=== PATIENT | male | born 1970 | race Caucasian/White ===

== ENCOUNTER 2017-02-25 11:17 | Inpatient (IN) | payer OTHER ==
[2017-02-25 13:04] VITALS: BMI 19.7
--- NOTE | 2017-02-25 16:51 | HP ---
CIWA Score - CIWA Score Nausea/Vomitin-Mild Nausea/No Vomiting Muscle Tremors: 3 Anxiety: 4-Mod. Anxious/Guarded Agitation: 1-Slight > Activity Paroxysmal Sweats: 1-Minimal Palms Moist Orientation: 1-Uncertain about Date Tacttile Disturbances: 0-None Auditory Disturbances: 1-Very Mild Visual Disturbances: 1-Very Mild Sensitivity Headache: 1-Very Mild CIWA-Ar Total Score: 14 Admission ROS BHS - HPI Chief Complaint: I want to stop drinking Allergies/Adverse Reactions: Allergies Allergy/AdvReac Type Severity Reaction Status Date / Time No Known Allergies Allergy Verified 02/25/17 16:50 History of Present Illness: 46 yo gentleman here for detox from alcohol - previously here october 2015. History of seizure and 'falls down' from drinking, also with black outs. States he has lost weight due to drinking. Exam Limitations: Clinical Condition - Ebola screening Have you traveled outside of the country in the last 21 days: No Have you had contact with anyone from an Ebola affected area: No Have you been sick,other than usual withdrawal symptoms: No Do you have a fever: No - Review of Systems Constitutional: Loss of Appetite, Changes in sleep EENT: reports: Blurred Vision Respiratory: reports: No Symptoms reported Cardiac: reports: No Symptoms Reported GI: reports: No Symptoms Reported : reports: Frequency Musculoskeletal: reports: No Symptoms Reported Integumentary: reports: No Symptoms Reported Neuro: reports: No Symptoms reported Endocrine: reports: No Symptoms Reported Hematology: reports: No Symptoms Reported Psychiatric: reports: Judgement Intact, Mood/Affect Appropiate, Anxious Other Systems: Reviewed and Negative Patient History - Patient Medical History Hx Anemia: No Hx Asthma: No Hx Chronic Obstructive Pulmonary Disease (COPD): No Hx Cancer: No Hx Cardiac Disorders: No Hx Congestive Heart Failure: No Hx Hypertension: Yes Hx Hypercholesterolemia: No Hx Pacemaker: No HX Cerebrovascular Accident: No Hx Seizures: Yes (ALCOHOL RELATED 3 MONTHS AGO) Hx Dementia: No Hx Diabetes: No Hx Gastrointestinal Disorders: No Hx Liver Disease: No Hx Genitourinary Disorders: No Hx Sexually Transmitted Disorders: No Hx Renal Disease (ESRD): No Hx Thyroid Disease: No Hx Human Immunodeficiency Virus (HIV): No Hx Hepatitis C: No Hx Depression: No Hx Suicide Attempt: No Hx Bipolar Disorder: No Hx Schizophrenia: No - Patient Surgical History Past Surgical History: No Hx Neurologic Surgery: No Hx Cataract Extraction: No Hx Cardiac Surgery: No Hx Lung Surgery: No Hx Breast Surgery: No Hx Breast Biopsy: No Hx Abdominal Surgery: No Hx Appendectomy: No Hx Cholecystectomy: No Hx Genitourinary Surgery: No Hx Section: No Hx Orthopedic Surgery: No Anesthesia Reaction: No - PPD History Date: 10/10/15 - Reproductive History Patient is a Female of Child Bearing Age (11 -55 yrs old): No (male) - Smoking Cessation Smoking history: Never smoked Have you smoked in the past 12 months: No Aproximately how many cigarettes per day: 0 Cigars Per Day: 0 Hx Chewing Tobacco Use: No Initiated information on smoking cessation: No - Substance & Tx. History Hx Alcohol Use: Yes Hx Substance Use: No Substance Use Type: Alcohol Hx Substance Use Treatment: Yes (detox) - Substances Abused Alcohol Route: Oral Frequency: Daily Amount used: 1 pint liquor Age of first use: 24 Date of Last Use: 02/24/17 Family Disease History - Family Disease History Family Disease History: Diabetes: Mother (htn, ), [place]: Father ( ; esophageal ), Mother, Other: Brother (healthy, etoh), Son (in army), Daughter (a ice cream dipper) Admission Physical Exam S - Vital Signs Vital Signs: Vital Signs - 24 hr 02/25/17 12:59 Temperature 96.4 F L Pulse Rate 113 H Respiratory 19 Rate Blood Pressure 110/70 - Physical General Appearance: Yes: Nourished, Appropriately Dressed, Mild Distress, Anxious HEENTM: Yes: Hearing grossly Normal, Normal ENT Inspection, Normocephalic, Normal Voice, Pharynx Normal Respiratory: Yes: Normal Breath Sounds, No Respiratory Distress Neck: Yes: No masses,lesions,Nodules Breast: Yes: Breast Exam Deferred Cardiology: Yes: Regular Rhythm, Regular Rate Abdominal: Yes: Soft Genitourinary: Yes: Frequency Back: Yes: Normal Inspection Musculoskeletal: Yes: full range of Motion, Gait Steady Extremities: Yes: Normal Inspection, Normal Range of Motion Neurological: Yes: Fully Oriented, Alert, Normal Mood/Affect, Normal Response Integumentary: Yes: Normal Color, Warm Lymphatic: Yes: Within Normal Limits - Diagnostic (1) Alcohol dependence with uncomplicated withdrawal Current Visit: Yes Status: Chronic (2) GERD (gastroesophageal reflux disease) Current Visit: Yes Status: Chronic (3) History of seizure Current Visit: Yes Status: Chronic Cleared for Admission [facility] - Detox or Rehab [facility] Level of Care: Medically Managed Detox Regimen/Protocol: Librium [facility] Breath Alcohol Content Breath Alcohol Content: 0.421 Urine Drug Screen - Results Drug Screen Negative: Yes Urine Drug Screen Results: THC-Marijuana, [place]-Cocaine, OPI-Opiates, AMP- Amphetamines, MET-Methamphetamine, PCP-Phencyclidine, MDMA-Ecstasy, BAR- Barbiturates, BZO-Benzodiazepines, MTD-Methadone, TCA-Tricyclic Antidepress, OXY -Oxycodone
[2017-02-25] MEDS ORDERED: MENTHOL/PHENOL 1 EACH UD MM PRN (16:56)
[2017-02-25] MEDS ORDERED: MAG HYDROX/AL HYDROX/SIMETH 30 ML UNIT-DOSE CUP PO PRN (16:56)
[2017-02-25] MEDS ORDERED: diphenhydrAMINE HCL 50 MG CAPSULE PO PRN (16:56)
[2017-02-25] MEDS ORDERED: hydrOXYzine PAMOATE 50 MG CAPSULE (FP) PO PRN (16:56)
[2017-02-25] MEDS ORDERED: P-EPHED 60MG/TRIPROLIDI 2.5MG TABLET PO PRN (16:56)
[2017-02-25] MEDS ORDERED: IBUPROFEN 400 MG TABLET (FP) PO PRN (16:56)
[2017-02-25] MEDS ORDERED: MAGNESIUM CITRATE 300 ML BOTTLE PO PRN (16:56)
[2017-02-25] MEDS ORDERED: MAGNESIUM HYDROX 2400MG/30ML ORAL SUSPENSION 30 ML CUP PO PRN (16:56)
[2017-02-25] MEDS ORDERED: guaiFENesin/D-METHORPHAN HB 10 ML UNIT-DOSE CUPS PO PRN (16:56)
[2017-02-25] MEDS ORDERED: ACETAMINOPHEN 325 MG TABLET (FP) PO PRN (16:56)
[2017-02-25] MEDS ORDERED: LOPERAMIDE HCL 2 MG CAPSULE PO PRN (16:56)
[2017-02-25] MEDS ORDERED: chlordiazePOXIDE HCL 25 MG CAPSULE PO ONE (18:15)
[2017-02-25 21:11] LABS: URINE APPEARANCE CLEAR; URINE BILIRUBIN NEGATIVE (NEGATIVE); URINE BLOOD 1+ (NEGATIVE); URINE COLOR STRAW; URINE GLUCOSE (UA) NEGATIVE (NEGATIVE); URINE KETONE NEGATIVE (NEGATIVE); URINE LEUK ESTERASE NEGATIVE (NEGATIVE); URINE NITRITE NEGATIVE (NEGATIVE); URINE PROTEIN NEGATIVE (NEGATIVE); URINE UROBILINOGEN NEGATIVE mg/dL (0.2-1.0)
[2017-02-25] MEDS: chlordiazePOXIDE HCL 25 MG CAPSULE PO SCH (22:33)
[2017-02-25] MEDS: THIAMINE HCL 100 MG TABLET (FP) PO SCH (22:33)
[2017-02-26] MEDS: chlordiazePOXIDE HCL 25 MG CAPSULE PO SCH ×3 (06:10→18:41)
[2017-02-26] MEDS: chlordiazePOXIDE HCL 25 MG CAPSULE PO PRN ×2 (08:58→13:45)
[2017-02-26] MEDS ORDERED: PRENATAL VITAMINS W/ FOLIC ACID TABLET (FP) PO SCH (10:00)
[2017-02-26] MEDS ORDERED: PANTOPRAZOLE 20 MG TABLET (FP) PO SCH (10:00)
[2017-02-26] MEDS ORDERED: PANTOPRAZOLE 40 MG TABLET (FP) PO SCH (10:00)
[2017-02-26 10:20] LABS: MCH 34.2 pg (25.7-33.7); MCHC 33.8 g/dl (32.0-35.9); MEAN CELL VOLUME 101.1 fl (80-96); MEAN PLT VOLUME 8.8 fl (7.5-11.1); PLATELET COUNT 85 K/MM3 (134-434); RDW 14.6 % (11.9-15.9); WHITE BLOOD COUNT 4.8 K/mm3 (4.0-10.0)
--- NOTE | 2017-02-26 10:22 | EKG ---
Test Reason : Blood Pressure : / mmHG Vent. Rate : 098 BPM Atrial Rate : 098 BPM P-R Int : 142 ms QRS Dur : 096 ms QT Int : 382 ms P-R-T Axes : 043 005 266 degrees QTc Int : 487 ms NORMAL SINUS RHYTHM PROLONGED QT ABNORMAL ECG WHEN COMPARED WITH ECG OF 25-FEB-2017 17:50, NO SIGNIFICANT CHANGE WAS FOUND Confirmed by MD IVETTE, BRENNAN ([id number]) on 02/26/2017 10:21:42 AM Referred By: Confirmed By:BRENNAN STEELE MD
--- NOTE | 2017-02-26 10:23 | EKG ---
Test Reason : Blood Pressure : / mmHG Vent. Rate : 099 BPM Atrial Rate : 099 BPM P-R Int : 156 ms QRS Dur : 100 ms QT Int : 366 ms P-R-T Axes : 038 002 -81 degrees QTc Int : 469 ms NORMAL SINUS RHYTHM PROLONGED QT ABNORMAL ECG NO PREVIOUS ECGS AVAILABLE Confirmed by MD IVETTE, BRENNAN ([id number]) on 02/26/2017 10:22:59 AM Referred By: Confirmed By:BRENNAN STEELE MD
[2017-02-26 10:44] LABS: ALBUMIN 2.9 g/dl (3.4-5.0); ALK PHOS 150 U/L (45-117); BILIRUBIN,TOTAL 0.4 mg/dL (0.2-1.0); CALCIUM 8.3 mg/dL (8.5-10.1); CO2 33 mmol/L (21-32); CREATININE 0.5 mg/dL (0.7-1.3); GLUCOSE,RANDOM 89 mg/dL (74-106); SGOT/AST 299 U/L (15-37); SGPT/ALT 87 U/L (12-78)
[2017-02-26 10:50] LABS: ANION GAP 10 (8-16)
--- NOTE | 2017-02-26 11:49 | CONSULT ---
[facility] Psychiatric Consult - Data Date of interview: 02/26/17 Admission source: [facility] Identifying data: Readmission to [facility] for this 46 y/o male seeking detox treatment [address] for alcohol dependence (U tox screen is positive for multiple substances).Patient is ,a father of one,domiciled and employed. Substance Abuse History: Patient only declares dependence on alcohol since age 23 (vodka + beer).See Tox screen results for additional information. Medical History: History of alcohol-related seizures and hypertension. Psychiatric History: Patient denies. Physical/Sexual Abuse/Trauma History: Patient denies. Additional Comment: Urine Drug Screen Results: THC-Marijuana, [place]-Cocaine, OPI- Opiates, AMP-Amphetamines, MET-Methamphetamine, PCP-Phencyclidine, MDMA-Ecstasy , BAR-Barbiturates, BZO-Benzodiazepines, MTD-Methadone, TCA-Tricyclic Antidepressant, OXY-Oxycodone.Noted from [facility] report. Mental Status Exam - Mental Status Exam Alert and Oriented to: Time, Place, Person Cognitive Function: Grossly Intact Patient Appearance: Unkempt, Disheveled Mood: Withdrawn, Apprehensive (thin) Affect: Constricted Patient Behavior: Fatigued, Cooperative Speech Pattern: Clear Voice Loudness: Moderately Soft/Quiet Thought Process: Goal Oriented Thought Disorder: Not Present Hallucinations: Denies Suicidal Ideation: Denies Insight/Judgement: Poor Sleep: Well Appetite: Poor, Weight loss Gait/Station: Other (unsteady gait) Psychiatric Findings - Problem List ([place] 1, 2,3) (1) Alcohol dependence with uncomplicated withdrawal Current Visit: Yes Status: Acute (2) Cannabis abuse Current Visit: Yes Status: Acute (3) Amphetamine abuse Current Visit: Yes Status: Acute (4) Opioid abuse Current Visit: Yes Status: Acute (5) Cocaine abuse Current Visit: Yes Status: Acute (6) Seizure disorder Current Visit: Yes Status: Chronic (7) GERD (gastroesophageal reflux disease) Current Visit: Yes Status: Chronic - Initial Treatment Plan Initial Treatment Plan: Psychoeducation.Detoxification is in progress.Falls precautions.Observation.
--- NOTE | 2017-02-26 12:23 | PN ---
[facility] CIWA - CIWA Score Nausea/Vomitin Muscle Tremors: 5 Anxiety: 3 Agitation: 0-Normal Activity Paroxysmal Sweats: 3 Orientation: 2-Disoriented Date<2 days Tacttile Disturbances: 2-Mild Itch/Numbness/Burn Auditory Disturbances: 2-Mild Harshness/Frighten Visual Disturbances: 0-None Headache: 0-None Present CIWA-Ar Total Score: 20 S Progress Note (SOAP) Subjective: Nausea, Stomach Cramping, Sweating, Tremors, Interrupted sleep. Objective: PT. A & O X 2 (DISORIENTED ABOUT DAY / DATE). NO ACUTE DISTRESS. RESULT OF REPEAT ECG FROM EARLIER TODAY NOTED. PATIENT DENIES ANY HISTORY OF CARDIAC DISEASE / DISORDER. 02/26/17 12:18 Vital Signs Temperature 98.5 F 02/26/17 09:19 Pulse Rate 106 H 02/26/17 09:19 Respiratory Rate 18 02/26/17 09:19 Blood Pressure 111/77 02/26/17 09:19 O2 Sat by Pulse Oximetry (%) Laboratory Tests 02/25/17 02/26/17 02/26/17 18:15 06:30 06:30 WBC 4.8 D RBC 2.83 L D Hgb 9.7 L D Hct 28.6 L D MCV 101.1 H MCH 34.2 H MCHC 33.8 RDW 14.6 D Plt Count 85 L D MPV 8.8 Sodium 139 Chloride 96 L Carbon Dioxide 33 H Anion Gap 10 BUN 6 L D Creatinine 0.5 L D Creat Clearance w eGFR > 60 Random Glucose 89 D Calcium 8.3 L Total Bilirubin 0.4 D AST 299 H ALT 87 H D Alkaline Phosphatase 150 H D Total Protein 7.0 Albumin 2.9 L D Urine Color Straw Urine Appearance Clear Urine pH 7.0 Ur Specific [place] 1.010 Urine Protein Negative Urine Glucose (UA) Negative Urine Ketones Negative Urine Blood 1+ H Urine Nitrite Negative Urine Bilirubin Negative Urine Urobilinogen Negative Ur Leukocyte Esterase Negative LABS NOTED. RPR AND HIV ANTIBODY RESULTS PENDING. 02/26/17 12:39 02/26/17 12:40 02/26/17 12:42 Assessment: 02/26/17 12:20 WITHDRAWAL SYMPTOMS. Plan: CONTINUE DETOX. POTASSIUM, LIQUID FORM, 40 MEQ PO BID (FIRST DOSE NOW) ORDERED. FEOSOL 325 MG PO BID WITH MEALS ORDERED. REPEAT CBC AND COMP. META. PANEL ON 02/28/2017 FOR ADMISSION ABNORMALITIES. INCREASE DOSE OF PROTONIX TO 40 MG PO DAILY FOR GERD EXACERBATION. WHEELCHAIR ORDERED TO ASSIST PATIENT DUE TO DIFFICULTY WITH AMBULATION. INCREASE PO FLUID INTAKE. CONTINUE TO MONITOR.
[2017-02-26] MEDS ORDERED: POTASSIUM CHLORIDE ORAL LIQUID 20 MEQ/15 ML PO ONE (13:15)
[2017-02-26 14:30] VITALS: BP 106/75; PULSE 120; TEMP 99
--- NOTE | 2017-02-26 15:45 | PN ---
[facility] Progress Note Note: Patient currently detoxing from Alcohol with Librium Detox regimen. Patient complaining of epigastric and discomfort earlier today in AM. Protonix, 40 mg PO given in AM. Patient reports history of GERD, but denies any cardiac history. Just received report from RN that patient reported that discomfort had subsided earlier, but that now has returned and that he is feeling discomfort in chest. When asked patient points primarily to sternal area as currently affected area. Patient reports pain as sharp and 8/10 on pain scale. Patient denies any radiation of pain, including to left arm. VS: BP: 102/66; P: 91; RR: 18: T: 99.1; O2: 91 % (Room Air). Report given to EDUAR Byers at [facility]. Patient to be taken via ambulance to [facility]. [place] NP.
[2017-02-26] MEDS ORDERED: FERROUS SO4 325 MG TABLET (FP) PO SCH (17:30)
[2017-02-26] MEDS ORDERED: POTASSIUM CHLORIDE ORAL LIQUID 20 MEQ/15 ML PO SCH ×2 (22:00)
[2017-02-26] MEDS: THIAMINE HCL 100 MG TABLET (FP) PO SCH (22:57)
[2017-02-26] MEDS ORDERED: chlordiazePOXIDE HCL 25 MG CAPSULE PO SCH (23:00)
[2017-02-27 14:58] LABS: HIV 1 & 2 AB NEGATIVE; HIV 1 AGp24 NEGATIVE
--- NOTE | 2017-02-27 22:49 | DS ---
[facility] Detox Discharge Summary Admission Date: 02/25/17 Discharge Date: 02/27/17 - History Present History: Alcohol Dependence, Cannabis Dependence, Cocaine Dependence, Opioid Dependence Additional Comments: PATIENT TAKEN TAKEN VIA AMBULANCE TO [facility] FOR CHEST PAIN, LATER ADMITTED TO HOSPITAL. Pertinent Past History: GERD, HTN, History of Seizures (due to Withdrawal). - Physical Exam Results Vital Signs: Vital Signs Temperature 99 F 02/26/17 14:29 Pulse Rate 120 H 02/26/17 14:29 Respiratory Rate 20 02/26/17 14:29 Blood Pressure 106/75 02/26/17 14:29 O2 Sat by Pulse Oximetry (%) Pertinent Admission Physical Exam Findings: WITHDRAWAL SYMPTOMS. Laboratory Tests 02/25/17 02/26/17 02/26/17 18:15 06:30 06:30 WBC 4.8 D RBC 2.83 L D Hgb 9.7 L D Hct 28.6 L D MCV 101.1 H MCH 34.2 H MCHC 33.8 RDW 14.6 D Plt Count 85 L D MPV 8.8 Sodium 139 Potassium 2.8 L* D Chloride 96 L Carbon Dioxide 33 H Anion Gap 10 BUN 6 L D Creatinine 0.5 L D Creat Clearance w eGFR > 60 Random Glucose 89 D Calcium 8.3 L Total Bilirubin 0.4 D AST 299 H ALT 87 H D Alkaline Phosphatase 150 H D Total Protein 7.0 Albumin 2.9 L D Urine Color Straw Urine Appearance Clear Urine pH 7.0 Ur Specific [place] 1.010 Urine Protein Negative Urine Glucose (UA) Negative Urine Ketones Negative Urine Blood 1+ H Urine Nitrite Negative Urine Bilirubin Negative Urine Urobilinogen Negative Ur Leukocyte Esterase Negative RPR Titer HIV 1&2 Antibody Screen HIV P24 Antigen 02/26/17 02/26/17 06:30 07:00 WBC RBC Hgb Hct MCV MCH MCHC RDW Plt Count MPV Sodium Potassium Chloride Carbon Dioxide Anion Gap BUN Creatinine Creat Clearance w eGFR Random Glucose Calcium Total Bilirubin AST ALT Alkaline Phosphatase Total Protein Albumin Urine Color Urine Appearance Urine pH Ur Specific [place] Urine Protein Urine Glucose (UA) Urine Ketones Urine Blood Urine Nitrite Urine Bilirubin Urine Urobilinogen Ur Leukocyte Esterase RPR Titer Nonreactive HIV 1&2 Antibody Screen Negative HIV P24 Antigen Negative LABS NOTED. - Treatment Hospital Course: Detox Protocol Followed, Detoxed Safely Patient has Accepted a Rehab Referral to: PATIENT DISCHARGED TO [facility]. SEE ADDITIONAL COMMENTS SECTION ABOVE - Diagnosis (1) Amphetamine abuse Status: Acute (2) Cannabis abuse Status: Acute (3) Chest pain Status: Acute Qualifiers: Chest pain type: other chest pain Qualified Code(s): R07.89 - Other chest pain; R07.8 - Other chest pain (4) Cocaine abuse Status: Acute (5) Alcohol dependence with uncomplicated withdrawal Status: Acute (6) GERD (gastroesophageal reflux disease) Status: Chronic Qualifiers: Esophagitis presence: without esophagitis Qualified Code(s): K21.9 - Gastro-esophageal reflux disease without esophagitis (7) History of seizure Status: Chronic (8) Pancreatitis Status: Acute Qualifiers: Chronicity: acute Pancreatitis type: alcohol induced Acute pancreatitis complication: unspecified Qualified Code(s): K85.20 - Alcohol induced acute pancreatitis without necrosis or infection - AMA Did Patient Leave Against Medical Advice: No
[2017-02-27] MEDS ORDERED: chlordiazePOXIDE 5 MG CAPSULE PO SCH (23:00)
[2017-02-28] MEDS ORDERED: chlordiazePOXIDE HCL 10 MG CAPSULE PO SCH (23:00)
--- NOTE | 2017-03-01 12:03 | EKG ---
Test Reason : Blood Pressure : / mmHG Vent. Rate : 091 BPM Atrial Rate : 091 BPM P-R Int : 126 ms QRS Dur : 094 ms QT Int : 406 ms P-R-T Axes : 025 -06 013 degrees QTc Int : 499 ms NORMAL SINUS RHYTHM T WAVE ABNORMALITY, CONSIDER ANTERIOR ISCHEMIA PROLONGED QT ABNORMAL ECG WHEN COMPARED WITH ECG OF 26-FEB-2017 06:42, NO SIGNIFICANT CHANGE WAS FOUND Confirmed by EMIR GRIGSBY MD ([id number]) on 03/01/2017 12:03:34 PM Referred By: Confirmed By:EMIR GRIGSBY MD
== END 2017-02-26 16:14 | disposition short-term general hospital (02) | DRG 774 ==
LOC: YASAS 11:17 → Y3N 17:36
PROVIDERS: ADMIT Internal Medicine Addiction Medicine; ATTEND Internal Medicine Addiction Medicine
PROC: HZ2ZZZZ Detoxification Services for Substance Abuse Treatment (ICD-10-PCS; principal; 2017-02-26)
DX: F10.230 Alcohol dependence with withdrawal, uncomplicated (principal); F14.10 Cocaine abuse, uncomplicated; F15.10 Other stimulant abuse, uncomplicated; F12.10 Cannabis abuse, uncomplicated; K21.9 Gastro-esophageal reflux disease without esophagitis; Z86.69 Personal history of other diseases of the nervous system and sense organs; K85.20 Alcohol induced acute pancreatitis without necrosis or infection
CPT/HCPCS: 36415; 80053; 81003; 81015; 85027; 86593; 87389; 93005; 93010

== ENCOUNTER 2017-02-26 16:24 | Inpatient (IN) | payer OTHER ==
[2017-02-26] MEDS ORDERED: RANITIDINE HCL 150 MG TABLET (FP) ONE (16:39)
[2017-02-26] MEDS ORDERED: MAG HYDROX/AL HYDROX/SIMETH 30 ML UNIT-DOSE CUP ONE (16:39)
[2017-02-26] MEDS ORDERED: MAG HYDROX/AL HYDROX/SIMETH 30 ML UNIT-DOSE CUP PO ONE (16:51)
[2017-02-26] MEDS ORDERED: RANITIDINE HCL 150 MG TABLET (FP) PO ONE (16:51)
--- NOTE | 2017-02-26 16:54 | PDOC ---
History of Present Illness - General Stated Complaint: CHEST PAIN Time Seen by Provider: 02/26/17 16:27 History Source: Patient Exam Limitations: No Limitations - History of Present Illness Initial Comments: 46 ear old male with history of assumed alcohol withdrawal seizures presenting from [facility] for nausea, vomiting, diarrhea, and chest pain since this AM. He was on a Librium taper at the detox center and began vomiting this AM that was refractory to librium and Protonix 40. He was reduced from a 50 po q6 librium regimen to 25 Q6 PO today. He describes the chest pain as an 8/10 sharp , non-radiating left sided pain that co-presents with diaphoresis and SOB. He states that his current constellation of symptoms are typical of his withdrawal episodes but he typically does not have chest pains. He does not have personal cardiac risk factors but has a few family members who from cardiac insult at an earlier age. 02/26/17 17:23 Past History - Past Medical History Allergies/Adverse Reactions: Allergies Allergy/AdvReac Type Severity Reaction Status Date / Time No Known Allergies Allergy Verified 02/25/17 16:50 Home Medications: Ambulatory Orders Omeprazole [Prilosec (RX)] 20 mg PO DAILY 10/08/15 Anemia: No Asthma: No Cancer: No Cardiac Disorders: No CVA: No COPD: No CHF: No Dementia: No Diabetes: No GI Disorders: No Disorders: No HTN: Yes Hypercholesterolemia: No Kidney Stones: No Liver Disease: No Suicide Attempt (Hx): No Seizures: Yes (ALCOHOL RELATED 3 MONTHS AGO) Thyroid Disease: No - Surgical History Abdominal Surgery: No Appendectomy: No Cardiac Surgery: No Cholecystectomy: No Lung Surgery: No Neurologic Surgery: No Orthopedic Surgery: No - Reproductive History Testicular Surgery: No - Psycho/Social/Smoking Cessation Hx Anxiety: No Suicidal Ideation: No Smoking History: Never smoked Have you smoked in the past 12 months: No Number of Cigarettes Smoked Daily: 0 Cigars Per Day: 0 'Breaking Loose' booklet given: 10/08/15 Hx Alcohol Use: Yes Drug/Substance Use Hx: No Substance Use Type: Alcohol Hx Substance Use Treatment: Yes (detox) Review of Systems - Review of Systems Constitutional: Yes: Chills, Diaphoresis. No: Fever, Loss of Appetite HEENTM: No: Blurred Vision, Tearing, Recent change in vision Respiratory: Yes: Shortness of Breath. No: Cough, Orthopnea Cardiac (ROS): Yes: Chest Pain, Lightheadedness. No: Edema, Irregular Heart Rate ABD/GI: Yes: Diarrhea, Nausea, Vomiting, Other (dark stools). No: Abdominal Distended : No: Frequency, Incontinence Musculoskeletal: No: Back Pain, Muscle Pain Integumentary: No: Dryness, Erythema Neurological: No: Headache *Physical Exam - Physical Exam General Appearance: Yes: Nourished, Appropriately Dressed, Apparent Distress, Mild Distress, Other (Tremulous) HEENT: positive: EOMI, ABELINO, Normal Voice Neck: positive: Normal Thyroid, Supple. negative: Tender, Rigid Respiratory/Chest: positive: Lungs Clear, Normal Breath Sounds. negative: Chest Tender, Respiratory Distress, Accessory Muscle Use Cardiovascular: positive: Regular Rhythm, Tachycardia. negative: Murmur Gastrointestinal/Abdominal: positive: Normal Bowel Sounds, Tender (Epigastic). negative: Flat, Soft, Organomegaly, Pulsatile Mass Rectal Exam: positive: normal exam, normal rectal tone. negative: hemorrhoids ( No external hemorrhoids) Musculoskeletal: positive: Normal Inspection Extremity: positive: Normal Capillary Refill, Normal Inspection, Normal Range of Motion. negative: Tender Integumentary: positive: Normal Color, Dry Neurologic: positive: Fully Oriented, Alert, Other (tremulousness) ED Treatment Course - LABORATORY CBC & Chemistry Diagram: 02/26/17 16:57 02/26/17 16:57 Medical Decision Making - Medical Decision Making 46 year old male with PMH of ETOH abuse presenting with nausea, vomiting, diarrhea, and chest pain from inpatient detox clinic. He has some family risk factors but no personal risk factors and with EKG changes significant for anterior lead T wave inversions. Will send CMP, troponins, CBC, repeat EKG, and CXR. Will give librium 50, Maalox, and ranitidine. 02/26/17 18:04 Lipase returned at 1400 with elevated LFTs but trop negative, Will admit patient for pancreatitis and potential ETOH withdrawal. 02/26/17 18:10 02/26/17 21:15 Patient admitted to [facility] Admitting service Dr. Michaels to [facility]. *DC/Admit/Observation/Transfer Diagnosis at time of Disposition: Pancreatitis - Discharge Dispostion Admit: Yes - Referrals Referrals: STAFF,NOT ON [Primary Care Provider] - - Attestations Scribe Attestion: 02/26/17 21:20 Physician Attestion: 02/26/17 21:19 I, Dr. Treva Givens, attest that this document has been prepared under my direction and personally reviewed by me in its entirety. I further attest, that it accurately reflects all work, treatment, procedures and medical decision -making performed by me.
[2017-02-26] MEDS ORDERED: PANTOPRAZOLE SODIUM 40 MG in SODIUM CHLORIDE 100 ML IVPB STA (16:58)
[2017-02-26] MEDS ORDERED: chlordiazePOXIDE HCL 25 MG CAPSULE PO ONE (17:06)
[2017-02-26 17:08] VITALS: BMI 19.8
--- NOTE | 2017-02-26 17:11 | PDOC ---
Attending Attestation - Resident Resident Name: Treva Givens - ED Attending Attestation I have performed the following: I have examined & evaluated the patient, The case was reviewed & discussed with the resident, I agree w/resident's findings & plan, Exceptions are as noted - HPI HPI: 02/26/17 17:04 46-year-old male with past medical history of polysubstance abuse and alcohol withdrawal seizures presents from [address] [place] [address] for chest pain. The patient was admitted yesterday for alcohol withdrawal and was given Librium. Patient states that he was feeling unwell this morning but had developed to dark tarry-like stools. Stated that he had may have taken Pepto-Bismol for abdominal pain. However, proximal at 2:00 PM, patient suddenly developed chest tightness with no radiation associated shortness of breath. Reports some nausea but no vomiting. Stated he also had epigastric discomfort. Denies sick contacts or recent travels. States that he has strong family history where his uncle had an HI at 46 years old but the patient never had a cardiac history but he was never tested for. - Physicial Exam PE: 02/26/17 17:07 GENERAL: Awake, alert, and fully oriented, in no acute distress. HEAD: No signs of trauma EYES: PERRLA, EOMI, sclera anicteric, conjunctiva clear ENT: Auricles normal inspection, hearing grossly normal, nares patent, oropharynx clear without exudates. NECK: Normal ROM, supple, no lymphadenopathy, JVD, or masses LUNGS: Breath sounds equal, clear to auscultation bilaterally. No wheezes, and no crackles HEART: Regular rate and rhythm, normal S1 and S2, no murmurs, rubs or gallops ABDOMEN: Soft, normoactive bowel sounds. No masses. Epigastric TTP, focal guarding. Rosa sign negative. EXTREMITIES: Normal range of motion, no edema. No clubbing or cyanosis. No cords, erythema, or tenderness NEUROLOGICAL: Cranial nerves II through XII grossly intact. Normal speech, normal gait SKIN: Warm, Dry, normal turgor, no rashes or lesions noted. RECTAL: As per resident - Medical Decision Making 02/26/17 17:08 The patient's chest pain in the setting of strong family history, should rule out myocardial infarction and should consider admission to the hospital. However , given the epigastric pain and dark stools, and given history of alcohol abuse , alcoholic gastritis and upper GI bleed is within the differential. We'll obtain guiac stool, labs and troponin. Patient ultimately be admitted to the hospital for further evaluation. Heart Score/ECG Review - History History: Moderately suspicious - Electrocardiogram EKG: Non specific repolarization disturbance - Age Age: </= 45 - Risk Factors Risk Factors Heart Score: Yes Positive family hx of cardiac disease Based on the list above the patient has:: 1-2 risk factors - Troponin Troponin: </= normal limit - Score Heart Score - Total: 3 #1 02/26/17 17:06 NSR no greg, 1mm STD V4, TWI V3-V4 TWI new compared to 2016
[2017-02-26] MEDS ORDERED: chlordiazePOXIDE HCL 25 MG CAPSULE ONE (17:23)
[2017-02-26] MEDS ORDERED: PANTOPRAZOLE SODIUM 100 ML IVPB ONE (17:24)
[2017-02-26 17:57] LABS: BASOPHIL 0.4 % (0-2.0); EOSINOPHIL 0.1 % (0-4.5); MCH 33.5 pg (25.7-33.7); MCHC 33.5 g/dl (32.0-35.9); MEAN CELL VOLUME 100.1 fl (80-96); MEAN PLT VOLUME 9.5 fl (7.5-11.1); NEUTROPHILS 79.5 % (42.8-82.8); PLATELET COUNT 90 K/MM3 (134-434); RDW 14.3 % (11.9-15.9); WHITE BLOOD COUNT 5.6 K/mm3 (4.0-10.0)
[2017-02-26 18:28] LABS: ALK PHOS 162 U/L (45-117); ANION GAP 7 (8-16); BILIRUBIN,TOTAL 0.7 mg/dL (0.2-1.0); CALCIUM 8.6 mg/dL (8.5-10.1); CO2 34 mmol/L (21-32); CREATININE 0.6 mg/dL (0.7-1.3); GLUCOSE,RANDOM 118 mg/dL (74-106); SGOT/AST 400 U/L (15-37); SGPT/ALT 103 U/L (12-78); TOT PROT 7.2 g/dl (6.4-8.2)
[2017-02-26 18:32] LABS: TROPONIN I < 0.02 ng/ml (0.00-0.05)
[2017-02-26] MEDS ORDERED: SODIUM CHLORIDE 500 ML IV STA (18:48)
[2017-02-26] MEDS: SODIUM CHLORIDE 1,000 ML IV SCH (19:52)
--- NOTE | 2017-02-26 20:15 | HP ---
CHIEF COMPLAINT: Chest Pain, Nausea PCP: Doctor Not on Staff HISTORY OF PRESENT ILLNESS: This is a 46 y/o male with a past medical history of alcohol dependence, alcohol seizure withdrawal. Who presents to the ED from [facility] for Detox with midsternal chest pain and nausea x last night. Patient reports the chest pain continued in the am. Patient reports last drink was 1.5 days ago 1.5 pints of Rum and 1- 6 pk of beer daily. Patient reports being constipated last BM today was hard and he reports straining. Patient reports familial Cardiac hx. Patient denies fever, chills, AP, V/D, melena, hematochezia, hematuria, dysuria ER course was notable for: (1) Cardiac Profile- CK 394, CKB 1.576, Trop < 0.02 (2) EKG- NSR with TWI V3-V4 (3) Transaminitis- 400/103/162 Recent Travel: None PAST MEDICAL HISTORY: Alcohol Dependence, Seizure Withdrawals GERD PAST SURGICAL HISTORY: Denies Social History: Smoking: Never Alcohol: Daily: 1.5 pint Rum, 6 pk Beer Drugs: Denies Lives with , employed Family History: Father: PR age 50 Uncle: PR age 37 Uncle: PR age 60s Allergies No Known Allergies Allergy (Verified 02/25/17 16:50) HOME MEDICATIONS: Home Medications Medication Instructions Recorded Omeprazole [Prilosec (RX)] 20 mg PO DAILY 10/08/15 REVIEW OF SYSTEMS CONSTITUTIONAL: loss of appetite Absent: fever, chills, diaphoresis, generalized weakness, malaise, weight change HEENT: Absent: rhinorrhea, nasal congestion, throat pain, throat swelling, difficulty swallowing, mouth swelling, ear pain, eye pain, visual changes CARDIOVASCULAR: chest pain Absent: syncope, palpitations, irregular heart rate, lightheadedness, peripheral edema RESPIRATORY: shortness of breath Absent: cough, dyspnea with exertion, orthopnea, wheezing, stridor, hemoptysis GASTROINTESTINAL: epigastric pain, nausea Absent: abdominal distension, vomiting, diarrhea, constipation, melena, hematochezia GENITOURINARY: Absent: dysuria, frequency, urgency, hesitancy, hematuria, flank pain, genital pain MUSCULOSKELETAL: Absent: myalgia, arthralgia, joint swelling, back pain, neck pain SKIN: Absent: rash, itching, pallor HEMATOLOGIC/IMMUNOLOGIC: Absent: easy bleeding, easy bruising, lymphadenopathy, frequent infections ENDOCRINE: Absent: unexplained weight gain, unexplained weight loss, heat intolerance, cold intolerance NEUROLOGIC: Absent: headache, focal weakness or paresthesias, dizziness, unsteady gait, seizure, mental status changes, bladder or bowel incontinence PSYCHIATRIC: Absent: anxiety, depression, suicidal or homicidal ideation, hallucinations. PHYSICAL EXAMINATION Vital Signs - 24 hr 02/26/17 16:57 Temperature 98.3 F Pulse Rate 100 H Respiratory 18 Rate Blood Pressure 112/77 O2 Sat by Pulse 100 Oximetry (%) GENERAL:Thin, awake, alert, and fully oriented, in no acute distress. HEAD: Normal with no signs of trauma. EYES: Pupils equal, round and reactive to light, extraocular movements intact, sclera anicteric, conjunctiva clear. No lid lag. EARS, NOSE, THROAT: Ears normal, nares patent, oropharynx clear without exudates. Dry mucous membranes. NECK: Normal range of motion, supple without lymphadenopathy, JVD, or masses. LUNGS: Breath sounds equal, clear to auscultation bilaterally. No wheezes, and no crackles. No accessory muscle use. HEART: Regular rate and rhythm, normal S1 and S2 without murmur, rub or gallop. CP is reproducible upon palpation ABDOMEN: Soft, not distended, normoactive bowel sounds, no guarding, no rebound , no masses. No hepatomegaly or splenomegaly. RUQ/LLQ tenderness, MUSCULOSKELETAL: Normal range of motion at all joints. No bony deformities or tenderness. No CVA tenderness. UPPER EXTREMITIES: 2+ pulses, warm, well-perfused. No cyanosis. No clubbing. No peripheral edema. LOWER EXTREMITIES: 2+ pulses, warm, well-perfused. No calf tenderness. No peripheral edema. NEUROLOGICAL: Cranial nerves II-XII intact. Normal speech. Normal gait. PSYCHIATRIC: Cooperative. Good eye contact. Appropriate mood and affect. SKIN: Warm, dry, normal turgor, no rashes or lesions noted, normal capillary refill. Laboratory Results - last 24 hr 02/26/17 02/26/17 02/26/17 13:42 16:57 16:57 WBC 5.6 RBC 2.90 L Hgb 9.7 L Hct 29.1 L MCV 100.1 H MCH 33.5 MCHC 33.5 RDW 14.3 Plt Count 90 L MPV 9.5 Neutrophils % 79.5 Lymphocytes % 10.9 Monocytes % 9.1 Eosinophils % 0.1 Basophils % 0.4 Sodium Potassium Chloride Carbon Dioxide Anion Gap BUN Creatinine Creat Clearance w eGFR Random Glucose Calcium Total Bilirubin AST ALT Alkaline Phosphatase Creatine Kinase 394 H CK-MB (CK-2) 1.576 Troponin I < 0.02 Total Protein Albumin Lipase Stool Occult Blood Positive 02/26/17 02/26/17 16:57 17:50 WBC RBC Hgb Hct MCV MCH MCHC RDW Plt Count MPV Neutrophils % Lymphocytes % Monocytes % Eosinophils % Basophils % Sodium 134 L Potassium 4.2 D Chloride 93 L Carbon Dioxide 34 H Anion Gap 7 L BUN 8 D Creatinine 0.6 L Creat Clearance w eGFR > 60 Random Glucose 118 H D Calcium 8.6 Total Bilirubin 0.7 D AST 400 H D ALT 103 H Alkaline Phosphatase 162 H Creatine Kinase CK-MB (CK-2) Troponin I Total Protein 7.2 Albumin 3.0 L Lipase 1340 H Stool Occult Blood ASSESSMENT/PLAN: This is a 46 y/o male with a PMHx of Alcohol Dependence, Alcohol Withdrawal Seizure, GERD. Placed on Tele Observation Chest Pain r/o ACS for further evaluation of their emergent condition. Problems 1. Chest Pain 2. Alcohol Dependence 3. Alcohol Withdrawal 4. Transaminitis 5. Pancreatitis 6. + Stool Occult 7. GERD Plan: 1. Cardiac - r/o ACS vs GERD vs Pancreatitis - Tele monitoring - HEART Score 2 - Serial Enzymes - EKG- reviewed TWI new compared to study 10/2015 - f/u Echo in outpatient setting - Hold Asa secondary to FOBT + - Maalox prn 2. Alcohol Dependence/Withdrawal - CIWA Score 6 - Continue Detox upon d/c - Ativan prn - Hold Librium 2/2 Transaminitis - Continue IVF - Thiamine, Folic Acid daily - Appreciate Detox Consult - Monitor vitals - Fall Precautions 3. Pancreatitis - Likely secondary to Alcohol Abuse Problem List - Problem (1) Chest pain Code(s): R07.9 - CHEST PAIN, UNSPECIFIED (2) Pancreatitis Code(s): K85.90 - ACUTE PANCREATITIS WITHOUT NECROSIS OR INFECTION, UNSP (3) Alcohol dependence Code(s): F10.20 - ALCOHOL DEPENDENCE, UNCOMPLICATED (4) GERD (gastroesophageal reflux disease) Code(s): K21.9 - GASTRO-ESOPHAGEAL REFLUX DISEASE WITHOUT ESOPHAGITIS (5) Seizure due to alcohol withdrawal Code(s): F10.239 - ALCOHOL DEPENDENCE WITH WITHDRAWAL, UNSPECIFIED R56.9 - UNSPECIFIED CONVULSIONS (6) DVT prophylaxis Code(s): YWA6503 - Visit type - Emergency Visit Emergency Visit: Yes ED Registration Date: 02/26/17 Care time: The patient presented to the Emergency Department on the above date and was hospitalized for further evaluation of their emergent condition. - New Patient This patient is new to me today: Yes Date on this admission: 02/26/17 - Critical Care Critical Care patient: No
[2017-02-26] MEDS ORDERED: ONDANSETRON 4 MG/2 ML VIAL IVPB PRN (20:52)
[2017-02-26] MEDS ORDERED: LORazepam 2 MG/ML SDV VIAL ONE (21:56)
[2017-02-26] MEDS: LORAZEPAM CARPU-JECT 2 MG/ML DISP.SYRIN IVPUSH PRN (21:59)
[2017-02-27 00:10] LABS: TROPONIN I < 0.02 ng/ml (0.00-0.05)
[2017-02-27] MEDS: LORAZEPAM CARPU-JECT 2 MG/ML DISP.SYRIN IVPUSH PRN (04:07)
[2017-02-27 07:34] LABS: BASOPHIL 0.2 % (0-2.0); EOSINOPHIL 0.2 % (0-4.5); MCH 34.2 pg (25.7-33.7); MCHC 34.1 g/dl (32.0-35.9); MEAN CELL VOLUME 100.2 fl (80-96); MEAN PLT VOLUME 9.7 fl (7.5-11.1); NEUTROPHILS 84.9 % (42.8-82.8); PLATELET COUNT 83 K/MM3 (134-434); RDW 14.5 % (11.9-15.9); WHITE BLOOD COUNT 8.4 K/mm3 (4.0-10.0)
[2017-02-27 08:24] LABS: ANION GAP 8 (8-16); CALCIUM 8.3 mg/dL (8.5-10.1); CO2 32 mmol/L (21-32); CREATININE 0.6 mg/dL (0.7-1.3); GLUCOSE,RANDOM 98 mg/dL (74-106); PHOSPHOROUS 1.5 mg/dL (2.5-4.9)
[2017-02-27 08:29] LABS: TROPONIN I < 0.02 ng/ml (0.00-0.05)
[2017-02-27] MEDS ORDERED: LORAZEPAM CARPU-JECT 2 MG/ML DISP.SYRIN IM ONE (08:35)
[2017-02-27 09:46] LABS: PLATELET ESTIMATE ADEQUATE (NORMAL)
[2017-02-27] MEDS: FOLIC ACID 1 MG TABLET (FP) PO SCH (09:47)
[2017-02-27] MEDS: SODIUM CHLORIDE 1,000 ML IV SCH (09:48)
[2017-02-27] MEDS: THIAMINE HCL 100 MG TABLET (FP) PO SCH (09:48)
[2017-02-27] MEDS ORDERED: PANTOPRAZOLE SODIUM 100 ML IVPB SCH (10:00)
[2017-02-27] MEDS: PANTOPRAZOLE 40 MG TABLET (FP) PO SCH (10:04)
[2017-02-27] MEDS ORDERED: MAGNESIUM OXIDE 400 MG TABLET (FP) PO ONE (12:13)
[2017-02-27] MEDS ORDERED: NAPH,MB-DB/K PH,MBDB POWDER PACKET PO SCH (12:15)
[2017-02-27] MEDS ORDERED: LORAZEPAM CARPU-JECT 2 MG/ML DISP.SYRIN IM PRN (15:14)
--- NOTE | 2017-02-27 15:29 | PN ---
Physical Exam: SUBJECTIVE: Patient seen and examined. He is refusing his IV, pulling it out and refusing to wear heart monitor. He wants to return to [facility], does not understand his medical issues. OBJECTIVE: Vital Signs Period Temp Pulse Resp BP Sys/Ho Pulse Ox Last 24 Hr 99 F-100.4 F 100-114 20-20 102-122/77-83 98 PE Neuro: alert, awake, cn2-12 intact, + DT upper ext, + tongue fasciculation, easily forgetful, often reorienting Pulm: CTAB CV: s1 s2 tachycardia no mrg Abd: s nt nd +bs Ext: warm, no le edema Laboratory Results - last 24 hr 02/26/17 02/27/17 02/27/17 23:27 05:20 05:20 WBC 8.4 D RBC 2.88 L Hgb 9.8 L Hct 28.8 L MCV 100.2 H MCH 34.2 H MCHC 34.1 RDW 14.5 Plt Count 83 L MPV 9.7 Neutrophils % 84.9 H Lymphocytes % 8.3 D Monocytes % 6.4 Eosinophils % 0.2 D Basophils % 0.2 Platelet Estimate Adequate Macrocytosis 1+ Morphology Comment Slide scanned Sodium 136 Potassium 3.6 Chloride 96 L Carbon Dioxide 32 Anion Gap 8 BUN 4 L D Creatinine 0.6 L Random Glucose 98 Calcium 8.3 L Phosphorus 1.5 L Magnesium 1.0 L Creatine Kinase 399 H 388 H Creatine Kinase Index 0.3 0.3 CK-MB (CK-2) 1.033 < 1 CK-MB (CK-2) Rel Index Troponin I < 0.02 < 0.02 Active Medications Generic Name Dose Route Start Last Admin Trade Name Freq PRN Reason Stop Dose Admin Folic Acid 1 mg 02/27/17 10:00 02/27/17 09:47 Folic Acid - PO 1 mg DAILY MICHELLE Administration Sodium Chloride 1,000 mls @ 125 mls/hr 02/26/17 19:00 02/27/17 09:48 Normal Saline - IV Not Given ASDIR MICHELLE Lorazepam 2 mg 02/27/17 15:14 Ativan Injection - IM Q4H PRN WITHDRAWAL(CONT SUBST) Pantoprazole Sodium 40 mg 02/27/17 10:00 02/27/17 10:04 Protonix - PO 40 mg DAILY MICHELLE Administration Potassium Phos/Sodium Phos 1 packet 02/27/17 22:00 Phos-Nak Packet - PO TID MICHELLE Thiamine HCl 100 mg 02/27/17 10:00 02/27/17 09:48 Vitamin B1 - PO 100 mg DAILY MICHELLE Administration Assessment: 46 year old male admitted from [facility] with chest pain and elevated LFTs Plan: 1. Transaminitis - Due to ETOH abuse vs acute renetta - US suggest of acute renetta - Start levaquin/flagyl - Trend levels - Surgery consult 2. ETOH withdrawal - Ativan 2mg IM q4 prn - Librium 50mg x1 - Folic acid daily - Thiamine daily - Wants to return to [facility] - Dr Mt berman consult 3. Fever - Possibly d/t Acute cholecystitis - CXR now r/o pna - UA 4. Chest pain - Pt refusing tele monitor - r/o [place] serial trops negative - ECHO eval LV fxn 5. Alcoholic pancreatitis - NS @125cc/hr - Trend - IV pulled out, pt refusing RN to attempt reinsertion 6. Hypomagnesemia - Replete mg ox 800mg x1 - Recheck in AM - No IV access 7. Hypophosphatemia - K phos packets TID - Trend Visit type - Emergency Visit Emergency Visit: Yes ED Registration Date: 02/26/17 Care time: The patient presented to the Emergency Department on the above date and was hospitalized for further evaluation of their emergent condition. - New Patient This patient is new to me today: Yes Date on this admission: 02/27/17 - Critical Care Critical Care patient: No
[2017-02-27] MEDS ORDERED: chlordiazePOXIDE HCL 25 MG CAPSULE PO ONE (15:41)
[2017-02-27] MEDS: LEVOFLOXACIN 500 MG TABLET (FP) PO SCH (16:59)
[2017-02-27] MEDS: metroNIDAZOLE 250 MG TABLET PO SCH ×2 (17:33→22:30)
--- NOTE | 2017-02-27 18:25 | CONSULT ---
Consult Detox [facility] Reason for Current Admission/Consult: 46 y/o m pt with h/o chronic alcoholism on librium detox at [facility] began c/o chest pain assoc. with nausea and vomitng , Has elevated lipase and transaminases - librium switched to ativan but pt pulled out iv line and removed monitor leads . Pt with tremors at present . - History History of Present Illness: m pt with lonstanding h/o chronic alcoholisim, well known to [facility] comes in for alcohol detox. On second day of detox pt begins to c/o chest pains assoc. with nausea and vomiting . Pt transfered to [facility] for further evaluation . Pt admitted for pancreatitis and alcohol withdrawal' - History Source History Provided By: Patient Limitations to Obtaining History: No Limitations - Alcohol/Substance Use Hx Alcohol Use: Yes (vodka 1 pt /d ) Hx Substance Use: No (pt u/tox positive for multiple drugs but he denies any use except for alcoh) Hx Substance Use Treatment: No - Current Drug/Alcohol Use Alcohol Route: Oral Frequency: Daily Amount used: 1 pt/d Age of first use: 21 Date of Last Use: 02/25/17 - Past Medical History Gastrointestinal: Yes: GERD - Significant Medical Findings: 46 y/o m pt sitting in chair tremulous . cooperative but expressing a desire to leave hospital .pt reports no chest pain no sob no diaphoresis eyes perrl, eom intact aox2, responding appropriately-did know date and year but not month +tremors no acute hallucinations Vital Signs Temperature 99.5 F 02/27/17 14:19 Pulse Rate 114 H 02/27/17 14:19 Respiratory Rate 20 02/27/17 14:19 Blood Pressure 120/77 02/27/17 14:19 O2 Sat by Pulse Oximetry (%) 98 02/26/17 21:54 Laboratory Tests 02/26/17 02/26/17 02/26/17 13:42 16:57 16:57 WBC 5.6 RBC 2.90 L Hgb 9.7 L Hct 29.1 L MCV 100.1 H MCH 33.5 MCHC 33.5 RDW 14.3 Plt Count 90 L MPV 9.5 Neutrophils % 79.5 Lymphocytes % 10.9 Monocytes % 9.1 Eosinophils % 0.1 Basophils % 0.4 Platelet Estimate Macrocytosis Morphology Comment Sodium Potassium Chloride Carbon Dioxide Anion Gap BUN Creatinine Creat Clearance w eGFR Random Glucose Calcium Phosphorus Magnesium Total Bilirubin AST ALT Alkaline Phosphatase Creatine Kinase 394 H Creatine Kinase Index CK-MB (CK-2) 1.576 CK-MB (CK-2) Rel Index Troponin I < 0.02 Total Protein Albumin Lipase Stool Occult Blood Positive 02/26/17 02/26/17 02/26/17 16:57 16:57 17:50 WBC RBC Hgb Hct MCV MCH MCHC RDW Plt Count MPV Neutrophils % Lymphocytes % Monocytes % Eosinophils % Basophils % Platelet Estimate Macrocytosis Morphology Comment Sodium 134 L Potassium 4.2 D Chloride 93 L Carbon Dioxide 34 H Anion Gap 7 L BUN 8 D Creatinine 0.6 L Creat Clearance w eGFR > 60 Random Glucose 118 H D Calcium 8.6 Phosphorus Magnesium Total Bilirubin 0.7 D AST 400 H D ALT 103 H Alkaline Phosphatase 162 H Creatine Kinase Creatine Kinase Index CK-MB (CK-2) CK-MB (CK-2) Rel Index Cancelled Troponin I Total Protein 7.2 Albumin 3.0 L Lipase 1340 H Stool Occult Blood 02/26/17 02/27/17 02/27/17 23:27 05:20 05:20 WBC 8.4 D RBC 2.88 L Hgb 9.8 L Hct 28.8 L MCV 100.2 H MCH 34.2 H MCHC 34.1 RDW 14.5 Plt Count 83 L MPV 9.7 Neutrophils % 84.9 H Lymphocytes % 8.3 D Monocytes % 6.4 Eosinophils % 0.2 D Basophils % 0.2 Platelet Estimate Adequate Macrocytosis 1+ Morphology Comment Slide scanned Sodium 136 Potassium 3.6 Chloride 96 L Carbon Dioxide 32 Anion Gap 8 BUN 4 L D Creatinine 0.6 L Creat Clearance w eGFR Random Glucose 98 Calcium 8.3 L Phosphorus 1.5 L Magnesium 1.0 L Total Bilirubin AST ALT Alkaline Phosphatase Creatine Kinase 399 H 388 H Creatine Kinase Index 0.3 0.3 CK-MB (CK-2) 1.033 < 1 CK-MB (CK-2) Rel Index Troponin I < 0.02 < 0.02 Total Protein Albumin Lipase Stool Occult Blood 02/27/17 02/27/17 05:20 05:20 WBC RBC Hgb Hct MCV MCH MCHC RDW Plt Count MPV Neutrophils % Lymphocytes % Monocytes % Eosinophils % Basophils % Platelet Estimate Macrocytosis Morphology Comment Sodium Potassium Chloride Carbon Dioxide Anion Gap BUN Creatinine Creat Clearance w eGFR Random Glucose Calcium Phosphorus Magnesium Total Bilirubin AST ALT Alkaline Phosphatase Creatine Kinase Cancelled Creatine Kinase Index CK-MB (CK-2) CK-MB (CK-2) Rel Index Cancelled Troponin I Cancelled Total Protein Albumin Lipase Stool Occult Blood CIWA Score - CIWA Score Nausea/Vomitin-No Nausea/No Vomiting Muscle Tremors: 4-Moderate,w/Arms Extend Anxiety: 3 Agitation: 2 Paroxysmal Sweats: 1-Minimal Palms Moist Orientation: 1-Uncertain about Date Tacttile Disturbances: 1-Very Mild Itch/Numbness Auditory Disturbances: 0-None Visual Disturbances: 0-None Headache: 0-None Present CIWA-Ar Total Score: 12 Assessment Plan - Diagnosis (1) Alcohol dependence with uncomplicated withdrawal Status: Chronic (2) Pancreatitis Status: Acute Qualifiers: Acute pancreatitis complication: unspecified (3) GERD (gastroesophageal reflux disease) Status: Chronic Qualifiers: Esophagitis presence: without esophagitis Qualified Code(s): K21.9 - Gastro-esophageal reflux disease without esophagitis (4) Anxiety Status: Acute - Plan Plan: Will place on valium protocol because he has refused IV ativan and because of elevated lipase and transaminases librium was held. completion of detox and after care -rehab or out pt. program ie AA discussed with pt. He stated he has been in AA in the past and did well . He stated he will go after detox to AA. Adherence with this plan strongly recommended . - Medication Detox Regimen/Protocol: Valium
[2017-02-27 18:38] LABS: URINE APPEARANCE CLEAR; URINE BILIRUBIN NEGATIVE (NEGATIVE); URINE BLOOD NEGATIVE (NEGATIVE); URINE COLOR AMBER; URINE GLUCOSE (UA) 1+ (NEGATIVE); URINE KETONE TRACE (NEGATIVE); URINE LEUK ESTERASE NEGATIVE (NEGATIVE); URINE NITRITE NEGATIVE (NEGATIVE)
[2017-02-27] MEDS ORDERED: diazePAM 5 MG TABLET PO ONE (18:53)
[2017-02-27] MEDS ORDERED: diazePAM 5 MG TABLET PO PRN (18:53)
[2017-02-27 19:02] LABS: URINE PROTEIN 2+ (NEGATIVE)
[2017-02-27 19:04] LABS: URINE BACTERIA RARE /hpf (NONE SEEN); URINE HYALINE CAST 3 /lpf; URINE MUCUS RARE; URINE RBC 1 /hpf (0-3); URINE WBC 2 /hpf (3-5)
[2017-02-27] MEDS ORDERED: PT OWN MED DRAWER 7, Y5N ONE (21:45)
[2017-02-27] MEDS: diazePAM 5 MG TABLET PO SCH (21:50)
[2017-02-27] MEDS: NAPH,MB-DB/K PH,MBDB POWDER PACKET PO SCH (21:50)
[2017-02-28] MEDS: diazePAM 5 MG TABLET PO SCH (05:46)
[2017-02-28] MEDS: NAPH,MB-DB/K PH,MBDB POWDER PACKET PO SCH (05:46)
[2017-02-28] MEDS: metroNIDAZOLE 250 MG TABLET PO SCH (05:47)
[2017-02-28 08:52] LABS: ALBUMIN 2.5 g/dl (3.4-5.0); ALK PHOS 142 U/L (45-117); ANION GAP 10 (8-16); BILIRUBIN,TOTAL 1.3 mg/dL (0.2-1.0); CALCIUM 8.6 mg/dL (8.5-10.1); CO2 29 mmol/L (21-32); CREATININE 0.6 mg/dL (0.7-1.3); GLUCOSE,RANDOM 92 mg/dL (74-106); MAGNESIUM 1.1 mg/dL (1.8-2.4); PHOSPHOROUS 2.2 mg/dL (2.5-4.9); SGPT/ALT 184 U/L (12-78); TOT PROT 6.6 g/dl (6.4-8.2)
[2017-02-28 09:04] LABS: SGOT/AST 595 U/L (15-37)
[2017-02-28] MEDS: FOLIC ACID 1 MG TABLET (FP) PO SCH (09:57)
[2017-02-28] MEDS: PANTOPRAZOLE 40 MG TABLET (FP) PO SCH (09:57)
[2017-02-28] MEDS: THIAMINE HCL 100 MG TABLET (FP) PO SCH (09:57)
[2017-02-28] MEDS: LEVOFLOXACIN 500 MG TABLET (FP) PO SCH (09:57)
--- NOTE | 2017-02-28 10:20 | DS ---
Physical Exam: SUBJECTIVE: Patient seen and examined at bedside. Requesting to leave AMA. Risks of leaving explained to patient. Pt was able to verbalize risks of leaving AMA and is aware that he is welcome to return for care. OBJECTIVE: Vital Signs Period Temp Pulse Resp BP Sys/Ho Pulse Ox Last 24 Hr 98.0 F-99.5 F 91-130 18-20 101-120/62-77 98 PHYSICAL EXAM GENERAL: The patient is awake, alert, and fully oriented, in no acute distress. HEAD: Normal with no signs of trauma. EYES: PERRL, extraocular movements intact, sclera anicteric, conjunctiva clear. ENT: Ears normal, nares patent, oropharynx clear without exudates, moist mucous membranes. NECK: Trachea midline, full range of motion, supple. LUNGS: Breath sounds equal, clear to auscultation bilaterally, no wheezes, no crackles, no accessory muscle use. HEART: Regular rate and rhythm, S1, S2 without murmur, rub or gallop. ABDOMEN: Soft, nondistended, normoactive bowel sounds. Guarding and tenderness to upper quadrants. EXTREMITIES: 2+ pulses, warm, well-perfused, no edema. No tremors noted. NEUROLOGICAL: Cranial nerves II through XII grossly intact. Normal speech, gait steady. PSYCH: Normal mood, normal affect. SKIN: Warm, dry, normal turgor, no rashes or lesions noted. LABS Laboratory Results - last 24 hr 02/26/17 02/27/17 02/27/17 23:27 05:20 05:20 Sodium 136 Potassium 3.6 Chloride 96 L Carbon Dioxide 32 Anion Gap 8 BUN 4 L D Creatinine 0.6 L Creat Clearance w eGFR Random Glucose 98 Calcium 8.3 L Phosphorus 1.5 L Magnesium 1.0 L Total Bilirubin AST ALT Alkaline Phosphatase Creatine Kinase 399 H 388 H Creatine Kinase Index 0.3 0.3 CK-MB (CK-2) 1.033 < 1 CK-MB (CK-2) Rel Index Cancelled Troponin I < 0.02 < 0.02 Total Protein Albumin Lipase Urine Color Urine Appearance Urine pH Ur Specific [place] Urine Protein Urine Glucose (UA) Urine Ketones Urine Blood Urine Nitrite Urine Bilirubin Urine Urobilinogen Ur Leukocyte Esterase Urine RBC Urine WBC Ur Epithelial Cells Urine Bacteria Hyaline Casts Urine Mucus 02/27/17 02/28/17 17:00 05:50 Sodium 137 Potassium 3.5 Chloride 98 Carbon Dioxide 29 Anion Gap 10 BUN 9 D Creatinine 0.6 L Creat Clearance w eGFR > 60 Random Glucose 92 Calcium 8.6 Phosphorus 2.2 L D Magnesium 1.1 L Total Bilirubin 1.3 H D AST 595 H D ALT 184 H D Alkaline Phosphatase 142 H Creatine Kinase Creatine Kinase Index CK-MB (CK-2) CK-MB (CK-2) Rel Index Troponin I Total Protein 6.6 Albumin 2.5 L Lipase 850 H Urine Color [place] Urine Appearance Clear Urine pH 7.0 Ur Specific [place] 1.015 Urine Protein 2+ H Urine Glucose (UA) 1+ H Urine Ketones Trace H Urine Blood Negative Urine Nitrite Negative Urine Bilirubin Negative Urine Urobilinogen 2.0 Ur Leukocyte Esterase Negative Urine RBC 1 Urine WBC 2 Ur Epithelial Cells Rare Urine Bacteria Rare Hyaline Casts 3 Urine Mucus Rare HOSPITAL COURSE: Date of Admission:02/26/17 Date of Discharge: 02/28/17 Minutes to complete discharge: 25 Discharge Summary Reason For Visit: PANCREANTITIS Current Active Problems Alcohol dependence with uncomplicated withdrawal (Acute) Amphetamine abuse (Acute) Cannabis abuse (Acute) Chest pain (Acute) Cocaine abuse (Acute) DVT prophylaxis (Acute) Opioid abuse (Acute) Pancreatitis (Acute) Seizure due to alcohol withdrawal (Acute) GERD (gastroesophageal reflux disease) (Chronic) History of seizure (Chronic) Seizure disorder (Chronic) Hospital Course: Assessment: 46 year old male admitted from [facility] with chest pain and elevated LFTs with cholecystitis. Plan: 1. Transaminitis - Due to ETOH abuse vs acute renetta - US suggestive of acute renetta - Started on levaquin/flagyl - Surgery consult pending 2. ETOH withdrawal - Ativan 2mg IM q4 prn - Librium 50mg x1 - Folic acid daily - Thiamine daily - Wants to return to [facility] - Dr Mt berman consulted 3. Fever - Possibly d/t Acute cholecystitis - CXR now r/o pna - UA 4. Chest pain - Pt refusing tele monitor - r/o [place] serial trops negative - ECHO eval LV fxn 5. Alcoholic pancreatitis - refusing IVF 6. Hypomagnesemia - Replete mg ox 800mg x1 - Refused to recheck - No IV access 7. Hypophosphatemia - K phos packets TID - refused re-evaluation Dispo- pt left AMA prior to receiving Rx for antibiotics. - Instructions Referrals: STAFF,NOT ON [Primary Care Provider] - Disposition: AGAINST MEDICAL ADVICE This patient is new to me today: Yes Date on this admission: 03/02/17 Emergency Visit: Yes ED Registration Date: 02/26/17 Care time: The patient presented to the Emergency Department on the above date and was hospitalized for further evaluation of their emergent condition. Critical Care patient: No - Discharge Referral Referred to [facility] Med [facility] No
[2017-02-28 10:26] VITALS: BP 118/76; PULSE 115; TEMP 99.2
--- NOTE | 2017-03-01 09:33 | EKG ---
Test Reason : Blood Pressure : / mmHG Vent. Rate : 106 BPM Atrial Rate : 106 BPM P-R Int : 122 ms QRS Dur : 090 ms QT Int : 356 ms P-R-T Axes : 017 -05 265 degrees QTc Int : 472 ms SINUS TACHYCARDIA ABNORMAL ECG WHEN COMPARED WITH ECG OF 26-FEB-2017 14:08, NO SIGNIFICANT CHANGE WAS FOUND Confirmed by EMIR GRIGSBY MD ([id number]) on 03/01/2017 9:33:23 AM Referred By: Confirmed By:EMIR GRIGSBY MD
[2017-03-01] MEDS ORDERED: diazePAM 5 MG TABLET PO SCH (10:00)
[2017-03-03] MEDS ORDERED: diazePAM 5 MG TABLET PO SCH (10:00)
== END 2017-02-28 10:32 | disposition left against medical advice (07) | DRG 282 ==
LOC: JER 16:24 → JERBED 21:20 → J4W 02-27 00:45
PROVIDERS: ADMIT Internal Medicine; ATTEND Nurse Practitioner Family
PROC: HZ2ZZZZ Detoxification Services for Substance Abuse Treatment (ICD-10-PCS; principal; 2017-02-26)
DX: K85.20 Alcohol induced acute pancreatitis without necrosis or infection (principal); F10.230 Alcohol dependence with withdrawal, uncomplicated; R07.89 Other chest pain; R74.0 Nonspecific elevation of levels of transaminase and lactic acid dehydrogenase [LDH]; R56.9 Unspecified convulsions; K21.9 Gastro-esophageal reflux disease without esophagitis; R50.9 Fever, unspecified; E83.42 Hypomagnesemia; E83.39 Other disorders of phosphorus metabolism; F41.9 Anxiety disorder, unspecified; K81.9 Cholecystitis, unspecified; F14.10 Cocaine abuse, uncomplicated; F12.10 Cannabis abuse, uncomplicated
CPT/HCPCS: 36415; 71010-TC; 76705-TC; 80048; 80053; 81003; 81015; 82272; 82550; 82553; 83690; 83735; 84100; 84484; 85025; 93005; 93010; 99285-25

== ENCOUNTER 2017-03-04 18:30 | Emergency (ER) | payer OTHER ==
[2017-03-04 18:48] VITALS: TEMP 98.4; BMI 18.2
[2017-03-04] MEDS ORDERED: SODIUM CHLORIDE 1,000 ML IV SCH (19:45)
--- NOTE | 2017-03-04 19:45 | PDOC ---
History of Present Illness - General Chief Complaint: Syncope/Near Syncope Stated Complaint: PCP SENT/HEAD INJURY Time Seen by Provider: 03/04/17 19:27 History Source: Patient - History of Present Illness Initial Comments: 03/04/17 21:00 46 year old male With history of alcohol abuse status post rehabilitation complaining of syncopal episodes 2 days ago where he fell backwards and hit the back of his head onto the wooden floor. Patient now complaining of headache, dizziness, forgetfulness unable to focus, since the episode. Patient also reportedly drinking alcohol earlier today prior to arrival. Patient is alert oriented 3, slightly unsteady in his gait. Patient denies chest pain, nausea, vomiting, diarrhea and abdominal pain. Patient denies any past medical history. Past History - Past Medical History Allergies/Adverse Reactions: Allergies Allergy/AdvReac Type Severity Reaction Status Date / Time No Known Allergies Allergy Verified 03/04/17 18:42 Home Medications: Ambulatory Orders NK [No Known Home Medication] 03/04/17 Anemia: No Asthma: No Cancer: No Cardiac Disorders: No CVA: No COPD: No CHF: No Dementia: No Diabetes: No GI Disorders: No Disorders: No HTN: Yes Hypercholesterolemia: No Kidney Stones: No Liver Disease: No Suicide Attempt (Hx): No Seizures: Yes (ALCOHOL RELATED 3 MONTHS AGO) Thyroid Disease: No - Surgical History Abdominal Surgery: No Appendectomy: No Cardiac Surgery: No Cholecystectomy: No Lung Surgery: No Neurologic Surgery: No Orthopedic Surgery: No - Reproductive History Testicular Surgery: No - Psycho/Social/Smoking Cessation Hx Anxiety: No Suicidal Ideation: No Smoking History: Never smoked Have you smoked in the past 12 months: No Number of Cigarettes Smoked Daily: 0 Cigars Per Day: 0 'Breaking Loose' booklet given: 10/08/15 Hx Alcohol Use: Yes (vodka 1 pt /d ) Drug/Substance Use Hx: No (pt u/tox positive for multiple drugs but he denies any use except for alcoh) Substance Use Type: Alcohol Hx Substance Use Treatment: No Review of Systems - Review of Systems Able to Perform ROS?: Yes Is the patient limited [place] proficient: No Constitutional: No: Symptoms Reported, See HPI, Chills, Diaphoresis, Fever, Loss of Appetite, Malaise, Night Sweats, Weakness, Weight Stable, Unintentional Wgt. Loss, Unexplained wgt Loss, Other Integumentary: No: Symptoms Reported, See HPI, Bruising, Change in Color, Change in Hair/Nails, Dryness, Erythema, Flushing, Lesions, Lumps, Pallor, Pruritus, Rash, Sweating, Other Neurological: Yes: Headache, Unsteady Gait, Dizziness Psychiatric: No: Anxiety, Depression, Frequent Crying, Stressors, Sleep Pattern Change, Emotional Problems, Mood Swings, Change in Appetite, Other *Physical Exam - Vital Signs Last Vital Signs Temp Pulse Resp BP Pulse Ox 98.4 F 95 H 19 86/58 96 03/04/17 18:42 03/04/17 18:42 03/04/17 18:42 03/04/17 18:42 03/04/17 18:42 - Physical Exam General Appearance: Yes: Appropriately Dressed HEENT: positive: EOMI, ABELINO, Normal ENT Inspection Respiratory/Chest: positive: Lungs Clear, Normal Breath Sounds Cardiovascular: positive: Regular Rhythm, Regular Rate Gastrointestinal/Abdominal: positive: Normal Bowel Sounds, Soft Musculoskeletal: positive: Normal Inspection, CVA Tenderness Extremity: positive: Normal Capillary Refill, Normal Inspection, Normal Range of Motion Integumentary: positive: Normal Color, Dry, Warm Neurologic: positive: house fellow II-XII NML intact, Fully Oriented, Alert, Motor Strength 5/5, Finger to Nose (slow), Other (+ small hematoma to right parietal area to scalp) Heart Score/ECG Review - ECG Intrepretation Rhythm: Regular Rhythm Comment:: 03/04/17 21:32 86: NSR Nonspecific T wave abnormality ED Treatment Course - LABORATORY CBC & Chemistry Diagram: 03/04/17 19:42 03/04/17 19:42 Medical Decision Making - Medical Decision Making 03/04/17 21:30 A: alcohol abuse; concussion symptoms P: cbc cmp utox + benzo alcohol: 271 ct head: neg chest xray neg EKG: NSR 03/05/17 00:08 patient is more alert , no slurred speech. able to walk without unsteady gait. will d/c home. patient is taking a taxi home. *DC/Admit/Observation/Transfer Diagnosis at time of Disposition: Alcohol abuse Concussion Qualifiers: Encounter type: initial encounter Loss of consciousness presence/duration: with LOC of 30 min or less Qualified Code(s): S06.0X1A - Concussion with loss of consciousness of 30 minutes or less, initial encounter - Discharge Dispostion Disposition: HOME - Referrals Referrals: J Luis Haines DO [Staff Physician] - - Patient Instructions Printed Discharge Instructions: DI for Alcohol Abuse, Postconcussion Syndrome Additional Instructions: refrain from drinking alcohol After your concussion, your doctor might recommend that someone watch you for 12 to 24 hours. This person should watch for symptoms. To help your brain heal after a concussion, you can: Rest your body Make sure to get plenty of sleep. Avoid heavy exercise or too much physical activity if it makes you feel worse. Rest your brain Avoid doing activities that need concentration or a lot of attention if they make you feel worse. Not drink alcohol while you are still having symptoms of concussion - Post Discharge Activity Work/School Note: Back to Work
--- NOTE | 2017-03-04 19:51 | PDOC ---
*Physical Exam - Vital Signs Last Vital Signs Temp Pulse Resp BP Pulse Ox 98.4 F 95 H 19 86/58 96 03/04/17 18:42 03/04/17 18:42 03/04/17 18:42 03/04/17 18:42 03/04/17 18:42 Medical Decision Making - Medical Decision Making 03/04/17 19:51 agree with care from [facility]
[2017-03-04 20:26] LABS: URINE APPEARANCE CLEAR; URINE BILIRUBIN NEGATIVE (NEGATIVE); URINE BLOOD NEGATIVE (NEGATIVE); URINE COLOR COLORLESS; URINE GLUCOSE (UA) NEGATIVE (NEGATIVE); URINE KETONE NEGATIVE (NEGATIVE); URINE LEUK ESTERASE NEGATIVE (NEGATIVE); URINE NITRITE NEGATIVE (NEGATIVE); URINE PROTEIN NEGATIVE (NEGATIVE); URINE UROBILINOGEN NEGATIVE mg/dL (0.2-1.0)
[2017-03-04 20:28] LABS: BASOPHIL 0.6 % (0-2.0); EOSINOPHIL 1.5 % (0-4.5); MCH 33.6 pg (25.7-33.7); MCHC 32.9 g/dl (32.0-35.9); MEAN CELL VOLUME 102.2 fl (80-96); MEAN PLT VOLUME 8.2 fl (7.5-11.1); NEUTROPHILS 67.3 % (42.8-82.8); PLATELET COUNT 300 K/MM3 (134-434); RDW 14.5 % (11.9-15.9); WHITE BLOOD COUNT 7.5 K/mm3 (4.0-10.0)
[2017-03-04 20:52] LABS: ALBUMIN 2.9 g/dl (3.4-5.0); ANION GAP 7 (8-16); BILIRUBIN,TOTAL 0.3 mg/dL (0.2-1.0); CO2 31 mmol/L (21-32); CREATININE 0.7 mg/dL (0.7-1.3); GLUCOSE,RANDOM 99 mg/dL (74-106); SGOT/AST 380 U/L (15-37); SGPT/ALT 160 U/L (12-78); TOT PROT 7.3 g/dl (6.4-8.2)
[2017-03-04 20:55] LABS: ALK PHOS 150 U/L (45-117); TROPONIN I < 0.02 ng/ml (0.00-0.05)
[2017-03-04 21:04] LABS: URINE MARIJUANA THC NEGATIVE ng/ml (CUTOFF=50)
[2017-03-04] MEDS ORDERED: POTASSIUM CHLORIDE TABS 20 MEQ TABLET.ER (FP) PO ONE ×2 (21:34→21:48)
[2017-03-05 00:35] LABS: INR 1.07 (0.82-1.09); PROTHROMBIN TIME (PATIENT) 11.8 SEC (9.98-11.88)
[2017-03-05 00:50] VITALS: BP 95/73; PULSE 104
--- NOTE | 2017-03-05 09:19 | EKG ---
Test Reason : Blood Pressure : / mmHG Vent. Rate : 086 BPM Atrial Rate : 086 BPM P-R Int : 136 ms QRS Dur : 098 ms QT Int : 416 ms P-R-T Axes : 024 -09 -35 degrees QTc Int : 497 ms NORMAL SINUS RHYTHM MINIMAL VOLTAGE CRITERIA FOR LVH, MAY BE NORMAL VARIANT NONSPECIFIC T WAVE ABNORMALITY ABNORMAL ECG WHEN COMPARED WITH ECG OF 26-FEB-2017 18:22, T WAVE INVERSION NO LONGER EVIDENT IN ANTERIOR LEADS Confirmed by AZAEL HAYDEN MD ([id number]) on 03/05/2017 9:19:13 AM Referred By: Confirmed By:AZAEL HAYDEN MD
== END 2017-03-05 01:21 | disposition home or self-care (01) ==
LOC: JER 18:30
PROC: 3E0337Z Introduction of Electrolytic and Water Balance Substance into Peripheral Vein, Percutaneous Approach (ICD-10-PCS; principal; 2017-03-04)
DX: S06.0X0A Concussion without loss of consciousness, initial encounter (principal); W19.XXXA Unspecified fall, initial encounter; Y93.89 Activity, other specified; Y92.89 Other specified places as the place of occurrence of the external cause; Y99.8 Other external cause status; F10.10 Alcohol abuse, uncomplicated; Y90.8 Blood alcohol level of 240 mg/100 ml or more; G40.509 Epileptic seizures related to external causes, not intractable, without status epilepticus
CPT/HCPCS: 36415; 70450-TC; 71020-TC; 80053; 80307; 81003; 82550; 84484; 85025; 85610; 86850; 86900; 86901; 93005; 93010; 99283-25

== ENCOUNTER 2017-04-09 20:06 | Inpatient (IN) | payer OTHER ==
[2017-04-09 20:40] VITALS: BMI 22.0
--- NOTE | 2017-04-09 21:25 | HP ---
CIWA Score - CIWA Score Nausea/Vomitin-No Nausea/No Vomiting Muscle Tremors: 2 Anxiety: 2 Agitation: 2 Paroxysmal Sweats: 2 Orientation: 3-Disoriented Date>2 days Tacttile Disturbances: 1-Very Mild Itch/Numbness Auditory Disturbances: 0-None Visual Disturbances: 0-None Headache: 1-Very Mild CIWA-Ar Total Score: 13 Admission ROS BHS - HPI Chief Complaint: WITHDRAWAL SYMPTOMS Allergies/Adverse Reactions: Allergies Allergy/AdvReac Type Severity Reaction Status Date / Time No Known Allergies Allergy Verified 04/09/17 21:22 History of Present Illness: 46 Y.O. MAN WITH AN EXTENSIVE HISTORY OF ALCOHOL DEPENDENCE IS SEEKING DETOX. HE WAS LAST HERE IN February, BUT LEFT AMA. HE DOES NOT HAVE A SIGNIFICANT PERIOD OF SOBRIETY. - Ebola screening Have you traveled outside of the country in the last 21 days: No (N) Have you had contact with anyone from an Ebola affected area: No Have you been sick,other than usual withdrawal symptoms: No Do you have a fever: No - Review of Systems Constitutional: Chills, Night Sweats, Changes in sleep EENT: reports: Tearing Respiratory: reports: No Symptoms reported Cardiac: reports: No Symptoms Reported GI: reports: No Symptoms Reported : reports: No Symptoms Reported Musculoskeletal: reports: No Symptoms Reported Integumentary: reports: No Symptoms Reported Neuro: reports: No Symptoms reported Endocrine: reports: No Symptoms Reported Hematology: reports: No Symptoms Reported Psychiatric: reports: Anxious, Depressed Other Systems: Reviewed and Negative Patient History - Patient Medical History Hx Anemia: No Hx Asthma: No Hx Chronic Obstructive Pulmonary Disease (COPD): No Hx Cancer: No Hx Cardiac Disorders: No Hx Congestive Heart Failure: No Hx Hypertension: Yes Hx Hypercholesterolemia: No Hx Pacemaker: No HX Cerebrovascular Accident: No Hx Seizures: Yes (ALCOHOL RELATED 3 MONTHS AGO) Hx Dementia: No Hx Diabetes: No Hx Gastrointestinal Disorders: No Hx Liver Disease: No Hx Genitourinary Disorders: No Hx Sexually Transmitted Disorders: No Hx Renal Disease (ESRD): No Hx Thyroid Disease: No Hx Human Immunodeficiency Virus (HIV): No Hx Hepatitis C: No Hx Depression: No Hx Suicide Attempt: No Hx Bipolar Disorder: No Hx Schizophrenia: No - Patient Surgical History Past Surgical History: No Hx Neurologic Surgery: No Hx Cataract Extraction: No Hx Cardiac Surgery: No Hx Lung Surgery: No Hx Breast Surgery: No Hx Breast Biopsy: No Hx Abdominal Surgery: No Hx Appendectomy: No Hx Cholecystectomy: No Hx Genitourinary Surgery: No Hx Section: No Hx Orthopedic Surgery: No Anesthesia Reaction: No - PPD History Date: 02/27/17 PPD to be Administered?: Yes - Reproductive History Patient is a Female of Child Bearing Age (11 -55 yrs old): No - Smoking Cessation Smoking history: Never smoked Have you smoked in the past 12 months: No Aproximately how many cigarettes per day: 0 Cigars Per Day: 0 Hx Chewing Tobacco Use: No 'Breaking Loose' booklet given: 04/09/17 - Substance & Tx. History Hx Alcohol Use: Yes Hx Substance Use: No Substance Use Type: Alcohol, Marijuana Hx Substance Use Treatment: Yes (DETOX: 02/2017-LEFT AMA; REHAB: 10/2015) - Substances Abused Alcohol Route: Oral Frequency: Daily Amount used: 1 PINT OF LIQUOR Age of first use: 42 Date of Last Use: 04/09/17 Family Disease History - Family Disease History Family Disease History: Diabetes: Mother (htn, ), [place]: Father ( ; esophageal ), Mother, Other: Brother (healthy, etoh), Son (in army), Daughter (a main line station engineer) Admission Physical Exam S - Vital Signs Vital Signs: Vital Signs - 24 hr 04/09/17 20:37 Temperature 97.5 F L Pulse Rate 100 H Respiratory 18 Rate Blood Pressure 119/100 - Physical General Appearance: Yes: Alcohol on Breath, Intoxicated, Anxious HEENTM: Yes: Hearing grossly Normal, Normal ENT Inspection, Normocephalic Respiratory: Yes: Chest Non-Tender, Lungs Clear, Normal Breath Sounds, No Respiratory Distress, No Accessory Muscle Use Breast: Yes: Breast Exam Deferred Cardiology: Yes: Regular Rhythm, Regular Rate Abdominal: Yes: Non Tender, Flat, Soft Genitourinary: Yes: Other (NO COMPLAINTS REPORTED) Back: Yes: Normal Inspection Musculoskeletal: Yes: full range of Motion, Gait Steady Extremities: Yes: Normal Inspection, Normal Range of Motion, Non-Tender Neurological: Yes: Alert, Normal Mood/Affect, Normal Response Integumentary: Yes: Normal Color, Dry, Warm Lymphatic: Yes: Within Normal Limits - Diagnostic (1) Uncomplicated alcohol dependence Current Visit: Yes Status: Chronic (2) Cannabis dependence, uncomplicated Current Visit: Yes Status: Chronic Cleared for Admission [facility] - Detox or Rehab [facility] Level of Care: Medically Managed Detox Regimen/Protocol: Librium [facility] Breath Alcohol Content Breath Alcohol Content: 0.471 Urine Drug Screen - Results Drug Screen Negative: Yes
[2017-04-09] MEDS ORDERED: ACETAMINOPHEN 325 MG TABLET (FP) PO PRN (21:34)
[2017-04-09] MEDS ORDERED: MAGNESIUM CITRATE 300 ML BOTTLE PO PRN (21:34)
[2017-04-09] MEDS ORDERED: P-EPHED 60MG/TRIPROLIDI 2.5MG TABLET PO PRN (21:34)
[2017-04-09] MEDS ORDERED: chlordiazePOXIDE HCL 25 MG CAPSULE PO ONE (21:34)
[2017-04-09] MEDS ORDERED: LOPERAMIDE HCL 2 MG CAPSULE PO PRN (21:34)
[2017-04-09] MEDS ORDERED: hydrOXYzine PAMOATE 50 MG CAPSULE (FP) PO PRN (21:34)
[2017-04-09] MEDS ORDERED: IBUPROFEN 400 MG TABLET (FP) PO PRN (21:34)
[2017-04-09] MEDS ORDERED: guaiFENesin/D-METHORPHAN HB 10 ML UNIT-DOSE CUPS PO PRN (21:34)
[2017-04-09] MEDS ORDERED: MAGNESIUM HYDROX 2400MG/30ML ORAL SUSPENSION 30 ML CUP PO PRN (21:34)
[2017-04-09] MEDS ORDERED: MENTHOL/PHENOL 1 EACH UD MM PRN (21:34)
[2017-04-09] MEDS ORDERED: chlordiazePOXIDE HCL 25 MG CAPSULE PO PRN (21:34)
[2017-04-09] MEDS: diphenhydrAMINE HCL 50 MG CAPSULE PO PRN (23:01)
[2017-04-09] MEDS: THIAMINE HCL 100 MG TABLET (FP) PO SCH (23:01)
[2017-04-09] MEDS: chlordiazePOXIDE HCL 25 MG CAPSULE PO SCH (23:02)
[2017-04-09 23:56] LABS: PH,URINE 5.5 (5.0-8.0); URINE APPEARANCE CLEAR; URINE BILIRUBIN NEGATIVE (NEGATIVE); URINE BLOOD TRACE-INTA (NEGATIVE); URINE COLOR LT. YELLOW; URINE GLUCOSE (UA) NEGATIVE (NEGATIVE); URINE KETONE NEGATIVE (NEGATIVE); URINE LEUK ESTERASE NEGATIVE (NEGATIVE); URINE NITRITE NEGATIVE (NEGATIVE); URINE PROTEIN NEGATIVE (NEGATIVE); URINE UROBILINOGEN 0.2 mg/dL (0.2-1.0)
[2017-04-10] MEDS: chlordiazePOXIDE HCL 25 MG CAPSULE PO SCH ×4 (06:26→22:00)
[2017-04-10] MEDS: PRENATAL VITAMINS W/ FOLIC ACID TABLET (FP) PO SCH (10:09)
[2017-04-10 10:24] LABS: MCH 31.6 pg (25.7-33.7); MCHC 32.4 g/dl (32.0-35.9); MEAN CELL VOLUME 97.3 fl (80-96); MEAN PLT VOLUME 9.3 fl (7.5-11.1); PLATELET COUNT 54 K/MM3 (134-434); RDW 14.2 % (11.9-15.9); WHITE BLOOD COUNT 2.5 K/mm3 (4.0-10.0)
[2017-04-10 10:47] LABS: ALBUMIN 3.4 g/dl (3.4-5.0); ANION GAP 10 (8-16); CALCIUM 8.3 mg/dL (8.5-10.1); CO2 32 mmol/L (21-32); GLUCOSE,RANDOM 88 mg/dL (74-106)
[2017-04-10 10:53] LABS: ALK PHOS 90 U/L (45-117); BILIRUBIN,TOTAL 0.7 mg/dL (0.2-1.0); CREATININE 0.6 mg/dL (0.7-1.3); SGOT/AST 137 U/L (15-37); SGPT/ALT 32 U/L (12-78)
--- NOTE | 2017-04-10 11:53 | PN ---
S CIWA - CIWA Score Nausea/Vomitin Muscle Tremors: 4-Moderate,w/Arms Extend Anxiety: 4-Mod. Anxious/Guarded Agitation: 4-Moderately Restless Paroxysmal Sweats: 3 Orientation: 0-Oriented Tacttile Disturbances: 1-Very Mild Itch/Numbness Auditory Disturbances: 0-None Visual Disturbances: 0-None Headache: 1-Very Mild CIWA-Ar Total Score: 20 BHS Progress Note (SOAP) Subjective: nausea, sweats, interrupted sleep, anxiety, tremors Objective: 04/10/17 11:52 Vital Signs - 8 hr 04/10/17 04/10/17 06:00 10:14 Temperature 98.2 F 98.2 F Pulse Rate 80 102 H Respiratory 18 16 Rate Blood Pressure 111/73 140/88 Laboratory Tests 04/09/17 04/10/17 04/10/17 21:59 07:00 07:00 WBC 2.5 L D RBC 3.53 L D Hgb 11.2 L D Hct 34.4 L D MCV 97.3 H MCH 31.6 MCHC 32.4 RDW 14.2 Plt Count 54 L D MPV 9.3 D Sodium 142 Potassium 3.0 L Chloride 100 Carbon Dioxide 32 Anion Gap 10 BUN 6 L Creatinine 0.6 L Creat Clearance w eGFR > 60 Random Glucose 88 Calcium 8.3 L Total Bilirubin 0.7 D AST 137 H D ALT 32 D Alkaline Phosphatase 90 D Total Protein 8.0 Albumin 3.4 Urine Color Lt. yellow Urine Appearance Clear Urine pH 5.5 Ur Specific [place] <= 1.005 Urine Protein Negative Urine Glucose (UA) Negative Urine Ketones Negative Urine Blood Trace-inta Urine Nitrite Negative Urine Bilirubin Negative Urine Urobilinogen 0.2 Ur Leukocyte Esterase Negative Assessment: 04/10/17 11:52 withdrawal sx, anemai, hypokalemia, hypoalbuminemia, malnutiriton/liver diaseas 2/2 substance use Plan: cont detox, ensure , supplement k, repeat labs, iron, colace
[2017-04-10] MEDS: FERROUS SO4 325 MG TABLET (FP) PO SCH ×2 (12:18→17:05)
[2017-04-10] MEDS ORDERED: POTASSIUM CHLORIDE TABS 20 MEQ TABLET.ER (FP) PO ONE (12:30)
--- NOTE | 2017-04-10 12:42 | EKG ---
Test Reason : Blood Pressure : / mmHG Vent. Rate : 068 BPM Atrial Rate : 068 BPM P-R Int : 140 ms QRS Dur : 098 ms QT Int : 442 ms P-R-T Axes : 013 -10 247 degrees QTc Int : 469 ms SUBOPTIMAL TRACING BASELINE ARTIFACTS NORMAL SINUS RHYTHM DIFFUSE ST-T ABNORMALITIES PROLONGED QT ABNORMAL ECG WHEN COMPARED WITH ECG OF 09-APR-2017 22:08, ST-T ABNORMALITIES ARE RECORDED IN LEADS II AVF 1 aVL AND V3 QTC REMAINS PROLONGED,POSSIBILITY OF ELECTEOLYT/,METABOLIC IMBALANCE OR ISCHEMIA NEEDS TO BE EXCLUDED. CLINICAL CORRELATION AND FOLLOW UP TRACING IS RECOMMENDED Confirmed by SATISH ALONSO MD ([id number]) on 04/10/2017 12:42:33 PM Referred By: Confirmed By:SATISH ALONSO MD
--- NOTE | 2017-04-10 12:49 | EKG ---
Test Reason : Blood Pressure : / mmHG Vent. Rate : 078 BPM Atrial Rate : 078 BPM P-R Int : 150 ms QRS Dur : 108 ms QT Int : 480 ms P-R-T Axes : 049 -17 122 degrees QTc Int : 547 ms SINUS RHYTHM WITH MARKED SINUS ARRHYTHMIA VS ATRIAL PREMATURE BEATS MODERATE VOLTAGE CRITERIA FOR LVH, MAY BE NORMAL VARIANT NONSPECIFIC ST AND T WAVE ABNORMALITY ABNORMAL ECG WHEN COMPARED WITH ECG OF 04-MAR-2017 20:05, NON-SPECIFIC CHANGE IN ST SEGMENT IN INFERIOR LEADS T WAVE INVERSION NOW EVIDENT IN ANTERIOR LEADS BASELINE ARTIFACT Confirmed by SATISH ALONSO MD ([id number]) on 04/10/2017 12:49:36 PM Referred By: Confirmed By:SATISH ALONSO MD
[2017-04-10] MEDS ORDERED: chlordiazePOXIDE HCL 25 MG CAPSULE PO ONE (13:44)
[2017-04-10] MEDS: MAG HYDROX/AL HYDROX/SIMETH 30 ML UNIT-DOSE CUP PO PRN ×2 (14:45→23:37)
--- NOTE | 2017-04-10 16:18 | CONSULT ---
[facility] Psychiatric Consult - Data Date of interview: 04/10/17 Admission source: [facility] Identifying data: Another admission to [facility] for this 46 y/o male seeking detox treatment on for alcohol dependence.Patient is ,a father of two,domiciled and currently unemployed (seasonal employee at the [employer]). Substance Abuse History: Confirmed by patient in this interview. Smoking Cessation. Smoking history: Never smoked. Have you smoked in the past 12 months: No. Aproximately how many cigarettes per day: 0. Cigars Per Day: 0. Hx Chewing Tobacco Use: No. 'Breaking Loose' booklet given: 04/09/17. - Substance & Tx. History. Hx Alcohol Use: Yes. Hx Substance Use: No. Substance Use Type: Alcohol, Marijuana. Hx Substance Use Treatment: Yes (DETOX : 02/2017-LEFT AMA; REHAB: 10/2015). - Substances Abused. Alcohol. Route: Oral. Frequency: Daily. Amount used: 1 PINT OF LIQUOR. Age of first use: 42. Date of Last Use: 04/09/17 Medical History: History of DVTs,GERD,alcohol-related seizures and hypertension. Psychiatric History: Patient denies. Physical/Sexual Abuse/Trauma History: Patient denies. Additional Comment: Drug Screen is negative. Mental Status Exam - Mental Status Exam Alert and Oriented to: Time, Place, Person Cognitive Function: Good Patient Appearance: Unkempt, Disheveled (shaking - clearly in withdrawal - but cooperative and friendly) Mood: Nervous, Withdrawn, Anxious Affect: Mood Congruent Patient Behavior: Restless, Fatigued Speech Pattern: Clear Voice Loudness: Normal Thought Process: Goal Oriented Thought Disorder: Not Present Hallucinations: Denies Suicidal Ideation: Denies Homicidal Ideation: Denies Insight/Judgement: Poor Appetite: Fair Muscle strength/Tone: Normal Gait/Station: Normal Psychiatric Findings - Problem List ([place] 1, 2,3) (1) Cannabis dependence, uncomplicated Current Visit: Yes Status: Acute (2) Alcohol dependence with uncomplicated withdrawal Current Visit: Yes Status: Acute (3) GERD (gastroesophageal reflux disease) Current Visit: Yes Status: Chronic Qualifiers: Esophagitis presence: without esophagitis Qualified Code(s): K21.9 - Gastro-esophageal reflux disease without esophagitis (4) History of seizure Current Visit: No Status: Chronic - Initial Treatment Plan Initial Treatment Plan: Psychoeducation.Detoxification in progress.Observation.
[2017-04-10] MEDS: THIAMINE HCL 100 MG TABLET (FP) PO SCH (22:00)
[2017-04-10] MEDS: POTASSIUM CHLORIDE ORAL LIQUID 20 MEQ/15 ML PO SCH (22:00)
[2017-04-10] MEDS: DOCUSATE SODIUM 100 MG CAPSULE (FP) PO SCH (22:01)
[2017-04-10] MEDS: diphenhydrAMINE HCL 50 MG CAPSULE PO PRN (23:36)
[2017-04-11] MEDS: chlordiazePOXIDE HCL 25 MG CAPSULE PO SCH ×3 (05:18→18:10)
[2017-04-11] MEDS: FERROUS SO4 325 MG TABLET (FP) PO SCH ×3 (07:08→18:10)
--- NOTE | 2017-04-11 08:54 | PN ---
S CIWA - CIWA Score Nausea/Vomitin-Int. Nausea w/Dry Heave Muscle Tremors: 5 Anxiety: 4-Mod. Anxious/Guarded Agitation: 4-Moderately Restless Paroxysmal Sweats: 3 Orientation: 0-Oriented Tacttile Disturbances: 1-Very Mild Itch/Numbness Auditory Disturbances: 0-None Visual Disturbances: 0-None Headache: 1-Very Mild CIWA-Ar Total Score: 22 BHS Progress Note (SOAP) Subjective: nausea, sweats, interrupted sleep, anxiety, tremors Objective: 04/11/17 08:52 Vital Signs - 24 hr 04/10/17 04/10/17 04/10/17 10:14 15:00 18:25 Temperature 98.2 F 98.4 F 99.3 F Pulse Rate 102 H 138 H 120 H Respiratory 16 18 20 Rate Blood Pressure 140/88 131/95 113/60 04/10/17 04/11/17 04/11/17 23:22 03:30 06:24 Temperature 97.7 F 98.1 F Pulse Rate 119 H 78 Respiratory 20 18 18 Rate Blood Pressure 128/74 124/81 Laboratory Tests 04/09/17 04/10/17 04/10/17 21:59 07:00 07:00 WBC 2.5 L D RBC 3.53 L D Hgb 11.2 L D Hct 34.4 L D MCV 97.3 H MCH 31.6 MCHC 32.4 RDW 14.2 Plt Count 54 L D MPV 9.3 D Sodium 142 Potassium 3.0 L Chloride 100 Carbon Dioxide 32 Anion Gap 10 BUN 6 L Creatinine 0.6 L Creat Clearance w eGFR > 60 Random Glucose 88 Calcium 8.3 L Total Bilirubin 0.7 D AST 137 H D ALT 32 D Alkaline Phosphatase 90 D Total Protein 8.0 Albumin 3.4 Urine Color Lt. yellow Urine Appearance Clear Urine pH 5.5 Ur Specific [place] <= 1.005 Urine Protein Negative Urine Glucose (UA) Negative Urine Ketones Negative Urine Blood Trace-inta Urine Nitrite Negative Urine Bilirubin Negative Urine Urobilinogen 0.2 Ur Leukocyte Esterase Negative RPR Titer 04/10/17 07:00 WBC RBC Hgb Hct MCV MCH MCHC RDW Plt Count MPV Sodium Potassium Chloride Carbon Dioxide Anion Gap BUN Creatinine Creat Clearance w eGFR Random Glucose Calcium Total Bilirubin AST ALT Alkaline Phosphatase Total Protein Albumin Urine Color Urine Appearance Urine pH Ur Specific [place] Urine Protein Urine Glucose (UA) Urine Ketones Urine Blood Urine Nitrite Urine Bilirubin Urine Urobilinogen Ur Leukocyte Esterase RPR Titer Nonreactive Assessment: 04/11/17 08:53 withdrawal sx, hypokalemia, anemia, dehydration Plan: cont deto, fluids, repeat EKG, supplement K, iron supplements, ensure repeat labs
[2017-04-11] MEDS ORDERED: PANTOPRAZOLE 40 MG TABLET (FP) PO ONE (09:02)
[2017-04-11] MEDS ORDERED: PANTOPRAZOLE 40 MG TABLET (FP) PO SCH ×3 (09:05→12:01)
[2017-04-11] MEDS ORDERED: MAGNESIUM CL 64 MG TABLET.SA PO SCH (10:00)
[2017-04-11] MEDS: PRENATAL VITAMINS W/ FOLIC ACID TABLET (FP) PO SCH (10:12)
[2017-04-11] MEDS: POTASSIUM CHLORIDE ORAL LIQUID 20 MEQ/15 ML PO SCH ×2 (10:12→22:08)
[2017-04-11] MEDS: MAG HYDROX/AL HYDROX/SIMETH 30 ML UNIT-DOSE CUP PO PRN ×2 (11:39→22:11)
[2017-04-11] MEDS ORDERED: chlordiazePOXIDE HCL 25 MG CAPSULE PO ONE (13:00)
--- NOTE | 2017-04-11 13:09 | EKG ---
Test Reason : Blood Pressure : / mmHG Vent. Rate : 081 BPM Atrial Rate : 081 BPM P-R Int : 124 ms QRS Dur : 092 ms QT Int : 426 ms P-R-T Axes : 013 -10 -13 degrees QTc Int : 494 ms NORMAL SINUS RHYTHM T WAVE ABNORMALITY, CONSIDER ANTERIOR ISCHEMIA PROLONGED QT ABNORMAL ECG WHEN COMPARED WITH ECG OF 10-APR-2017 05:56,NO MAJOR CHANGES SEEN Confirmed by SATISH ALONSO MD ([id number] on 04/11/2017 1:09:06 PM Referred By: Confirmed By:SATISH ALONSO MD
[2017-04-11] MEDS: DOCUSATE SODIUM 100 MG CAPSULE (FP) PO SCH (22:08)
[2017-04-11] MEDS: THIAMINE HCL 100 MG TABLET (FP) PO SCH (22:08)
[2017-04-11] MEDS: chlordiazePOXIDE 5 MG CAPSULE PO SCH (22:09)
[2017-04-11] MEDS: MAGNESIUM CL 64 MG TABLET.SA PO SCH (22:09)
[2017-04-12] MEDS: chlordiazePOXIDE 5 MG CAPSULE PO SCH ×3 (05:43→17:19)
[2017-04-12] MEDS: FERROUS SO4 325 MG TABLET (FP) PO SCH ×3 (07:27→17:19)
[2017-04-12 09:37] LABS: BASOPHIL 0.6 % (0-2.0); EOSINOPHIL 1.8 % (0-4.5); MCH 31.6 pg (25.7-33.7); MCHC 32.3 g/dl (32.0-35.9); MEAN CELL VOLUME 97.8 fl (80-96); MEAN PLT VOLUME 10.7 fl (7.5-11.1); NEUTROPHILS 62.9 % (42.8-82.8); PLATELET COUNT 63 K/MM3 (134-434); RDW 14.5 % (11.9-15.9)
[2017-04-12 09:51] LABS: INR 1.06 (0.82-1.09); PROTHROMBIN TIME (PATIENT) 11.7 SEC (9.98-11.88)
--- NOTE | 2017-04-12 10:06 | PN ---
BHS Progress Note (SOAP) Subjective: nausea, sweats, interruptedd sleep, anxiety, tremrosr, GERD, insomnia Objective: 04/12/17 10:06 Vital Signs - 24 hr 04/11/17 04/11/17 04/11/17 10:40 14:19 18:13 Temperature 97.9 F 97.5 F L 98.2 F Pulse Rate 111 H 113 H 126 H Respiratory 18 20 20 Rate Blood Pressure 112/86 111/60 105/76 04/11/17 04/12/17 04/12/17 23:18 03:30 06:40 Temperature 97.9 F 97.9 F Pulse Rate 108 H 80 Respiratory 20 18 18 Rate Blood Pressure 115/96 114/87 Laboratory Tests 04/09/17 04/10/17 04/10/17 21:59 07:00 07:00 WBC 2.5 L D RBC 3.53 L D Hgb 11.2 L D Hct 34.4 L D MCV 97.3 H MCH 31.6 MCHC 32.4 RDW 14.2 Plt Count 54 L D MPV 9.3 D Neutrophils % Lymphocytes % Monocytes % Eosinophils % Basophils % INR Sodium 142 Potassium 3.0 L Chloride 100 Carbon Dioxide 32 Anion Gap 10 BUN 6 L Creatinine 0.6 L Creat Clearance w eGFR > 60 Random Glucose 88 Calcium 8.3 L Magnesium Total Bilirubin 0.7 D AST 137 H D ALT 32 D Alkaline Phosphatase 90 D Total Protein 8.0 Albumin 3.4 Urine Color Lt. yellow Urine Appearance Clear Urine pH 5.5 Ur Specific [place] <= 1.005 Urine Protein Negative Urine Glucose (UA) Negative Urine Ketones Negative Urine Blood Trace-inta Urine Nitrite Negative Urine Bilirubin Negative Urine Urobilinogen 0.2 Ur Leukocyte Esterase Negative RPR Titer 04/10/17 04/11/17 04/12/17 07:00 07:00 05:30 WBC 4.0 D RBC 3.50 L Hgb 11.1 L Hct 34.2 L MCV 97.8 H MCH 31.6 MCHC 32.3 RDW 14.5 Plt Count 63 L MPV 10.7 D Neutrophils % 62.9 Lymphocytes % 23.1 D Monocytes % 11.6 H Eosinophils % 1.8 Basophils % 0.6 INR Sodium Potassium Chloride Carbon Dioxide Anion Gap BUN Creatinine Creat Clearance w eGFR Random Glucose Calcium Magnesium 1.0 L Total Bilirubin AST ALT Alkaline Phosphatase Total Protein Albumin Urine Color Urine Appearance Urine pH Ur Specific [place] Urine Protein Urine Glucose (UA) Urine Ketones Urine Blood Urine Nitrite Urine Bilirubin Urine Urobilinogen Ur Leukocyte Esterase RPR Titer Nonreactive 04/12/17 04/12/17 05:30 05:30 WBC RBC Hgb Hct MCV MCH MCHC RDW Plt Count MPV Neutrophils % Lymphocytes % Monocytes % Eosinophils % Basophils % INR 1.06 Sodium 137 Potassium 4.1 D Chloride 99 Carbon Dioxide Anion Gap BUN Creatinine Creat Clearance w eGFR Random Glucose Calcium Magnesium Total Bilirubin AST ALT Alkaline Phosphatase Total Protein Albumin Urine Color Urine Appearance Urine pH Ur Specific [place] Urine Protein Urine Glucose (UA) Urine Ketones Urine Blood Urine Nitrite Urine Bilirubin Urine Urobilinogen Ur Leukocyte Esterase RPR Titer Assessment: 04/12/17 10:06 withdrawal sx, k supplemented Plan: cont detox, fluids
[2017-04-12] MEDS ORDERED: ZOLPIDEM TARTRATE 10 MG TABLET (PARK CARE ONLY) PO PRN (10:07)
[2017-04-12 10:11] LABS: ALBUMIN 3.2 g/dl (3.4-5.0); ALK PHOS 102 U/L (45-117); AMYLASE 367 U/L (25-115); ANION GAP 8 (8-16); BILIRUBIN,TOTAL 0.9 mg/dL (0.2-1.0); CALCIUM 9.3 mg/dL (8.5-10.1); CO2 30 mmol/L (21-32); CREATININE 0.8 mg/dL (0.7-1.3); GLUCOSE,RANDOM 126 mg/dL (74-106); SGOT/AST 136 U/L (15-37); SGPT/ALT 44 U/L (12-78); TOT PROT 7.2 g/dl (6.4-8.2)
[2017-04-12] MEDS: PRENATAL VITAMINS W/ FOLIC ACID TABLET (FP) PO SCH (10:23)
[2017-04-12] MEDS: POTASSIUM CHLORIDE ORAL LIQUID 20 MEQ/15 ML PO SCH ×2 (10:23→22:05)
[2017-04-12] MEDS: MAGNESIUM CL 64 MG TABLET.SA PO SCH ×2 (10:23→22:07)
[2017-04-12] MEDS ORDERED: chlordiazePOXIDE HCL 25 MG CAPSULE PO ONE (13:00)
[2017-04-12] MEDS ORDERED: traZODone HCL 50 MG TABLET (FP) PO SCH (22:00)
[2017-04-12] MEDS: DOCUSATE SODIUM 100 MG CAPSULE (FP) PO SCH (22:05)
[2017-04-12] MEDS: chlordiazePOXIDE HCL 10 MG CAPSULE PO SCH (22:05)
[2017-04-12] MEDS: THIAMINE HCL 100 MG TABLET (FP) PO SCH (22:05)
[2017-04-13] MEDS: MAG HYDROX/AL HYDROX/SIMETH 30 ML UNIT-DOSE CUP PO PRN ×2 (02:02→08:58)
[2017-04-13] MEDS: chlordiazePOXIDE HCL 10 MG CAPSULE PO SCH ×2 (05:20→10:17)
[2017-04-13] MEDS ORDERED: PANTOPRAZOLE 40 MG TABLET (FP) PO ONE (08:00)
[2017-04-13] MEDS: FERROUS SO4 325 MG TABLET (FP) PO SCH (08:08)
--- NOTE | 2017-04-13 08:43 | DS ---
[facility] Detox Discharge Summary Admission Date: 04/09/17 Discharge Date: 04/13/17 - History Present History: Alcohol Dependence, Cannabis Dependence, Cocaine Dependence - Physical Exam Results Vital Signs: Vital Signs Temperature 97.3 F L 04/13/17 06:00 Pulse Rate 78 04/13/17 06:00 Respiratory Rate 18 04/13/17 06:00 Blood Pressure 120/83 04/13/17 06:00 O2 Sat by Pulse Oximetry (%) - Treatment Hospital Course: Detox Protocol Followed, Detoxed Safely, Responded well, Discharged Condition Good, Rehab Referral Accepted - Medication Discharge Medications: Ambulatory Orders NK [No Known Home Medication] 03/04/17 - Diagnosis (1) Alcohol dependence with uncomplicated withdrawal Current Visit: Yes Status: Chronic (2) Cannabis dependence, uncomplicated Current Visit: Yes Status: Chronic (3) GERD (gastroesophageal reflux disease) Current Visit: Yes Status: Chronic Qualifiers: Esophagitis presence: without esophagitis Qualified Code(s): K21.9 - Gastro-esophageal reflux disease without esophagitis (4) Cocaine abuse Current Visit: Yes Status: Chronic (5) History of seizure Current Visit: No Status: Chronic - AMA Did Patient Leave Against Medical Advice: No
[2017-04-13] MEDS: MAGNESIUM CL 64 MG TABLET.SA PO SCH (08:59)
[2017-04-13] MEDS: POTASSIUM CHLORIDE ORAL LIQUID 20 MEQ/15 ML PO SCH (08:59)
[2017-04-13] MEDS: PRENATAL VITAMINS W/ FOLIC ACID TABLET (FP) PO SCH (09:00)
[2017-04-13 11:17] VITALS: BP 138/74; PULSE 110; TEMP 98.4
== END 2017-04-13 13:11 | disposition other institution (70) | DRG 774 ==
LOC: YASAS 20:06 → Y6N 20:57
PROVIDERS: ADMIT Internal Medicine Addiction Medicine; ATTEND Internal Medicine Addiction Medicine
PROC: HZ2ZZZZ Detoxification Services for Substance Abuse Treatment (ICD-10-PCS; principal; 2017-04-09)
DX: F10.230 Alcohol dependence with withdrawal, uncomplicated (principal); F10.220 Alcohol dependence with intoxication, uncomplicated; F12.20 Cannabis dependence, uncomplicated; F14.10 Cocaine abuse, uncomplicated; I10 Essential (primary) hypertension; K21.9 Gastro-esophageal reflux disease without esophagitis; E87.6 Hypokalemia; E88.09 Other disorders of plasma-protein metabolism, not elsewhere classified; D64.9 Anemia, unspecified; E86.0 Dehydration; E46 Unspecified protein-calorie malnutrition; Z68.22 Body mass index [BMI] 22.0-22.9, adult; K76.9 Liver disease, unspecified; Z86.69 Personal history of other diseases of the nervous system and sense organs; Z86.718 Personal history of other venous thrombosis and embolism
CPT/HCPCS: 36415; 80053; 81003; 82150; 83690; 83735; 85025; 85027; 85610; 86593; 93005; 93010

== ENCOUNTER 2017-04-13 13:17 | Inpatient (IN) | payer OTHER ==
[2017-04-13] MEDS ORDERED: MENTHOL/PHENOL 1 EACH UD MM PRN (13:35)
[2017-04-13] MEDS ORDERED: MAGNESIUM CITRATE 300 ML BOTTLE PO PRN (13:35)
[2017-04-13] MEDS ORDERED: ACETAMINOPHEN 325 MG TABLET (FP) PO PRN (13:35)
[2017-04-13] MEDS ORDERED: IBUPROFEN 400 MG TABLET (FP) PO PRN (13:35)
[2017-04-13] MEDS ORDERED: LOPERAMIDE HCL 2 MG CAPSULE PO PRN (13:35)
[2017-04-13] MEDS ORDERED: guaiFENesin/D-METHORPHAN HB 10 ML UNIT-DOSE CUPS PO PRN (13:35)
[2017-04-13] MEDS ORDERED: MAGNESIUM HYDROX 2400MG/30ML ORAL SUSPENSION 30 ML CUP PO PRN (13:35)
[2017-04-13] MEDS ORDERED: P-EPHED 60MG/TRIPROLIDI 2.5MG TABLET PO PRN (13:35)
[2017-04-13] MEDS ORDERED: diphenhydrAMINE HCL 50 MG CAPSULE PO PRN (13:35)
[2017-04-13] MEDS ORDERED: PANTOPRAZOLE 40 MG TABLET (FP) PO SCH (14:00)
[2017-04-13] MEDS ORDERED: POTASSIUM CHLORIDE ORAL LIQUID 20 MEQ/15 ML PO SCH (14:00)
[2017-04-13] MEDS ORDERED: MAGNESIUM CL 64 MG TABLET.SA PO SCH (14:15)
--- NOTE | 2017-04-13 16:16 | HP ---
[facility] Rehab Assess/Revision - Admission History Admitted to Rehab from: [facility] [place] Date of Admission to Rehab: 04/13/17 - Vital signs Vital Signs: Vital Signs Period Temp Pulse Resp BP Sys/Ho Pulse Ox Last 24 Hr 98.6 F 100 18 102/61 - Findings Detox History & Physical reviewed: Yes Concur with findings: Yes Comments/Additional Findings: transferred from detox to rehab admission as per protocol
[2017-04-13] MEDS: FERROUS SO4 325 MG TABLET (FP) PO SCH (17:50)
[2017-04-13] MEDS: DOCUSATE SODIUM 100 MG CAPSULE (FP) PO SCH (21:30)
[2017-04-13] MEDS: THIAMINE HCL 100 MG TABLET (FP) PO SCH (21:30)
[2017-04-13] MEDS: POTASSIUM CHLORIDE ORAL LIQUID 20 MEQ/15 ML PO SCH (21:32)
[2017-04-14] MEDS: FERROUS SO4 325 MG TABLET (FP) PO SCH ×3 (07:53→17:55)
[2017-04-14] MEDS ORDERED: PANTOPRAZOLE 40 MG TABLET (FP) PO SCH (10:00)
[2017-04-14] MEDS: MAGNESIUM CL 64 MG TABLET.SA PO SCH (10:12)
[2017-04-14] MEDS: POTASSIUM CHLORIDE ORAL LIQUID 20 MEQ/15 ML PO SCH ×2 (10:12→21:29)
[2017-04-14] MEDS: PRENATAL VITAMINS W/ FOLIC ACID TABLET (FP) PO SCH (10:12)
--- NOTE | 2017-04-14 13:34 | HP ---
Psychiatrist Admission - Data Date of interview: 04/14/17 Admission source: 6N Identifying data: This is the second [facility] inpatient rehabilitation admission for this 46 year male who is ,a father of two,domiciled and currently unemployed (seasonal employee at the [employer]). Medical History: Acid reflux, alcohol withdrawal related seizures x 2 Psychiatric History: Patient denies Physical/Sexual Abuse/Trauma History: Patient denies history of sexual, physical and verbal abuse. Vital Signs: Vital Signs - 24 hr 04/14/17 04/14/17 03:30 06:51 Temperature 97.9 F Pulse Rate 88 Respiratory 18 18 Rate Blood Pressure 105/78 Allergies/Adverse Reactions: Allergies Allergy/AdvReac Type Severity Reaction Status Date / Time No Known Allergies Allergy Verified 04/13/17 13:30 Date of last physical exam: 04/09/17 Concur with the findings of this exam: Yes - Substance Abuse/Tx History Hx Alcohol Use: Yes Hx Substance Use: No Substance Use Type: Alcohol (first drink at age 15, daily beer/vodka) Hx Substance Use Treatment: Yes - Admission Criteria Previous failed treatment: Yes Poor recovery environment: Yes Comorbidities: No Lacks judgement: Yes Mental Status Exam - Mental Status Exam Alert and Oriented to: Time, Place, Person Cognitive Function: Good Patient Appearance: Well Groomed Mood: Anxious (sometimes feels anxious) Affect: Appropriate, Mood Congruent Patient Behavior: Appropriate, Cooperative Speech Pattern: Clear Voice Loudness: Normal Thought Process: Goal Oriented Thought Disorder: Not Present Hallucinations: Denies Suicidal Ideation: Denies Homicidal Ideation: Denies Insight/Judgement: Fair Sleep: Fair Appetite: Fair, Weight loss (lost about 40 over 6 months) Muscle strength/Tone: Normal Gait/Station: Normal Psychiatric Findings - Problem List ([place] 1, 2,3) (1) Alcohol dependence Current Visit: Yes Status: Acute (2) Cannabis dependence, uncomplicated Current Visit: No Status: Chronic - Initial Treatment Plan Initial Treatment Plan: Will monitor progress as needed.
[2017-04-14] MEDS: THIAMINE HCL 100 MG TABLET (FP) PO SCH (21:30)
[2017-04-14] MEDS: DOCUSATE SODIUM 100 MG CAPSULE (FP) PO SCH (21:30)
[2017-04-14] MEDS: hydrOXYzine PAMOATE 50 MG CAPSULE (FP) PO PRN (21:31)
[2017-04-15] MEDS: MAG HYDROX/AL HYDROX/SIMETH 30 ML UNIT-DOSE CUP PO PRN (05:18)
[2017-04-15] MEDS ORDERED: PANTOPRAZOLE 40 MG TABLET (FP) PO SCH (07:00)
[2017-04-15] MEDS: FERROUS SO4 325 MG TABLET (FP) PO SCH ×3 (07:44→17:47)
[2017-04-15] MEDS: PRENATAL VITAMINS W/ FOLIC ACID TABLET (FP) PO SCH (10:12)
[2017-04-15] MEDS: POTASSIUM CHLORIDE ORAL LIQUID 20 MEQ/15 ML PO SCH (10:12)
[2017-04-15] MEDS: MAGNESIUM CL 64 MG TABLET.SA PO SCH (10:12)
[2017-04-15 13:29] LABS: BASOPHIL 0.5 % (0-2.0); EOSINOPHIL 1.1 % (0-4.5); MCH 32.3 pg (25.7-33.7); MCHC 32.9 g/dl (32.0-35.9); MEAN CELL VOLUME 98.1 fl (80-96); MEAN PLT VOLUME 9.1 fl (7.5-11.1); NEUTROPHILS 63.1 % (42.8-82.8); PLATELET COUNT 180 K/MM3 (134-434); RDW 14.9 % (11.9-15.9); WHITE BLOOD COUNT 6.2 K/mm3 (4.0-10.0)
[2017-04-15 13:35] LABS: ALBUMIN 3.6 g/dl (3.4-5.0); AMYLASE 291 U/L (25-115); ANION GAP 8 (8-16); CALCIUM 9.2 mg/dL (8.5-10.1); CO2 29 mmol/L (21-32); CREATININE 0.7 mg/dL (0.7-1.3); GLUCOSE,RANDOM 124 mg/dL (74-106); MAGNESIUM 1.5 mg/dL (1.8-2.4); SGPT/ALT 297 U/L (12-78)
[2017-04-15 13:36] LABS: ALK PHOS 98 U/L (45-117); BILIRUBIN,TOTAL 0.7 mg/dL (0.2-1.0); TOT PROT 7.8 g/dl (6.4-8.2)
[2017-04-15 13:39] LABS: SGOT/AST 421 U/L (15-37)
[2017-04-15] MEDS: THIAMINE HCL 100 MG TABLET (FP) PO SCH (21:31)
[2017-04-15] MEDS: DOCUSATE SODIUM 100 MG CAPSULE (FP) PO SCH (21:31)
[2017-04-15] MEDS: hydrOXYzine PAMOATE 50 MG CAPSULE (FP) PO PRN (21:33)
[2017-04-15] MEDS: RANITIDINE HCL 150 MG TABLET (FP) PO SCH (23:49)
[2017-04-16] MEDS: MAG HYDROX/AL HYDROX/SIMETH 30 ML UNIT-DOSE CUP PO PRN (00:22)
[2017-04-16] MEDS: FERROUS SO4 325 MG TABLET (FP) PO SCH ×3 (07:15→17:53)
[2017-04-16] MEDS: MAGNESIUM CL 64 MG TABLET.SA PO SCH (10:02)
[2017-04-16] MEDS: PRENATAL VITAMINS W/ FOLIC ACID TABLET (FP) PO SCH (10:02)
[2017-04-16] MEDS: RANITIDINE HCL 150 MG TABLET (FP) PO SCH ×2 (10:02→21:24)
[2017-04-16] MEDS: hydrOXYzine PAMOATE 50 MG CAPSULE (FP) PO PRN (21:24)
[2017-04-16] MEDS: THIAMINE HCL 100 MG TABLET (FP) PO SCH (21:24)
[2017-04-16] MEDS: DOCUSATE SODIUM 100 MG CAPSULE (FP) PO SCH (21:24)
[2017-04-17] MEDS: FERROUS SO4 325 MG TABLET (FP) PO SCH ×3 (07:32→17:37)
[2017-04-17] MEDS ORDERED: RANITIDINE HCL 150 MG TABLET (FP) PO ONE (07:47)
[2017-04-17] MEDS: MAGNESIUM CL 64 MG TABLET.SA PO SCH (10:06)
[2017-04-17] MEDS: PRENATAL VITAMINS W/ FOLIC ACID TABLET (FP) PO SCH (10:06)
[2017-04-17] MEDS: MAG HYDROX/AL HYDROX/SIMETH 30 ML UNIT-DOSE CUP PO PRN (20:00)
[2017-04-17] MEDS: DOCUSATE SODIUM 100 MG CAPSULE (FP) PO SCH (21:30)
[2017-04-17] MEDS: THIAMINE HCL 100 MG TABLET (FP) PO SCH (21:30)
[2017-04-17] MEDS: hydrOXYzine PAMOATE 50 MG CAPSULE (FP) PO PRN (21:31)
[2017-04-18] MEDS: FERROUS SO4 325 MG TABLET (FP) PO SCH ×3 (07:06→17:17)
[2017-04-18] MEDS: RANITIDINE HCL 150 MG TABLET (FP) PO SCH (07:06)
[2017-04-18] MEDS: MAGNESIUM CL 64 MG TABLET.SA PO SCH (09:59)
[2017-04-18] MEDS: PRENATAL VITAMINS W/ FOLIC ACID TABLET (FP) PO SCH (09:59)
[2017-04-18] MEDS: THIAMINE HCL 100 MG TABLET (FP) PO SCH (21:31)
[2017-04-18] MEDS: hydrOXYzine PAMOATE 50 MG CAPSULE (FP) PO PRN (21:31)
[2017-04-18] MEDS: DOCUSATE SODIUM 100 MG CAPSULE (FP) PO SCH (21:31)
[2017-04-19] MEDS: MAG HYDROX/AL HYDROX/SIMETH 30 ML UNIT-DOSE CUP PO PRN ×2 (00:31→06:15)
[2017-04-19] MEDS: RANITIDINE HCL 150 MG TABLET (FP) PO SCH (06:43)
[2017-04-19] MEDS: FERROUS SO4 325 MG TABLET (FP) PO SCH ×3 (07:11→17:49)
[2017-04-19] MEDS: PRENATAL VITAMINS W/ FOLIC ACID TABLET (FP) PO SCH (10:35)
[2017-04-19] MEDS: MAGNESIUM CL 64 MG TABLET.SA PO SCH (10:35)
[2017-04-19] MEDS: hydrOXYzine PAMOATE 50 MG CAPSULE (FP) PO PRN (21:35)
[2017-04-19] MEDS: DOCUSATE SODIUM 100 MG CAPSULE (FP) PO SCH (21:36)
[2017-04-19] MEDS: THIAMINE HCL 100 MG TABLET (FP) PO SCH (21:36)
[2017-04-20] MEDS: RANITIDINE HCL 150 MG TABLET (FP) PO SCH (06:46)
[2017-04-20] MEDS: FERROUS SO4 325 MG TABLET (FP) PO SCH ×3 (07:35→16:45)
[2017-04-20] MEDS: PRENATAL VITAMINS W/ FOLIC ACID TABLET (FP) PO SCH (10:08)
[2017-04-20] MEDS: MAGNESIUM CL 64 MG TABLET.SA PO SCH (10:08)
[2017-04-20] MEDS: MAG HYDROX/AL HYDROX/SIMETH 30 ML UNIT-DOSE CUP PO PRN ×2 (13:07→19:57)
[2017-04-20 15:29] LABS: BASOPHIL 1.3 % (0-2.0); EOSINOPHIL 1.5 % (0-4.5); MCH 32.2 pg (25.7-33.7); MCHC 33.2 g/dl (32.0-35.9); MEAN CELL VOLUME 97.2 fl (80-96); MEAN PLT VOLUME 8.7 fl (7.5-11.1); NEUTROPHILS 60.7 % (42.8-82.8); PLATELET COUNT 473 K/MM3 (134-434); RDW 15.9 % (11.9-15.9); WHITE BLOOD COUNT 6.4 K/mm3 (4.0-10.0)
[2017-04-20] MEDS ORDERED: MAG HYDROX/AL HYDROX/SIMETH 30 ML UNIT-DOSE CUP PO ONE (15:30)
[2017-04-20 15:35] LABS: ALBUMIN 3.5 g/dl (3.4-5.0); ALK PHOS 95 U/L (45-117); AMYLASE 324 U/L (25-115); ANION GAP 5 (8-16); BILIRUBIN,TOTAL 0.3 mg/dL (0.2-1.0); CALCIUM 9.8 mg/dL (8.5-10.1); CO2 31 mmol/L (21-32); CREATININE 0.7 mg/dL (0.7-1.3); GLUCOSE,RANDOM 104 mg/dL (74-106); MAGNESIUM 1.5 mg/dL (1.8-2.4); SGOT/AST 287 U/L (15-37); SGPT/ALT 286 U/L (12-78); TOT PROT 8.1 g/dl (6.4-8.2)
[2017-04-20] MEDS: PANTOPRAZOLE 40 MG TABLET (FP) PO SCH (15:42)
[2017-04-20] MEDS: THIAMINE HCL 100 MG TABLET (FP) PO SCH (21:27)
[2017-04-20] MEDS: DOCUSATE SODIUM 100 MG CAPSULE (FP) PO SCH (21:27)
[2017-04-20] MEDS: hydrOXYzine PAMOATE 50 MG CAPSULE (FP) PO PRN (21:28)
[2017-04-21] MEDS: FERROUS SO4 325 MG TABLET (FP) PO SCH (07:22)
[2017-04-21] MEDS: MAGNESIUM CL 64 MG TABLET.SA PO SCH (10:10)
[2017-04-21] MEDS: PRENATAL VITAMINS W/ FOLIC ACID TABLET (FP) PO SCH (10:10)
[2017-04-21] MEDS: PANTOPRAZOLE 40 MG TABLET (FP) PO SCH (10:11)
[2017-04-21] MEDS ORDERED: DOCUSATE SODIUM 100 MG CAPSULE (FP) PO PRN (12:29)
[2017-04-21] MEDS: MAG HYDROX/AL HYDROX/SIMETH 30 ML UNIT-DOSE CUP PO PRN ×2 (18:48→23:51)
[2017-04-21] MEDS: hydrOXYzine PAMOATE 50 MG CAPSULE (FP) PO PRN (21:27)
[2017-04-21] MEDS: THIAMINE HCL 100 MG TABLET (FP) PO SCH (21:27)
[2017-04-22] MEDS: FERROUS SO4 325 MG TABLET (FP) PO SCH (07:19)
[2017-04-22] MEDS: PANTOPRAZOLE 40 MG TABLET (FP) PO SCH ×2 (07:19→10:35)
[2017-04-22] MEDS: PRENATAL VITAMINS W/ FOLIC ACID TABLET (FP) PO SCH (10:34)
[2017-04-22] MEDS: MAGNESIUM CL 64 MG TABLET.SA PO SCH (10:35)
[2017-04-22] MEDS: THIAMINE HCL 100 MG TABLET (FP) PO SCH (21:15)
[2017-04-22] MEDS: hydrOXYzine PAMOATE 50 MG CAPSULE (FP) PO PRN (21:17)
[2017-04-23] MEDS: PANTOPRAZOLE 40 MG TABLET (FP) PO SCH (06:27)
[2017-04-23] MEDS: FERROUS SO4 325 MG TABLET (FP) PO SCH (07:04)
[2017-04-23] MEDS: PRENATAL VITAMINS W/ FOLIC ACID TABLET (FP) PO SCH (10:09)
[2017-04-23] MEDS: MAGNESIUM CL 64 MG TABLET.SA PO SCH (10:09)
[2017-04-23] MEDS: THIAMINE HCL 100 MG TABLET (FP) PO SCH (21:30)
[2017-04-23] MEDS: hydrOXYzine PAMOATE 50 MG CAPSULE (FP) PO PRN (21:31)
[2017-04-24] MEDS: FERROUS SO4 325 MG TABLET (FP) PO SCH (07:01)
[2017-04-24] MEDS: PANTOPRAZOLE 40 MG TABLET (FP) PO SCH (07:01)
[2017-04-24] MEDS: MAGNESIUM CL 64 MG TABLET.SA PO SCH (10:07)
[2017-04-24] MEDS: PRENATAL VITAMINS W/ FOLIC ACID TABLET (FP) PO SCH (10:07)
[2017-04-24] MEDS: THIAMINE HCL 100 MG TABLET (FP) PO SCH (21:36)
[2017-04-24] MEDS: hydrOXYzine PAMOATE 50 MG CAPSULE (FP) PO PRN (21:37)
[2017-04-25] MEDS: MAG HYDROX/AL HYDROX/SIMETH 30 ML UNIT-DOSE CUP PO PRN ×2 (01:23→16:51)
[2017-04-25] MEDS: PANTOPRAZOLE 40 MG TABLET (FP) PO SCH (07:29)
[2017-04-25] MEDS: FERROUS SO4 325 MG TABLET (FP) PO SCH (07:29)
[2017-04-25] MEDS: MAGNESIUM CL 64 MG TABLET.SA PO SCH (10:37)
[2017-04-25] MEDS: PRENATAL VITAMINS W/ FOLIC ACID TABLET (FP) PO SCH (10:37)
[2017-04-25] MEDS: THIAMINE HCL 100 MG TABLET (FP) PO SCH (21:29)
[2017-04-25] MEDS: hydrOXYzine PAMOATE 50 MG CAPSULE (FP) PO PRN (21:30)
[2017-04-26] MEDS: PANTOPRAZOLE 40 MG TABLET (FP) PO SCH (06:26)
[2017-04-26] MEDS: FERROUS SO4 325 MG TABLET (FP) PO SCH (07:16)
[2017-04-26] MEDS: PRENATAL VITAMINS W/ FOLIC ACID TABLET (FP) PO SCH (10:14)
[2017-04-26] MEDS: MAGNESIUM CL 64 MG TABLET.SA PO SCH (10:14)
[2017-04-26 14:22] LABS: BASOPHIL 1.4 % (0-2.0); EOSINOPHIL 2.5 % (0-4.5); MCH 31.1 pg (25.7-33.7); MCHC 32.4 g/dl (32.0-35.9); MEAN CELL VOLUME 96.1 fl (80-96); MEAN PLT VOLUME 8.9 fl (7.5-11.1); NEUTROPHILS 72.7 % (42.8-82.8); PLATELET COUNT 466 K/MM3 (134-434); RDW 15.9 % (11.9-15.9); WHITE BLOOD COUNT 10.9 K/mm3 (4.0-10.0)
[2017-04-26 14:38] LABS: ALBUMIN 3.7 g/dl (3.4-5.0); ANION GAP 10 (8-16); CALCIUM 9.8 mg/dL (8.5-10.1); CO2 29 mmol/L (21-32); CREATININE 0.8 mg/dL (0.7-1.3); GLUCOSE,RANDOM 98 mg/dL (74-106); MAGNESIUM 1.6 mg/dL (1.8-2.4); SGOT/AST 158 U/L (15-37)
[2017-04-26 14:47] LABS: ALK PHOS 90 U/L (45-117); BILIRUBIN,TOTAL 0.4 mg/dL (0.2-1.0); SGPT/ALT 204 U/L (12-78); TOT PROT 7.8 g/dl (6.4-8.2)
[2017-04-26] MEDS: hydrOXYzine PAMOATE 50 MG CAPSULE (FP) PO PRN (21:28)
[2017-04-26] MEDS: THIAMINE HCL 100 MG TABLET (FP) PO SCH (21:28)
[2017-04-27] MEDS: PANTOPRAZOLE 40 MG TABLET (FP) PO SCH (06:53)
[2017-04-27 07:08] VITALS: BP 145/83; PULSE 81; TEMP 98.2
[2017-04-27] MEDS: FERROUS SO4 325 MG TABLET (FP) PO SCH (07:25)
[2017-04-27] MEDS: MAGNESIUM CL 64 MG TABLET.SA PO SCH (09:57)
[2017-04-27] MEDS: PRENATAL VITAMINS W/ FOLIC ACID TABLET (FP) PO SCH (09:57)
--- NOTE | 2017-04-27 10:22 | PN ---
Psychiatric Progress Note Vital Signs: Vital Signs Period Temp Pulse Resp BP Sys/Ho Pulse Ox Last 24 Hr 98.2 F 81 16-18 145/83 Date of Session: 04/27/17 Chief Complaint:: discharge visit HPI: Patient has addressed alcohol, cannabis depnednce. ROS: Acid reflux, alcohol withdrawal related seizures x 2, pancreatitis medically managed. Current Medications: Active Medications Generic Name Dose Route Start Last Admin Trade Name Freq PRN Reason Stop Dose Admin Al Hydroxide/Mg Hydroxide 30 ml 04/20/17 15:28 04/25/17 16:51 Mylanta Oral Suspension - PO 30 ml Q4H PRN Administration DYSPEPSIA Docusate Sodium 300 mg 04/21/17 12:29 Colace - PO HS PRN CONSTIPATION Eucalyptus/Menthol/Phenol/Sorbitol 1 each 04/13/17 13:35 Cepastat Lozenge - MM Q4H PRN SORE THROAT Ferrous Sulfate 325 mg 04/22/17 08:00 04/27/17 07:25 Feosol - PO 325 mg DAILY@0800 MICHELLE Administration Guaifenesin 10 ml 04/13/17 13:35 Robitussin Dm - PO Q6H PRN COUGH Hydroxyzine Pamoate 50 mg 04/13/17 13:35 04/26/17 21:28 Vistaril - PO 50 mg Q4H PRN Administration AGITATION Loperamide HCl 4 mg 04/13/17 13:35 Imodium - PO Q6H PRN DIARRHEA Magnesium Chloride 128 mg 04/14/17 10:00 04/27/17 09:57 Slow-Mag - PO 128 mg DAILY MICHELLE Administration Magnesium Hydroxide 30 ml 04/13/17 13:35 Milk Of Magnesia - PO DAILY PRN CONSTIPATION Pantoprazole Sodium 40 mg 04/23/17 07:00 04/27/17 06:53 Protonix - PO 40 mg DAILY@0700 MICHELLE Administration Multivit/Folic Acid/Iron 1 tab 04/14/17 10:00 04/27/17 09:57 Vitamins (Sjr) - PO 1 tab DAILY MICHELLE Administration Thiamine HCl 100 mg 04/13/17 22:00 04/26/17 21:28 Vitamin B1 - PO 100 mg HS MICHELLE Administration Current Side Effect: No Lab tests ordered: No Lab tests reviewed: Yes Provider note:: Patient has completed today his treatment and met his goals, will continue to address his issues at [facility] outpatient treatment program. Patient gained insights into importance of changing attitudes and utilize all supports to prevent relapses. Patient was encouraged to continue maintain abstienence. PAtient is stable for discharge today. Total face to face time:: 35 Mental Status Exam - Mental Status Exam Alert and Oriented to: Time, Place, Person Cognitive Function: Good Patient Appearance: Well Groomed Mood: Hopeful Affect: Appropriate, Mood Congruent, Normal Range Patient Behavior: Appropriate, Cooperative Speech Pattern: Clear, Appropriate Voice Loudness: Normal Thought Process: Intact, Goal Oriented Thought Disorder: Not Present Hallucinations: Denies Suicidal Ideation: Denies Homicidal Ideation: Denies Insight/Judgement: Fair Sleep: Fair Appetite: Fair Muscle strength/Tone: Normal Gait/Station: Normal Psychiatric Treatment Plan - Problem List (1) Alcohol dependence Current Visit: Yes (2) Cannabis dependence, uncomplicated Current Visit: No
== END 2017-04-27 11:00 | disposition home or self-care (01) | DRG 772 ==
LOC: YASAS 13:17 → Y5N 13:18
PROVIDERS: ADMIT Psychiatry & Neurology Psychiatry; ATTEND Psychiatry & Neurology Psychiatry
PROC: HZ42ZZZ Group Counseling for Substance Abuse Treatment, Cognitive-Behavioral (ICD-10-PCS; principal; 2017-04-13)
DX: F10.20 Alcohol dependence, uncomplicated (principal); F12.20 Cannabis dependence, uncomplicated
CPT/HCPCS: 36415; 80053; 82150; 83690; 83735; 85025; 86803

== ENCOUNTER 2017-10-14 14:58 | Inpatient (IN) | payer OTHER ==
[2017-10-14 18:02] VITALS: BMI 27.3
--- NOTE | 2017-10-14 20:36 | HP ---
CIWA Score - CIWA Score Nausea/Vomitin-Mild Nausea/No Vomiting Muscle Tremors: 3 Anxiety: 4-Mod. Anxious/Guarded Agitation: 4-Moderately Restless (reports punched the wall prior to coming in today) Paroxysmal Sweats: 1-Minimal Palms Moist Orientation: 2-Disoriented Date<2 days Tacttile Disturbances: 0-None Auditory Disturbances: 0-None Visual Disturbances: 1-Very Mild Sensitivity Headache: 1-Very Mild CIWA-Ar Total Score: 17 Admission ROS S - HPI Chief Complaint: I don't feel well, need to get better, I've been drinking too much. Allergies/Adverse Reactions: Allergies Allergy/AdvReac Type Severity Reaction Status Date / Time No Known Allergies Allergy Verified 10/14/17 19:09 History of Present Illness: 47 yo male with hx chronic alcohol dependence is here seeking detox. PMHX: GERD , insomnia, depression, edema lower extremities. Last detox [facility] 04/09/17 - 04/13, rehab 04/13 - 04/27/17. Reports recently hurting his right hand today after punching a wall while he was in rage. Attributes his drinking to problems with his significant others. Reports no significant period of sobriety. Denies suicidal / homicidal ideation or suicide attempt. Denies hx of seizures or blackouts. Exam Limitations: No Limitations - Ebola screening Have you traveled outside of the country in the last 21 days: No Have you had contact with anyone from an Ebola affected area: No Have you been sick,other than usual withdrawal symptoms: No Do you have a fever: No - Review of Systems Constitutional: Loss of Appetite, Changes in sleep, Unintentional Wgt. Loss (20 lbs in the past 1-2 months) EENT: reports: No Symptoms Reported Respiratory: reports: No Symptoms reported Cardiac: reports: No Symptoms Reported GI: reports: Constipated, Poor Appetite, Poor Fluid Intake, Indigestion : reports: No Symptoms Reported Musculoskeletal: reports: No Symptoms Reported Integumentary: reports: Lesions (right hand d/t recent injury) Neuro: reports: Numbness, Tingling (bilateral hands) Endocrine: reports: No Symptoms Reported Hematology: reports: No Symptoms Reported Psychiatric: reports: Orientated x3, Depressed (reports feeling depress d/t issues with significant other) Other Systems: Reviewed and Negative Patient History - Patient Medical History Hx Anemia: No Hx Asthma: No Hx Chronic Obstructive Pulmonary Disease (COPD): No Hx Cancer: No Hx Cardiac Disorders: No Hx Congestive Heart Failure: No Hx Hypertension: No Hx Hypercholesterolemia: No Hx Pacemaker: No HX Cerebrovascular Accident: No Hx Seizures: Yes (6 months ago ) Hx Dementia: No Hx Diabetes: No Hx Gastrointestinal Disorders: Yes (patient reported history of Acid reflux) Hx Liver Disease: No Hx Genitourinary Disorders: No Hx Sexually Transmitted Disorders: No Hx Renal Disease (ESRD): No Hx Thyroid Disease: No Hx Human Immunodeficiency Virus (HIV): No Hx Hepatitis C: No Hx Depression: Yes Hx Suicide Attempt: No Hx Bipolar Disorder: No Hx Schizophrenia: No - Patient Surgical History Past Surgical History: No Hx Neurologic Surgery: No Hx Cataract Extraction: No Hx Cardiac Surgery: No Hx Lung Surgery: No Hx Breast Surgery: No Hx Breast Biopsy: No Hx Abdominal Surgery: No Hx Appendectomy: No Hx Cholecystectomy: No Hx Genitourinary Surgery: No Hx Section: No Hx Orthopedic Surgery: No Anesthesia Reaction: No - PPD History Date: 04/11/17 Results: 0 mm. PPD to be Administered?: No - Reproductive History Patient is a Female of Child Bearing Age (11 -55 yrs old): No - Smoking Cessation Smoking history: Never smoked Have you smoked in the past 12 months: No Aproximately how many cigarettes per day: 0 Cigars Per Day: 0 Hx Chewing Tobacco Use: No Initiated information on smoking cessation: No - Substance & Tx. History Hx Alcohol Use: Yes Hx Substance Use: Yes Substance Use Type: Alcohol Hx Substance Use Treatment: Yes ([facility] 04/09/17 -04/27/17) - Substances Abused Alcohol Route: Oral Frequency: Daily Amount used: LIQUOR- 1 PINT, BEER- 1 SIX PACK Age of first use: 18 Date of Last Use: 10/14/17 Family Disease History - Family Disease History Family Disease History: Diabetes: Mother (htn, ), [place]: Father ( ; esophageal ), Mother, Other: Brother (healthy, etoh), Son (in army), Daughter (a sales service technician) Admission Physical Exam BHS - Vital Signs Vital Signs: Vital Signs - 24 hr 10/14/17 18:00 Temperature 98.7 F Pulse Rate 100 H Respiratory 19 Rate Blood Pressure 146/97 - Physical General Appearance: Yes: Appropriately Dressed, Mild Distress, Thin, Irritable, Sweating, Anxious HEENTM: Yes: EOMI, Hearing grossly Normal, Normal ENT Inspection, Normocephalic , Normal Voice, ABELINO, Pharynx Normal, Tm's normal Respiratory: Yes: Chest Non-Tender, Lungs Clear, Normal Breath Sounds, No Respiratory Distress, No Accessory Muscle Use Neck: Yes: No masses,lesions,Nodules, Trachea in good position Breast: Yes: Breast Exam Deferred Cardiology: Yes: Regular Rhythm, Regular Rate Abdominal: Yes: Normal Bowel Sounds, Non Tender, Flat, Soft Genitourinary: Yes: Within Normal Limits Back: Yes: Normal Inspection Musculoskeletal: Yes: full range of Motion, Gait Steady, Pelvis Stable Extremities: Yes: Normal Capillary Refill, Normal Range of Motion, Non-Tender, Other (dry blood and abrasion on all knuckles of the right hands) Neurological: Yes: strand buncher fine wire II-XII NML intact, Fully Oriented, Alert, Motor Strength 5/5, Depressed Affect Integumentary: Yes: Normal Color, Dry, Warm Lymphatic: Yes: Within Normal Limits - Diagnostic (1) Hand injury Current Visit: Yes Status: Acute Qualifiers: Encounter type: initial encounter Laterality: right Qualified Code(s): S69.91XA - Unspecified injury of right wrist, hand and finger(s), initial encounter (2) Alcohol dependence with uncomplicated withdrawal Current Visit: Yes Status: Acute (3) GERD (gastroesophageal reflux disease) Current Visit: Yes Status: Chronic Qualifiers: Esophagitis presence: without esophagitis Qualified Code(s): K21.9 - Gastro -esophageal reflux disease without esophagitis (4) History of seizure Current Visit: Yes Status: Chronic (5) Weight loss Current Visit: Yes Status: Acute (6) Sleep difficulties Current Visit: Yes Status: Acute (7) Depressed mood Current Visit: Yes Status: Acute Cleared for Admission [facility] - Detox or Rehab [facility] Level of Care: Medically Managed Detox Regimen/Protocol: Librium [facility] Breath Alcohol Content Breath Alcohol Content: 0.466 Urine Drug Screen - Results Drug Screen Negative: Yes
[2017-10-14] MEDS ORDERED: chlordiazePOXIDE HCL 25 MG CAPSULE PO ONE (20:43)
[2017-10-14] MEDS ORDERED: MAGNESIUM CITRATE 300 ML BOTTLE PO PRN (20:43)
[2017-10-14] MEDS ORDERED: MAG HYDROX/AL HYDROX/SIMETH 30 ML UNIT-DOSE CUP PO PRN (20:43)
[2017-10-14] MEDS ORDERED: ACETAMINOPHEN 325 MG TABLET (FP) PO PRN (20:43)
[2017-10-14] MEDS ORDERED: P-EPHED 60MG/TRIPROLIDI 2.5MG TABLET PO PRN (20:43)
[2017-10-14] MEDS ORDERED: MENTHOL/PHENOL 1 EACH UD MM PRN (20:43)
[2017-10-14] MEDS ORDERED: IBUPROFEN 400 MG TABLET (FP) PO PRN (20:43)
[2017-10-14] MEDS ORDERED: LOPERAMIDE HCL 2 MG CAPSULE PO PRN (20:43)
[2017-10-14] MEDS ORDERED: MAGNESIUM HYDROX 2400MG/30ML ORAL SUSPENSION 30 ML CUP PO PRN (20:43)
[2017-10-14] MEDS ORDERED: hydrOXYzine PAMOATE 50 MG CAPSULE (FP) PO PRN (20:43)
[2017-10-14] MEDS ORDERED: guaiFENesin/D-METHORPHAN HB 10 ML UNIT-DOSE CUPS PO PRN (20:43)
[2017-10-14] MEDS ORDERED: cloNIDine HCL 0.1 MG TABLET PO ONE (21:00)
[2017-10-14] MEDS: chlordiazePOXIDE HCL 25 MG CAPSULE PO SCH (22:49)
[2017-10-14] MEDS: THIAMINE HCL 100 MG TABLET (FP) PO SCH (22:49)
[2017-10-14 23:43] LABS: URINE APPEARANCE CLEAR; URINE BILIRUBIN NEGATIVE (NEGATIVE); URINE BLOOD NEGATIVE (NEGATIVE); URINE COLOR STRAW; URINE GLUCOSE (UA) NEGATIVE (NEGATIVE); URINE KETONE NEGATIVE (NEGATIVE); URINE LEUK ESTERASE NEGATIVE (NEGATIVE); URINE NITRITE NEGATIVE (NEGATIVE); URINE PROTEIN NEGATIVE (NEGATIVE); URINE UROBILINOGEN NEGATIVE mg/dL (0.2-1.0)
[2017-10-15] MEDS: chlordiazePOXIDE HCL 25 MG CAPSULE PO SCH ×4 (05:14→22:02)
[2017-10-15] MEDS: PANTOPRAZOLE 40 MG TABLET (FP) PO SCH (06:03)
--- NOTE | 2017-10-15 08:42 | EKG ---
Test Reason : Blood Pressure : / mmHG Vent. Rate : 109 BPM Atrial Rate : 109 BPM P-R Int : 158 ms QRS Dur : 092 ms QT Int : 374 ms P-R-T Axes : 062 -01 035 degrees QTc Int : 503 ms SINUS TACHYCARDIA OTHERWISE NORMAL ECG WHEN COMPARED WITH ECG OF 11-APR-2017 07:40, T WAVE INVERSION NO LONGER EVIDENT IN ANTERIOR LEADS Confirmed by PAOLA ISAAC, KARMEN ([id number]) on 10/15/2017 8:42:49 AM Referred By: Confirmed By:KARMEN GUEVARA MD
[2017-10-15] MEDS: chlordiazePOXIDE HCL 25 MG CAPSULE PO PRN ×2 (08:53→19:44)
[2017-10-15] MEDS: PRENATAL VITAMINS W/ FOLIC ACID TABLET (FP) PO SCH (10:20)
[2017-10-15 10:35] LABS: CHLORIDE 98 mmol/L (98-107); SODIUM 140 mmol/L (136-145)
[2017-10-15 10:39] LABS: HEMATOCRIT 28.4 % (35.4-49); HEMOGLOBIN 9.4 GM/dL (11.7-16.9); MCH 28.9 pg (25.7-33.7); MCHC 33.1 g/dl (32.0-35.9); MEAN CELL VOLUME 87.1 fl (80-96); MEAN PLT VOLUME 8.8 fl (7.5-11.1); PLATELET COUNT 46 K/MM3 (134-434); RBC 3.27 M/mm3 (4.00-5.60); RDW 20.3 % (11.9-15.9); WHITE BLOOD COUNT 2.8 K/mm3 (4.0-10.0)
[2017-10-15 10:42] LABS: ALBUMIN 2.5 g/dl (3.4-5.0); ALK PHOS 120 U/L (45-117); ANION GAP 12 (8-16); BILIRUBIN,TOTAL 0.5 mg/dL (0.2-1.0); BLOOD UREA NITROGEN 3 mg/dL (7-18); CALCIUM 7.2 mg/dL (8.5-10.1); CO2 30 mmol/L (21-32); CREATININE 0.7 mg/dL (0.7-1.3); GLUCOSE,RANDOM 105 mg/dL (74-106); SGOT/AST 80 U/L (15-37); SGPT/ALT 22 U/L (12-78); TOT PROT 6.3 g/dl (6.4-8.2)
--- NOTE | 2017-10-15 10:52 | PN ---
[facility] CIWA - CIWA Score Nausea/Vomitin-No Nausea/No Vomiting Muscle Tremors: 4-Moderate,w/Arms Extend Anxiety: 4-Mod. Anxious/Guarded Agitation: 4-Moderately Restless Paroxysmal Sweats: 1-Minimal Palms Moist Orientation: 0-Oriented Tacttile Disturbances: 3-Moderate Itch/Numb/Burn Auditory Disturbances: 0-None Visual Disturbances: 0-None Headache: 0-None Present CIWA-Ar Total Score: 16 BHS Progress Note (SOAP) Subjective: ANXIETY,SWEATS,SEVERE TREMORS,UNSTEADY GAIT,NAUSEA,VOMITING,DIARRHEA, INTERMITTENT SLEEP. Objective: 10/15/17 10:49 Vital Signs Temperature 97.8 F 10/15/17 10:38 Pulse Rate 119 H 10/15/17 10:38 Respiratory Rate 20 10/15/17 10:38 Blood Pressure 123/85 10/15/17 10:38 O2 Sat by Pulse Oximetry (%) Laboratory Last Values Urine Color Straw 10/14/17 21:11 Urine Appearance Clear 10/14/17 21:11 Urine pH 7.0 (5.0-8.0) D 10/14/17 21:11 Ur Specific [place] 1.004 (1.001-1.035) 10/14/17 21:11 Urine Protein Negative (NEGATIVE) 10/14/17 21:11 Urine Glucose (UA) Negative (NEGATIVE) 10/14/17 21:11 Urine Ketones Negative (NEGATIVE) 10/14/17 21:11 Urine Blood Negative (NEGATIVE) 10/14/17 21:11 Urine Nitrite Negative (NEGATIVE) 10/14/17 21:11 Urine Bilirubin Negative (NEGATIVE) 10/14/17 21:11 Urine Urobilinogen Negative mg/dL (0.2-1.0) 10/14/17 21:11 Ur Leukocyte Esterase Negative (NEGATIVE) 10/14/17 21:11 OTHER LABS PENDING Assessment: 10/15/17 10:51 SEVERE WITHDRAWAL SX Plan: CONTINUE DETOX ADDITIONAL LIBRIUM 50 MG PO AT 14:00 TODAY. INCREASE PO FLUIDS TOLERATED TIGAN 200 MG IM Q6H PRN FOR NAUSEA AND VOMITING IMODIUM PRN FOR DIARRHEA
--- NOTE | 2017-10-15 10:54 | CONSULT ---
[facility] Psychiatric Consult - Data Date of interview: 10/15/17 Admission source: [facility] Identifying data: This is one of several admissions to [facility] for this 47 y/ o male seeking detox treatment on for alcohol dependence.Patient is single (common-law),a father of two,domiciled and currently employed (seasonal employee at the [email or web address]). Substance Abuse History: Confirmed by patient in this interview.Smoking history : Never smoked. Have you smoked in the past 12 months: No. Aproximately how many cigarettes per day: 0. Cigars Per Day: 0. Hx Chewing Tobacco Use: No. Initiated information on smoking cessation: No. - Substance & Tx. History. Hx Alcohol Use: Yes. Hx Substance Use: Yes. Substance Use Type: Alcohol. Hx Substance Use Treatment: Yes ([facility] 04/09/17 -04/27/17). - Substances Abused. Alcohol. Route: Oral. Frequency: Daily. Amount used: LIQUOR- 1 PINT, BEER- 1 SIX PACK. Age of first use: 18. Date of Last Use: 10/14/17 Medical History: History of withdrawal-related seizures,GERD,weight loss, hypertension and recent hand injury (right) prior to this [facility] visit. Psychiatric History: Patient denies. Physical/Sexual Abuse/Trauma History: Patient denies. Additional Comment: Drug Screen is negative. Mental Status Exam - Mental Status Exam Alert and Oriented to: Time, Place, Person Cognitive Function: Good Patient Appearance: Well Groomed (habitus) Mood: Nervous, Withdrawn Affect: Mood Congruent Patient Behavior: Fatigued (shakes noted), Appropriate, Cooperative Speech Pattern: Clear, Appropriate (more comfortable in czech) Voice Loudness: Normal Thought Process: Intact, Goal Oriented Thought Disorder: Not Present Hallucinations: Denies Suicidal Ideation: Denies Homicidal Ideation: Denies Insight/Judgement: Poor Sleep: Well Appetite: Good Gait/Station: Other (unsteady) Psychiatric Findings - Problem List ([place] 1, 2,3) (1) Alcohol dependence with uncomplicated withdrawal Current Visit: Yes Status: Acute (2) Substance induced mood disorder Current Visit: Yes Status: Suspected - Initial Treatment Plan Initial Treatment Plan: Psychoeducation.Sleep hygiene recommended.Detoxification in progress.Observation.
[2017-10-15] MEDS ORDERED: TRIMETHOBENZAMIDE HCL 200MG/2ML INJ IM PRN (10:58)
[2017-10-15 11:43] LABS: POTASSIUM 2.9 mmol/L (3.5-5.1)
[2017-10-15] MEDS ORDERED: chlordiazePOXIDE HCL 25 MG CAPSULE PO ONE ×2 (12:45→14:00)
[2017-10-15] MEDS ORDERED: FERROUS SO4 325 MG TABLET (FP) PO ONE (12:45)
[2017-10-15] MEDS ORDERED: POTASSIUM CHLORIDE ORAL LIQUID 20 MEQ/15 ML PO ONE (12:45)
--- NOTE | 2017-10-15 13:58 | EKG ---
Test Reason : Blood Pressure : / mmHG Vent. Rate : 114 BPM Atrial Rate : 114 BPM P-R Int : 146 ms QRS Dur : 096 ms QT Int : 362 ms P-R-T Axes : 000 -23 -20 degrees QTc Int : 498 ms SINUS TACHYCARDIA LATERAL INFARCT , AGE UNDETERMINED ABNORMAL ECG WHEN COMPARED WITH ECG OF 14-OCT-2017 22:44, LATERAL INFARCT IS NOW PRESENT NONSPECIFIC T WAVE ABNORMALITY NOW EVIDENT IN ANTEROLATERAL LEADS Confirmed by PAOLA ISAAC, KARMEN ([id number]) on 10/15/2017 1:58:28 PM Referred By: Confirmed By:KARMEN GUEVARA MD
[2017-10-15] MEDS: FERROUS SO4 325 MG TABLET (FP) PO SCH (16:42)
[2017-10-15] MEDS: THIAMINE HCL 100 MG TABLET (FP) PO SCH (22:02)
[2017-10-15] MEDS: POTASSIUM CHLORIDE ORAL LIQUID 20 MEQ/15 ML PO SCH (22:02)
[2017-10-16] MEDS: chlordiazePOXIDE HCL 25 MG CAPSULE PO SCH ×3 (06:10→17:42)
[2017-10-16] MEDS: PANTOPRAZOLE 40 MG TABLET (FP) PO SCH (06:10)
[2017-10-16] MEDS: FERROUS SO4 325 MG TABLET (FP) PO SCH ×2 (07:16→17:42)
[2017-10-16] MEDS: PRENATAL VITAMINS W/ FOLIC ACID TABLET (FP) PO SCH (09:56)
[2017-10-16] MEDS: POTASSIUM CHLORIDE ORAL LIQUID 20 MEQ/15 ML PO SCH ×2 (09:56→22:33)
[2017-10-16] MEDS ORDERED: cloNIDine HCL 0.1 MG TABLET PO ONE (12:45)
--- NOTE | 2017-10-16 16:08 | PN ---
S CIWA - CIWA Score Nausea/Vomitin Muscle Tremors: 3 Anxiety: 3 Agitation: 0-Normal Activity Paroxysmal Sweats: 3 Orientation: 2-Disoriented Date<2 days Tacttile Disturbances: 2-Mild Itch/Numbness/Burn Auditory Disturbances: 0-None Visual Disturbances: 1-Very Mild Sensitivity Headache: 0-None Present CIWA-Ar Total Score: 17 BHS Progress Note (SOAP) Subjective: Sweating, Nausea, Diarrhea, Interrupted Sleep, Tremors, Chills. Objective: PATIENT A & O X 2 (UNCERTAIN ABOUT CURRENT DAY / DATE). NO ACUTE DISTRESS. 10/16/17 16:04 Vital Signs Temperature 97.1 F L 10/16/17 14:09 Pulse Rate 100 H 10/16/17 14:09 Respiratory Rate 16 10/16/17 14:09 Blood Pressure 106/64 10/16/17 14:09 O2 Sat by Pulse Oximetry (%) Laboratory Tests 10/14/17 10/15/17 10/15/17 21:11 07:00 07:00 WBC 2.8 L D RBC 3.27 L Hgb 9.4 L D Hct 28.4 L D MCV 87.1 MCH 28.9 MCHC 33.1 RDW 20.3 H D Plt Count 46 L D MPV 8.8 Sodium 140 Potassium 2.9 L* D Chloride 98 Carbon Dioxide 30 Anion Gap 12 BUN 3 L D Creatinine 0.7 Creat Clearance w eGFR > 60 Random Glucose 105 Calcium 7.2 L D Total Bilirubin 0.5 D AST 80 H D ALT 22 D Alkaline Phosphatase 120 H D Total Protein 6.3 L Albumin 2.5 L D Urine Color Straw Urine Appearance Clear Urine pH 7.0 D Ur Specific [place] 1.004 Urine Protein Negative Urine Glucose (UA) Negative Urine Ketones Negative Urine Blood Negative Urine Nitrite Negative Urine Bilirubin Negative Urine Urobilinogen Negative Ur Leukocyte Esterase Negative RPR Titer 10/15/17 07:00 WBC RBC Hgb Hct MCV MCH MCHC RDW Plt Count MPV Sodium Potassium Chloride Carbon Dioxide Anion Gap BUN Creatinine Creat Clearance w eGFR Random Glucose Calcium Total Bilirubin AST ALT Alkaline Phosphatase Total Protein Albumin Urine Color Urine Appearance Urine pH Ur Specific [place] Urine Protein Urine Glucose (UA) Urine Ketones Urine Blood Urine Nitrite Urine Bilirubin Urine Urobilinogen Ur Leukocyte Esterase RPR Titer Nonreactive LABS NOTED. PATIENT DENIES ANY KNOWN HISTORY OF HEMATOLOGIC DISORDER OR LIVER DISEASE. 03/10/18 16:11 Assessment: 10/16/17 16:05 WITHDRAWAL SYMPTOMS. ANEMIA. HYPOKALEMIA. 10/16/17 16:10 Plan: CONTINUE DETOX. CONTINUE K-DUR AND FEOSOL. REPEAT CBC AND K LEVELS TOMORROW AM FOR ADMISSION ABNORMALITIES. INCREASE DAILY PO FLUID INTAKE.
[2017-10-16] MEDS: THIAMINE HCL 100 MG TABLET (FP) PO SCH (22:32)
[2017-10-16] MEDS: chlordiazePOXIDE 5 MG CAPSULE PO SCH (22:33)
[2017-10-17] MEDS: chlordiazePOXIDE 5 MG CAPSULE PO SCH ×3 (06:27→17:32)
[2017-10-17] MEDS: PANTOPRAZOLE 40 MG TABLET (FP) PO SCH (06:27)
[2017-10-17] MEDS: FERROUS SO4 325 MG TABLET (FP) PO SCH ×2 (07:25→17:32)
[2017-10-17 10:03] LABS: HEMATOCRIT 25.4 % (35.4-49); HEMOGLOBIN 8.4 GM/dL (11.7-16.9); MCH 28.4 pg (25.7-33.7); MCHC 32.9 g/dl (32.0-35.9); MEAN CELL VOLUME 86.3 fl (80-96); MEAN PLT VOLUME 9.2 fl (7.5-11.1); PLATELET COUNT 40 K/MM3 (134-434); RBC 2.94 M/mm3 (4.00-5.60); RDW 20.7 % (11.9-15.9); WHITE BLOOD COUNT 3.7 K/mm3 (4.0-10.0)
[2017-10-17] MEDS ORDERED: diphenhydrAMINE HCL 25 MG CAPSULE (FP) PO PRN (10:27)
[2017-10-17] MEDS: PRENATAL VITAMINS W/ FOLIC ACID TABLET (FP) PO SCH (10:57)
[2017-10-17] MEDS: POTASSIUM CHLORIDE ORAL LIQUID 20 MEQ/15 ML PO SCH ×2 (10:57→23:18)
[2017-10-17 12:14] LABS: PLATELET ESTIMATE DECREASED
--- NOTE | 2017-10-17 13:29 | PN ---
BHS Progress Note (SOAP) Subjective: dizziness, sweating, chills, unsteady gait Objective: 10/17/17 13:26 Last Vital Signs Temp Pulse Resp BP Pulse Ox 99.6 F 110 H 18 110/79 10/17/17 09:45 10/17/17 09:45 10/17/17 09:45 10/17/17 09:45 Laboratory Tests 10/14/17 10/15/17 10/15/17 21:11 07:00 07:00 WBC 2.8 L D RBC 3.27 L Hgb 9.4 L D Hct 28.4 L D MCV 87.1 MCH 28.9 MCHC 33.1 RDW 20.3 H D Plt Count 46 L D MPV 8.8 Total Counted Neutrophils % Neutrophils % (Manual) Lymphocytes % Lymphocytes % (Manual) Monocytes % (Manual) Eosinophils % (Manual) Platelet Estimate Sodium 140 Potassium 2.9 L* D Chloride 98 Carbon Dioxide 30 Anion Gap 12 BUN 3 L D Creatinine 0.7 Creat Clearance w eGFR > 60 Random Glucose 105 Calcium 7.2 L D Total Bilirubin 0.5 D AST 80 H D ALT 22 D Alkaline Phosphatase 120 H D Total Protein 6.3 L Albumin 2.5 L D Urine Color Straw Urine Appearance Clear Urine pH 7.0 D Ur Specific [place] 1.004 Urine Protein Negative Urine Glucose (UA) Negative Urine Ketones Negative Urine Blood Negative Urine Nitrite Negative Urine Bilirubin Negative Urine Urobilinogen Negative Ur Leukocyte Esterase Negative RPR Titer 10/15/17 10/17/17 10/17/17 07:00 07:20 07:20 WBC 3.7 L D RBC 2.94 L Hgb 8.4 L D Hct 25.4 L MCV 86.3 MCH 28.4 MCHC 32.9 RDW 20.7 H Plt Count 40 L MPV 9.2 Total Counted 100 Neutrophils % No Result Required. Neutrophils % (Manual) 71.0 Lymphocytes % No Result Required. Lymphocytes % (Manual) 21.0 Monocytes % (Manual) 7 Eosinophils % (Manual) 1.0 Platelet Estimate Decreased Sodium Potassium 3.4 L Chloride Carbon Dioxide Anion Gap BUN Creatinine Creat Clearance w eGFR Random Glucose Calcium Total Bilirubin AST ALT Alkaline Phosphatase Total Protein Albumin Urine Color Urine Appearance Urine pH Ur Specific [place] Urine Protein Urine Glucose (UA) Urine Ketones Urine Blood Urine Nitrite Urine Bilirubin Urine Urobilinogen Ur Leukocyte Esterase RPR Titer Nonreactive Labs noted: pancytopenia and hypokalemia Assessment: 10/17/17 13:26 Withdrawal symptoms Noted with pancytopenia and hypokalemia Plan: Continue detox Encouraged to drink more water for hydration Pancytopenia: stable, continue ferrous sulfate for anemia, monitor HYypokalemia: supplemented
--- NOTE | 2017-10-17 20:39 | EKG ---
Test Reason : Blood Pressure : / mmHG Vent. Rate : 096 BPM Atrial Rate : 096 BPM P-R Int : 116 ms QRS Dur : 094 ms QT Int : 404 ms P-R-T Axes : 033 -02 -35 degrees QTc Int : 510 ms NORMAL SINUS RHYTHM ABNORMAL ECG WHEN COMPARED WITH ECG OF 15-OCT-2017 11:45, NO SIGNIFICANT CHANGE WAS FOUND Confirmed by SHARON HERNANDEZ MD ([id number]) on 10/17/2017 8:39:03 PM Referred By: Confirmed By:SHARON HERNANDEZ MD
[2017-10-17] MEDS: THIAMINE HCL 100 MG TABLET (FP) PO SCH (22:26)
[2017-10-17] MEDS: chlordiazePOXIDE HCL 10 MG CAPSULE PO SCH (22:27)
[2017-10-18] MEDS: chlordiazePOXIDE HCL 10 MG CAPSULE PO SCH ×2 (05:36→10:30)
[2017-10-18] MEDS: FERROUS SO4 325 MG TABLET (FP) PO SCH (07:00)
[2017-10-18] MEDS: PANTOPRAZOLE 40 MG TABLET (FP) PO SCH (07:00)
[2017-10-18 09:59] VITALS: BP 119/82; PULSE 103; TEMP 98.9
[2017-10-18] MEDS: PRENATAL VITAMINS W/ FOLIC ACID TABLET (FP) PO SCH (10:30)
[2017-10-18] MEDS: POTASSIUM CHLORIDE ORAL LIQUID 20 MEQ/15 ML PO SCH (10:31)
--- NOTE | 2017-10-18 11:47 | PN ---
S Progress Note (SOAP) Subjective: sweats Objective: 10/18/17 11:41 A & O x 3 ambulating steadily on unit Not in distress Laboratory Last Values WBC 3.7 K/mm3 (4.0-10.0) L D 10/17/17 07:20 RBC 2.94 M/mm3 (4.00-5.60) L 10/17/17 07:20 Hgb 8.4 GM/dL (11.7-16.9) L D 10/17/17 07:20 Hct 25.4 % (35.4-49) L 10/17/17 07:20 MCV 86.3 fl (80-96) 10/17/17 07:20 MCH 28.4 pg (25.7-33.7) 10/17/17 07:20 MCHC 32.9 g/dl (32.0-35.9) 10/17/17 07:20 RDW 20.7 % (11.9-15.9) H 10/17/17 07:20 Plt Count 40 K/MM3 (134-434) L 10/17/17 07:20 MPV 9.2 fl (7.5-11.1) 10/17/17 07:20 Total Counted 100 10/17/17 07:20 Neutrophils % No Result Required. 10/17/17 07:20 Neutrophils % (Manual) 71.0 % (42.8-82.8) 10/17/17 07:20 Lymphocytes % No Result Required. 10/17/17 07:20 Lymphocytes % (Manual) 21.0 % (8-40) 10/17/17 07:20 Monocytes % (Manual) 7 % (3.8-10.2) 10/17/17 07:20 Eosinophils % (Manual) 1.0 % (0-4.5) 10/17/17 07:20 Platelet Estimate Decreased 10/17/17 07:20 Sodium 140 mmol/L (136-145) 10/15/17 07:00 Potassium 3.4 mmol/L (3.5-5.1) L 10/17/17 07:20 Chloride 98 mmol/L (98-107) 10/15/17 07:00 Carbon Dioxide 30 mmol/L (21-32) 10/15/17 07:00 Anion Gap 12 (8-16) 10/15/17 07:00 BUN 3 mg/dL (7-18) L D 10/15/17 07:00 Creatinine 0.7 mg/dL (0.7-1.3) 10/15/17 07:00 Creat Clearance w eGFR > 60 (>60) 10/15/17 07:00 Random Glucose 105 mg/dL (74-106) 10/15/17 07:00 Calcium 7.2 mg/dL (8.5-10.1) L D 10/15/17 07:00 Total Bilirubin 0.5 mg/dL (0.2-1.0) D 10/15/17 07:00 AST 80 U/L (15-37) H D 10/15/17 07:00 ALT 22 U/L (12-78) D 10/15/17 07:00 Alkaline Phosphatase 120 U/L (45-117) H D 10/15/17 07:00 Total Protein 6.3 g/dl (6.4-8.2) L 10/15/17 07:00 Albumin 2.5 g/dl (3.4-5.0) L D 10/15/17 07:00 Urine Color Straw 10/14/17 21:11 Urine Appearance Clear 10/14/17 21:11 Urine pH 7.0 (5.0-8.0) D 10/14/17 21:11 Ur Specific [place] 1.004 (1.001-1.035) 10/14/17 21:11 Urine Protein Negative (NEGATIVE) 10/14/17 21:11 Urine Glucose (UA) Negative (NEGATIVE) 10/14/17 21:11 Urine Ketones Negative (NEGATIVE) 10/14/17 21:11 Urine Blood Negative (NEGATIVE) 10/14/17 21:11 Urine Nitrite Negative (NEGATIVE) 10/14/17 21:11 Urine Bilirubin Negative (NEGATIVE) 10/14/17 21:11 Urine Urobilinogen Negative mg/dL (0.2-1.0) 10/14/17 21:11 Ur Leukocyte Esterase Negative (NEGATIVE) 10/14/17 21:11 RPR Titer Nonreactive (NONREACTIVE) 10/15/17 07:00 Vital Signs Temperature 98.9 F 10/18/17 09:58 Pulse Rate 103 H 10/18/17 09:58 Respiratory Rate 16 10/18/17 09:58 Blood Pressure 119/82 10/18/17 09:58 O2 Sat by Pulse Oximetry (%) Assessment: 10/18/17 11:47 Stable for d/c Plan: For Discharge
== END 2017-10-18 15:38 | disposition home or self-care (01) | DRG 775 ==
LOC: YASAS 14:58 → Y3N 19:21
PROVIDERS: ADMIT Internal Medicine; ATTEND Internal Medicine
PROC: HZ2ZZZZ Detoxification Services for Substance Abuse Treatment (ICD-10-PCS; principal; 2017-10-14)
DX: F10.230 Alcohol dependence with withdrawal, uncomplicated (principal); F32.9 Major depressive disorder, single episode, unspecified; F19.24 Other psychoactive substance dependence with psychoactive substance-induced mood disorder; I10 Essential (primary) hypertension; K21.9 Gastro-esophageal reflux disease without esophagitis; E78.5 Hyperlipidemia, unspecified; D50.9 Iron deficiency anemia, unspecified; D61.818 Other pancytopenia; G47.00 Insomnia, unspecified; S69.91XA Unspecified injury of right wrist, hand and finger(s), initial encounter; W22.09XA Striking against other stationary object, initial encounter; Y93.9 Activity, unspecified; Y92.9 Unspecified place or not applicable; Z86.69 Personal history of other diseases of the nervous system and sense organs; Z87.898 Personal history of other specified conditions
CPT/HCPCS: 36415; 73110-TC-RT-FY; 73130-TC-RT-FY; 80053; 81003; 84132; 85025; 85027; 86593; 93005; 93010; J0735

== ENCOUNTER 2017-10-26 14:49 | Inpatient (IN) | payer OTHER ==
[2017-10-26 17:52] VITALS: BMI 22.8
--- NOTE | 2017-10-26 20:38 | HP ---
Admission [facility] Chief Complaint: "I WANT TO CLEAN MYSELF BECAUSE I DON'T WANT TO DRINK" Allergies/Adverse Reactions: Allergies Allergy/AdvReac Type Severity Reaction Status Date / Time No Known Allergies Allergy Verified 10/26/17 17:57 History of Present Illness: 47 Y.O. MALE WITH LONG HX/O ALCOHOLISM HERE FOR REHAB. CLIENT COMPLETED DETOX HERE AND DC ON 10/18/17. BUT IMMEDIATELY RELAPSED WAS ADMITTED THE FOLLOWING DAY TO [facility] FOR ETOH INTOXICATION AND DC TODAY. DC PAPERS WERE REVIEWED AND CONSISTENT WITH CLIENTS HX. CLIENT REPORTS LONGEST CLEAN TIME 6 MONTHS. DENIES LEGALS. Exam Limitations: No Limitations - Ebola screening Have you traveled outside of the country in the last 21 days: No Have you had contact with anyone from an Ebola affected area: No Have you been sick,other than usual withdrawal symptoms: No Do you have a fever: No - Review of Systems Constitutional: Changes in sleep EENT: reports: No Symptoms Reported Respiratory: reports: No Symptoms reported Cardiac: reports: No Symptoms Reported GI: reports: No Symptoms Reported : reports: No Symptoms Reported Musculoskeletal: reports: No Symptoms Reported Integumentary: reports: No Symptoms Reported Neuro: reports: Seizure (R/T ETOH WITHDRAWAL) Endocrine: reports: No Symptoms Reported Hematology: reports: No Symptoms Reported Psychiatric: reports: Anxious Other Systems: Reviewed and Negative Patient History - Patient Medical History Hx Anemia: No Hx Asthma: No Hx Chronic Obstructive Pulmonary Disease (COPD): No Hx Cancer: No Hx Cardiac Disorders: No Hx Congestive Heart Failure: No Hx Hypertension: No Hx Hypercholesterolemia: No Hx Pacemaker: No HX Cerebrovascular Accident: No Hx Seizures: Yes (R/T ETOH WITHDRAWAL) Hx Dementia: No Hx Diabetes: No Hx Gastrointestinal Disorders: Yes (GERD ON PROTONIX 40 MG) Hx Liver Disease: No Hx Genitourinary Disorders: No Hx Sexually Transmitted Disorders: No Hx Renal Disease (ESRD): No Hx Thyroid Disease: No Hx Human Immunodeficiency Virus (HIV): No Hx Hepatitis C: No Hx Depression: No Hx Suicide Attempt: No Hx Bipolar Disorder: No Hx Schizophrenia: No Other Medical History: ANXIETY - Patient Surgical History Past Surgical History: No Hx Neurologic Surgery: No Hx Cataract Extraction: No Hx Cardiac Surgery: No Hx Lung Surgery: No Hx Breast Surgery: No Hx Breast Biopsy: No Hx Abdominal Surgery: No Hx Appendectomy: No Hx Cholecystectomy: No Hx Genitourinary Surgery: No Hx Section: No Hx Orthopedic Surgery: No Anesthesia Reaction: No - PPD History Previous Implant?: Yes Documented Results: Negative w/proof Implanted On Prior [facility] Admission?: Yes Date: 04/11/17 Results: 0 mm. PPD to be Administered?: No - Smoking Cessation Smoking history: Never smoked Have you smoked in the past 12 months: No Aproximately how many cigarettes per day: 0 Cigars Per Day: 0 Hx Chewing Tobacco Use: No Initiated information on smoking cessation: No - Substance & Tx. History Hx Alcohol Use: Yes Hx Substance Use: Yes Substance Use Type: Alcohol Hx Substance Use Treatment: Yes ([facility]) - Substances Abused VODKA Route: Oral Frequency: 3-6 times per week Amount used: 1 PINT Age of first use: 42 Date of Last Use: 10/18/17 Family Disease History - Family Disease History Family Disease History: Diabetes: Mother (htn, ), [place]: Father ( ; esophageal ), Mother, Other: Brother (healthy, etoh), Son (in army), Daughter (a emergency room physician) Admission Physical Exam [facility] - Vital Signs Vital Signs: Vital Signs - 24 hr 10/26/17 17:50 Temperature 98.0 F Pulse Rate 90 Respiratory 20 Rate Blood Pressure 127/84 - Physical General Appearance: Yes: No Apparent Distress, Appropriately Dressed HEENTM: Yes: EOMI, Normocephalic, Normal Voice, ABELINO, Pharynx Normal Respiratory: Yes: Chest Non-Tender, Lungs Clear, Normal Breath Sounds, No Respiratory Distress, No Accessory Muscle Use Neck: Yes: No masses,lesions,Nodules, Supple, Trachea in good position Breast: Yes: Breast Exam Deferred Cardiology: Yes: Regular Rhythm, Regular Rate, S1, S2 Abdominal: Yes: Normal Bowel Sounds, Non Tender, Flat, Soft Genitourinary: Yes: Within Normal Limits Back: Yes: Normal Inspection Musculoskeletal: Yes: full range of Motion, Gait Steady Extremities: Yes: Normal Capillary Refill, Normal Inspection, Normal Range of Motion, Non-Tender Neurological: Yes: feller operator II-XII NML intact, Fully Oriented, Alert, Motor Strength 5/5 Integumentary: Yes: Normal Color, Dry, Warm Lymphatic: Yes: Within Normal Limits - Diagnostic (1) Uncomplicated alcohol dependence Current Visit: Yes Status: Acute (2) Alcohol related seizure Current Visit: Yes Status: Acute (3) GERD (gastroesophageal reflux disease) Current Visit: No Status: Chronic Qualifiers: Esophagitis presence: without esophagitis Qualified Code(s): K21.9 - Gastro -esophageal reflux disease without esophagitis (4) Sleep difficulties Current Visit: No Status: Chronic Cleared for Admission [facility] - Detox or Rehab Detox Regimen/Protocol: Not Applicable Claeared for Rehab Admission: Yes [facility] Breath Alcohol Content Breath Alcohol Content: 0 Urine Drug Screen - Results Drug Screen Negative: No Urine Drug Screen Results: BZO-Benzodiazepines Inpatient Rehab Admission - Initial Determination Are CD services needed?: Yes Free of communicable disease: Yes Not in need of hospitalization: Yes - Rehab Admission Criteria Previous failed treatment: Yes Poor recovery environment: Yes Comorbidities: Yes Lacks judgement: Yes Patient is meeting Inpatient Rehab admission criteria:: Yes
[2017-10-26] MEDS ORDERED: ACETAMINOPHEN 325 MG TABLET (FP) PO PRN (20:45)
[2017-10-26] MEDS ORDERED: MENTHOL/PHENOL 1 EACH UD MM PRN (20:45)
[2017-10-26] MEDS ORDERED: IBUPROFEN 400 MG TABLET (FP) PO PRN (20:45)
[2017-10-26] MEDS ORDERED: guaiFENesin/D-METHORPHAN HB 10 ML UNIT-DOSE CUPS PO PRN (20:45)
[2017-10-26] MEDS ORDERED: P-EPHED 60MG/TRIPROLIDI 2.5MG TABLET PO PRN (20:45)
[2017-10-26] MEDS ORDERED: LOPERAMIDE HCL 2 MG CAPSULE PO PRN (20:45)
[2017-10-26] MEDS ORDERED: MAGNESIUM HYDROX 2400MG/30ML ORAL SUSPENSION 30 ML CUP PO PRN (20:45)
[2017-10-26] MEDS ORDERED: MAGNESIUM CITRATE 300 ML BOTTLE PO PRN (20:45)
[2017-10-26] MEDS: THIAMINE HCL 100 MG TABLET (FP) PO SCH (23:14)
[2017-10-26] MEDS: MELATONIN 5 MG TABLETS PO SCH (23:14)
[2017-10-27 01:46] LABS: URINE APPEARANCE CLEAR; URINE BILIRUBIN NEGATIVE (NEGATIVE); URINE BLOOD NEGATIVE (NEGATIVE); URINE COLOR LTYELLOW; URINE GLUCOSE (UA) NEGATIVE (NEGATIVE); URINE KETONE NEGATIVE (NEGATIVE); URINE LEUK ESTERASE NEGATIVE (NEGATIVE); URINE NITRITE NEGATIVE (NEGATIVE); URINE PROTEIN NEGATIVE (NEGATIVE); URINE UROBILINOGEN NEGATIVE mg/dL (0.2-1.0)
--- NOTE | 2017-10-27 06:20 | HP ---
Psychiatrist Admission - Data Date of interview: 10/27/17 Admission source: [facility] Identifying data: This is the third [facility] admission for this 47 years old male living as , father of 2 children, employed seasonally for the [email or web address], domiciled Medical History: Significant for anemia, GERD and history of alcohol withdrawal seizures Psychiatric History: Denies history of previous psychiatric treatment Physical/Sexual Abuse/Trauma History: Denies history of verbal, physical or sexual abuse as well as DV relationship Additional Comment: Reports father was alcoholic and from esophageal cancer. Patient has 4 previous inpt detox in this facility with most recently on 3N from 10/14/17 to 10/18/17. That same day of discharge, he got admitted to [facility] for alcohol intoxication and was in ICU for Wernicke-Korsakoff syndrome. He was discharged yesterday anf referred to this facility for inpatient rehab Vital Signs: Vital Signs - 24 hr 10/26/17 10/27/17 10/27/17 17:50 00:30 03:30 Temperature 98.0 F Pulse Rate 90 Respiratory 20 18 18 Rate Blood Pressure 127/84 Allergies/Adverse Reactions: Allergies Allergy/AdvReac Type Severity Reaction Status Date / Time No Known Allergies Allergy Verified 10/26/17 17:57 Date of last physical exam: 10/26/17 Concur with the findings of this exam: Yes - Substance Abuse/Tx History Hx Alcohol Use: Yes Hx Substance Use: No Substance Use Type: Alcohol (Started drinking alcohol at age 42, comsumes one pint of vodka 3-6 times weekly. Last drank on 10/18/17) Hx Substance Use Treatment: Yes (4 previous inpt detox & 2 inpt rehab @ [facility]) Mental Status Exam - Mental Status Exam Alert and Oriented to: Place, Person Cognitive Function: Fair Patient Appearance: Well Groomed Patient Behavior: Cooperative Speech Pattern: Clear Voice Loudness: Normal Thought Process: Intact, Goal Oriented Thought Disorder: Not Present Hallucinations: Denies Suicidal Ideation: Denies Homicidal Ideation: Denies Insight/Judgement: Fair Appetite: Good Muscle strength/Tone: Normal Gait/Station: Normal Psychiatric Findings - Problem List ([place] 1, 2,3) (1) Alcohol dependence Current Visit: Yes Status: Acute (2) Alcohol-induced sleep disorder Current Visit: Yes Status: Acute (3) Alcohol related seizure Current Visit: Yes Status: Acute (4) Anemia Current Visit: No Status: Chronic Qualifiers: Anemia type: iron deficiency (5) GERD (gastroesophageal reflux disease) Current Visit: No Status: Chronic Qualifiers: Esophagitis presence: without esophagitis Qualified Code(s): K21.9 - Gastro -esophageal reflux disease without esophagitis (6) Anemia Current Visit: Yes Status: Chronic - Initial Treatment Plan Initial Treatment Plan: Monitor progress
[2017-10-27] MEDS: PANTOPRAZOLE 40 MG TABLET (FP) PO SCH (06:37)
--- NOTE | 2017-10-27 09:58 | EKG ---
Test Reason : Blood Pressure : / mmHG Vent. Rate : 075 BPM Atrial Rate : 075 BPM P-R Int : 126 ms QRS Dur : 088 ms QT Int : 420 ms P-R-T Axes : 034 006 -19 degrees QTc Int : 469 ms NORMAL SINUS RHYTHM NORMAL ECG WHEN COMPARED WITH ECG OF 15-OCT-2017 14:05, T WAVE INVERSION NO LONGER EVIDENT IN ANTERIOR LEADS Confirmed by EM BADILLO MD ([id number]) on 10/27/2017 9:58:04 AM Referred By: Confirmed By:EM BADILLO MD
[2017-10-27] MEDS: PRENATAL VITAMINS W/ FOLIC ACID TABLET (FP) PO SCH (10:42)
[2017-10-27] MEDS: hydrOXYzine PAMOATE 50 MG CAPSULE (FP) PO PRN ×2 (12:42→21:26)
[2017-10-27] MEDS: THIAMINE HCL 100 MG TABLET (FP) PO SCH (21:26)
[2017-10-27] MEDS: MELATONIN 5 MG TABLETS PO SCH (21:26)
[2017-10-28] MEDS: MAG HYDROX/AL HYDROX/SIMETH 30 ML UNIT-DOSE CUP PO PRN ×2 (00:28→15:08)
[2017-10-28] MEDS: PANTOPRAZOLE 40 MG TABLET (FP) PO SCH (06:06)
[2017-10-28] MEDS: PRENATAL VITAMINS W/ FOLIC ACID TABLET (FP) PO SCH (09:50)
[2017-10-28] MEDS: hydrOXYzine PAMOATE 50 MG CAPSULE (FP) PO PRN (09:50)
[2017-10-28] MEDS ORDERED: PT OWN MED DRAWER 7, Y5N ONE ×2 (12:53→17:08)
[2017-10-28] MEDS: FERROUS SO4 300 MG/5 ML ORAL SOLN UNIT DOSE CUPS PO SCH ×2 (13:00→17:39)
--- NOTE | 2017-10-28 14:03 | PN ---
[facility] Progress Note Note: Patient with complaint of heartburn with mild relief from protonix. Vital Signs Temperature 98.2 F 10/28/17 06:51 Pulse Rate 87 10/28/17 06:51 Respiratory Rate 18 10/28/17 06:51 Blood Pressure 114/78 10/28/17 06:51 O2 Sat by Pulse Oximetry (%) Laboratory Last Values Urine Color Ltyellow 10/26/17 23:00 Urine Appearance Clear 10/26/17 23:00 Urine pH 6.0 (5.0-8.0) 10/26/17 23:00 Ur Specific Stuart 1.006 (1.001-1.035) 10/26/17 23:00 Urine Protein Negative (NEGATIVE) 10/26/17 23:00 Urine Glucose (UA) Negative (NEGATIVE) 10/26/17 23:00 Urine Ketones Negative (NEGATIVE) 10/26/17 23:00 Urine Blood Negative (NEGATIVE) 10/26/17 23:00 Urine Nitrite Negative (NEGATIVE) 10/26/17 23:00 Urine Bilirubin Negative (NEGATIVE) 10/26/17 23:00 Urine Urobilinogen Negative mg/dL (0.2-1.0) 10/26/17 23:00 Ur Leukocyte Esterase Negative (NEGATIVE) 10/26/17 23:00 Laboratory Tests 10/26/17 23:00 Urine Color Ltyellow Urine Appearance Clear Urine pH 6.0 Ur Specific Stuart 1.006 Urine Protein Negative Urine Glucose (UA) Negative Urine Ketones Negative Urine Blood Negative Urine Nitrite Negative Urine Bilirubin Negative Urine Urobilinogen Negative Ur Leukocyte Esterase Negative Subj: Denies N/V/D. +indigestion/heartburn without regard to meals. Obj: Skin: warm, dry and intact. In NAD. Afebrile. A/P: GERD Diet modifications reviewed, will continue protonix and Mylanta prn. Add Sulcrafate to regimen 1 gram BID. Continue to monitor clinically. Also seen by information clerk [employer]. Will order ensure 120mg BID.
[2017-10-28] MEDS: DOCUSATE SODIUM 100 MG CAPSULE (FP) PO SCH (22:18)
[2017-10-28] MEDS: MELATONIN 5 MG TABLETS PO SCH (22:18)
[2017-10-28] MEDS: SUCRALFATE 1 GM TABLET (FP) PO SCH (22:19)
[2017-10-28] MEDS: THIAMINE HCL 100 MG TABLET (FP) PO SCH (22:19)
[2017-10-29] MEDS: PANTOPRAZOLE 40 MG TABLET (FP) PO SCH (06:16)
[2017-10-29] MEDS: FERROUS SO4 300 MG/5 ML ORAL SOLN UNIT DOSE CUPS PO SCH ×3 (08:04→17:01)
[2017-10-29] MEDS: PRENATAL VITAMINS W/ FOLIC ACID TABLET (FP) PO SCH (10:04)
[2017-10-29] MEDS: SUCRALFATE 1 GM TABLET (FP) PO SCH ×2 (11:41→21:30)
[2017-10-29] MEDS: hydrOXYzine PAMOATE 50 MG CAPSULE (FP) PO PRN ×2 (13:57→21:29)
[2017-10-29] MEDS: MELATONIN 5 MG TABLETS PO SCH (21:29)
[2017-10-29] MEDS: THIAMINE HCL 100 MG TABLET (FP) PO SCH (21:29)
[2017-10-29] MEDS: DOCUSATE SODIUM 100 MG CAPSULE (FP) PO SCH (21:30)
[2017-10-30] MEDS: PANTOPRAZOLE 40 MG TABLET (FP) PO SCH (06:12)
[2017-10-30] MEDS: FERROUS SO4 300 MG/5 ML ORAL SOLN UNIT DOSE CUPS PO SCH ×3 (07:41→17:47)
[2017-10-30] MEDS: hydrOXYzine PAMOATE 50 MG CAPSULE (FP) PO PRN ×2 (08:43→21:55)
[2017-10-30] MEDS: PRENATAL VITAMINS W/ FOLIC ACID TABLET (FP) PO SCH (09:53)
[2017-10-30] MEDS: SUCRALFATE 1 GM TABLET (FP) PO SCH ×2 (09:53→21:53)
[2017-10-30] MEDS ORDERED: PT OWN MED DRAWER 7, Y5N ONE (20:06)
[2017-10-30] MEDS: DOCUSATE SODIUM 100 MG CAPSULE (FP) PO SCH (21:53)
[2017-10-30] MEDS: MELATONIN 5 MG TABLETS PO SCH (21:54)
[2017-10-30] MEDS: THIAMINE HCL 100 MG TABLET (FP) PO SCH (21:54)
--- NOTE | 2017-10-31 01:15 | PN ---
[facility] Progress Note Note: ASKED TO SEE PT FOR BLURRY VISION. NO C/O BLURRY VISION. CONCERNED ABOUT "MY SWOLLEN LEGS; THAT HAS GOTTEN BETTER SINCE i PUT THEM UP". RESOLVING TRACE EDEMA WARM TO TOUCH + PEDAL PULSES BILAT VS 133/90 90 TRACE EDEMA AVOID CONSTRICTIVE SOCKS CONT TO ELEVATE LEGS TOLERATED MONITOR FOR WORSENING SX'S CMP;LAST K 3.4
[2017-10-31] MEDS: PANTOPRAZOLE 40 MG TABLET (FP) PO SCH (06:13)
[2017-10-31] MEDS: FERROUS SO4 300 MG/5 ML ORAL SOLN UNIT DOSE CUPS PO SCH ×3 (07:18→16:53)
[2017-10-31] MEDS ORDERED: PT OWN MED DRAWER 7, Y5N ONE ×2 (08:47→19:30)
[2017-10-31] MEDS: PRENATAL VITAMINS W/ FOLIC ACID TABLET (FP) PO SCH (09:43)
[2017-10-31] MEDS: SUCRALFATE 1 GM TABLET (FP) PO SCH ×2 (09:43→21:23)
[2017-10-31] MEDS: hydrOXYzine PAMOATE 50 MG CAPSULE (FP) PO PRN ×3 (09:44→23:32)
[2017-10-31 11:14] LABS: HEMATOCRIT 26.2 % (35.4-49); HEMOGLOBIN 8.6 GM/dL (11.7-16.9); MCH 28.5 pg (25.7-33.7); MCHC 32.7 g/dl (32.0-35.9); MEAN CELL VOLUME 87.2 fl (80-96); MEAN PLT VOLUME 7.6 fl (7.5-11.1); PLATELET COUNT 581 K/MM3 (134-434); RBC 3.01 M/mm3 (4.00-5.60); RDW 21.1 % (11.9-15.9); WHITE BLOOD COUNT 7.8 K/mm3 (4.0-10.0)
[2017-10-31 11:20] LABS: CHLORIDE 104 mmol/L (98-107); SODIUM 141 mmol/L (136-145)
[2017-10-31 12:06] LABS: ALBUMIN 2.2 g/dl (3.4-5.0); ALK PHOS 84 U/L (45-117); ANION GAP 10 (8-16); BILIRUBIN,TOTAL < 0.1 mg/dL (0.2-1.0); BLOOD UREA NITROGEN 7 mg/dL (7-18); CALCIUM 8.3 mg/dL (8.5-10.1); CO2 27 mmol/L (21-32); CREATININE 0.7 mg/dL (0.7-1.3); GLUCOSE,RANDOM 140 mg/dL (74-106); SGOT/AST 87 U/L (15-37); SGPT/ALT 60 U/L (12-78); TOT PROT 5.9 g/dl (6.4-8.2)
[2017-10-31 12:45] LABS: ANISOCYTOSIS 1+; PLATELET ESTIMATE INCREASED; TARGET CELLS 1+
[2017-10-31] MEDS: MAG HYDROX/AL HYDROX/SIMETH 30 ML UNIT-DOSE CUP PO PRN ×2 (16:53→23:33)
[2017-10-31] MEDS: DOCUSATE SODIUM 100 MG CAPSULE (FP) PO SCH (21:22)
[2017-10-31] MEDS: THIAMINE HCL 100 MG TABLET (FP) PO SCH (21:22)
[2017-10-31] MEDS: MELATONIN 5 MG TABLETS PO PRN (21:25)
[2017-11-01] MEDS: PANTOPRAZOLE 40 MG TABLET (FP) PO SCH (06:18)
[2017-11-01] MEDS: FERROUS SO4 300 MG/5 ML ORAL SOLN UNIT DOSE CUPS PO SCH ×2 (07:16→13:18)
[2017-11-01] MEDS: PRENATAL VITAMINS W/ FOLIC ACID TABLET (FP) PO SCH (09:49)
[2017-11-01] MEDS: hydrOXYzine PAMOATE 50 MG CAPSULE (FP) PO PRN ×2 (09:49→16:50)
[2017-11-01] MEDS: SUCRALFATE 1 GM TABLET (FP) PO SCH ×2 (09:50→21:38)
[2017-11-01] MEDS: FERROUS SO4 325 MG TABLET (FP) PO SCH (16:49)
[2017-11-01] MEDS: THIAMINE HCL 100 MG TABLET (FP) PO SCH (21:35)
[2017-11-01] MEDS: MELATONIN 5 MG TABLETS PO PRN (21:35)
[2017-11-01] MEDS: DOCUSATE SODIUM 100 MG CAPSULE (FP) PO SCH (21:35)
[2017-11-02] MEDS: PANTOPRAZOLE 40 MG TABLET (FP) PO SCH (06:13)
[2017-11-02] MEDS: FERROUS SO4 325 MG TABLET (FP) PO SCH ×3 (07:28→17:51)
[2017-11-02] MEDS: SUCRALFATE 1 GM TABLET (FP) PO SCH ×2 (09:51→21:38)
[2017-11-02] MEDS: PRENATAL VITAMINS W/ FOLIC ACID TABLET (FP) PO SCH (09:51)
[2017-11-02] MEDS: hydrOXYzine PAMOATE 50 MG CAPSULE (FP) PO PRN ×2 (13:38→21:37)
[2017-11-02] MEDS: MELATONIN 5 MG TABLETS PO PRN (21:36)
[2017-11-02] MEDS: DOCUSATE SODIUM 100 MG CAPSULE (FP) PO SCH (21:37)
[2017-11-02] MEDS: THIAMINE HCL 100 MG TABLET (FP) PO SCH (21:37)
[2017-11-03] MEDS: PANTOPRAZOLE 40 MG TABLET (FP) PO SCH (06:07)
[2017-11-03] MEDS: hydrOXYzine PAMOATE 50 MG CAPSULE (FP) PO PRN ×2 (07:27→21:35)
[2017-11-03] MEDS: FERROUS SO4 325 MG TABLET (FP) PO SCH ×3 (07:30→17:04)
[2017-11-03] MEDS: PRENATAL VITAMINS W/ FOLIC ACID TABLET (FP) PO SCH (09:56)
[2017-11-03] MEDS: SUCRALFATE 1 GM TABLET (FP) PO SCH (09:56)
--- NOTE | 2017-11-03 13:02 | PN ---
[facility] Progress Note Note: Patient presents for leg swelling and medication review. Laboratory Tests 10/26/17 10/31/17 10/31/17 23:00 07:45 07:45 WBC 7.8 D RBC 3.01 L Hgb 8.6 L Hct 26.2 L MCV 87.2 MCH 28.5 MCHC 32.7 RDW 21.1 H Plt Count 581 H D MPV 7.6 D Neutrophils % No Result Required. Neutrophils % (Manual) 76.2 Band Neutrophils % 0.0 Lymphocytes % No Result Required. Lymphocytes % (Manual) 9.9 D Monocytes % (Manual) 4 Eosinophils % (Manual) 2.0 D Basophils % (Manual) 0.0 Myelocytes % (Man) 0 Promyelocytes % (Man) 0 Blast Cells % (Manual) 0 Nucleated RBC % 0 Metamyelocytes 0 Hypochromia 1+ Platelet Estimate Increased Polychromasia 1+ Anisocytosis 1+ Target Cells 1+ Sodium 141 Potassium 4.0 Chloride 104 Carbon Dioxide 27 Anion Gap 10 BUN 7 D Creatinine 0.7 Creat Clearance w eGFR > 60 Random Glucose 140 H D Calcium 8.3 L Total Bilirubin < 0.1 L D AST 87 H ALT 60 D Alkaline Phosphatase 84 D Total Protein 5.9 L Albumin 2.2 L Urine Color Ltyellow Urine Appearance Clear Urine pH 6.0 Ur Specific Kake 1.006 Urine Protein Negative Urine Glucose (UA) Negative Urine Ketones Negative Urine Blood Negative Urine Nitrite Negative Urine Bilirubin Negative Urine Urobilinogen Negative Ur Leukocyte Esterase Negative Vital Signs Period Temp Pulse Resp BP Sys/Ho Pulse Ox Last 24 Hr 98.1 F 88 18-18 126/78 Subj: Patient states swelling of ankles subsiding after leg elevation. Denies any recent injuries and pain. Also states he stomach feels better and wants to d /c sulcrafate. Has hx of anemia. Obj: Skin: warm and dry, A and O x 3. In NAD Ext: Full rom, no pedal edema. +Pedal pulses A/P: Resolving swelling of ankles Anemia Will continue to monitor clinically for any changes. Continue FeSO4 repeat CBC, CMP in am
[2017-11-03] MEDS: THIAMINE HCL 100 MG TABLET (FP) PO SCH (21:35)
[2017-11-03] MEDS: MELATONIN 5 MG TABLETS PO PRN (21:35)
[2017-11-03] MEDS: DOCUSATE SODIUM 100 MG CAPSULE (FP) PO SCH (22:23)
[2017-11-04] MEDS: PANTOPRAZOLE 40 MG TABLET (FP) PO SCH (06:09)
[2017-11-04] MEDS: FERROUS SO4 325 MG TABLET (FP) PO SCH ×3 (07:00→17:54)
[2017-11-04] MEDS: PRENATAL VITAMINS W/ FOLIC ACID TABLET (FP) PO SCH (10:15)
[2017-11-04] MEDS: hydrOXYzine PAMOATE 50 MG CAPSULE (FP) PO PRN ×2 (10:17→21:54)
[2017-11-04 10:18] LABS: BASO % 0.7 % (0-2.0); EOS % 1.5 % (0-4.5); HEMOGLOBIN 9.4 GM/dL (11.7-16.9); MCH 28.1 pg (25.7-33.7); MCHC 32.4 g/dl (32.0-35.9); MEAN CELL VOLUME 86.8 fl (80-96); MEAN PLT VOLUME 7.8 fl (7.5-11.1); MONO % 9.6 % (3.8-10.2); NEUT % 59.2 % (42.8-82.8); PLATELET COUNT 472 K/MM3 (134-434); RBC 3.34 M/mm3 (4.00-5.60); RDW 21.1 % (11.9-15.9); WHITE BLOOD COUNT 9.3 K/mm3 (4.0-10.0)
[2017-11-04 10:52] LABS: CHLORIDE 105 mmol/L (98-107); POTASSIUM 4.1 mmol/L (3.5-5.1); SODIUM 139 mmol/L (136-145)
[2017-11-04 11:01] LABS: ALBUMIN 2.6 g/dl (3.4-5.0); ALK PHOS 82 U/L (45-117); ANION GAP 6 (8-16); BLOOD UREA NITROGEN 9 mg/dL (7-18); CALCIUM 8.6 mg/dL (8.5-10.1); CO2 28 mmol/L (21-32); CREATININE 0.7 mg/dL (0.7-1.3); GLUCOSE,RANDOM 135 mg/dL (74-106); SGOT/AST 66 U/L (15-37); SGPT/ALT 59 U/L (12-78); TOT PROT 6.6 g/dl (6.4-8.2)
[2017-11-04 11:56] LABS: BILIRUBIN,TOTAL < 0.1 mg/dL (0.2-1.0)
[2017-11-04] MEDS: DOCUSATE SODIUM 100 MG CAPSULE (FP) PO SCH (21:52)
[2017-11-04] MEDS: THIAMINE HCL 100 MG TABLET (FP) PO SCH (21:53)
[2017-11-04] MEDS: MELATONIN 5 MG TABLETS PO PRN (23:37)
[2017-11-05] MEDS: PANTOPRAZOLE 40 MG TABLET (FP) PO SCH (06:10)
[2017-11-05] MEDS: hydrOXYzine PAMOATE 50 MG CAPSULE (FP) PO PRN ×3 (06:11→21:49)
[2017-11-05] MEDS: FERROUS SO4 325 MG TABLET (FP) PO SCH ×3 (07:04→17:01)
[2017-11-05] MEDS: PRENATAL VITAMINS W/ FOLIC ACID TABLET (FP) PO SCH (09:57)
[2017-11-05] MEDS: MELATONIN 5 MG TABLETS PO PRN (21:49)
[2017-11-05] MEDS: THIAMINE HCL 100 MG TABLET (FP) PO SCH (21:49)
[2017-11-05] MEDS: DOCUSATE SODIUM 100 MG CAPSULE (FP) PO SCH (21:51)
[2017-11-06] MEDS: PANTOPRAZOLE 40 MG TABLET (FP) PO SCH (06:46)
[2017-11-06] MEDS: FERROUS SO4 325 MG TABLET (FP) PO SCH ×3 (07:10→16:55)
[2017-11-06] MEDS: PRENATAL VITAMINS W/ FOLIC ACID TABLET (FP) PO SCH (09:50)
[2017-11-06] MEDS: hydrOXYzine PAMOATE 50 MG CAPSULE (FP) PO PRN ×2 (09:51→21:34)
[2017-11-06] MEDS: THIAMINE HCL 100 MG TABLET (FP) PO SCH (21:34)
[2017-11-06] MEDS: MELATONIN 5 MG TABLETS PO PRN (21:34)
[2017-11-06] MEDS: DOCUSATE SODIUM 100 MG CAPSULE (FP) PO SCH (21:35)
[2017-11-07] MEDS: PANTOPRAZOLE 40 MG TABLET (FP) PO SCH (06:00)
[2017-11-07] MEDS: FERROUS SO4 325 MG TABLET (FP) PO SCH ×3 (07:06→16:53)
[2017-11-07] MEDS: PRENATAL VITAMINS W/ FOLIC ACID TABLET (FP) PO SCH (10:03)
[2017-11-07] MEDS: hydrOXYzine PAMOATE 50 MG CAPSULE (FP) PO PRN ×2 (10:03→18:50)
[2017-11-07] MEDS: THIAMINE HCL 100 MG TABLET (FP) PO SCH (21:29)
[2017-11-07] MEDS: DOCUSATE SODIUM 100 MG CAPSULE (FP) PO SCH (21:30)
[2017-11-07] MEDS: MELATONIN 5 MG TABLETS PO PRN (23:15)
[2017-11-08] MEDS: MAG HYDROX/AL HYDROX/SIMETH 30 ML UNIT-DOSE CUP PO PRN ×2 (02:00→10:08)
[2017-11-08] MEDS: PANTOPRAZOLE 40 MG TABLET (FP) PO SCH (06:12)
[2017-11-08] MEDS: hydrOXYzine PAMOATE 50 MG CAPSULE (FP) PO PRN ×2 (06:12→21:39)
[2017-11-08] MEDS: FERROUS SO4 325 MG TABLET (FP) PO SCH ×3 (07:22→17:03)
--- NOTE | 2017-11-08 09:31 | PN ---
Psychiatric Progress Note Vital Signs: Vital Signs Period Temp Pulse Resp BP Sys/Ho Pulse Ox Last 24 Hr 98.2 F 83 18-18 133/89 Date of Session: 11/08/17 Chief Complaint:: Discharge Note HPI: Patient addressing Alcohol Dependence comorbid with Alcohol-induced Sleep Disorder ROS: Alcohol-related seizure, Anemia, GERD Current Medications: Active Medications Generic Name Dose Route Start Last Admin Trade Name Freq PRN Reason Stop Dose Admin Acetaminophen 650 mg 10/26/17 20:45 Tylenol - PO Q4H PRN FEVER Al Hydroxide/Mg Hydroxide 30 ml 10/26/17 20:45 11/08/17 02:00 Mylanta Oral Suspension - PO 30 ml Q6H PRN Administration DYSPEPSIA Docusate Sodium 300 mg 10/28/17 22:00 11/07/17 21:30 Colace - PO Not Given HS MICHELLE Eucalyptus/Menthol/Phenol/Sorbitol 1 each 10/26/17 20:45 Cepastat Lozenge - MM Q4H PRN SORE THROAT Ferrous Sulfate 325 mg 11/01/17 17:30 11/08/17 07:22 Feosol - PO 325 mg TIDCM [facility] Administration Guaifenesin 10 ml 10/26/17 20:45 Robitussin Dm - PO Q6H PRN COUGH Hydroxyzine Pamoate 50 mg 10/26/17 20:45 11/08/17 06:12 Vistaril - PO 50 mg Q6H PRN Administration AGITATION Ibuprofen 400 mg 10/26/17 20:45 Motrin - PO Q6H PRN Pain level 4-6 Loperamide HCl 4 mg 10/26/17 20:45 Imodium - PO Q6H PRN DIARRHEA Magnesium Citrate 300 ml 10/26/17 20:45 Citroma - PO Q48H PRN CONSTIPATION Magnesium Hydroxide 30 ml 10/26/17 20:45 Milk Of Magnesia - PO DAILY PRN CONSTIPATION Melatonin 5 mg 10/31/17 01:21 11/07/17 23:15 Melatonin PO 5 mg HS PRN Administration INSOMNIA Pantoprazole Sodium 40 mg 10/27/17 07:00 11/08/17 06:12 Protonix - PO 40 mg DAILY@0700 [facility] Administration Multivit/Folic Acid/Iron 1 tab 10/27/17 10:00 11/07/17 10:03 Vitamins (Sjr) - PO 1 tab DAILY MICHELLE Administration Pseudoephedrine/Triprolidine 1 combo 10/26/17 20:45 Actifed - PO TID PRN NASAL CONGESTION Thiamine HCl 100 mg 10/26/17 22:00 11/07/17 21:29 Vitamin B1 - PO 100 mg HS MICHELLE Administration Current Side Effect: No Lab tests ordered: Yes Lab tests reviewed: Yes Provider note:: Patient will complete this program on 11/09/17. He has met his treatment goals and will continue to address his issues in termite renewal inspector residential treatment [facility]. Told typewriter aligner that from his participation in this program, he has learned the importance of having discipline, structure in his life. He is stable for discharge on 11/09/17 Total face to face time:: 35 Mental Status Exam - Mental Status Exam Alert and Oriented to: Time, Place, Person Cognitive Function: Fair Patient Appearance: Well Groomed Mood: Hopeful, Euthymic Affect: Appropriate Patient Behavior: Cooperative Speech Pattern: Clear Voice Loudness: Normal Thought Process: Intact, Goal Oriented Thought Disorder: Not Present Hallucinations: Denies Suicidal Ideation: Denies Homicidal Ideation: Denies Insight/Judgement: Fair Sleep: Well Appetite: Good Muscle strength/Tone: Normal Gait/Station: Normal Psychiatric Treatment Plan - Problem List (1) Alcohol dependence Current Visit: Yes (2) Alcohol-induced sleep disorder Current Visit: Yes (3) Alcohol related seizure Current Visit: Yes (4) Anemia Current Visit: No Qualifiers: Anemia type: iron deficiency (5) GERD (gastroesophageal reflux disease) Current Visit: Yes Qualifiers: Esophagitis presence: without esophagitis Qualified Code(s): K21.9 - Gastro -esophageal reflux disease without esophagitis (6) Anemia Current Visit: Yes Initial treatment plan: Patient will be discharged tomorrow and referred to [facility] for residential residential treament
[2017-11-08] MEDS: PRENATAL VITAMINS W/ FOLIC ACID TABLET (FP) PO SCH (10:03)
[2017-11-08] MEDS: MELATONIN 5 MG TABLETS PO PRN (21:39)
[2017-11-08] MEDS: THIAMINE HCL 100 MG TABLET (FP) PO SCH (21:39)
[2017-11-08] MEDS: DOCUSATE SODIUM 100 MG CAPSULE (FP) PO SCH (21:40)
[2017-11-09] MEDS: PANTOPRAZOLE 40 MG TABLET (FP) PO SCH (06:03)
[2017-11-09 07:03] VITALS: BP 130/83; PULSE 97; TEMP 98.3
[2017-11-09] MEDS: FERROUS SO4 325 MG TABLET (FP) PO SCH (07:03)
[2017-11-09] MEDS: PRENATAL VITAMINS W/ FOLIC ACID TABLET (FP) PO SCH (09:25)
[2017-11-09] MEDS: hydrOXYzine PAMOATE 50 MG CAPSULE (FP) PO PRN (09:26)
== END 2017-11-09 09:05 | disposition home or self-care (01) | DRG 772 ==
LOC: YASAS 14:49 → Y3W 20:17
PROVIDERS: ADMIT Psychiatry & Neurology Psychiatry; ATTEND Psychiatry & Neurology Psychiatry
PROC: HZ42ZZZ Group Counseling for Substance Abuse Treatment, Cognitive-Behavioral (ICD-10-PCS; principal; 2017-10-26)
DX: F10.20 Alcohol dependence, uncomplicated (principal); F10.282 Alcohol dependence with alcohol-induced sleep disorder; F41.9 Anxiety disorder, unspecified; G40.509 Epileptic seizures related to external causes, not intractable, without status epilepticus; D50.9 Iron deficiency anemia, unspecified; K21.9 Gastro-esophageal reflux disease without esophagitis; R63.4 Abnormal weight loss; Z68.20 Body mass index [BMI] 20.0-20.9, adult
CPT/HCPCS: 36415; 80053; 81003; 85025; 93005; 93010

== ENCOUNTER 2018-10-12 10:50 | Inpatient (IN) | payer OTHER ==
[2018-10-12 13:09] VITALS: BMI 24.3
--- NOTE | 2018-10-12 14:26 | HP ---
CIWA Score Nausea/Vomitin-Int. Nausea w/Dry Heave Muscle Tremors: 2 Anxiety: 2 Agitation: 0-Normal Activity Paroxysmal Sweats: 3 Orientation: 1-Uncertain about Date Tacttile Disturbances: 2-Mild Itch/Numbness/Burn Auditory Disturbances: 0-None Visual Disturbances: 0-None Headache: 0-None Present CIWA-Ar Total Score: 14 - Admission Criteria OASAS Guidelines: Admission for Medically Managed Detox: Requires at least one of the followin. CIWA greater than 12 2. Seizures within the past 24 hours 3. Delirium tremens within the past 24 hours 4. Hallucinations within the past 24 hours 5. Acute intervention needed for co occurring medical disorder 6. Acute intervention needed for co occurring psychiatric disorder 7. Severe withdrawal that cannot be handled at a lower level of care (continued vomiting, continued diarrhea, abnormal vital signs) requiring intravenous medication and/or fluids 8. Patient presents the following: CIWA greater than 12 Admission Criteria Met: Admission criteria met Admission ROS S - [facility] Chief Complaint: " I have the shakes that come and go" Allergies/Adverse Reactions: Allergies Allergy/AdvReac Type Severity Reaction Status Date / Time No Known Allergies Allergy Verified 10/12/18 13:14 History of Present Illness: 48yo male with hx chronic alcohol and marijuana dependence is here seeking detox c/o withdrawal sx , n/vd/t attempt to stop drinking yesterday. PMHX: Anemia, GERD, insomnia, depression. Does not recall last detox. Reports no significant period of sobriety. Denies suicidal / homicidal ideation or suicide attempt. Exam Limitations: No Limitations - Ebola screening Have you traveled outside of the country in the last 21 days: No Have you had contact with anyone from an Ebola affected area: No Have you been sick,other than usual withdrawal symptoms: No Do you have a fever: No - Review of Systems Constitutional: Chills, Loss of Appetite, Changes in sleep, Unintentional Wgt. Loss EENT: reports: No Symptoms Reported Respiratory: reports: No Symptoms reported Cardiac: reports: No Symptoms Reported GI: reports: Nausea, Poor Appetite, Vomiting, Indigestion : reports: No Symptoms Reported Musculoskeletal: reports: No Symptoms Reported Integumentary: reports: Sweating Neuro: reports: Unsteady Gait Endocrine: reports: Increased Thirst Hematology: reports: No Symptoms Reported Psychiatric: reports: Orientated x3, Anxious Other Systems: Reviewed and Negative Patient History - Patient Medical History Hx Anemia: No Hx Asthma: No Hx Chronic Obstructive Pulmonary Disease (COPD): No Hx Cancer: No Hx Cardiac Disorders: No Hx Congestive Heart Failure: No Hx Hypertension: No Hx Hypercholesterolemia: No Hx Pacemaker: No HX Cerebrovascular Accident: No Hx Seizures: Yes (ALCOHOL RELATED SEIZURE 2013) Hx Dementia: No Hx Diabetes: No Hx Gastrointestinal Disorders: Yes (GERD) Hx Liver Disease: No Hx Genitourinary Disorders: No Hx Sexually Transmitted Disorders: No Hx Renal Disease (ESRD): No Hx Thyroid Disease: No Hx Human Immunodeficiency Virus (HIV): No Hx Hepatitis C: No Hx Depression: No Hx Suicide Attempt: No Hx Bipolar Disorder: No Hx Schizophrenia: No - Patient Surgical History Past Surgical History: No Hx Neurologic Surgery: No Hx Cataract Extraction: No Hx Cardiac Surgery: No Hx Lung Surgery: No Hx Breast Surgery: No Hx Breast Biopsy: No Hx Abdominal Surgery: No Hx Appendectomy: No Hx Cholecystectomy: No Hx Genitourinary Surgery: No Hx Section: No Hx Orthopedic Surgery: No Anesthesia Reaction: No - PPD History Previous Implant?: Yes Documented Results: Negative w/proof Implanted On Prior [facility] Admission?: Yes Date: 04/11/17 Results: NEGATIVE - Smoking Cessation Smoking history: Current some day smoker Have you smoked in the past 12 months: Yes Aproximately how many cigarettes per day: 1 Cigars Per Day: 0 Hx Chewing Tobacco Use: No Initiated information on smoking cessation: Yes 'Breaking Loose' booklet given: 10/12/18 - Substance & Tx. History Hx Alcohol Use: Yes Hx Substance Use: Yes Substance Use Type: Alcohol, Marijuana Hx Substance Use Treatment: Yes (Patient reports does not recall last detox) - Substances Abused Alcohol Route: Oral Frequency: Daily Amount used: 1 PINT OF VODKA Age of first use: 45 Date of Last Use: 10/12/18 Marijuana/Hashish Route: Smoking Frequency: 1-3 times last 30 days Amount used: 1 JOINT Age of first use: 48 Date of Last Use: 10/10/18 Family Disease History - Family Disease History Family Disease History: Diabetes: Mother (htn, ), [place]: Father ( ; esophageal ), Mother, Other: Brother (healthy, etoh), Son (in army), Daughter (a sports lawyer) Admission Physical Exam [facility] - Vital Signs Vital Signs: Vital Signs - 24 hr 10/12/18 13:02 Temperature 98.9 F Pulse Rate 126 H Respiratory 20 Rate Blood Pressure 108/77 - Physical General Appearance: Yes: Disheveled, Alcohol on Breath, Sweating, Anxious HEENTM: Yes: EOMI, Hearing grossly Normal, Normal ENT Inspection, Normocephalic , Normal Voice, ABELINO, Pharynx Normal, Tm's normal, Other (dry mucous membranes) Respiratory: Yes: Within Normal Limits Neck: Yes: Within Normal Limits Breast: Yes: Breast Exam Deferred Cardiology: Yes: Regular Rhythm, Tachycardia Abdominal: Yes: Normal Bowel Sounds, Non Tender, Flat, Soft Genitourinary: Yes: Within Normal Limits Back: Yes: Normal Inspection Musculoskeletal: Yes: full range of Motion, Gait Steady, Pelvis Stable Extremities: Yes: Normal Capillary Refill, Normal Inspection, Normal Range of Motion, Non-Tender Neurological: Yes: jewel diameter gauger II-XII NML intact, Fully Oriented, Alert, Motor Strength 5/5, Depressed Affect Integumentary: Yes: Normal Color, Warm, Diaphoresis Lymphatic: Yes: Within Normal Limits - Diagnostic (1) Alcohol dependence with uncomplicated withdrawal Current Visit: No Status: Acute (2) Anemia Current Visit: No Status: Chronic (3) Cannabis dependence, uncomplicated Current Visit: No Status: Chronic (4) GERD (gastroesophageal reflux disease) Current Visit: No Status: Chronic Qualifiers: Esophagitis presence: without esophagitis Qualified Code(s): K21.9 - Gastro -esophageal reflux disease without esophagitis Cleared for Admission [facility] - Detox or Rehab [facility] Level of Care: Medically Managed Detox Regimen/Protocol: Librium [facility] Breath Alcohol Content Breath Alcohol Content: 0.147 Urine Drug Screen - Results Drug Screen Negative: No Urine Drug Screen Results: THC-Marijuana Inpatient Rehab Admission - Rehab Decision to Admit Inpatient rehab admission?: No
[2018-10-12] MEDS ORDERED: NICOTINE POLACRILEX 2 MG GUM BUC PRN (14:33)
[2018-10-12] MEDS ORDERED: METHOCARBAMOL 500 MG TABLET PO PRN (14:33)
[2018-10-12] MEDS ORDERED: ONDANSETRON *ODT* 4 MG TABLET SL PRN (14:33)
[2018-10-12] MEDS ORDERED: MAGNESIUM CITRATE 300 ML BOTTLE PO PRN (14:33)
[2018-10-12] MEDS ORDERED: IBUPROFEN 400 MG TABLET (FP) PO PRN ×2 (14:33)
[2018-10-12] MEDS ORDERED: MAGNESIUM HYDROX 2400MG/30ML ORAL SUSPENSION 30 ML CUP PO PRN (14:33)
[2018-10-12] MEDS ORDERED: ACETAMINOPHEN 325 MG TABLET (FP) PO PRN (14:33)
[2018-10-12] MEDS ORDERED: BISMUTH SUBSALICYLATE 524 MG/30 ML UD PO PRN (14:33)
[2018-10-12] MEDS ORDERED: diazePAM 5 MG TABLET PO PRN (14:33)
[2018-10-12] MEDS ORDERED: MENTHOL/PHENOL 1 EACH UD MM PRN (14:33)
[2018-10-12] MEDS ORDERED: diazePAM 5 MG TABLET PO ONE (15:10)
--- NOTE | 2018-10-12 17:37 | CONSULT ---
[facility] Psychiatric Consult - Data Date of interview: 10/12/18 Admission source: [facility] Identifying data: Patient is a 48 year old single male, father of two, domiciled, and employed as a construction project assistant. This is one of multiple admissions for patient. Patient admitted to for alcohol dependence. Substance Abuse History: Smoking Cessation. Smoking history: Current some day smoker. Have you smoked in the past 12 months: Yes. Aproximately how many cigarettes per day: 1. Cigars Per Day: 0. Hx Chewing Tobacco Use: No. Initiated information on smoking cessation: Yes. 'Breaking Loose' booklet given : 10/12/18. - Substance & Tx. History. Hx Alcohol Use: Yes. Hx Substance Use : Yes. Substance Use Type: Alcohol, Marijuana. Hx Substance Use Treatment: Yes (Patient reports does not recall last detox). - Substances Abused. Alcohol. Route: Oral. Frequency: Daily. Amount used: 1 PINT OF VODKA. Age of first use: 45. Date of Last Use: 10/12/18. Marijuana/Hashish. Route: Smoking. Frequency: 1-3 times last 30 days. Amount used: 1 JOINT. Age of first use: 48. Date of Last Use: 10/10/18 Medical History: GERD, history of alcohol related seizures. Psychiatric History: Patient denies h/o psychiatric hospitalization, outpatient care, and suicide attempt. At present patient reports difficulty sleeping. Physical/Sexual Abuse/Trauma History: denies. Mental Status Exam - Mental Status Exam Alert and Oriented to: Time, Place, Person Cognitive Function: Good Patient Appearance: Unkempt Mood: Withdrawn Affect: Mood Congruent Patient Behavior: Fatigued Speech Pattern: Delayed, Slurred Voice Loudness: Moderately Soft/Quiet Thought Process: Goal Oriented Thought Disorder: Not Present Hallucinations: Denies Suicidal Ideation: Denies Homicidal Ideation: Denies Insight/Judgement: Poor Sleep: Poorly Appetite: Fair Muscle strength/Tone: Normal Gait/Station: Normal Psychiatric Findings - Problem List ([place] 1, 2,3) (1) Alcohol-induced mood disorder Current Visit: Yes Status: Acute (2) Alcohol dependence Current Visit: Yes Status: Acute (3) Alcohol dependence with uncomplicated withdrawal Current Visit: Yes Status: Acute (4) Alcohol-induced sleep disorder Current Visit: Yes Status: Acute - Initial Treatment Plan Initial Treatment Plan: Psychoeducation provided. Detoxification in progress. Patient informed that Melatonin 5mg is ordered.
[2018-10-12 19:32] LABS: URINE APPEARANCE CLEAR; URINE BILIRUBIN NEGATIVE (<2.0 mg/dL); URINE COLOR AMBER; URINE GLUCOSE (UA) NEGATIVE (NEGATIVE); URINE KETONE TRACE (NEGATIVE); URINE LEUK ESTERASE NEGATIVE (NEGATIVE); URINE NITRITE NEGATIVE (NEGATIVE); URINE PROTEIN 1+ (NEGATIVE); URINE UROBILINOGEN 4.0 E.U/dl mg/dL (0.2-1.0)
[2018-10-12 19:40] LABS: EPI CELLS RARE /HPF (FEW)
[2018-10-12] MEDS: BACLOFEN 10 MG TABLET (FP) PO PRN (22:20)
[2018-10-12] MEDS: MELATONIN 5 MG TABLETS PO PRN (22:20)
[2018-10-12] MEDS: diazePAM 5 MG TABLET PO SCH (22:20)
[2018-10-13] MEDS: PANTOPRAZOLE 40 MG TABLET (FP) PO SCH (07:01)
[2018-10-13] MEDS: diazePAM 5 MG TABLET PO SCH (07:01)
--- NOTE | 2018-10-13 09:51 | PN ---
[facility] CIWA - CIWA Score Nausea/Vomitin Muscle Tremors: 2 Anxiety: 2 Agitation: 2 Paroxysmal Sweats: 1-Minimal Palms Moist Orientation: 0-Oriented Tacttile Disturbances: 1-Very Mild Itch/Numbness Auditory Disturbances: 1-Very Mild Visual Disturbances: 0-None Headache: 2-Mild CIWA-Ar Total Score: 14 [facility] Progress Note (SOAP) Subjective: alert,irritable,anxious,interrupted sleep,tremor Objective: 10/13/18 09:49 Vital Signs Temperature 98.1 F 10/13/18 09:37 Pulse Rate 115 H 10/13/18 09:37 Respiratory Rate 16 10/13/18 09:37 Blood Pressure 103/72 10/13/18 09:37 O2 Sat by Pulse Oximetry (%) ekg sinus tachycardia 112 st depression in v4 to v6 10/13/18 09:54 10/13/18 09:54 no chest,no sob,no dizziness has previous abnormal ecg Assessment: 10/13/18 09:55 withdrawal symptom Plan: continue detox
[2018-10-13 10:37] LABS: ALBUMIN 3.7 g/dl (3.4-5.0); ALK PHOS 133 U/L (45-117); ANION GAP 21 MMOL/L (8-16); BILIRUBIN,TOTAL 8.4 mg/dL (0.2-1); BLOOD UREA NITROGEN 9 mg/dL (7-18); CALCIUM 9.3 mg/dL (8.5-10.1); CHLORIDE 81 mmol/L (98-107); CO2 24 mmol/L (21-32); GLUCOSE,RANDOM 136 mg/dL (74-106); SGOT/AST 401 U/L (15-37); SGPT/ALT 140 U/L (13-61); SODIUM 126 mmol/L (136-145); TOT PROT 7.8 g/dl (6.4-8.2)
[2018-10-13 10:56] LABS: HEMATOCRIT 34.6 % (35.4-49); HEMOGLOBIN 12.2 GM/dL (11.7-16.9); MCH 34.9 pg (25.7-33.7); MCHC 35.3 g/dl (32.0-35.9); MEAN CELL VOLUME 98.9 fl (80-96); MEAN PLT VOLUME 11.6 fl (7.5-11.1); RBC 3.49 M/mm3 (4.00-5.60); RDW 15.3 % (11.9-15.9); WHITE BLOOD COUNT 5.3 K/mm3 (4.0-10.0)
[2018-10-13] MEDS: BACLOFEN 10 MG TABLET (FP) PO PRN (11:24)
[2018-10-13] MEDS: PRENATAL VITAMINS W/ FOLIC ACID TABLET (FP) PO SCH (11:24)
[2018-10-13 11:27] LABS: POTASSIUM 2.6 mmol/L (3.5-5.1)
[2018-10-13] MEDS: NICOTINE 14 MG/24 HOURS TOPICAL PATCH TD SCH (11:27)
[2018-10-13] MEDS ORDERED: POTASSIUM CHLORIDE ORAL LIQUID 20 MEQ/15 ML PO ONE (11:33)
[2018-10-13] MEDS ORDERED: LORazepam 1 MG TABLET PO PRN (11:35)
[2018-10-13 11:41] LABS: PLATELET COUNT 35 K/MM3 (134-434)
--- NOTE | 2018-10-13 11:51 | PN ---
[facility] Progress Note Note: Laboratory Last Values WBC 5.3 K/mm3 (4.0-10.0) 10/13/18 06:00 RBC 3.49 M/mm3 (4.00-5.60) L 10/13/18 06:00 Hgb 12.2 GM/dL (11.7-16.9) 10/13/18 06:00 Hct 34.6 % (35.4-49) L D 10/13/18 06:00 MCV 98.9 fl (80-96) H 10/13/18 06:00 MCH 34.9 pg (25.7-33.7) H D 10/13/18 06:00 MCHC 35.3 g/dl (32.0-35.9) 10/13/18 06:00 RDW 15.3 % (11.9-15.9) D 10/13/18 06:00 Plt Count 35 K/MM3 (134-434) L* D 10/13/18 06:00 MPV 11.6 fl (7.5-11.1) H D 10/13/18 06:00 Platelet Comment No clumping noted 10/13/18 06:00 Sodium 126 mmol/L (136-145) L 10/13/18 06:00 Potassium 2.6 mmol/L (3.5-5.1) L* 10/13/18 06:00 Chloride 81 mmol/L (98-107) L 10/13/18 06:00 Carbon Dioxide 24 mmol/L (21-32) 10/13/18 06:00 Anion Gap 21 MMOL/L (8-16) H 10/13/18 06:00 BUN 9 mg/dL (7-18) 10/13/18 06:00 Creatinine 1.0 mg/dL (0.55-1.3) 10/13/18 06:00 Creat Clearance w eGFR > 60 (>60) 10/13/18 06:00 Random Glucose 136 mg/dL (74-106) H 10/13/18 06:00 Calcium 9.3 mg/dL (8.5-10.1) 10/13/18 06:00 Total Bilirubin 8.4 mg/dL (0.2-1) H 10/13/18 06:00 AST 401 U/L (15-37) H 10/13/18 06:00 ALT 140 U/L (13-61) H 10/13/18 06:00 Alkaline Phosphatase 133 U/L (45-117) H 10/13/18 06:00 Total Protein 7.8 g/dl (6.4-8.2) 10/13/18 06:00 Albumin 3.7 g/dl (3.4-5.0) 10/13/18 06:00 Urine Color [place] 10/12/18 16:55 Urine Appearance Clear 10/12/18 16:55 Urine pH 7.0 (5.0-8.0) 10/12/18 16:55 Ur Specific [place] 1.005 (1.010-1.035) L 10/12/18 16:55 Urine Protein 1+ (NEGATIVE) H 10/12/18 16:55 Urine Glucose (UA) Negative (NEGATIVE) 10/12/18 16:55 Urine Ketones Trace (NEGATIVE) H 10/12/18 16:55 Urine Blood 2+ (NEGATIVE) H 10/12/18 16:55 Urine Nitrite Negative (NEGATIVE) 10/12/18 16:55 Urine Bilirubin Negative (<2.0 mg/dL) 10/12/18 16:55 Urine Urobilinogen 4.0 e.u/dl mg/dL (0.2-1.0) 10/12/18 16:55 Ur Leukocyte Esterase Negative (NEGATIVE) 10/12/18 16:55 Urine WBC (Auto) 1 /hpf (3-5) 10/12/18 16:55 Urine RBC (Auto) None /hpf (0-3) 10/12/18 16:55 Ur Epithelial Cells Rare /HPF (FEW) 10/12/18 16:55 HYPOKALEMIA K IS 2.6,[id number],GLUCOSE 136 D/C TYLENOL,D/C IBUPROFEN,D/C VALIUM,CHANGE REGIMEN TO ATIVAN, KCL 4O MEQ PO NOW THEN BID,REPREAT CBC,APPRENTICE FUNERAL DIRECTOR,INR IN AM, KCL LIQUID 40 MEWQ PO BID CLOSELY MONITOR,FALL PRECAUTION
[2018-10-13] MEDS: THIAMINE HCL 100 MG TABLET (FP) PO SCH (12:30)
--- NOTE | 2018-10-13 14:05 | EKG ---
Test Reason : Blood Pressure : / mmHG Vent. Rate : 112 BPM Atrial Rate : 112 BPM P-R Int : 134 ms QRS Dur : 100 ms QT Int : 340 ms P-R-T Axes : 031 015 249 degrees QTc Int : 464 ms SINUS TACHYCARDIA ABNORMAL ECG WHEN COMPARED WITH ECG OF 12-OCT-2018 16:06, T WAVE INVERSION NOW EVIDENT IN INFERIOR LEADS T WAVE INVERSION NOW EVIDENT IN ANTEROLATERAL LEADS Confirmed by SEB ISAAC, EMIR ([id number]) on 10/13/2018 2:04:51 PM Referred By: KRIS HARRIS Confirmed By:EMIR GRIGSBY MD
--- NOTE | 2018-10-13 14:05 | EKG ---
Test Reason : Blood Pressure : / mmHG Vent. Rate : 108 BPM Atrial Rate : 108 BPM P-R Int : 134 ms QRS Dur : 098 ms QT Int : 356 ms P-R-T Axes : 043 012 015 degrees QTc Int : 477 ms SINUS TACHYCARDIA NONSPECIFIC ST ABNORMALITY ABNORMAL ECG WHEN COMPARED WITH ECG OF 27-OCT-2017 04:31, NONSPECIFIC T WAVE ABNORMALITY HAS REPLACED INVERTED T WAVES IN INFERIOR LEADS Confirmed by SEB ISAAC, EMIR ([id number]) on 10/13/2018 2:05:01 PM Referred By: HITESH HARRIS Confirmed By:EMIR GRIGSBY MD
[2018-10-13] MEDS ORDERED: LORazepam 1 MG TABLET PO ONE (17:00)
[2018-10-13] MEDS ORDERED: ONDANSETRON *ODT* 4 MG TABLET SL ONE (20:40)
--- NOTE | 2018-10-13 20:41 | PN ---
S Progress Note Note: Vital Signs Temperature 97.2 F L 10/13/18 17:03 Pulse Rate 83 10/13/18 17:03 Respiratory Rate 19 10/13/18 17:03 Blood Pressure 96/59 L 10/13/18 17:03 O2 Sat by Pulse Oximetry (%) c/o of nausea and vomiting with no relief after given zofran 4mg at 11:30 am one time dose zofran 4mg ordered fluids as tolerated continue to monitor
[2018-10-13] MEDS: POTASSIUM CHLORIDE ORAL LIQUID 20 MEQ/15 ML PO SCH (22:32)
[2018-10-14] MEDS: PANTOPRAZOLE 40 MG TABLET (FP) PO SCH (06:21)
[2018-10-14] MEDS: BACLOFEN 10 MG TABLET (FP) PO PRN (06:22)
[2018-10-14] MEDS ORDERED: diazePAM 5 MG TABLET PO SCH (10:00)
[2018-10-14 10:47] LABS: HEMOGLOBIN 10.4 GM/dL (11.7-16.9); MCH 35.5 pg (25.7-33.7); MCHC 35.7 g/dl (32.0-35.9); MEAN CELL VOLUME 99.4 fl (80-96); MEAN PLT VOLUME 10.7 fl (7.5-11.1); PLATELET COUNT 50 K/MM3 (134-434); RBC 2.92 M/mm3 (4.00-5.60); RDW 14.9 % (11.9-15.9); WHITE BLOOD COUNT 4.3 K/mm3 (4.0-10.0)
[2018-10-14 11:13] LABS: INR 1.13 (0.83-1.09); PROTHROMBIN TIME (PATIENT) 13.3 SEC (9.7-13.0)
[2018-10-14 11:17] LABS: ALK PHOS 123 U/L (45-117); ANION GAP 9 MMOL/L (8-16); BILIRUBIN,TOTAL 7.6 mg/dL (0.2-1); BLOOD UREA NITROGEN 11 mg/dL (7-18); CALCIUM 9.3 mg/dL (8.5-10.1); CHLORIDE 88 mmol/L (98-107); CO2 36 mmol/L (21-32); CREATININE 0.7 mg/dL (0.55-1.3); GLUCOSE,RANDOM 116 mg/dL (74-106); POTASSIUM 3.1 mmol/L (3.5-5.1); SGOT/AST 282 U/L (15-37); SGPT/ALT 128 U/L (13-61); SODIUM 133 mmol/L (136-145); TOT PROT 6.7 g/dl (6.4-8.2)
[2018-10-14] MEDS: POTASSIUM CHLORIDE ORAL LIQUID 20 MEQ/15 ML PO SCH ×2 (11:21→23:08)
[2018-10-14] MEDS: PRENATAL VITAMINS W/ FOLIC ACID TABLET (FP) PO SCH (11:21)
[2018-10-14] MEDS: THIAMINE HCL 100 MG TABLET (FP) PO SCH (11:36)
[2018-10-14] MEDS: NICOTINE 14 MG/24 HOURS TOPICAL PATCH TD SCH (12:17)
--- NOTE | 2018-10-14 13:20 | PN ---
[facility] CIWA - CIWA Score Nausea/Vomitin-No Nausea/No Vomiting Muscle Tremors: 3 Anxiety: 3 Agitation: 3 Paroxysmal Sweats: 2 Orientation: 0-Oriented Tacttile Disturbances: 0-None Auditory Disturbances: 0-None Visual Disturbances: 0-None Headache: 0-None Present CIWA-Ar Total Score: 11 [facility] Progress Note (SOAP) Subjective: sweats body aches tired interrupted sleep no vomiting as of now Objective: 10/14/18 13:18 Vital Signs Temperature 99.1 F 10/14/18 09:08 Pulse Rate 106 H 10/14/18 09:08 Respiratory Rate 16 10/14/18 09:08 Blood Pressure 102/61 10/14/18 09:08 O2 Sat by Pulse Oximetry (%) Laboratory Tests 10/12/18 10/13/18 10/13/18 16:55 06:00 06:00 WBC 5.3 RBC 3.49 L Hgb 12.2 Hct 34.6 L D MCV 98.9 H MCH 34.9 H D MCHC 35.3 RDW 15.3 D Plt Count 35 L* D MPV 11.6 H D Platelet Comment No clumping noted PT with INR INR Sodium 126 L Potassium 2.6 L* Chloride 81 L Carbon Dioxide 24 Anion Gap 21 H BUN 9 Creatinine 1.0 Creat Clearance w eGFR > 60 Random Glucose 136 H POC Glucometer Calcium 9.3 Total Bilirubin 8.4 H AST 401 H ALT 140 H Alkaline Phosphatase 133 H Total Protein 7.8 Albumin 3.7 Urine Color [place] Urine Appearance Clear Urine pH 7.0 Ur Specific [place] 1.005 L Urine Protein 1+ H Urine Glucose (UA) Negative Urine Ketones Trace H Urine Blood 2+ H Urine Nitrite Negative Urine Bilirubin Negative Urine Urobilinogen 4.0 e.u/dl Ur Leukocyte Esterase Negative Urine WBC (Auto) 1 Urine RBC (Auto) None Ur Epithelial Cells Rare RPR Titer 10/13/18 10/14/18 10/14/18 06:00 06:20 07:00 WBC 4.3 RBC 2.92 L Hgb 10.4 L Hct 29.0 L D MCV 99.4 H MCH 35.5 H MCHC 35.7 RDW 14.9 Plt Count 50 L D MPV 10.7 Platelet Comment PT with INR INR Sodium Potassium Chloride Carbon Dioxide Anion Gap BUN Creatinine Creat Clearance w eGFR Random Glucose POC Glucometer 149 Calcium Total Bilirubin AST ALT Alkaline Phosphatase Total Protein Albumin Urine Color Urine Appearance Urine pH Ur Specific [place] Urine Protein Urine Glucose (UA) Urine Ketones Urine Blood Urine Nitrite Urine Bilirubin Urine Urobilinogen Ur Leukocyte Esterase Urine WBC (Auto) Urine RBC (Auto) Ur Epithelial Cells RPR Titer Nonreactive 10/14/18 10/14/18 07:00 07:00 WBC RBC Hgb Hct MCV MCH MCHC RDW Plt Count MPV Platelet Comment PT with INR 13.30 H INR 1.13 H Sodium 133 L Potassium 3.1 L Chloride 88 L Carbon Dioxide 36 H Anion Gap 9 BUN 11 Creatinine 0.7 Creat Clearance w eGFR > 60 Random Glucose 116 H POC Glucometer Calcium 9.3 Total Bilirubin 7.6 H AST 282 H ALT 128 H Alkaline Phosphatase 123 H Total Protein 6.7 Albumin 3.0 L Urine Color Urine Appearance Urine pH Ur Specific [place] Urine Protein Urine Glucose (UA) Urine Ketones Urine Blood Urine Nitrite Urine Bilirubin Urine Urobilinogen Ur Leukocyte Esterase Urine WBC (Auto) Urine RBC (Auto) Ur Epithelial Cells RPR Titer repeated labs noted iron supplement tid ordered will repeat labs again Assessment: 10/14/18 13:18 withdrawal sx Plan: continue detox increase fluids pt will continue with mediation as ordered. repeat labs
[2018-10-14] MEDS ORDERED: FERROUS SO4 325 MG TABLET (FP) PO ONE (14:45)
[2018-10-14] MEDS: LORazepam 1 MG TABLET PO SCH ×2 (17:07→23:08)
[2018-10-14] MEDS: FERROUS SO4 325 MG TABLET (FP) PO SCH (17:07)
[2018-10-15] MEDS: LORazepam 1 MG TABLET PO SCH ×2 (06:00→12:16)
[2018-10-15] MEDS: PANTOPRAZOLE 40 MG TABLET (FP) PO SCH (06:00)
[2018-10-15] MEDS ORDERED: diazePAM 5 MG TABLET PO SCH (06:00)
[2018-10-15] MEDS: FERROUS SO4 325 MG TABLET (FP) PO SCH ×3 (08:12→21:46)
[2018-10-15 10:22] LABS: BASO % 0.7 % (0-2.0); EOS % 1.4 % (0-4.5); HEMOGLOBIN 9.8 GM/dL (11.7-16.9); LYMPH % 14.3 % (8-40); MCH 35.9 pg (25.7-33.7); MCHC 36.1 g/dl (32.0-35.9); MEAN CELL VOLUME 99.3 fl (80-96); MEAN PLT VOLUME 9.5 fl (7.5-11.1); MONO % 27.7 % (3.8-10.2); NEUT % 55.9 % (42.8-82.8); PLATELET COUNT 75 K/MM3 (134-434); RBC 2.72 M/mm3 (4.00-5.60); RDW 14.5 % (11.9-15.9); WHITE BLOOD COUNT 4.5 K/mm3 (4.0-10.0)
[2018-10-15] MEDS: THIAMINE HCL 100 MG TABLET (FP) PO SCH (10:22)
[2018-10-15] MEDS: PRENATAL VITAMINS W/ FOLIC ACID TABLET (FP) PO SCH (10:22)
[2018-10-15] MEDS: POTASSIUM CHLORIDE ORAL LIQUID 20 MEQ/15 ML PO SCH ×2 (10:23→22:52)
[2018-10-15] MEDS: NICOTINE 14 MG/24 HOURS TOPICAL PATCH TD SCH (10:25)
[2018-10-15 10:33] LABS: INR 1.22 (0.83-1.09); PROTHROMBIN TIME (PATIENT) 14.4 SEC (9.7-13.0)
[2018-10-15 10:57] LABS: ALBUMIN 2.9 g/dl (3.4-5.0); ALK PHOS 120 U/L (45-117); ANION GAP 9 MMOL/L (8-16); BILIRUBIN,TOTAL 6.6 mg/dL (0.2-1); BLOOD UREA NITROGEN 11 mg/dL (7-18); CALCIUM 8.6 mg/dL (8.5-10.1); CHLORIDE 88 mmol/L (98-107); CO2 35 mmol/L (21-32); CREATININE 0.7 mg/dL (0.55-1.3); GLUCOSE,RANDOM 115 mg/dL (74-106); POTASSIUM 3.4 mmol/L (3.5-5.1); SGOT/AST 270 U/L (15-37); SGPT/ALT 131 U/L (13-61); SODIUM 132 mmol/L (136-145); TOT PROT 6.4 g/dl (6.4-8.2)
[2018-10-15] MEDS ORDERED: TETRAHYDROZOLINE HCL EYE DROPS OS PRN (13:20)
--- NOTE | 2018-10-15 13:20 | PN ---
[facility] Progress Note (SOAP) Subjective: my eyes are dry and itchy sweats tired Objective: 10/15/18 13:09 Vital Signs Temperature 99.0 F 10/15/18 11:01 Pulse Rate 125 H 10/15/18 11:01 Respiratory Rate 18 10/15/18 11:01 Blood Pressure 142/72 10/15/18 11:01 O2 Sat by Pulse Oximetry (%) Laboratory Tests 10/12/18 10/13/18 10/13/18 16:55 06:00 06:00 WBC 5.3 RBC 3.49 L Hgb 12.2 Hct 34.6 L D MCV 98.9 H MCH 34.9 H D MCHC 35.3 RDW 15.3 D Plt Count 35 L* D MPV 11.6 H D Absolute Neuts (auto) Neutrophils % Lymphocytes % Monocytes % Eosinophils % Basophils % Nucleated RBC % Platelet Comment No clumping noted PT with INR INR Sodium 126 L Potassium 2.6 L* Chloride 81 L Carbon Dioxide 24 Anion Gap 21 H BUN 9 Creatinine 1.0 Creat Clearance w eGFR > 60 Random Glucose 136 H POC Glucometer Calcium 9.3 Total Bilirubin 8.4 H AST 401 H ALT 140 H Alkaline Phosphatase 133 H Total Protein 7.8 Albumin 3.7 Urine Color [place] Urine Appearance Clear Urine pH 7.0 Ur Specific [place] 1.005 L Urine Protein 1+ H Urine Glucose (UA) Negative Urine Ketones Trace H Urine Blood 2+ H Urine Nitrite Negative Urine Bilirubin Negative Urine Urobilinogen 4.0 e.u/dl Ur Leukocyte Esterase Negative Urine WBC (Auto) 1 Urine RBC (Auto) None Ur Epithelial Cells Rare RPR Titer 10/13/18 10/14/18 10/14/18 06:00 06:20 07:00 WBC 4.3 RBC 2.92 L Hgb 10.4 L Hct 29.0 L D MCV 99.4 H MCH 35.5 H MCHC 35.7 RDW 14.9 Plt Count 50 L D MPV 10.7 Absolute Neuts (auto) Neutrophils % Lymphocytes % Monocytes % Eosinophils % Basophils % Nucleated RBC % Platelet Comment PT with INR INR Sodium Potassium Chloride Carbon Dioxide Anion Gap BUN Creatinine Creat Clearance w eGFR Random Glucose POC Glucometer 149 Calcium Total Bilirubin AST ALT Alkaline Phosphatase Total Protein Albumin Urine Color Urine Appearance Urine pH Ur Specific [place] Urine Protein Urine Glucose (UA) Urine Ketones Urine Blood Urine Nitrite Urine Bilirubin Urine Urobilinogen Ur Leukocyte Esterase Urine WBC (Auto) Urine RBC (Auto) Ur Epithelial Cells RPR Titer Nonreactive 10/14/18 10/14/18 10/15/18 07:00 07:00 05:59 WBC RBC Hgb Hct MCV MCH MCHC RDW Plt Count MPV Absolute Neuts (auto) Neutrophils % Lymphocytes % Monocytes % Eosinophils % Basophils % Nucleated RBC % Platelet Comment PT with INR 13.30 H INR 1.13 H Sodium 133 L Potassium 3.1 L Chloride 88 L Carbon Dioxide 36 H Anion Gap 9 BUN 11 Creatinine 0.7 Creat Clearance w eGFR > 60 Random Glucose 116 H POC Glucometer 114 Calcium 9.3 Total Bilirubin 7.6 H AST 282 H ALT 128 H Alkaline Phosphatase 123 H Total Protein 6.7 Albumin 3.0 L Urine Color Urine Appearance Urine pH Ur Specific [place] Urine Protein Urine Glucose (UA) Urine Ketones Urine Blood Urine Nitrite Urine Bilirubin Urine Urobilinogen Ur Leukocyte Esterase Urine WBC (Auto) Urine RBC (Auto) Ur Epithelial Cells RPR Titer 10/15/18 10/15/18 10/15/18 07:40 07:40 07:40 WBC 4.5 RBC 2.72 L Hgb 9.8 L Hct 27.0 L MCV 99.3 H MCH 35.9 H MCHC 36.1 H RDW 14.5 Plt Count 75 L D MPV 9.5 D Absolute Neuts (auto) 2.5 Neutrophils % 55.9 Lymphocytes % 14.3 D Monocytes % 27.7 H D Eosinophils % 1.4 Basophils % 0.7 Nucleated RBC % 1 H Platelet Comment PT with INR 14.40 H INR 1.22 H Sodium 132 L Potassium 3.4 L Chloride 88 L Carbon Dioxide 35 H Anion Gap 9 BUN 11 Creatinine 0.7 Creat Clearance w eGFR > 60 Random Glucose 115 H POC Glucometer Calcium 8.6 Total Bilirubin 6.6 H AST 270 H ALT 131 H Alkaline Phosphatase 120 H Total Protein 6.4 Albumin 2.9 L Urine Color Urine Appearance Urine pH Ur Specific [place] Urine Protein Urine Glucose (UA) Urine Ketones Urine Blood Urine Nitrite Urine Bilirubin Urine Urobilinogen Ur Leukocyte Esterase Urine WBC (Auto) Urine RBC (Auto) Ur Epithelial Cells RPR Titer labs noted liver enzymes improving slowly aaox3 ambulating no acute distress Assessment: 10/15/18 13:11 mild withdrawal sx Plan: continue detox increase fluids visine ordered
[2018-10-15] MEDS ORDERED: ARTIFICIAL TEARS (POLYVINYL ALCOHOL) OPTH DROPS OU PRN (13:27)
[2018-10-15] MEDS ORDERED: LORazepam 0.5 MG TABLET PO PRN (17:00)
[2018-10-15] MEDS: LORazepam 0.5 MG TABLET PO SCH ×2 (17:11→22:52)
[2018-10-15 18:49] LABS: PLATELET ESTIMATE DECREASED
[2018-10-15] MEDS: MELATONIN 5 MG TABLETS PO PRN (21:47)
[2018-10-16] MEDS: LORazepam 0.5 MG TABLET PO SCH ×3 (06:14→17:17)
[2018-10-16] MEDS: MAG HYDROX/AL HYDROX/SIMETH 30 ML UNIT-DOSE CUP PO PRN ×2 (06:16→22:28)
[2018-10-16] MEDS: PANTOPRAZOLE 40 MG TABLET (FP) PO SCH (08:30)
[2018-10-16] MEDS: FERROUS SO4 325 MG TABLET (FP) PO SCH ×3 (09:00→17:17)
[2018-10-16] MEDS: PRENATAL VITAMINS W/ FOLIC ACID TABLET (FP) PO SCH (10:23)
[2018-10-16] MEDS: THIAMINE HCL 100 MG TABLET (FP) PO SCH (10:23)
[2018-10-16] MEDS: POTASSIUM CHLORIDE ORAL LIQUID 20 MEQ/15 ML PO SCH ×2 (10:24→23:10)
[2018-10-16] MEDS: NICOTINE 14 MG/24 HOURS TOPICAL PATCH TD SCH (10:25)
--- NOTE | 2018-10-16 15:05 | PN ---
[facility] Progress Note (SOAP) Subjective: Chills, sweating, tremor, vomiting, interrupted sleep Objective: 10/16/18 14:58 Last Vital Signs Temp Pulse Resp BP Pulse Ox 98.9 F 90 18 105/55 L 10/16/18 14:08 10/16/18 14:08 10/16/18 14:08 10/16/18 14:08 Laboratory Tests 10/12/18 10/13/18 10/13/18 16:55 06:00 06:00 WBC 5.3 RBC 3.49 L Hgb 12.2 Hct 34.6 L D MCV 98.9 H MCH 34.9 H D MCHC 35.3 RDW 15.3 D Plt Count 35 L* D MPV 11.6 H D Absolute Neuts (auto) Neutrophils % Neutrophils % (Manual) Band Neutrophils % Lymphocytes % Lymphocytes % (Manual) Monocytes % Monocytes % (Manual) Eosinophils % Eosinophils % (Manual) Basophils % Basophils % (Manual) Myelocytes % (Man) Promyelocytes % (Man) Blast Cells % (Manual) Nucleated RBC % Metamyelocytes Platelet Estimate Platelet Comment No clumping noted PT with INR INR Sodium 126 L Potassium 2.6 L* Chloride 81 L Carbon Dioxide 24 Anion Gap 21 H BUN 9 Creatinine 1.0 Creat Clearance w eGFR > 60 Random Glucose 136 H POC Glucometer Calcium 9.3 Total Bilirubin 8.4 H AST 401 H ALT 140 H Alkaline Phosphatase 133 H Total Protein 7.8 Albumin 3.7 Urine Color [place] Urine Appearance Clear Urine pH 7.0 Ur Specific [place] 1.005 L Urine Protein 1+ H Urine Glucose (UA) Negative Urine Ketones Trace H Urine Blood 2+ H Urine Nitrite Negative Urine Bilirubin Negative Urine Urobilinogen 4.0 e.u/dl Ur Leukocyte Esterase Negative Urine WBC (Auto) 1 Urine RBC (Auto) None Ur Epithelial Cells Rare RPR Titer 10/13/18 10/14/18 10/14/18 06:00 06:20 07:00 WBC 4.3 RBC 2.92 L Hgb 10.4 L Hct 29.0 L D MCV 99.4 H MCH 35.5 H MCHC 35.7 RDW 14.9 Plt Count 50 L D MPV 10.7 Absolute Neuts (auto) Neutrophils % Neutrophils % (Manual) Band Neutrophils % Lymphocytes % Lymphocytes % (Manual) Monocytes % Monocytes % (Manual) Eosinophils % Eosinophils % (Manual) Basophils % Basophils % (Manual) Myelocytes % (Man) Promyelocytes % (Man) Blast Cells % (Manual) Nucleated RBC % Metamyelocytes Platelet Estimate Platelet Comment PT with INR INR Sodium Potassium Chloride Carbon Dioxide Anion Gap BUN Creatinine Creat Clearance w eGFR Random Glucose POC Glucometer 149 Calcium Total Bilirubin AST ALT Alkaline Phosphatase Total Protein Albumin Urine Color Urine Appearance Urine pH Ur Specific [place] Urine Protein Urine Glucose (UA) Urine Ketones Urine Blood Urine Nitrite Urine Bilirubin Urine Urobilinogen Ur Leukocyte Esterase Urine WBC (Auto) Urine RBC (Auto) Ur Epithelial Cells RPR Titer Nonreactive 10/14/18 10/14/18 10/15/18 07:00 07:00 05:59 WBC RBC Hgb Hct MCV MCH MCHC RDW Plt Count MPV Absolute Neuts (auto) Neutrophils % Neutrophils % (Manual) Band Neutrophils % Lymphocytes % Lymphocytes % (Manual) Monocytes % Monocytes % (Manual) Eosinophils % Eosinophils % (Manual) Basophils % Basophils % (Manual) Myelocytes % (Man) Promyelocytes % (Man) Blast Cells % (Manual) Nucleated RBC % Metamyelocytes Platelet Estimate Platelet Comment PT with INR 13.30 H INR 1.13 H Sodium 133 L Potassium 3.1 L Chloride 88 L Carbon Dioxide 36 H Anion Gap 9 BUN 11 Creatinine 0.7 Creat Clearance w eGFR > 60 Random Glucose 116 H POC Glucometer 114 Calcium 9.3 Total Bilirubin 7.6 H AST 282 H ALT 128 H Alkaline Phosphatase 123 H Total Protein 6.7 Albumin 3.0 L Urine Color Urine Appearance Urine pH Ur Specific [place] Urine Protein Urine Glucose (UA) Urine Ketones Urine Blood Urine Nitrite Urine Bilirubin Urine Urobilinogen Ur Leukocyte Esterase Urine WBC (Auto) Urine RBC (Auto) Ur Epithelial Cells RPR Titer 10/15/18 10/15/18 10/15/18 07:40 07:40 07:40 WBC 4.5 RBC 2.72 L Hgb 9.8 L Hct 27.0 L MCV 99.3 H MCH 35.9 H MCHC 36.1 H RDW 14.5 Plt Count 75 L D MPV 9.5 D Absolute Neuts (auto) 2.5 Neutrophils % 55.9 Neutrophils % (Manual) 59.6 D Band Neutrophils % 0.0 Lymphocytes % 14.3 D Lymphocytes % (Manual) 6.4 L D Monocytes % 27.7 H D Monocytes % (Manual) 31 H D Eosinophils % 1.4 Eosinophils % (Manual) 3.2 Basophils % 0.7 Basophils % (Manual) 0.0 Myelocytes % (Man) 0 Promyelocytes % (Man) 0 Blast Cells % (Manual) 0 Nucleated RBC % 6 H Metamyelocytes 0 Platelet Estimate Decreased Platelet Comment PT with INR 14.40 H INR 1.22 H Sodium 132 L Potassium 3.4 L Chloride 88 L Carbon Dioxide 35 H Anion Gap 9 BUN 11 Creatinine 0.7 Creat Clearance w eGFR > 60 Random Glucose 115 H POC Glucometer Calcium 8.6 Total Bilirubin 6.6 H AST 270 H ALT 131 H Alkaline Phosphatase 120 H Total Protein 6.4 Albumin 2.9 L Urine Color Urine Appearance Urine pH Ur Specific [place] Urine Protein Urine Glucose (UA) Urine Ketones Urine Blood Urine Nitrite Urine Bilirubin Urine Urobilinogen Ur Leukocyte Esterase Urine WBC (Auto) Urine RBC (Auto) Ur Epithelial Cells RPR Titer 10/15/18 10/16/18 16:48 06:13 WBC RBC Hgb Hct MCV MCH MCHC RDW Plt Count MPV Absolute Neuts (auto) Neutrophils % Neutrophils % (Manual) Band Neutrophils % Lymphocytes % Lymphocytes % (Manual) Monocytes % Monocytes % (Manual) Eosinophils % Eosinophils % (Manual) Basophils % Basophils % (Manual) Myelocytes % (Man) Promyelocytes % (Man) Blast Cells % (Manual) Nucleated RBC % Metamyelocytes Platelet Estimate Platelet Comment PT with INR INR Sodium Potassium Chloride Carbon Dioxide Anion Gap BUN Creatinine Creat Clearance w eGFR Random Glucose POC Glucometer 113 115 Calcium Total Bilirubin AST ALT Alkaline Phosphatase Total Protein Albumin Urine Color Urine Appearance Urine pH Ur Specific [place] Urine Protein Urine Glucose (UA) Urine Ketones Urine Blood Urine Nitrite Urine Bilirubin Urine Urobilinogen Ur Leukocyte Esterase Urine WBC (Auto) Urine RBC (Auto) Ur Epithelial Cells RPR Titer Labs reviewed: plt 75>>50>>35, K 3.1, Na 132, CL 88, abnormal UA Assessment: 10/16/18 15:01 Withdrawal symptoms Noted with thrombocytopenia, hypokalemia, hyponatremia, hypochloremia and abnormal UA Plan: Continue detox Thrombocytopenia: improving, most likely due to chronic alcoholism Hypokalemia: asymptomatic, replenished, repeat serum K level Hyponatremia: asymptomatic, repeat serum sodium level Hypochloremia: repeat bmp Elevated LFTs: repeat hepatic panel Will order CMP in AM Abnormal UA: encourage PO water hydration, repeat UA
[2018-10-16] MEDS: hydrOXYzine PAMOATE 25 MG CAPSULE (FP) PO PRN ×2 (17:16→22:27)
[2018-10-16] MEDS: BACLOFEN 10 MG TABLET (FP) PO PRN (22:27)
[2018-10-16] MEDS: MELATONIN 5 MG TABLETS PO PRN (22:28)
[2018-10-17] MEDS: PANTOPRAZOLE 40 MG TABLET (FP) PO SCH (06:24)
[2018-10-17] MEDS: FERROUS SO4 325 MG TABLET (FP) PO SCH (08:16)
--- NOTE | 2018-10-17 09:17 | DS ---
[facility] Detox Discharge Summary Admission Date: 10/12/18 Discharge Date: 10/17/18 - History Present History: Alcohol Dependence, Cannabis Dependence - Physical Exam Results Vital Signs: Vital Signs Temperature 98.4 F 10/17/18 06:00 Pulse Rate 100 H 10/17/18 06:00 Respiratory Rate 18 10/17/18 06:00 Blood Pressure 95/65 10/17/18 06:00 O2 Sat by Pulse Oximetry (%) - Treatment Hospital Course: Detox Protocol Followed, Detoxed Safely, Responded well, Discharged Condition Good, Rehab Referral Accepted - Medication Discharge Medications: Ambulatory Orders Pantoprazole Sodium [Protonix -] 40 mg PO DAILY@0700 #30 tab 11/08/17 - Diagnosis (1) Alcohol dependence with uncomplicated withdrawal Current Visit: Yes Status: Chronic (2) Alcohol-induced mood disorder Current Visit: Yes Status: Acute (3) Alcohol-induced sleep disorder Current Visit: Yes Status: Acute (4) Alcohol related seizure Current Visit: No Status: Acute (5) DVT prophylaxis Current Visit: No Status: Acute (6) Depressed mood Current Visit: No Status: Acute (7) Hand injury Current Visit: No Status: Acute Qualifiers: Encounter type: initial encounter Laterality: right Qualified Code(s): S69.91XA - Unspecified injury of right wrist, hand and finger(s), initial encounter (8) Hypokalemia Current Visit: Yes Status: Acute (9) Macrocytosis Current Visit: No Status: Acute (10) Pancreatitis Current Visit: No Status: Acute Qualifiers: Chronicity: acute Pancreatitis type: alcohol induced Acute pancreatitis complication: unspecified Qualified Code(s): K85.20 - Alcohol induced acute pancreatitis without necrosis or infection (11) Pancytopenia Current Visit: No Status: Acute (12) Swelling of ankle Current Visit: No Status: Acute (13) Uncomplicated alcohol dependence Current Visit: Yes Status: Chronic (14) Anemia Current Visit: No Status: Chronic Qualifiers: Anemia type: iron deficiency (15) Anemia Current Visit: No Status: Chronic (16) Cannabis dependence, uncomplicated Current Visit: No Status: Chronic (17) GERD (gastroesophageal reflux disease) Current Visit: No Status: Chronic Qualifiers: Esophagitis presence: without esophagitis Qualified Code(s): K21.9 - Gastro -esophageal reflux disease without esophagitis (18) Substance induced mood disorder Current Visit: No Status: Suspected - AMA Did Patient Leave Against Medical Advice: No (referred to inpatient rehab. )
[2018-10-17 09:31] VITALS: BP 78/51; PULSE 102; TEMP 97.9
== END 2018-10-17 09:54 | disposition home or self-care (01) | DRG 775 ==
LOC: YASAS 10:50 → Y6N 14:39
PROVIDERS: ADMIT Surgery; ATTEND Surgery
PROC: HZ2ZZZZ Detoxification Services for Substance Abuse Treatment (ICD-10-PCS; principal; 2018-10-12)
DX: F10.230 Alcohol dependence with withdrawal, uncomplicated (principal); F10.24 Alcohol dependence with alcohol-induced mood disorder; F10.282 Alcohol dependence with alcohol-induced sleep disorder; F12.20 Cannabis dependence, uncomplicated; F32.9 Major depressive disorder, single episode, unspecified; F19.24 Other psychoactive substance dependence with psychoactive substance-induced mood disorder; E87.6 Hypokalemia; D61.818 Other pancytopenia; D50.9 Iron deficiency anemia, unspecified; K21.9 Gastro-esophageal reflux disease without esophagitis; D69.6 Thrombocytopenia, unspecified; R82.90 Unspecified abnormal findings in urine; E87.1 Hypo-osmolality and hyponatremia; E87.8 Other disorders of electrolyte and fluid balance, not elsewhere classified; R94.5 Abnormal results of liver function studies; R00.0 Tachycardia, unspecified; Z72.0 Tobacco use; Z86.69 Personal history of other diseases of the nervous system and sense organs
CPT/HCPCS: 36415; 80053; 81003; 81015; 82962; 85025; 85027; 85610; 86593; 93005; 93010; J0475; Q0162

== ENCOUNTER 2018-11-17 16:42 | Inpatient (IN) | payer OTHER ==
[2018-11-17 17:57] VITALS: BMI 20.3
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
[2018-11-17] MEDS ORDERED: P-EPHED 60MG/TRIPROLIDI 2.5MG TABLET PO PRN (18:33)
[2018-11-17] MEDS ORDERED: IBUPROFEN 400 MG TABLET (FP) PO PRN (18:33)
[2018-11-17] MEDS ORDERED: MENTHOL/PHENOL 1 EACH UD MM PRN (18:33)
[2018-11-17] MEDS ORDERED: ACETAMINOPHEN 325 MG TABLET (FP) PO PRN (18:33)
[2018-11-17] MEDS ORDERED: MAGNESIUM HYDROX 2400MG/30ML ORAL SUSPENSION 30 ML CUP PO PRN (18:33)
[2018-11-17] MEDS ORDERED: guaiFENesin 200 MG/10 ML 10 ML UNIT-DOSE CUPS PO PRN (18:33)
[2018-11-17] MEDS ORDERED: MAGNESIUM CITRATE 300 ML BOTTLE PO PRN (18:33)
[2018-11-17] MEDS: THIAMINE HCL 100 MG TABLET (FP) PO SCH (22:35)
[2018-11-18 09:48] LABS: HEMATOCRIT 33.7 % (35.4-49); MCH 32.2 pg (25.7-33.7); MCHC 32.5 g/dl (32.0-35.9); MEAN CELL VOLUME 99.1 fl (80-96); MEAN PLT VOLUME 8.9 fl (7.5-11.1); PLATELET COUNT 339 K/MM3 (134-434); RDW 16.5 % (11.9-15.9); WHITE BLOOD COUNT 16.6 K/mm3 (4.0-10.0)
[2018-11-18 10:11] LABS: ALBUMIN 2.6 g/dl (3.4-5.0); ALK PHOS 143 U/L (45-117); ANION GAP 8 MMOL/L (8-16); BILIRUBIN,TOTAL 1.5 mg/dL (0.2-1); BLOOD UREA NITROGEN 5 mg/dL (7-18); CALCIUM 8.6 mg/dL (8.5-10.1); CHLORIDE 102 mmol/L (98-107); CO2 29 mmol/L (21-32); CREATININE 0.4 mg/dL (0.55-1.3); GLUCOSE,RANDOM 104 mg/dL (74-106); POTASSIUM 3.7 mmol/L (3.5-5.1); SGOT/AST 81 U/L (15-37); SGPT/ALT 58 U/L (13-61); SODIUM 139 mmol/L (136-145); TOT PROT 6.8 g/dl (6.4-8.2)
[2018-11-18] MEDS: PRENATAL VITAMINS W/ FOLIC ACID TABLET (FP) PO SCH (10:16)
--- NOTE | 2018-11-18 16:29 | PN ---
[facility] Progress Note Note: PATIENT SEEN FOR C/O ANXIETY AND ABNORMAL LABS. PATIENT STATES HE WAS RECENTLY TREATED AT [facility] IN [place], [place] FOR ACUTE RESPIRATORY FAILURE AND COMMUNITY ACQUIRED PNA. PATIENT HAS DISCHARGE PAPERS IN POSSESSION WELL DISCHARGE MEDICATIONS: FOLIC ACID 1MG DAILY, THIAMINE 100MG DAILY, VIT D 50, 000U WEEKLY AND MAGNESIUM 400MG QID X 2 WEEKS. LAST TIME MEDICATION TAKEN WAS YESTERDAY BEFORE ADMISSION. PATIENT WAS INTUBATED DURING HOSPITALIZATION AND HAD ELEVATED WBC OF 18.8 DUE TO CAP WHICH WAS TREATED. PATIENT DENIES FEVER, COUGH, CHEST PAIN AND SOB AT THIS TIME. Laboratory Tests 11/18/18 11/18/18 11/18/18 08:10 08:10 08:10 WBC 16.6 H RBC 3.40 L Hgb 11.0 L Hct 33.7 L D MCV 99.1 H MCH 32.2 D MCHC 32.5 RDW 16.5 H Plt Count 339 D MPV 8.9 Sodium 139 Potassium 3.7 Chloride 102 Carbon Dioxide 29 Anion Gap 8 BUN 5 L Creatinine 0.4 L Creat Clearance w eGFR 231.59 Random Glucose 104 Calcium 8.6 Total Bilirubin 1.5 H AST 81 H ALT 58 Alkaline Phosphatase 143 H Total Protein 6.8 Albumin 2.6 L RPR Titer Nonreactive PE: ALERT AND ORIENTED X 3 SKIN WARM AND DRY CAR S1S2, RRR, HR 92 RESP CTA BL O2 SATS 98%, NO WHEEZING OR RHONCHI EXT FULL ROM, NO VISIBLE TREMORS AMB AD JOEL MILDLY ANXIOUS A/P: ETOH DEPENDENCE ELEVATED BILIRUBIN 1.5 S/P CAP ELEVATED WBC-IMPROVED SINCE HOSPITAL ADMISSION WILL REPEAT CBC, CMP AND MAGNESIUM LEVEL 11/21/18 MAGNESIUM 400MG BID X 13 DAYS CONTINUE ALL SUPPLEMENTS EKG ORDERED AND RESULTS SHOW NSR WITH SHORT UT INTERVAL ADD VISTARIL 25M EVERY 6 HR PRN FOR ANXIETY CONTINUE TO MONITOR CLINICALLY Vital Signs Temperature 97.0 F L 11/18/18 06:52 Pulse Rate 86 11/18/18 06:52 Respiratory Rate 18 11/18/18 06:52 Blood Pressure 130/92 11/18/18 06:52 O2 Sat by Pulse Oximetry (%)
[2018-11-18] MEDS ORDERED: PT OWN MED DRAWER 7, Y5N ONE (20:13)
[2018-11-18] MEDS: THIAMINE HCL 100 MG TABLET (FP) PO SCH (21:12)
[2018-11-18] MEDS: MELATONIN 5 MG TABLETS PO PRN (21:12)
[2018-11-19] MEDS: MAGNESIUM OXIDE 400 MG TABLET (FP) PO SCH ×3 (00:07→21:08)
[2018-11-19] MEDS: MAG HYDROX/AL HYDROX/SIMETH 30 ML UNIT-DOSE CUP PO PRN ×2 (00:56→21:11)
[2018-11-19] MEDS: PANTOPRAZOLE 40 MG TABLET (FP) PO SCH (06:50)
[2018-11-19] MEDS: PRENATAL VITAMINS W/ FOLIC ACID TABLET (FP) PO SCH (09:58)
[2018-11-19] MEDS ORDERED: PANTOPRAZOLE 40 MG TABLET (FP) PO SCH (10:00)
[2018-11-19 10:40] LABS: URINE APPEARANCE TURBID; URINE BILIRUBIN NEGATIVE (NEGATIVE); URINE COLOR YELLOW; URINE GLUCOSE (UA) NEGATIVE (NEGATIVE); URINE KETONE NEGATIVE (NEGATIVE); URINE LEUK ESTERASE NEGATIVE (NEGATIVE); URINE NITRITE NEGATIVE (NEGATIVE); URINE PROTEIN NEGATIVE (NEGATIVE); URINE UROBILINOGEN 0.2 mg/dL (0.2-1.0)
[2018-11-19] MEDS: THIAMINE HCL 100 MG TABLET (FP) PO SCH (21:08)
[2018-11-19] MEDS: MELATONIN 5 MG TABLETS PO PRN (21:08)
[2018-11-19] MEDS: hydrOXYzine PAMOATE 25 MG CAPSULE (FP) PO PRN (21:10)
[2018-11-20] MEDS: PANTOPRAZOLE 40 MG TABLET (FP) PO SCH (07:28)
[2018-11-20] MEDS: MAGNESIUM OXIDE 400 MG TABLET (FP) PO SCH ×2 (10:04→21:25)
[2018-11-20] MEDS: PRENATAL VITAMINS W/ FOLIC ACID TABLET (FP) PO SCH (10:04)
[2018-11-20] MEDS: hydrOXYzine PAMOATE 25 MG CAPSULE (FP) PO PRN ×2 (10:05→21:25)
[2018-11-20] MEDS: THIAMINE HCL 100 MG TABLET (FP) PO SCH (21:24)
[2018-11-20] MEDS: MELATONIN 5 MG TABLETS PO PRN (21:24)
[2018-11-20] MEDS: MAG HYDROX/AL HYDROX/SIMETH 30 ML UNIT-DOSE CUP PO PRN (23:56)
[2018-11-21] MEDS: PANTOPRAZOLE 40 MG TABLET (FP) PO SCH (06:40)
[2018-11-21] MEDS: PRENATAL VITAMINS W/ FOLIC ACID TABLET (FP) PO SCH (09:26)
[2018-11-21] MEDS: MAGNESIUM OXIDE 400 MG TABLET (FP) PO SCH ×2 (09:26→21:12)
[2018-11-21] MEDS: hydrOXYzine PAMOATE 25 MG CAPSULE (FP) PO PRN (09:27)
[2018-11-21 10:05] LABS: BASO % 0.6 % (0-2.0); EOS % 3.4 % (0-4.5); HEMATOCRIT 35.7 % (35.4-49); HEMOGLOBIN 11.5 GM/dL (11.7-16.9); MCH 31.1 pg (25.7-33.7); MCHC 32.1 g/dl (32.0-35.9); MEAN CELL VOLUME 96.9 fl (80-96); MEAN PLT VOLUME 8.6 fl (7.5-11.1); MONO % 7.5 % (3.8-10.2); NEUT % 73.5 % (42.8-82.8); PLATELET COUNT 370 K/MM3 (134-434); RBC 3.68 M/mm3 (4.00-5.60); RDW 16.3 % (11.9-15.9); WHITE BLOOD COUNT 14.7 K/mm3 (4.0-10.0)
[2018-11-21 10:10] LABS: ALBUMIN 2.7 g/dl (3.4-5.0); ALK PHOS 138 U/L (45-117); ANION GAP 5 MMOL/L (8-16); BILIRUBIN,TOTAL 0.9 mg/dL (0.2-1); BLOOD UREA NITROGEN 6 mg/dL (7-18); CALCIUM 9.1 mg/dL (8.5-10.1); CHLORIDE 103 mmol/L (98-107); CO2 29 mmol/L (21-32); CREATININE 0.5 mg/dL (0.55-1.3); GLUCOSE,RANDOM 112 mg/dL (74-106); POTASSIUM 3.8 mmol/L (3.5-5.1); SGOT/AST 72 U/L (15-37); SGPT/ALT 57 U/L (13-61); SODIUM 137 mmol/L (136-145); TOT PROT 7.5 g/dl (6.4-8.2)
--- NOTE | 2018-11-21 10:40 | EKG ---
Test Reason : Blood Pressure : / mmHG Vent. Rate : 069 BPM Atrial Rate : 069 BPM P-R Int : 108 ms QRS Dur : 094 ms QT Int : 414 ms P-R-T Axes : 016 -11 004 degrees QTc Int : 443 ms SINUS RHYTHM WITH SHORT WA OTHERWISE NORMAL ECG WHEN COMPARED WITH ECG OF 13-OCT-2018 09:31, VENT. RATE HAS DECREASED BY 43 BPM T WAVE INVERSION NO LONGER EVIDENT IN INFERIOR LEADS T WAVE INVERSION NO LONGER EVIDENT IN ANTEROLATERAL LEADS Confirmed by EMIR GRIGSBY MD ([id number]) on 11/21/2018 10:40:35 AM Referred By: Ross OLIVARES Confirmed By:EMIR GRIGSBY MD
[2018-11-21] MEDS ORDERED: SIMETHICONE 80 MG TAB.CHEW (FP) PO PRN (11:32)
--- NOTE | 2018-11-21 12:40 | PN ---
[facility] Progress Note Note: PATIENT SEEN FOR C/O INDIGESTION/GAS AND CONSTIPATION. PATIENT DENIES N/V/D, + BM YESTERDAY BUT FIRM. Vital Signs Period Temp Pulse Resp BP Sys/Ho Pulse Ox Last 24 Hr 99 F 94 16-20 120/90 Laboratory Tests 11/18/18 11/18/18 11/18/18 08:10 08:10 08:10 WBC 16.6 H RBC 3.40 L Hgb 11.0 L Hct 33.7 L D MCV 99.1 H MCH 32.2 D MCHC 32.5 RDW 16.5 H Plt Count 339 D MPV 8.9 Absolute Neuts (auto) Neutrophils % Lymphocytes % Monocytes % Eosinophils % Basophils % Nucleated RBC % Sodium 139 Potassium 3.7 Chloride 102 Carbon Dioxide 29 Anion Gap 8 BUN 5 L Creatinine 0.4 L Creat Clearance w eGFR 231.59 Random Glucose 104 Calcium 8.6 Total Bilirubin 1.5 H AST 81 H ALT 58 Alkaline Phosphatase 143 H Total Protein 6.8 Albumin 2.6 L Urine Color Urine Appearance Urine pH Ur Specific [place] Urine Protein Urine Glucose (UA) Urine Ketones Urine Blood Urine Nitrite Urine Bilirubin Urine Urobilinogen Ur Leukocyte Esterase RPR Titer Nonreactive 11/19/18 11/21/18 11/21/18 08:00 08:00 08:00 WBC 14.7 H RBC 3.68 L Hgb 11.5 L Hct 35.7 MCV 96.9 H MCH 31.1 MCHC 32.1 RDW 16.3 H Plt Count 370 MPV 8.6 Absolute Neuts (auto) 10.8 H Neutrophils % 73.5 D Lymphocytes % 15.0 Monocytes % 7.5 Eosinophils % 3.4 D Basophils % 0.6 Nucleated RBC % 0 Sodium 137 Potassium 3.8 Chloride 103 Carbon Dioxide 29 Anion Gap 5 L BUN 6 L Creatinine 0.5 L Creat Clearance w eGFR 179.01 Random Glucose 112 H Calcium 9.1 Total Bilirubin 0.9 AST 72 H ALT 57 Alkaline Phosphatase 138 H Total Protein 7.5 Albumin 2.7 L Urine Color Yellow Urine Appearance Turbid Urine pH 8.0 Ur Specific [place] 1.010 Urine Protein Negative Urine Glucose (UA) Negative Urine Ketones Negative Urine Blood Negative Urine Nitrite Negative Urine Bilirubin Negative Urine Urobilinogen 0.2 Ur Leukocyte Esterase Negative RPR Titer PE: ALERT AND ORIENTED X 3 SKIN WARM AND DRY CAR S1S2 RESP CTA BL, NO WHEEZING/RALES/RHONCHI O2 SATS 98% GI SOFT, BS +, NT, ND EXT FULL ROM, AMB AD JOEL A/P: INDIGESTION CONSTIPATION LEUKOCYTOSIS-IMPROVED ENCOURAGE ORAL FLUIDS ADD COLACE AND SIMETHICONE CONTINUE TO MONITOR CLINICALLY
[2018-11-21] MEDS: DOCUSATE SODIUM 100 MG CAPSULE (FP) PO SCH ×2 (13:46→21:12)
[2018-11-21] MEDS: THIAMINE HCL 100 MG TABLET (FP) PO SCH (21:11)
[2018-11-22] MEDS: PANTOPRAZOLE 40 MG TABLET (FP) PO SCH (07:38)
[2018-11-22] MEDS: PRENATAL VITAMINS W/ FOLIC ACID TABLET (FP) PO SCH (10:09)
[2018-11-22] MEDS: DOCUSATE SODIUM 100 MG CAPSULE (FP) PO SCH ×2 (10:09→21:29)
[2018-11-22] MEDS: MAGNESIUM OXIDE 400 MG TABLET (FP) PO SCH ×2 (10:10→21:29)
--- NOTE | 2018-11-22 13:29 | PN ---
[facility] Progress Note (SOAP) Subjective: Client c/o opening on backside. States he was hospitalized and in a coma for 2 days that caused him to develop a bedsore. It is healing, but it feels like it is "pulling" inside. Objective: Healed lesion on right buttock. No opening, no drainage. skin is clean, dry, and intact. Slightly dry and flaking, but no s/s of infection. CBC, BMP 11/21/18 08:00 11/21/18 08:00 Vital Signs (72 hours) 11/20/18 11/20/18 11/20/18 00:30 03:30 06:55 Temperature 98.1 F Pulse Rate 81 Respiratory 18 18 18 Rate Blood Pressure 133/89 11/21/18 11/21/18 11/21/18 00:30 03:30 07:28 Temperature 99 F Pulse Rate 94 H Respiratory 16 16 20 Rate Blood Pressure 120/90 11/22/18 11/22/18 11/22/18 00:30 03:30 07:13 Temperature 98.3 F Pulse Rate 97 H Respiratory 18 18 18 Rate Blood Pressure 130/88 11/22/18 13:26 11/22/18 13:29 Assessment: 11/22/18 13:28 Healed decubitus Plan: Ordered bacitracin; apply to clean area of healed decubitus/
[2018-11-22] MEDS: THIAMINE HCL 100 MG TABLET (FP) PO SCH (21:29)
[2018-11-23] MEDS: PANTOPRAZOLE 40 MG TABLET (FP) PO SCH (06:47)
[2018-11-23] MEDS: DOCUSATE SODIUM 100 MG CAPSULE (FP) PO SCH ×2 (09:52→21:03)
[2018-11-23] MEDS: PRENATAL VITAMINS W/ FOLIC ACID TABLET (FP) PO SCH (09:52)
[2018-11-23] MEDS: BACITRACIN 0.9 GM PACKET TP SCH (09:52)
[2018-11-23] MEDS: MAGNESIUM OXIDE 400 MG TABLET (FP) PO SCH ×2 (09:52→21:04)
[2018-11-23] MEDS: THIAMINE HCL 100 MG TABLET (FP) PO SCH (21:03)
[2018-11-23] MEDS: MELATONIN 5 MG TABLETS PO PRN (21:03)
[2018-11-23] MEDS: MAG HYDROX/AL HYDROX/SIMETH 30 ML UNIT-DOSE CUP PO PRN (23:47)
[2018-11-24] MEDS: PANTOPRAZOLE 40 MG TABLET (FP) PO SCH (06:35)
[2018-11-24] MEDS: PRENATAL VITAMINS W/ FOLIC ACID TABLET (FP) PO SCH (09:39)
[2018-11-24] MEDS: BACITRACIN 0.9 GM PACKET TP SCH (09:39)
[2018-11-24] MEDS: MAGNESIUM OXIDE 400 MG TABLET (FP) PO SCH ×2 (09:39→21:33)
[2018-11-24] MEDS: DOCUSATE SODIUM 100 MG CAPSULE (FP) PO SCH ×2 (09:39→21:33)
[2018-11-24] MEDS: ERGOCALCIFEROL PO SCH (09:41)
[2018-11-24] MEDS: THIAMINE HCL 100 MG TABLET (FP) PO SCH (21:33)
[2018-11-24] MEDS: MELATONIN 5 MG TABLETS PO PRN (21:33)
[2018-11-25] MEDS: PANTOPRAZOLE 40 MG TABLET (FP) PO SCH (06:41)
[2018-11-25] MEDS: MAGNESIUM OXIDE 400 MG TABLET (FP) PO SCH ×2 (09:39→21:32)
[2018-11-25] MEDS: DOCUSATE SODIUM 100 MG CAPSULE (FP) PO SCH ×2 (09:39→21:32)
[2018-11-25] MEDS: PRENATAL VITAMINS W/ FOLIC ACID TABLET (FP) PO SCH (09:39)
[2018-11-25] MEDS: BACITRACIN 0.9 GM PACKET TP SCH (09:40)
--- NOTE | 2018-11-25 09:59 | PN ---
[facility] Progress Note Note: PATIENT REPORTS HAVING FOOT PAIN TO BOTTOM OF FEET. OCCASIONALLY HAS NUMBNESS/ TINGLING, DENIES ANY RECENT INJURIES. PATIENT WAS ADMITTED FOR 3 WEEKS LAST MONTH IN HOSPITAL, BED RIDDEN DUE TO INTUBATION. PATIENT STATES SYMPTOMS IMPROVE WITH MOBILITY AND RUBBING OF FEET Vital Signs Temperature 97.8 F 11/25/18 08:01 Pulse Rate 89 11/25/18 08:01 Respiratory Rate 18 11/25/18 08:01 Blood Pressure 116/82 11/25/18 08:01 O2 Sat by Pulse Oximetry (%) Laboratory Tests 11/18/18 11/18/18 11/18/18 08:10 08:10 08:10 WBC 16.6 H RBC 3.40 L Hgb 11.0 L Hct 33.7 L D MCV 99.1 H MCH 32.2 D MCHC 32.5 RDW 16.5 H Plt Count 339 D MPV 8.9 Absolute Neuts (auto) Neutrophils % Lymphocytes % Monocytes % Eosinophils % Basophils % Nucleated RBC % Sodium 139 Potassium 3.7 Chloride 102 Carbon Dioxide 29 Anion Gap 8 BUN 5 L Creatinine 0.4 L Creat Clearance w eGFR 231.59 Random Glucose 104 Calcium 8.6 Magnesium Total Bilirubin 1.5 H AST 81 H ALT 58 Alkaline Phosphatase 143 H Total Protein 6.8 Albumin 2.6 L Urine Color Urine Appearance Urine pH Ur Specific [place] Urine Protein Urine Glucose (UA) Urine Ketones Urine Blood Urine Nitrite Urine Bilirubin Urine Urobilinogen Ur Leukocyte Esterase RPR Titer Nonreactive 11/19/18 11/21/18 11/21/18 08:00 08:00 08:00 WBC 14.7 H RBC 3.68 L Hgb 11.5 L Hct 35.7 MCV 96.9 H MCH 31.1 MCHC 32.1 RDW 16.3 H Plt Count 370 MPV 8.6 Absolute Neuts (auto) 10.8 H Neutrophils % 73.5 D Lymphocytes % 15.0 Monocytes % 7.5 Eosinophils % 3.4 D Basophils % 0.6 Nucleated RBC % 0 Sodium 137 Potassium 3.8 Chloride 103 Carbon Dioxide 29 Anion Gap 5 L BUN 6 L Creatinine 0.5 L Creat Clearance w eGFR 179.01 Random Glucose 112 H Calcium 9.1 Magnesium Total Bilirubin 0.9 AST 72 H ALT 57 Alkaline Phosphatase 138 H Total Protein 7.5 Albumin 2.7 L Urine Color Yellow Urine Appearance Turbid Urine pH 8.0 Ur Specific [place] 1.010 Urine Protein Negative Urine Glucose (UA) Negative Urine Ketones Negative Urine Blood Negative Urine Nitrite Negative Urine Bilirubin Negative Urine Urobilinogen 0.2 Ur Leukocyte Esterase Negative RPR Titer 11/22/18 07:00 WBC RBC Hgb Hct MCV MCH MCHC RDW Plt Count MPV Absolute Neuts (auto) Neutrophils % Lymphocytes % Monocytes % Eosinophils % Basophils % Nucleated RBC % Sodium Potassium Chloride Carbon Dioxide Anion Gap BUN Creatinine Creat Clearance w eGFR Random Glucose Calcium Magnesium 1.4 L Total Bilirubin AST ALT Alkaline Phosphatase Total Protein Albumin Urine Color Urine Appearance Urine pH Ur Specific [place] Urine Protein Urine Glucose (UA) Urine Ketones Urine Blood Urine Nitrite Urine Bilirubin Urine Urobilinogen Ur Leukocyte Esterase RPR Titer PE: ALERT AND ORIENTED X 3 SKIN WARM AND DRY EXT FULL ROM, AMB AD JOEL A/P: FOOT DISCOMFORT-LIKELY CIRCULATION RELATED SUBTHERAPEUTIC MG LEVELS WILL REPEAT CBC, MG LEVEL 11/28/18 ORDER TEDS ENCOURAGE AMBULATION CONTINUE TO MONITOR
[2018-11-25] MEDS: THIAMINE HCL 100 MG TABLET (FP) PO SCH (21:31)
[2018-11-25] MEDS: MELATONIN 5 MG TABLETS PO PRN (21:32)
[2018-11-25] MEDS: hydrOXYzine PAMOATE 25 MG CAPSULE (FP) PO PRN (21:33)
[2018-11-26] MEDS: PANTOPRAZOLE 40 MG TABLET (FP) PO SCH (06:53)
[2018-11-26] MEDS: hydrOXYzine PAMOATE 25 MG CAPSULE (FP) PO PRN ×2 (07:10→21:34)
[2018-11-26] MEDS: MAGNESIUM OXIDE 400 MG TABLET (FP) PO SCH ×2 (10:03→21:33)
[2018-11-26] MEDS: DOCUSATE SODIUM 100 MG CAPSULE (FP) PO SCH ×2 (10:03→21:33)
[2018-11-26] MEDS: BACITRACIN 0.9 GM PACKET TP SCH (10:03)
[2018-11-26] MEDS: PRENATAL VITAMINS W/ FOLIC ACID TABLET (FP) PO SCH (10:04)
[2018-11-26] MEDS: MELATONIN 5 MG TABLETS PO PRN (21:33)
[2018-11-26] MEDS: THIAMINE HCL 100 MG TABLET (FP) PO SCH (21:38)
[2018-11-27] MEDS: PANTOPRAZOLE 40 MG TABLET (FP) PO SCH (06:51)
[2018-11-27] MEDS: PRENATAL VITAMINS W/ FOLIC ACID TABLET (FP) PO SCH (09:45)
[2018-11-27] MEDS: DOCUSATE SODIUM 100 MG CAPSULE (FP) PO SCH ×2 (09:45→21:07)
[2018-11-27] MEDS: MAGNESIUM OXIDE 400 MG TABLET (FP) PO SCH ×2 (09:45→21:07)
[2018-11-27] MEDS: BACITRACIN 0.9 GM PACKET TP SCH (09:45)
[2018-11-27] MEDS: hydrOXYzine PAMOATE 25 MG CAPSULE (FP) PO PRN ×2 (09:46→18:42)
[2018-11-27] MEDS: THIAMINE HCL 100 MG TABLET (FP) PO SCH (21:06)
[2018-11-27] MEDS: MELATONIN 5 MG TABLETS PO PRN (21:07)
[2018-11-27] MEDS: MAG HYDROX/AL HYDROX/SIMETH 30 ML UNIT-DOSE CUP PO PRN (23:34)
[2018-11-28] MEDS: PANTOPRAZOLE 40 MG TABLET (FP) PO SCH (06:56)
[2018-11-28 09:39] LABS: BASO % 0.7 % (0-2.0); EOS % 3.5 % (0-4.5); HEMATOCRIT 35.3 % (35.4-49); HEMOGLOBIN 11.7 GM/dL (11.7-16.9); LYMPH % 15.8 % (8-40); MCH 31.6 pg (25.7-33.7); MCHC 33.2 g/dl (32.0-35.9); MEAN CELL VOLUME 95.4 fl (80-96); MEAN PLT VOLUME 8.6 fl (7.5-11.1); MONO % 7.2 % (3.8-10.2); NEUT % 72.8 % (42.8-82.8); PLATELET COUNT 329 K/MM3 (134-434); RDW 15.7 % (11.9-15.9); WHITE BLOOD COUNT 11.5 K/mm3 (4.0-10.0)
[2018-11-28] MEDS: MAGNESIUM OXIDE 400 MG TABLET (FP) PO SCH ×2 (10:04→21:39)
[2018-11-28] MEDS: PRENATAL VITAMINS W/ FOLIC ACID TABLET (FP) PO SCH (10:04)
[2018-11-28] MEDS: DOCUSATE SODIUM 100 MG CAPSULE (FP) PO SCH ×2 (10:04→21:39)
[2018-11-28] MEDS: BACITRACIN 0.9 GM PACKET TP SCH (10:08)
[2018-11-28] MEDS: hydrOXYzine PAMOATE 25 MG CAPSULE (FP) PO PRN (17:05)
[2018-11-28] MEDS: MAG HYDROX/AL HYDROX/SIMETH 30 ML UNIT-DOSE CUP PO PRN (19:38)
[2018-11-28] MEDS: MELATONIN 5 MG TABLETS PO PRN (21:39)
[2018-11-28] MEDS: THIAMINE HCL 100 MG TABLET (FP) PO SCH (21:39)
[2018-11-29] MEDS: PANTOPRAZOLE 40 MG TABLET (FP) PO SCH (06:40)
[2018-11-29] MEDS: hydrOXYzine PAMOATE 25 MG CAPSULE (FP) PO PRN ×2 (08:34→19:45)
[2018-11-29] MEDS: MAGNESIUM OXIDE 400 MG TABLET (FP) PO SCH ×2 (10:08→21:45)
[2018-11-29] MEDS: DOCUSATE SODIUM 100 MG CAPSULE (FP) PO SCH ×2 (10:08→21:45)
[2018-11-29] MEDS: BACITRACIN 0.9 GM PACKET TP SCH (10:08)
[2018-11-29] MEDS: PRENATAL VITAMINS W/ FOLIC ACID TABLET (FP) PO SCH (10:08)
[2018-11-29] MEDS: MELATONIN 5 MG TABLETS PO PRN (21:45)
[2018-11-29] MEDS: THIAMINE HCL 100 MG TABLET (FP) PO SCH (21:45)
[2018-11-30] MEDS: PANTOPRAZOLE 40 MG TABLET (FP) PO SCH (06:52)
[2018-11-30] MEDS: DOCUSATE SODIUM 100 MG CAPSULE (FP) PO SCH ×2 (09:38→21:18)
[2018-11-30] MEDS: MAGNESIUM OXIDE 400 MG TABLET (FP) PO SCH ×2 (09:38→21:18)
[2018-11-30] MEDS: hydrOXYzine PAMOATE 25 MG CAPSULE (FP) PO PRN ×2 (09:38→21:19)
[2018-11-30] MEDS: PRENATAL VITAMINS W/ FOLIC ACID TABLET (FP) PO SCH (09:38)
[2018-11-30] MEDS: BACITRACIN 0.9 GM PACKET TP SCH (11:48)
[2018-11-30] MEDS: MELATONIN 5 MG TABLETS PO PRN (21:18)
[2018-11-30] MEDS: THIAMINE HCL 100 MG TABLET (FP) PO SCH (21:48)
[2018-12-01] MEDS: hydrOXYzine PAMOATE 25 MG CAPSULE (FP) PO PRN (06:14)
[2018-12-01] MEDS: PANTOPRAZOLE 40 MG TABLET (FP) PO SCH (06:30)
[2018-12-01] MEDS: BACITRACIN 0.9 GM PACKET TP SCH (09:37)
[2018-12-01] MEDS: PRENATAL VITAMINS W/ FOLIC ACID TABLET (FP) PO SCH (09:37)
[2018-12-01] MEDS: MAGNESIUM OXIDE 400 MG TABLET (FP) PO SCH (09:38)
[2018-12-01] MEDS: DOCUSATE SODIUM 100 MG CAPSULE (FP) PO SCH ×2 (09:38→21:28)
[2018-12-01] MEDS ORDERED: PT OWN MED DRAWER 7, Y5N ONE (09:39)
[2018-12-01] MEDS: ERGOCALCIFEROL PO SCH (09:40)
[2018-12-01] MEDS: MAG HYDROX/AL HYDROX/SIMETH 30 ML UNIT-DOSE CUP PO PRN (19:04)
[2018-12-01] MEDS: MELATONIN 5 MG TABLETS PO PRN (21:27)
[2018-12-01] MEDS: THIAMINE HCL 100 MG TABLET (FP) PO SCH (21:27)
[2018-12-02] MEDS: PANTOPRAZOLE 40 MG TABLET (FP) PO SCH (07:06)
[2018-12-02] MEDS: BACITRACIN 0.9 GM PACKET TP SCH (10:10)
[2018-12-02] MEDS: DOCUSATE SODIUM 100 MG CAPSULE (FP) PO SCH ×2 (10:10→21:17)
[2018-12-02] MEDS: PRENATAL VITAMINS W/ FOLIC ACID TABLET (FP) PO SCH (10:10)
[2018-12-02] MEDS: MAG HYDROX/AL HYDROX/SIMETH 30 ML UNIT-DOSE CUP PO PRN (10:11)
[2018-12-02] MEDS: hydrOXYzine PAMOATE 25 MG CAPSULE (FP) PO PRN ×2 (10:11→21:17)
[2018-12-02] MEDS: THIAMINE HCL 100 MG TABLET (FP) PO SCH (21:16)
[2018-12-03] MEDS: hydrOXYzine PAMOATE 25 MG CAPSULE (FP) PO PRN ×2 (05:48→22:09)
[2018-12-03] MEDS: PANTOPRAZOLE 40 MG TABLET (FP) PO SCH (07:10)
[2018-12-03] MEDS: PRENATAL VITAMINS W/ FOLIC ACID TABLET (FP) PO SCH (09:49)
[2018-12-03] MEDS: DOCUSATE SODIUM 100 MG CAPSULE (FP) PO SCH ×2 (09:49→22:09)
[2018-12-03] MEDS: BACITRACIN 0.9 GM PACKET TP SCH (09:49)
[2018-12-03] MEDS: MAG HYDROX/AL HYDROX/SIMETH 30 ML UNIT-DOSE CUP PO PRN ×2 (15:32→23:30)
[2018-12-03] MEDS: THIAMINE HCL 100 MG TABLET (FP) PO SCH (22:09)
[2018-12-04] MEDS: hydrOXYzine PAMOATE 25 MG CAPSULE (FP) PO PRN ×2 (05:57→21:17)
[2018-12-04] MEDS: PANTOPRAZOLE 40 MG TABLET (FP) PO SCH (06:50)
[2018-12-04] MEDS: PRENATAL VITAMINS W/ FOLIC ACID TABLET (FP) PO SCH (10:02)
[2018-12-04] MEDS: DOCUSATE SODIUM 100 MG CAPSULE (FP) PO SCH ×2 (10:02→21:17)
[2018-12-04] MEDS: BACITRACIN 0.9 GM PACKET TP SCH (10:02)
[2018-12-04] MEDS: THIAMINE HCL 100 MG TABLET (FP) PO SCH (21:17)
[2018-12-05] MEDS: hydrOXYzine PAMOATE 25 MG CAPSULE (FP) PO PRN ×2 (06:19→21:43)
[2018-12-05] MEDS: PANTOPRAZOLE 40 MG TABLET (FP) PO SCH (07:32)
[2018-12-05] MEDS: DOCUSATE SODIUM 100 MG CAPSULE (FP) PO SCH ×2 (09:39→21:43)
[2018-12-05] MEDS: BACITRACIN 0.9 GM PACKET TP SCH (09:39)
[2018-12-05] MEDS: PRENATAL VITAMINS W/ FOLIC ACID TABLET (FP) PO SCH (09:39)
--- NOTE | 2018-12-05 10:10 | PN ---
[facility] Progress Note Note: PATIENT SEEN FOR REVIEW OF LABS. PATIENT STATES HE FEELS BETTER AND IS SCHEDULED FOR DISCHARGE 12/12/18. Vital Signs Temperature 99.1 F 12/05/18 06:00 Pulse Rate 84 12/05/18 06:00 Respiratory Rate 18 12/05/18 06:00 Blood Pressure 142/93 12/05/18 06:00 O2 Sat by Pulse Oximetry (%) Laboratory Tests 11/18/18 11/18/18 11/18/18 08:10 08:10 08:10 WBC 16.6 H RBC 3.40 L Hgb 11.0 L Hct 33.7 L D MCV 99.1 H MCH 32.2 D MCHC 32.5 RDW 16.5 H Plt Count 339 D MPV 8.9 Absolute Neuts (auto) Neutrophils % Lymphocytes % Monocytes % Eosinophils % Basophils % Nucleated RBC % Sodium 139 Potassium 3.7 Chloride 102 Carbon Dioxide 29 Anion Gap 8 BUN 5 L Creatinine 0.4 L Creat Clearance w eGFR 231.59 Random Glucose 104 Calcium 8.6 Magnesium Total Bilirubin 1.5 H AST 81 H ALT 58 Alkaline Phosphatase 143 H Total Protein 6.8 Albumin 2.6 L Urine Color Urine Appearance Urine pH Ur Specific [place] Urine Protein Urine Glucose (UA) Urine Ketones Urine Blood Urine Nitrite Urine Bilirubin Urine Urobilinogen Ur Leukocyte Esterase RPR Titer Nonreactive 11/19/18 11/21/18 11/21/18 08:00 08:00 08:00 WBC 14.7 H RBC 3.68 L Hgb 11.5 L Hct 35.7 MCV 96.9 H MCH 31.1 MCHC 32.1 RDW 16.3 H Plt Count 370 MPV 8.6 Absolute Neuts (auto) 10.8 H Neutrophils % 73.5 D Lymphocytes % 15.0 Monocytes % 7.5 Eosinophils % 3.4 D Basophils % 0.6 Nucleated RBC % 0 Sodium 137 Potassium 3.8 Chloride 103 Carbon Dioxide 29 Anion Gap 5 L BUN 6 L Creatinine 0.5 L Creat Clearance w eGFR 179.01 Random Glucose 112 H Calcium 9.1 Magnesium Total Bilirubin 0.9 AST 72 H ALT 57 Alkaline Phosphatase 138 H Total Protein 7.5 Albumin 2.7 L Urine Color Yellow Urine Appearance Turbid Urine pH 8.0 Ur Specific [place] 1.010 Urine Protein Negative Urine Glucose (UA) Negative Urine Ketones Negative Urine Blood Negative Urine Nitrite Negative Urine Bilirubin Negative Urine Urobilinogen 0.2 Ur Leukocyte Esterase Negative RPR Titer 11/22/18 11/28/18 11/28/18 07:00 08:15 08:15 WBC 11.5 H RBC 3.70 L Hgb 11.7 Hct 35.3 L MCV 95.4 MCH 31.6 MCHC 33.2 RDW 15.7 Plt Count 329 MPV 8.6 Absolute Neuts (auto) 8.4 H Neutrophils % 72.8 Lymphocytes % 15.8 Monocytes % 7.2 Eosinophils % 3.5 Basophils % 0.7 Nucleated RBC % 0 Sodium Potassium Chloride Carbon Dioxide Anion Gap BUN Creatinine Creat Clearance w eGFR Random Glucose Calcium Magnesium 1.4 L 1.4 L Total Bilirubin AST ALT Alkaline Phosphatase Total Protein Albumin Urine Color Urine Appearance Urine pH Ur Specific [place] Urine Protein Urine Glucose (UA) Urine Ketones Urine Blood Urine Nitrite Urine Bilirubin Urine Urobilinogen Ur Leukocyte Esterase RPR Titer ALCOHOL DEPENDENCE SUBTHERAPEUTIC MG LEVEL 1.4 WILL ORDER MAG OX 400MG BID X 3 DAYS REPEAT CBC,CMP, MG IN AM MONITOR CLINICALLY
[2018-12-05] MEDS ORDERED: COLLOIDAL OATMEAL 1 BAR EACH TP PRN (10:11)
[2018-12-05] MEDS: MINERAL OIL/PETROLAT/WATER TOPICAL CREAM 113 GM JAR TP SCH ×2 (10:23→21:43)
[2018-12-05] MEDS: MAGNESIUM OXIDE 400 MG TABLET (FP) PO SCH ×2 (10:23→21:43)
[2018-12-05] MEDS: THIAMINE HCL 100 MG TABLET (FP) PO SCH (21:43)
[2018-12-06] MEDS: PANTOPRAZOLE 40 MG TABLET (FP) PO SCH (06:50)
[2018-12-06] MEDS: MAGNESIUM OXIDE 400 MG TABLET (FP) PO SCH ×2 (09:45→21:20)
[2018-12-06] MEDS: MINERAL OIL/PETROLAT/WATER TOPICAL CREAM 113 GM JAR TP SCH ×2 (09:45→22:12)
[2018-12-06] MEDS: BACITRACIN 0.9 GM PACKET TP SCH (09:45)
[2018-12-06] MEDS: PRENATAL VITAMINS W/ FOLIC ACID TABLET (FP) PO SCH (09:45)
[2018-12-06] MEDS: DOCUSATE SODIUM 100 MG CAPSULE (FP) PO SCH ×2 (09:45→21:21)
[2018-12-06 11:37] LABS: BASO % 0.6 % (0-2.0); EOS % 2.4 % (0-4.5); HEMATOCRIT 38.6 % (35.4-49); HEMOGLOBIN 12.5 GM/dL (11.7-16.9); LYMPH % 27.4 % (8-40); MCH 30.4 pg (25.7-33.7); MCHC 32.3 g/dl (32.0-35.9); MEAN CELL VOLUME 94.1 fl (80-96); MEAN PLT VOLUME 9.5 fl (7.5-11.1); MONO % 9.3 % (3.8-10.2); NEUT % 60.3 % (42.8-82.8); PLATELET COUNT 291 K/MM3 (134-434); RDW 15.3 % (11.9-15.9); WHITE BLOOD COUNT 8.6 K/mm3 (4.0-10.0)
[2018-12-06 11:47] LABS: ALBUMIN 3.1 g/dl (3.4-5.0); ALK PHOS 94 U/L (45-117); ANION GAP 8 MMOL/L (8-16); BILIRUBIN,TOTAL 0.6 mg/dL (0.2-1); BLOOD UREA NITROGEN 10 mg/dL (7-18); CALCIUM 9.4 mg/dL (8.5-10.1); CHLORIDE 104 mmol/L (98-107); CO2 28 mmol/L (21-32); CREATININE 0.6 mg/dL (0.55-1.3); GLUCOSE,RANDOM 102 mg/dL (74-106); MAGNESIUM 1.5 mg/dL (1.8-2.4); POTASSIUM 3.7 mmol/L (3.5-5.1); SGOT/AST 60 U/L (15-37); SGPT/ALT 51 U/L (13-61); SODIUM 140 mmol/L (136-145); TOT PROT 7.6 g/dl (6.4-8.2)
[2018-12-06] MEDS: MAG HYDROX/AL HYDROX/SIMETH 30 ML UNIT-DOSE CUP PO PRN (15:53)
[2018-12-06] MEDS: hydrOXYzine PAMOATE 25 MG CAPSULE (FP) PO PRN ×2 (15:53→21:20)
[2018-12-06] MEDS ORDERED: PT OWN MED DRAWER 7, Y5N ONE (20:28)
[2018-12-06] MEDS: THIAMINE HCL 100 MG TABLET (FP) PO SCH (21:20)
[2018-12-07] MEDS: PANTOPRAZOLE 40 MG TABLET (FP) PO SCH (06:29)
[2018-12-07] MEDS: hydrOXYzine PAMOATE 25 MG CAPSULE (FP) PO PRN ×2 (09:38→21:14)
[2018-12-07] MEDS: PRENATAL VITAMINS W/ FOLIC ACID TABLET (FP) PO SCH (09:38)
[2018-12-07] MEDS: BACITRACIN 0.9 GM PACKET TP SCH (09:39)
[2018-12-07] MEDS: DOCUSATE SODIUM 100 MG CAPSULE (FP) PO SCH ×2 (09:39→21:14)
[2018-12-07] MEDS: MAGNESIUM OXIDE 400 MG TABLET (FP) PO SCH ×2 (09:39→21:14)
[2018-12-07] MEDS: MINERAL OIL/PETROLAT/WATER TOPICAL CREAM 113 GM JAR TP SCH ×2 (09:40→21:14)
--- NOTE | 2018-12-07 13:25 | PN ---
[facility] Progress Note (SOAP) Subjective: Patient is concerned about BP today. Denies use of salt, emotional distress, but has minimal water retention in ankles. Objective: Neurologically intact, Lungs clear, Heart sounds regular. Magnesium slightly low , on supplementation. Albumin low. Period Temp Pulse Resp BP Sys/Ho Pulse Ox Last 24 Hr 97.2 F 80 18-18 150/80 CBC,CMP WBC 8.6 K/mm3 (4.0-10.0) 12/06/18 08:15 RBC 4.10 M/mm3 (4.00-5.60) 12/06/18 08:15 Hgb 12.5 GM/dL (11.7-16.9) 12/06/18 08:15 Hct 38.6 % (35.4-49) 12/06/18 08:15 MCV 94.1 fl (80-96) 12/06/18 08:15 MCH 30.4 pg (25.7-33.7) 12/06/18 08:15 MCHC 32.3 g/dl (32.0-35.9) 12/06/18 08:15 RDW 15.3 % (11.9-15.9) 12/06/18 08:15 Plt Count 291 K/MM3 (134-434) 12/06/18 08:15 MPV 9.5 fl (7.5-11.1) D 12/06/18 08:15 Absolute Neuts (auto) 5.2 K/mm3 (1.5-8.0) 12/06/18 08:15 Neutrophils % 60.3 % (42.8-82.8) 12/06/18 08:15 Lymphocytes % 27.4 % (8-40) D 12/06/18 08:15 Monocytes % 9.3 % (3.8-10.2) 12/06/18 08:15 Eosinophils % 2.4 % (0-4.5) 12/06/18 08:15 Basophils % 0.6 % (0-2.0) 12/06/18 08:15 Nucleated RBC % 0 % (0-0) 12/06/18 08:15 Sodium 140 mmol/L (136-145) 12/06/18 08:15 Potassium 3.7 mmol/L (3.5-5.1) 12/06/18 08:15 Chloride 104 mmol/L (98-107) 12/06/18 08:15 Carbon Dioxide 28 mmol/L (21-32) 12/06/18 08:15 Anion Gap 8 MMOL/L (8-16) 12/06/18 08:15 BUN 10 mg/dL (7-18) 12/06/18 08:15 Creatinine 0.6 mg/dL (0.55-1.3) 12/06/18 08:15 Creat Clearance w eGFR 145.05 (>60) 12/06/18 08:15 Random Glucose 102 mg/dL (74-106) 12/06/18 08:15 Calcium 9.4 mg/dL (8.5-10.1) 12/06/18 08:15 Magnesium 1.5 mg/dL (1.8-2.4) L 12/06/18 08:15 Total Bilirubin 0.6 mg/dL (0.2-1) 12/06/18 08:15 AST 60 U/L (15-37) H 12/06/18 08:15 ALT 51 U/L (13-61) 12/06/18 08:15 Alkaline Phosphatase 94 U/L (45-117) 12/06/18 08:15 Total Protein 7.6 g/dl (6.4-8.2) 12/06/18 08:15 Albumin 3.1 g/dl (3.4-5.0) L 12/06/18 08:15 12/07/18 13:21 Assessment: Elevated systolic BP, isolated incident. 12/07/18 13:24 Plan: Continue to monitor, ordered BP to be taken later in the day. Will continue to monitor and if it continues to be elevated, will consider starting antihypertensive medication.
[2018-12-07] MEDS: THIAMINE HCL 100 MG TABLET (FP) PO SCH (21:13)
[2018-12-07] MEDS: MELATONIN 5 MG TABLETS PO PRN (21:15)
[2018-12-08] MEDS: PANTOPRAZOLE 40 MG TABLET (FP) PO SCH (06:36)
[2018-12-08] MEDS: hydrOXYzine PAMOATE 25 MG CAPSULE (FP) PO PRN ×2 (09:51→21:52)
[2018-12-08] MEDS: BACITRACIN 0.9 GM PACKET TP SCH (09:51)
[2018-12-08] MEDS: DOCUSATE SODIUM 100 MG CAPSULE (FP) PO SCH ×2 (09:51→21:52)
[2018-12-08] MEDS: PRENATAL VITAMINS W/ FOLIC ACID TABLET (FP) PO SCH (09:51)
[2018-12-08] MEDS: MINERAL OIL/PETROLAT/WATER TOPICAL CREAM 113 GM JAR TP SCH ×2 (09:52→21:53)
[2018-12-08] MEDS: ERGOCALCIFEROL PO SCH (09:52)
[2018-12-08] MEDS: THIAMINE HCL 100 MG TABLET (FP) PO SCH (21:52)
[2018-12-08] MEDS: MELATONIN 5 MG TABLETS PO PRN (21:56)
[2018-12-09] MEDS: PANTOPRAZOLE 40 MG TABLET (FP) PO SCH (06:39)
[2018-12-09] MEDS: BACITRACIN 0.9 GM PACKET TP SCH (10:05)
[2018-12-09] MEDS: PRENATAL VITAMINS W/ FOLIC ACID TABLET (FP) PO SCH (10:05)
[2018-12-09] MEDS: MINERAL OIL/PETROLAT/WATER TOPICAL CREAM 113 GM JAR TP SCH ×2 (10:05→21:29)
[2018-12-09] MEDS: DOCUSATE SODIUM 100 MG CAPSULE (FP) PO SCH ×2 (10:05→21:29)
[2018-12-09] MEDS ORDERED: PT OWN MED DRAWER 7, Y5N ONE (10:07)
[2018-12-09] MEDS: THIAMINE HCL 100 MG TABLET (FP) PO SCH (21:28)
[2018-12-09] MEDS: MELATONIN 5 MG TABLETS PO PRN (21:29)
[2018-12-09] MEDS: hydrOXYzine PAMOATE 25 MG CAPSULE (FP) PO PRN (21:29)
[2018-12-10] MEDS: PANTOPRAZOLE 40 MG TABLET (FP) PO SCH (06:33)
[2018-12-10] MEDS ORDERED: PT OWN MED DRAWER 7, Y5N ONE (09:09)
[2018-12-10] MEDS: PRENATAL VITAMINS W/ FOLIC ACID TABLET (FP) PO SCH (09:47)
[2018-12-10] MEDS: BACITRACIN 0.9 GM PACKET TP SCH (09:47)
[2018-12-10] MEDS: DOCUSATE SODIUM 100 MG CAPSULE (FP) PO SCH ×2 (09:47→21:35)
[2018-12-10] MEDS: MINERAL OIL/PETROLAT/WATER TOPICAL CREAM 113 GM JAR TP SCH ×2 (09:48→21:35)
[2018-12-10] MEDS: MAG HYDROX/AL HYDROX/SIMETH 30 ML UNIT-DOSE CUP PO PRN (16:57)
[2018-12-10] MEDS: MELATONIN 5 MG TABLETS PO PRN (21:34)
[2018-12-10] MEDS: hydrOXYzine PAMOATE 25 MG CAPSULE (FP) PO PRN (21:35)
[2018-12-10] MEDS: THIAMINE HCL 100 MG TABLET (FP) PO SCH (21:36)
[2018-12-11] MEDS: MAG HYDROX/AL HYDROX/SIMETH 30 ML UNIT-DOSE CUP PO PRN (00:01)
[2018-12-11] MEDS: PANTOPRAZOLE 40 MG TABLET (FP) PO SCH (07:03)
[2018-12-11] MEDS: BACITRACIN 0.9 GM PACKET TP SCH (09:33)
[2018-12-11] MEDS: DOCUSATE SODIUM 100 MG CAPSULE (FP) PO SCH ×2 (09:33→21:19)
[2018-12-11] MEDS: hydrOXYzine PAMOATE 25 MG CAPSULE (FP) PO PRN ×2 (09:33→21:18)
[2018-12-11] MEDS: MINERAL OIL/PETROLAT/WATER TOPICAL CREAM 113 GM JAR TP SCH ×2 (09:33→21:20)
[2018-12-11] MEDS: PRENATAL VITAMINS W/ FOLIC ACID TABLET (FP) PO SCH (09:33)
[2018-12-11] MEDS: MELATONIN 5 MG TABLETS PO PRN (21:18)
[2018-12-11] MEDS: THIAMINE HCL 100 MG TABLET (FP) PO SCH (21:18)
[2018-12-12 07:01] VITALS: BP 134/91; PULSE 78; TEMP 98.1
[2018-12-12] MEDS: PANTOPRAZOLE 40 MG TABLET (FP) PO SCH (07:16)
[2018-12-12] MEDS ORDERED: PT OWN MED DRAWER 7, Y5N ONE (08:42)
--- NOTE | 2018-12-12 10:52 | PN ---
[facility] Progress Note Note: REHAB DISCHARGE NOTE: PATIENT SCHEDULED FOR DISCHARGE TODAY FROM REHAB AND REPORTS ACCOMPLISHING ALL REHAB GOALS. PATIENT'S AFTERCARE ARRANGED FOR [facility] TOMORROW . PATIENT ENCOURAGED TO COMPLETE [employer]NA[employer] REHAB AND TO ATTEND ALL GROUP MEETINGS TO HELP PREVENT RELAPSE. PATIENT IS MEDICALLY STABLE AT TIME OF D/C AND DENIES SI/HI. Ambulatory Orders Pantoprazole Sodium [Protonix -] 40 mg PO DAILY@0700 #30 tab 11/08/17 Ergocalciferol (Vitamin D2) [Vitamin D2] 50,000 unit PO WEEKLY 11/17/18 Folic Acid - 1 mg PO DAILY 11/17/18 Magnesium Oxide [Magnesium] 400 mg PO QID MDD for 14 days 11/17/18 Thiamine HCl [Vitamin B1 -] 100 mg PO DAILY 11/17/18 Vital Signs Temperature 98.1 F 12/12/18 07:00 Pulse Rate 78 12/12/18 07:00 Respiratory Rate 18 12/12/18 07:00 Blood Pressure 134/91 12/12/18 07:00 O2 Sat by Pulse Oximetry (%) Laboratory Tests 11/18/18 11/18/18 11/18/18 08:10 08:10 08:10 WBC 16.6 H RBC 3.40 L Hgb 11.0 L Hct 33.7 L D MCV 99.1 H MCH 32.2 D MCHC 32.5 RDW 16.5 H Plt Count 339 D MPV 8.9 Absolute Neuts (auto) Neutrophils % Lymphocytes % Monocytes % Eosinophils % Basophils % Nucleated RBC % Sodium 139 Potassium 3.7 Chloride 102 Carbon Dioxide 29 Anion Gap 8 BUN 5 L Creatinine 0.4 L Creat Clearance w eGFR 231.59 Random Glucose 104 Calcium 8.6 Magnesium Total Bilirubin 1.5 H AST 81 H ALT 58 Alkaline Phosphatase 143 H Total Protein 6.8 Albumin 2.6 L Urine Color Urine Appearance Urine pH Ur Specific [place] Urine Protein Urine Glucose (UA) Urine Ketones Urine Blood Urine Nitrite Urine Bilirubin Urine Urobilinogen Ur Leukocyte Esterase RPR Titer Nonreactive 11/19/18 11/21/18 11/21/18 08:00 08:00 08:00 WBC 14.7 H RBC 3.68 L Hgb 11.5 L Hct 35.7 MCV 96.9 H MCH 31.1 MCHC 32.1 RDW 16.3 H Plt Count 370 MPV 8.6 Absolute Neuts (auto) 10.8 H Neutrophils % 73.5 D Lymphocytes % 15.0 Monocytes % 7.5 Eosinophils % 3.4 D Basophils % 0.6 Nucleated RBC % 0 Sodium 137 Potassium 3.8 Chloride 103 Carbon Dioxide 29 Anion Gap 5 L BUN 6 L Creatinine 0.5 L Creat Clearance w eGFR 179.01 Random Glucose 112 H Calcium 9.1 Magnesium Total Bilirubin 0.9 AST 72 H ALT 57 Alkaline Phosphatase 138 H Total Protein 7.5 Albumin 2.7 L Urine Color Yellow Urine Appearance Turbid Urine pH 8.0 Ur Specific [place] 1.010 Urine Protein Negative Urine Glucose (UA) Negative Urine Ketones Negative Urine Blood Negative Urine Nitrite Negative Urine Bilirubin Negative Urine Urobilinogen 0.2 Ur Leukocyte Esterase Negative RPR Titer 11/22/18 11/28/18 11/28/18 07:00 08:15 08:15 WBC 11.5 H RBC 3.70 L Hgb 11.7 Hct 35.3 L MCV 95.4 MCH 31.6 MCHC 33.2 RDW 15.7 Plt Count 329 MPV 8.6 Absolute Neuts (auto) 8.4 H Neutrophils % 72.8 Lymphocytes % 15.8 Monocytes % 7.2 Eosinophils % 3.5 Basophils % 0.7 Nucleated RBC % 0 Sodium Potassium Chloride Carbon Dioxide Anion Gap BUN Creatinine Creat Clearance w eGFR Random Glucose Calcium Magnesium 1.4 L 1.4 L Total Bilirubin AST ALT Alkaline Phosphatase Total Protein Albumin Urine Color Urine Appearance Urine pH Ur Specific [place] Urine Protein Urine Glucose (UA) Urine Ketones Urine Blood Urine Nitrite Urine Bilirubin Urine Urobilinogen Ur Leukocyte Esterase RPR Titer 12/06/18 12/06/18 08:15 08:15 WBC 8.6 RBC 4.10 Hgb 12.5 Hct 38.6 MCV 94.1 MCH 30.4 MCHC 32.3 RDW 15.3 Plt Count 291 MPV 9.5 D Absolute Neuts (auto) 5.2 Neutrophils % 60.3 Lymphocytes % 27.4 D Monocytes % 9.3 Eosinophils % 2.4 Basophils % 0.6 Nucleated RBC % 0 Sodium 140 Potassium 3.7 Chloride 104 Carbon Dioxide 28 Anion Gap 8 BUN 10 Creatinine 0.6 Creat Clearance w eGFR 145.05 Random Glucose 102 Calcium 9.4 Magnesium 1.5 L Total Bilirubin 0.6 AST 60 H ALT 51 Alkaline Phosphatase 94 Total Protein 7.6 Albumin 3.1 L Urine Color Urine Appearance Urine pH Ur Specific [place] Urine Protein Urine Glucose (UA) Urine Ketones Urine Blood Urine Nitrite Urine Bilirubin Urine Urobilinogen Ur Leukocyte Esterase RPR Titer
== END 2018-12-12 09:10 | disposition home or self-care (01) | DRG 772 ==
LOC: YASAS 16:42 → Y3W 18:46
PROVIDERS: ADMIT Neuromusculoskeletal Medicine & OMM; ATTEND Neuromusculoskeletal Medicine & OMM
PROC: HZ42ZZZ Group Counseling for Substance Abuse Treatment, Cognitive-Behavioral (ICD-10-PCS; principal; 2018-11-17)
DX: F10.20 Alcohol dependence, uncomplicated (principal); F12.20 Cannabis dependence, uncomplicated; K21.9 Gastro-esophageal reflux disease without esophagitis; K59.00 Constipation, unspecified; D72.828 Other elevated white blood cell count; Z86.69 Personal history of other diseases of the nervous system and sense organs
CPT/HCPCS: 36415; 80053; 81003; 83735; 85025; 85027; 86593; 93005; 93010

== ENCOUNTER 2019-10-04 12:20 | Inpatient (IN) | payer OTHER ==
--- NOTE | 2019-10-04 12:36 | BHS.RME ---
Substance Use & Tx History - Substance Use History Alcohol Substance amount: 1 pint vodka Frequency of use: Daily Substance route: Oral Date of Last Use: 10/04/19 Nicotine Substance amount: 1 Frequency of use: Daily Substance route: Smoking Date of Last Use: 10/04/19 Physical/Psych/Mental Status - Behavior General Behavior: Increased activity (restlessness, agitation) Eye Contact: Normal - Cooperativeness Cooperativeness: Cooperative - Thinking Thought Processes: Tight, Logical, Goal Directed Thought content: Future oriented - Physical Health Problems Is patient presently having any pain?: No Does patient presently have any injuries (include location): No Does patient currently have a fever: No Is patient : No CIWA Nausea/Vomitin-Mild Nausea/No Vomiting Muscle Tremors: 1-None Visible, but [place] Anxiety: 3 Agitation: 1-Slight > Activity Paroxysmal Sweats: 1-Minimal Palms Moist Orientation: 1-Uncertain about Date Tacttile Disturbances: 0-None Auditory Disturbances: 0-None Visual Disturbances: 1-Very Mild Sensitivity Headache: 2-Mild (breathalyzer 0.363) CIWA-Ar Total Score: 11
--- NOTE | 2019-10-04 14:09 | HP ---
CIWA Score Nausea/Vomitin-No Nausea/No Vomiting Muscle Tremors: 1-None Visible, but [place] Anxiety: 3 Agitation: 1-Slight > Activity Paroxysmal Sweats: No Perspiration Orientation: 1-Uncertain about Date Tacttile Disturbances: 0-None Auditory Disturbances: 0-None Visual Disturbances: 1-Very Mild Sensitivity Headache: 0-None Present (breathalyzer 0.363) CIWA-Ar Total Score: 7 - Admission Criteria OASAS Guidelines: Admission for Medically Managed Detox: Requires at least one of the followin. CIWA greater than 12 2. Seizures within the past 24 hours 3. Delirium tremens within the past 24 hours 4. Hallucinations within the past 24 hours 5. Acute intervention needed for co occurring medical disorder 6. Acute intervention needed for co occurring psychiatric disorder 7. Severe withdrawal that cannot be handled at a lower level of care (continued vomiting, continued diarrhea, abnormal vital signs) requiring intravenous medication and/or fluids 8. Patient presents the following: None of the above (High risk for relapse) Admission Criteria Met: Admission criteria not met Admitting History and Physical - Admission History of Present Illness: Comes seeking EtOH detox. EtOH: First drink at age 14, Last - today, 1 pint daily of vodka, has withdrawn in the past, no seizures, has blackouts Did detox 10/12/2018 - 10/17/2018, Did rehab 11/17/2018 - 12/12/2018. Relapsed 1 month ago. States his was drinking for the last month, which led him to drink as well. Tobacco: 1 cig/day since age 49 PMH: GERD PSH: none Psych: ? anxiety Meds: omeprazole All: none - Past Medical History Gastrointestinal: Yes: GERD - Smoking History Smoking history: Current some day smoker Have you smoked in the past 12 months: Yes Aproximately how many cigarettes per day: 1 - Alcohol/Substance Use Hx Alcohol Use: Yes Admission [facility] Allergies/Adverse Reactions: Allergies Allergy/AdvReac Type Severity Reaction Status Date / Time No Known Allergies Allergy Verified 11/17/18 17:33 Patient History - Patient Medical History Hx Anemia: No Hx Asthma: No Hx Chronic Obstructive Pulmonary Disease (COPD): No Hx Cancer: No Hx Cardiac Disorders: No Hx Congestive Heart Failure: No Hx Hypertension: No Hx Hypercholesterolemia: No Hx Pacemaker: No HX Cerebrovascular Accident: No Hx Seizures: Yes (ALCOHOL RELATED SEIZURE 2013) Hx Dementia: No Hx Diabetes: No Hx Gastrointestinal Disorders: Yes (GERD) Hx Liver Disease: No Hx Genitourinary Disorders: No Hx Sexually Transmitted Disorders: No Hx Renal Disease (ESRD): No Hx Thyroid Disease: No Hx Human Immunodeficiency Virus (HIV): No Hx Hepatitis C: No Hx Depression: No Hx Suicide Attempt: No Hx Bipolar Disorder: No Hx Schizophrenia: No - Patient Surgical History Past Surgical History: No Hx Neurologic Surgery: No Hx Cataract Extraction: No Hx Cardiac Surgery: No Hx Lung Surgery: No Hx Breast Surgery: No Hx Breast Biopsy: No Hx Abdominal Surgery: No Hx Appendectomy: No Hx Cholecystectomy: No Hx Genitourinary Surgery: No Hx Section: No Hx Orthopedic Surgery: No Anesthesia Reaction: No - PPD History Date: 10/14/18 Results: NEGATIVE - Smoking Cessation Smoking history: Current some day smoker Have you smoked in the past 12 months: Yes Aproximately how many cigarettes per day: 1 Cigars Per Day: 0 Hx Chewing Tobacco Use: No Initiated information on smoking cessation: Yes 'Breaking Loose' booklet given: 10/04/19 Admission Physical Exam [facility] - Physical General Appearance: Yes: Alcohol on Breath, Intoxicated HEENTM: Yes: EOMI, Hearing grossly Normal, [place] Respiratory: Yes: Within Normal Limits, Lungs Clear, Normal Breath Sounds, No Respiratory Distress, No Accessory Muscle Use Neck: Yes: Within Normal Limits, No masses,lesions,Nodules, Other (no bruits) Cardiology: Yes: Within Normal Limits, Regular Rhythm, Regular Rate, S1, S2. No : Murmur Abdominal: Yes: Within Normal Limits, Normal Bowel Sounds, Non Tender, Flat, Soft Extremities: Yes: Within Normal Limits, Normal Capillary Refill, Normal Inspection, Normal Range of Motion Cleared for Admission S - Detox or Rehab [facility] Level of Care: Medically Managed Breathalyzer - Breathalyzer Breathalyzer: 0.363 Urine Drug Screen - Test Device Lot number: [id number] Expiration date: 07/08/21 - Control Is test valid?: Yes - Results Drug screen NEGATIVE: No Urine drug screen results: BZO-Benzodiazepines Inpatient Rehab Admission - Rehab Decision to Admit Inpatient rehab admission?: No
[2019-10-04] MEDS ORDERED: MENTHOL/PHENOL 1 EACH UD MM PRN (14:48)
[2019-10-04] MEDS ORDERED: MAGNESIUM HYDROX 2400MG/30ML ORAL SUSPENSION 30 ML CUP PO PRN (14:48)
[2019-10-04] MEDS ORDERED: BISMUTH SUBSALICYLATE 262 MG/15 ML BTL PO PRN (14:48)
[2019-10-04] MEDS ORDERED: IBUPROFEN 400 MG TABLET (FP) PO PRN (14:48)
[2019-10-04] MEDS ORDERED: hydrOXYzine PAMOATE 25 MG CAPSULE (FP) PO PRN (14:48)
[2019-10-04] MEDS ORDERED: MAGNESIUM CITRATE 300 ML BOTTLE PO PRN (14:48)
[2019-10-04] MEDS ORDERED: ACETAMINOPHEN 325 MG TABLET (FP) PO PRN ×2 (14:48)
[2019-10-04] MEDS ORDERED: METHOCARBAMOL 500 MG TABLET PO PRN (14:48)
[2019-10-04] MEDS ORDERED: chlordiazePOXIDE HCL 25 MG CAPSULE PO PRN (14:48)
[2019-10-04 15:14] VITALS: BMI 27.3
[2019-10-04] MEDS: MAG HYDROX/AL HYDROX/SIMETH 30 ML UNIT-DOSE CUP PO PRN (15:48)
[2019-10-04 16:50] LABS: ALBUMIN 4.2 g/dl (3.4-5.0); BILIRUBIN,TOTAL 0.4 mg/dL (0.2-1); BLOOD UREA NITROGEN 12.7 mg/dL (7-18); POTASSIUM 3.5 mmol/L (3.5-5.1); TOT PROT 8.3 g/dl (6.4-8.2)
[2019-10-04] MEDS: chlordiazePOXIDE HCL 25 MG CAPSULE PO SCH ×2 (17:49→22:20)
[2019-10-04 17:55] LABS: HEMATOCRIT 37.3 % (35.4-49); HEMOGLOBIN 12.2 GM/dL (11.7-16.9); MCH 29.1 pg (25.7-33.7); MCHC 32.6 g/dl (32.0-35.9); MEAN CELL VOLUME 89.3 fl (80-96); MEAN PLT VOLUME 9.1 fl (7.5-11.1); RBC 4.17 M/mm3 (4.00-5.60); RDW 20.4 % (11.9-15.9); WHITE BLOOD COUNT 2.7 K/mm3 (4.0-10.0)
[2019-10-04 19:04] LABS: PLATELET COUNT 82 K/MM3 (134-434)
[2019-10-04] MEDS: THIAMINE HCL 100 MG TABLET (FP) PO SCH (22:20)
[2019-10-04] MEDS: MELATONIN 5 MG TABLETS PO PRN (22:21)
[2019-10-05] MEDS: chlordiazePOXIDE HCL 25 MG CAPSULE PO SCH (05:18)
[2019-10-05] MEDS: PANTOPRAZOLE 40 MG TABLET PO SCH (06:47)
--- NOTE | 2019-10-05 07:55 | PN ---
Teaching Attending Note Name of Resident: Km Son ATTENDING PHYSICIAN STATEMENT I saw and evaluated the patient. I reviewed the resident's note and discussed the case with the resident. I agree with the resident's findings and plan as documented. SUBJECTIVE: OBJECTIVE: ASSESSMENT AND PLAN:
--- NOTE | 2019-10-05 08:47 | PN ---
S CIWA - CIWA Score Nausea/Vomitin-Mild Nausea/No Vomiting Muscle Tremors: 3 Anxiety: 3 Agitation: 2 Paroxysmal Sweats: No Perspiration Orientation: 0-Oriented Tacttile Disturbances: 1-Very Mild Itch/Numbness Auditory Disturbances: 0-None Visual Disturbances: 0-None Headache: 2-Mild CIWA-Ar Total Score: 12 S Progress Note (SOAP) Subjective: alert,irritable,anxious,interrupted sleep,tremor pain in the body,complaint of pain on the right side of chest no sob,no dizziness Objective: 10/05/19 08:43 Vital Signs Temperature 98.2 F 10/05/19 05:38 Pulse Rate 64 10/05/19 05:38 Respiratory Rate 18 10/05/19 05:38 Blood Pressure 125/79 10/05/19 05:38 O2 Sat by Pulse Oximetry (%) 10/05/19 08:46 ekg sinus bradycardia 49/min,inverted t in 3 Assessment: 10/05/19 08:47 withdrawal symptom 10/05/19 08:47 Plan: continue detox ,wbc 2,900 platelet 82k,ast 194,alt 85 ,glucose probably due to chronic alcoholism, change regimen from librium to ativan,motrin 400 mgs for now,close moniroing,cbc ,cmp,fasting glucose in am
[2019-10-05] MEDS ORDERED: LORazepam 1 MG TABLET PO PRN (08:54)
[2019-10-05] MEDS: LORazepam 2 MG TABLET PO SCH ×3 (11:09→22:11)
[2019-10-05] MEDS: PRENATAL VITAMINS W/ FOLIC ACID TABLET (FP) PO SCH (11:09)
[2019-10-05] MEDS: NICOTINE 14 MG/24 HOURS TOPICAL PATCH TD SCH (11:09)
--- NOTE | 2019-10-05 11:55 | EKG ---
Test Reason : Blood Pressure : / mmHG Vent. Rate : 049 BPM Atrial Rate : 049 BPM P-R Int : 136 ms QRS Dur : 108 ms QT Int : 428 ms P-R-T Axes : 020 001 -15 degrees QTc Int : 386 ms SINUS BRADYCARDIA NONSPECIFIC T WAVE ABNORMALITY ABNORMAL ECG WHEN COMPARED WITH ECG OF 18-NOV-2018 13:12, QT HAS SHORTENED Confirmed by EMIR GRIGSBY MD ([id number]) on 10/05/2019 11:55:19 AM Referred By: TAMEKA SANTANA Confirmed By:EMIR GRIGSBY MD
[2019-10-05] MEDS: THIAMINE HCL 100 MG TABLET (FP) PO SCH (22:11)
[2019-10-05] MEDS: MELATONIN 5 MG TABLETS PO PRN (22:12)
[2019-10-06] MEDS ORDERED: chlordiazePOXIDE HCL 25 MG CAPSULE PO SCH (05:00)
[2019-10-06] MEDS: LORazepam 2 MG TABLET PO SCH ×4 (05:15→22:35)
[2019-10-06] MEDS: PANTOPRAZOLE 40 MG TABLET PO SCH (06:45)
--- NOTE | 2019-10-06 09:52 | PN ---
S CIWA - CIWA Score Nausea/Vomitin-Mild Nausea/No Vomiting Muscle Tremors: 3 Anxiety: 2 Agitation: 2 Paroxysmal Sweats: 1-Minimal Palms Moist Orientation: 0-Oriented Tacttile Disturbances: 1-Very Mild Itch/Numbness Auditory Disturbances: 0-None Visual Disturbances: 0-None Headache: 2-Mild CIWA-Ar Total Score: 12 BHS Progress Note (SOAP) Subjective: alert,irritable,nausea,tremor,interrupted sleep,aching pain Objective: 10/06/19 09:50 Vital Signs Temperature 97.9 F 10/06/19 06:39 Pulse Rate 51 L 10/06/19 06:39 Respiratory Rate 16 10/06/19 06:39 Blood Pressure 137/82 10/06/19 06:39 O2 Sat by Pulse Oximetry (%) Laboratory Last Values WBC 2.7 K/mm3 (4.0-10.0) L 10/04/19 15:10 RBC 4.17 M/mm3 (4.00-5.60) 10/04/19 15:10 Hgb 12.2 GM/dL (11.7-16.9) 10/04/19 15:10 Hct 37.3 % (35.4-49) 10/04/19 15:10 MCV 89.3 fl (80-96) 10/04/19 15:10 MCH 29.1 pg (25.7-33.7) 10/04/19 15:10 MCHC 32.6 g/dl (32.0-35.9) 10/04/19 15:10 RDW 20.4 % (11.9-15.9) H 10/04/19 15:10 Plt Count 82 K/MM3 (134-434) L D 10/04/19 15:10 MPV 9.1 fl (7.5-11.1) 10/04/19 15:10 Manual Slide Review Yes 10/04/19 15:10 Platelet Comment Decreased. large owen 10/04/19 15:10 Sodium 135 mmol/L (136-145) L 10/04/19 15:10 Potassium 3.5 mmol/L (3.5-5.1) 10/04/19 15:10 Chloride 96 mmol/L (98-107) L 10/04/19 15:10 Carbon Dioxide 24 mmol/L (21-32) 10/04/19 15:10 Anion Gap 16 MMOL/L (8-16) 10/04/19 15:10 BUN 12.7 mg/dL (7-18) 10/04/19 15:10 Creatinine 1.0 mg/dL (0.55-1.3) 10/04/19 15:10 Est GFR (CKD-EPI)AfAm 103.42 10/04/19 15:10 Est GFR (CKD-EPI)NonAf 89.23 10/04/19 15:10 Random Glucose 120 mg/dL (74-106) H 10/04/19 15:10 Calcium 9.0 mg/dL (8.5-10.1) 10/04/19 15:10 Total Bilirubin 0.4 mg/dL (0.2-1) 10/04/19 15:10 AST 194 U/L (15-37) H 10/04/19 15:10 ALT 85 U/L (13-61) H 10/04/19 15:10 Alkaline Phosphatase 92 U/L (45-117) 10/04/19 15:10 Total Protein 8.3 g/dl (6.4-8.2) H 10/04/19 15:10 Albumin 4.2 g/dl (3.4-5.0) 10/04/19 15:10 RPR Titer Nonreactive (NONREACTIVE) 10/04/19 15:10 10/06/19 09:51 repeat cbc,cmp,inr,fasting glucose pending Assessment: 10/06/19 09:51 withdrawal symptom Plan: continue detox ativan regimen
[2019-10-06] MEDS: PRENATAL VITAMINS W/ FOLIC ACID TABLET (FP) PO SCH (10:27)
[2019-10-06] MEDS: NICOTINE 14 MG/24 HOURS TOPICAL PATCH TD SCH (10:28)
[2019-10-06 11:20] LABS: HEMATOCRIT 37.4 % (35.4-49); HEMOGLOBIN 12.3 GM/dL (11.7-16.9); MCH 29.5 pg (25.7-33.7); MCHC 32.9 g/dl (32.0-35.9); MEAN CELL VOLUME 89.7 fl (80-96); MEAN PLT VOLUME 9.6 fl (7.5-11.1); PLATELET COUNT 64 K/MM3 (134-434); RBC 4.17 M/mm3 (4.00-5.60); RDW 19.8 % (11.9-15.9); WHITE BLOOD COUNT 3.1 K/mm3 (4.0-10.0)
[2019-10-06 11:34] LABS: INR 0.96 (0.83-1.09); PROTHROMBIN TIME (PATIENT) 11.3 SEC (9.7-13.0)
[2019-10-06 11:37] LABS: ALBUMIN 3.6 g/dl (3.4-5.0); BLOOD UREA NITROGEN 10.8 mg/dL (7-18); CALCIUM 8.9 mg/dL (8.5-10.1); CREATININE 0.9 mg/dL (0.55-1.3); POTASSIUM 3.3 mmol/L (3.5-5.1)
[2019-10-06 12:02] LABS: BILIRUBIN,TOTAL 0.8 mg/dL (0.2-1); TOT PROT 7.4 g/dl (6.4-8.2)
[2019-10-06] MEDS: THIAMINE HCL 100 MG TABLET (FP) PO SCH (22:35)
[2019-10-06] MEDS: MELATONIN 5 MG TABLETS PO PRN (22:37)
[2019-10-07] MEDS ORDERED: chlordiazePOXIDE HCL 10 MG CAPSULE PO PRN
[2019-10-07] MEDS ORDERED: chlordiazePOXIDE HCL 10 MG CAPSULE PO SCH (05:00)
[2019-10-07] MEDS: LORazepam 1 MG TABLET PO SCH ×4 (05:22→22:08)
[2019-10-07] MEDS: MAG HYDROX/AL HYDROX/SIMETH 30 ML UNIT-DOSE CUP PO PRN ×4 (05:23→23:51)
[2019-10-07] MEDS: PANTOPRAZOLE 40 MG TABLET PO SCH (06:03)
[2019-10-07] MEDS: PRENATAL VITAMINS W/ FOLIC ACID TABLET (FP) PO SCH (10:32)
[2019-10-07] MEDS: NICOTINE 14 MG/24 HOURS TOPICAL PATCH TD SCH (10:32)
[2019-10-07] MEDS ORDERED: POTASSIUM CHLORIDE TABS 20 MEQ TABLET.ER (FP) PO ONE (16:11)
--- NOTE | 2019-10-07 16:14 | PN ---
[facility] CIWA - CIWA Score Nausea/Vomitin-No Nausea/No Vomiting Muscle Tremors: 3 Anxiety: 3 Agitation: 1-Slight > Activity Paroxysmal Sweats: No Perspiration Orientation: 0-Oriented Tacttile Disturbances: 0-None Auditory Disturbances: 1-Very Mild Visual Disturbances: 2-Mild Sensitivity Headache: 0-None Present CIWA-Ar Total Score: 10 S Progress Note (SOAP) Subjective: Insomnia, Tremors, Fatigue. Objective: PATIENT A & O X 3, OBSERVED AMBULATING ON DETOX UNIT UNASSISTED. IN NO ACUTE DISTRESS. 10/07/19 16:09 Vital Signs Temperature 98.1 F 10/07/19 09:56 Pulse Rate 74 10/07/19 09:56 Respiratory Rate 17 10/07/19 09:56 Blood Pressure 132/96 10/07/19 09:56 O2 Sat by Pulse Oximetry (%) Laboratory Tests 10/04/19 10/04/19 10/04/19 15:10 15:10 15:10 WBC 2.7 L RBC 4.17 Hgb 12.2 Hct 37.3 MCV 89.3 MCH 29.1 MCHC 32.6 RDW 20.4 H Plt Count 82 L D MPV 9.1 Manual Slide Review Yes Platelet Comment Decreased. large owen PT with INR INR Sodium 135 L Potassium 3.5 Chloride 96 L Carbon Dioxide 24 Anion Gap 16 BUN 12.7 Creatinine 1.0 Est GFR (CKD-EPI)AfAm 103.42 Est GFR (CKD-EPI)NonAf 89.23 Random Glucose 120 H Fasting Glucose Calcium 9.0 Total Bilirubin 0.4 AST 194 H ALT 85 H Alkaline Phosphatase 92 Total Protein 8.3 H Albumin 4.2 RPR Titer Nonreactive 10/06/19 10/06/19 10/06/19 08:00 08:00 08:00 WBC 3.1 L RBC 4.17 Hgb 12.3 Hct 37.4 MCV 89.7 MCH 29.5 MCHC 32.9 RDW 19.8 H Plt Count 64 L D MPV 9.6 Manual Slide Review Platelet Comment PT with INR 11.30 INR 0.96 Sodium 139 Potassium 3.3 L Chloride 100 Carbon Dioxide 34 H Anion Gap 6 L BUN 10.8 Creatinine 0.9 Est GFR (CKD-EPI)AfAm 117.47 Est GFR (CKD-EPI)NonAf 101.35 Random Glucose 126 H Fasting Glucose 126 H Calcium 8.9 Total Bilirubin 0.8 AST 123 H ALT 73 H Alkaline Phosphatase 95 Total Protein 7.4 Albumin 3.6 RPR Titer LABS NOTED. LOW PLATELETL AND WBC LEVELS NOTED ON DETOX ADMISSION AND LABORATORY ASSESSMENTS. 10/07/19 16:15 Assessment: 10/07/19 16:13 WITHDRAWAL SYMPTOMS. ELEVATED AST, ALT LEVELS. HYPERGLYCEMIA. HYPOKALEMIA. LEUKOPENIA. THROMBOCYTOPENIA. Plan: CONTINUE DETOX. K-DUR, 40 MEQ ORALLY X 1 DOSE TODAY, THEN 20 MEQ ORALLY BID TOMORROW FOR ELEVATED K LEVEL NOTED ON REPEAT LABORATORY ASSESSMENT.
[2019-10-07] MEDS: THIAMINE HCL 100 MG TABLET (FP) PO SCH (22:09)
[2019-10-07] MEDS: traZODone HCL 50 MG TABLET (FP) PO PRN (22:10)
[2019-10-08] MEDS ORDERED: LORazepam 0.5 MG TABLET PO PRN
[2019-10-08] MEDS ORDERED: chlordiazePOXIDE HCL 10 MG CAPSULE PO SCH (05:00)
[2019-10-08] MEDS: LORazepam 0.5 MG TABLET PO SCH ×4 (05:33→22:06)
[2019-10-08] MEDS: PANTOPRAZOLE 40 MG TABLET PO SCH (06:28)
[2019-10-08] MEDS: PRENATAL VITAMINS W/ FOLIC ACID TABLET (FP) PO SCH (10:27)
[2019-10-08] MEDS: POTASSIUM CHLORIDE TABS 20 MEQ TABLET.ER (FP) PO SCH ×2 (10:27→17:43)
[2019-10-08] MEDS: NICOTINE 14 MG/24 HOURS TOPICAL PATCH TD SCH (10:27)
--- NOTE | 2019-10-08 13:00 | PN ---
S CIWA - CIWA Score Nausea/Vomitin-Mild Nausea/No Vomiting Muscle Tremors: None Anxiety: 3 Agitation: 0-Normal Activity Paroxysmal Sweats: 2 Orientation: 0-Oriented Tacttile Disturbances: 0-None Auditory Disturbances: 0-None Visual Disturbances: 0-None Headache: 0-None Present CIWA-Ar Total Score: 6 BHS Progress Note (SOAP) Subjective: Stomachache, interrupted sleep Objective: 10/08/19 12:57 Last Vital Signs Temp Pulse Resp BP Pulse Ox 97.7 F 97 H 19 124/85 10/08/19 08:35 10/08/19 08:35 10/08/19 08:35 10/08/19 08:35 Laboratory Tests 10/04/19 10/04/19 10/04/19 15:10 15:10 15:10 WBC 2.7 L RBC 4.17 Hgb 12.2 Hct 37.3 MCV 89.3 MCH 29.1 MCHC 32.6 RDW 20.4 H Plt Count 82 L D MPV 9.1 Manual Slide Review Yes Platelet Comment Decreased. large owen PT with INR INR Sodium 135 L Potassium 3.5 Chloride 96 L Carbon Dioxide 24 Anion Gap 16 BUN 12.7 Creatinine 1.0 Est GFR (CKD-EPI)AfAm 103.42 Est GFR (CKD-EPI)NonAf 89.23 Random Glucose 120 H Fasting Glucose Calcium 9.0 Total Bilirubin 0.4 AST 194 H ALT 85 H Alkaline Phosphatase 92 Total Protein 8.3 H Albumin 4.2 RPR Titer Nonreactive 10/06/19 10/06/19 10/06/19 08:00 08:00 08:00 WBC 3.1 L RBC 4.17 Hgb 12.3 Hct 37.4 MCV 89.7 MCH 29.5 MCHC 32.9 RDW 19.8 H Plt Count 64 L D MPV 9.6 Manual Slide Review Platelet Comment PT with INR 11.30 INR 0.96 Sodium 139 Potassium 3.3 L Chloride 100 Carbon Dioxide 34 H Anion Gap 6 L BUN 10.8 Creatinine 0.9 Est GFR (CKD-EPI)AfAm 117.47 Est GFR (CKD-EPI)NonAf 101.35 Random Glucose 126 H Fasting Glucose 126 H Calcium 8.9 Total Bilirubin 0.8 AST 123 H ALT 73 H Alkaline Phosphatase 95 Total Protein 7.4 Albumin 3.6 RPR Titer Labs reviewed: glucose 126 mg/dl, elevated LFTs, K 3.3 (low) Assessment: 10/08/19 12:59 Withdrawal sxs Noted with hypokalemia, hyperglycemia and elevated LFTs Plan: Continue detox Encouraged PO water intake Patient scheduled for discharge tomorrow Hypokalemia: replenished Hyperglycemia: denies DM, most likely r/t withdrawal, follow up with PCP for monitoring Elevated LFTs: most likely r/t alcoholism, encouraged abstinence, follow up with PCP for monitoring
[2019-10-08] MEDS: THIAMINE HCL 100 MG TABLET (FP) PO SCH (22:06)
[2019-10-08] MEDS: traZODone HCL 50 MG TABLET (FP) PO PRN (22:07)
[2019-10-09] MEDS: MAG HYDROX/AL HYDROX/SIMETH 30 ML UNIT-DOSE CUP PO PRN (00:49)
[2019-10-09] MEDS ORDERED: chlordiazePOXIDE HCL 10 MG CAPSULE PO ONE (05:00)
[2019-10-09] MEDS ORDERED: LORazepam 0.5 MG TABLET PO ONE (05:00)
[2019-10-09] MEDS: PANTOPRAZOLE 40 MG TABLET PO SCH (06:16)
--- NOTE | 2019-10-09 09:21 | DS ---
[facility] Detox Discharge Summary Admission Date: 10/04/19 Discharge Date: 10/09/19 - History Present History: Alcohol Dependence, Cannabis Dependence - Physical Exam Results Vital Signs: Vital Signs Temperature 98.1 F 10/09/19 05:22 Pulse Rate 66 10/09/19 05:22 Respiratory Rate 18 10/09/19 05:22 Blood Pressure 116/77 10/09/19 05:22 O2 Sat by Pulse Oximetry (%) Pertinent Admission Physical Exam Findings: Vital Signs Temperature 98.1 F 10/09/19 05:22 Pulse Rate 66 10/09/19 05:22 Respiratory Rate 18 10/09/19 05:22 Blood Pressure 116/77 10/09/19 05:22 O2 Sat by Pulse Oximetry (%) Laboratory Tests 10/04/19 10/04/19 10/04/19 15:10 15:10 15:10 WBC 2.7 L RBC 4.17 Hgb 12.2 Hct 37.3 MCV 89.3 MCH 29.1 MCHC 32.6 RDW 20.4 H Plt Count 82 L D MPV 9.1 Manual Slide Review Yes Platelet Comment Decreased. large owen PT with INR INR Sodium 135 L Potassium 3.5 Chloride 96 L Carbon Dioxide 24 Anion Gap 16 BUN 12.7 Creatinine 1.0 Est GFR (CKD-EPI)AfAm 103.42 Est GFR (CKD-EPI)NonAf 89.23 Random Glucose 120 H Fasting Glucose Calcium 9.0 Total Bilirubin 0.4 AST 194 H ALT 85 H Alkaline Phosphatase 92 Total Protein 8.3 H Albumin 4.2 RPR Titer Nonreactive 10/06/19 10/06/19 10/06/19 08:00 08:00 08:00 WBC 3.1 L RBC 4.17 Hgb 12.3 Hct 37.4 MCV 89.7 MCH 29.5 MCHC 32.9 RDW 19.8 H Plt Count 64 L D MPV 9.6 Manual Slide Review Platelet Comment PT with INR 11.30 INR 0.96 Sodium 139 Potassium 3.3 L Chloride 100 Carbon Dioxide 34 H Anion Gap 6 L BUN 10.8 Creatinine 0.9 Est GFR (CKD-EPI)AfAm 117.47 Est GFR (CKD-EPI)NonAf 101.35 Random Glucose 126 H Fasting Glucose 126 H Calcium 8.9 Total Bilirubin 0.8 AST 123 H ALT 73 H Alkaline Phosphatase 95 Total Protein 7.4 Albumin 3.6 RPR Titer aaox3 ambulating no acute distress - Treatment Hospital Course: Detox Protocol Followed, Detoxed Safely, Responded well, Discharged Condition Good, Rehab Referral Accepted Patient has Accepted a Rehab Referral to: [facility] - Medication Discharge Medications: Ambulatory Orders Omeprazole Magnesium 20 mg PO DAILY 10/04/19 - Diagnosis (1) Elevated alanine aminotransferase (ALT) level Current Visit: Yes Status: Chronic (2) Elevated aspartate aminotransferase level Current Visit: Yes Status: Chronic (3) Hyperglycemia Current Visit: Yes Status: Acute (4) Hypokalemia Current Visit: Yes Status: Acute (5) Alcohol related seizure Current Visit: No Status: Acute (6) Alcohol-induced sleep disorder Current Visit: No Status: Acute (7) DVT prophylaxis Current Visit: No Status: Acute (8) Depressed mood Current Visit: No Status: Acute (9) Hand injury Current Visit: No Status: Acute Qualifiers: Encounter type: initial encounter Laterality: right Qualified Code(s): S69.91XA - Unspecified injury of right wrist, hand and finger(s), initial encounter (10) Pancreatitis Current Visit: No Status: Acute Qualifiers: Chronicity: acute Pancreatitis type: alcohol induced Acute pancreatitis complication: unspecified Qualified Code(s): K85.20 - Alcohol induced acute pancreatitis without necrosis or infection (11) Alcohol dependence with uncomplicated withdrawal Current Visit: Yes Status: Chronic (12) Cannabis dependence, uncomplicated Current Visit: Yes Status: Chronic (13) GERD (gastroesophageal reflux disease) Current Visit: Yes Status: Chronic Qualifiers: Esophagitis presence: without esophagitis Qualified Code(s): K21.9 - Gastro -esophageal reflux disease without esophagitis (14) Substance induced mood disorder Current Visit: No Status: Suspected - AMA Did Patient Leave Against Medical Advice: No
[2019-10-09] MEDS: PRENATAL VITAMINS W/ FOLIC ACID TABLET (FP) PO SCH (10:22)
[2019-10-09] MEDS: NICOTINE 14 MG/24 HOURS TOPICAL PATCH TD SCH (10:22)
[2019-10-09 11:11] VITALS: BP 125/84; PULSE 70; TEMP 97.7
== END 2019-10-09 11:30 | disposition other institution (70) | DRG 775 ==
LOC: YASAS 12:20 → Y6N 15:09
PROVIDERS: ADMIT Allergy & Immunology; ATTEND Allergy & Immunology
PROC: HZ2ZZZZ Detoxification Services for Substance Abuse Treatment (ICD-10-PCS; principal; 2019-10-04)
DX: F10.230 Alcohol dependence with withdrawal, uncomplicated (principal); F12.20 Cannabis dependence, uncomplicated; Z72.0 Tobacco use; F19.24 Other psychoactive substance dependence with psychoactive substance-induced mood disorder; F32.9 Major depressive disorder, single episode, unspecified; F10.282 Alcohol dependence with alcohol-induced sleep disorder; D69.6 Thrombocytopenia, unspecified; E87.6 Hypokalemia; K86.0 Alcohol-induced chronic pancreatitis; K21.9 Gastro-esophageal reflux disease without esophagitis; R74.0 Nonspecific elevation of levels of transaminase and lactic acid dehydrogenase [LDH]; R94.5 Abnormal results of liver function studies; R73.9 Hyperglycemia, unspecified; R00.1 Bradycardia, unspecified; Z86.69 Personal history of other diseases of the nervous system and sense organs
CPT/HCPCS: 36415; 80053; 82947; 85027; 85610; 86593; 93005; 93010

== ENCOUNTER 2020-06-17 10:58 | Inpatient (IN) | payer OTHER ==
[2020-06-17] MEDS ORDERED: chlordiazePOXIDE HCL 25 MG CAPSULE PO SCH (11:00)
[2020-06-17 11:36] VITALS: BMI 23.4
[2020-06-17] MEDS ORDERED: chlordiazePOXIDE HCL 25 MG CAPSULE ONE (11:48)
[2020-06-17] MEDS ORDERED: MAGNESIUM CITRATE 300 ML BOTTLE PO PRN (11:54)
[2020-06-17] MEDS ORDERED: MENTHOL/PHENOL 1 EACH UD MM PRN (11:54)
[2020-06-17] MEDS ORDERED: chlordiazePOXIDE HCL 25 MG CAPSULE PO PRN (11:54)
[2020-06-17] MEDS ORDERED: MAG HYDROX/AL HYDROX/SIMETH 30 ML UNIT-DOSE CUP PO PRN (11:54)
[2020-06-17] MEDS ORDERED: METHOCARBAMOL 500 MG TABLET PO PRN (11:54)
[2020-06-17] MEDS ORDERED: BISMUTH SUBSALICYLATE 262 MG/15 ML BTL PO PRN (11:54)
[2020-06-17] MEDS ORDERED: ONDANSETRON *ODT* 4 MG TABLET SL PRN (11:54)
[2020-06-17] MEDS ORDERED: NICOTINE POLACRILEX 2 MG GUM BUC PRN (11:54)
[2020-06-17] MEDS ORDERED: MAGNESIUM HYDROX 2400MG/30ML ORAL SUSPENSION 30 ML CUP PO PRN (11:54)
[2020-06-17] MEDS ORDERED: ACETAMINOPHEN 325 MG TABLET (FP) PO PRN ×2 (11:54)
[2020-06-17] MEDS ORDERED: IBUPROFEN 400 MG TABLET (FP) PO PRN (11:54)
[2020-06-17] MEDS ORDERED: chlordiazePOXIDE HCL 25 MG CAPSULE PO ONE (11:56)
[2020-06-17] MEDS ORDERED: NICOTINE 7 MG/24 HOURS TOPICAL PATCH TD SCH (12:00)
[2020-06-17] MEDS: PANTOPRAZOLE 40 MG TABLET PO SCH (13:00)
[2020-06-17] MEDS: hydrOXYzine PAMOATE 25 MG CAPSULE (FP) PO SCH ×3 (13:07→22:25)
[2020-06-17 15:16] LABS: HEMATOCRIT 38.8 % (35.4-49); HEMOGLOBIN 12.9 GM/dL (11.7-16.9); MCH 28.8 pg (25.7-33.7); MCHC 33.2 g/dl (32.0-35.9); MEAN CELL VOLUME 86.9 fl (80-96); MEAN PLT VOLUME 9.1 fl (7.5-11.1); PLATELET COUNT 93 K/MM3 (134-434); RBC 4.46 M/mm3 (4.00-5.60); RDW 21.5 % (11.9-15.9); WHITE BLOOD COUNT 3.7 K/mm3 (4.0-10.0)
[2020-06-17 15:21] LABS: ALBUMIN 4.7 g/dl (3.4-5.0); BLOOD UREA NITROGEN 11.1 mg/dL (7-18); CALCIUM 10.8 mg/dL (8.5-10.1)
[2020-06-17 15:25] LABS: CREATININE 1.4 mg/dL (0.55-1.3)
[2020-06-17 15:26] LABS: BILIRUBIN,TOTAL 1.6 mg/dL (0.2-1)
[2020-06-17 15:42] LABS: POTASSIUM 2.8 mmol/L (3.5-5.1)
[2020-06-17] MEDS ORDERED: POTASSIUM CHLORIDE ORAL LIQUID 20 MEQ/15 ML PO ONE (15:48)
[2020-06-17] MEDS ORDERED: LORazepam 1 MG TABLET PO PRN (15:52)
[2020-06-17] MEDS: LORazepam 2 MG TABLET PO SCH ×2 (17:48→22:25)
[2020-06-17] MEDS: MELATONIN 5 MG TABLETS PO SCH (22:25)
[2020-06-17] MEDS: THIAMINE HCL 100 MG TABLET (FP) PO SCH (22:25)
[2020-06-17] MEDS: POTASSIUM CHLORIDE ORAL LIQUID 20 MEQ/15 ML PO SCH (23:32)
[2020-06-18] MEDS: hydrOXYzine PAMOATE 25 MG CAPSULE (FP) PO SCH ×5 (05:43→22:17)
[2020-06-18] MEDS: LORazepam 2 MG TABLET PO SCH ×4 (05:43→22:16)
[2020-06-18] MEDS: PRENATAL VITAMINS W/ FOLIC ACID TABLET (FP) PO SCH (11:00)
[2020-06-18] MEDS: POTASSIUM CHLORIDE ORAL LIQUID 20 MEQ/15 ML PO SCH ×2 (11:02→22:16)
[2020-06-18] MEDS ORDERED: PANTOPRAZOLE 40 MG TABLET PO ONE (11:31)
[2020-06-18] MEDS: PANTOPRAZOLE 40 MG TABLET PO SCH (11:59)
[2020-06-18 12:39] LABS: INR 0.91 (0.83-1.09)
[2020-06-18 12:44] LABS: CREATININE 1.1 mg/dL (0.55-1.3)
[2020-06-18 12:45] LABS: CALCIUM 10.5 mg/dL (8.5-10.1)
[2020-06-18 12:46] LABS: ALBUMIN 4.1 g/dl (3.4-5.0); BILIRUBIN,TOTAL 1.3 mg/dL (0.2-1)
[2020-06-18 12:48] LABS: BLOOD UREA NITROGEN 12.5 mg/dL (7-18)
[2020-06-18 12:50] LABS: TOT PROT 8.2 g/dl (6.4-8.2)
[2020-06-18 12:56] LABS: POTASSIUM 2.9 mmol/L (3.5-5.1)
[2020-06-18] MEDS: THIAMINE HCL 100 MG TABLET (FP) PO SCH (22:16)
[2020-06-18] MEDS: MELATONIN 5 MG TABLETS PO SCH (22:17)
[2020-06-19] MEDS ORDERED: chlordiazePOXIDE HCL 25 MG CAPSULE PO SCH (05:00)
[2020-06-19] MEDS: PANTOPRAZOLE 40 MG TABLET PO SCH (05:54)
[2020-06-19] MEDS: hydrOXYzine PAMOATE 25 MG CAPSULE (FP) PO SCH (07:12)
[2020-06-19] MEDS: LORazepam 1 MG TABLET PO SCH ×4 (07:12→22:08)
[2020-06-19] MEDS ORDERED: hydrOXYzine PAMOATE 25 MG CAPSULE (FP) PO PRN (09:04)
[2020-06-19 10:10] LABS: POTASSIUM 3.7 mmol/L (3.5-5.1)
[2020-06-19 10:19] LABS: ALBUMIN 3.8 g/dl (3.4-5.0); BLOOD UREA NITROGEN 13.2 mg/dL (7-18); CALCIUM 10.2 mg/dL (8.5-10.1)
[2020-06-19] MEDS: PRENATAL VITAMINS W/ FOLIC ACID TABLET (FP) PO SCH (10:21)
[2020-06-19 10:23] LABS: CREATININE 0.9 mg/dL (0.55-1.3)
[2020-06-19 10:24] LABS: BILIRUBIN,TOTAL 1.5 mg/dL (0.2-1); TOT PROT 7.6 g/dl (6.4-8.2)
[2020-06-19] MEDS: THIAMINE HCL 100 MG TABLET (FP) PO SCH (22:08)
[2020-06-19] MEDS: MELATONIN 5 MG TABLETS PO SCH (22:08)
[2020-06-20] MEDS ORDERED: chlordiazePOXIDE HCL 10 MG CAPSULE PO PRN
[2020-06-20] MEDS ORDERED: LORazepam 0.5 MG TABLET PO PRN
[2020-06-20] MEDS ORDERED: chlordiazePOXIDE HCL 10 MG CAPSULE PO SCH (05:00)
[2020-06-20] MEDS: PANTOPRAZOLE 40 MG TABLET PO SCH (05:32)
[2020-06-20] MEDS: LORazepam 0.5 MG TABLET PO SCH ×4 (05:32→22:17)
[2020-06-20] MEDS: PRENATAL VITAMINS W/ FOLIC ACID TABLET (FP) PO SCH (10:20)
[2020-06-20 10:41] LABS: POTASSIUM 3.6 mmol/L (3.5-5.1)
[2020-06-20 10:46] LABS: ALBUMIN 3.6 g/dl (3.4-5.0); CALCIUM 9.5 mg/dL (8.5-10.1)
[2020-06-20 10:47] LABS: BLOOD UREA NITROGEN 16.5 mg/dL (7-18)
[2020-06-20 10:50] LABS: CREATININE 0.9 mg/dL (0.55-1.3)
[2020-06-20 10:52] LABS: BILIRUBIN,TOTAL 1.1 mg/dL (0.2-1)
[2020-06-20] MEDS ORDERED: INSULIN (NOVOLOG) ASPART 100 UNITS/ML 10ML VIAL ONE ×2 (12:05→22:13)
[2020-06-20] MEDS: INSULIN (NOVOLOG) ASPART 100 UNITS/ML 10ML VIAL SQ SCH ×3 (12:09→22:14)
[2020-06-20] MEDS: MELATONIN 5 MG TABLETS PO SCH (22:17)
[2020-06-20] MEDS: THIAMINE HCL 100 MG TABLET (FP) PO SCH (22:17)
[2020-06-21] MEDS ORDERED: chlordiazePOXIDE HCL 10 MG CAPSULE PO SCH (05:00)
[2020-06-21] MEDS ORDERED: LORazepam 0.5 MG TABLET PO ONE (05:00)
[2020-06-21] MEDS: PANTOPRAZOLE 40 MG TABLET PO SCH (06:43)
[2020-06-21 07:02] VITALS: BP 134/75; PULSE 77; TEMP 99
[2020-06-21] MEDS: INSULIN (NOVOLOG) ASPART 100 UNITS/ML 10ML VIAL SQ SCH (08:03)
[2020-06-22] MEDS ORDERED: chlordiazePOXIDE HCL 10 MG CAPSULE PO ONE (05:00)
== END 2020-06-21 09:24 | disposition home or self-care (01) | DRG 775 ==
LOC: YASAS 10:58 → Y6N 11:56
PROVIDERS: ADMIT Allergy & Immunology; ATTEND Allergy & Immunology
PROC: HZ2ZZZZ Detoxification Services for Substance Abuse Treatment (ICD-10-PCS; principal; 2020-06-17)
PROC: HZ2ZZZZ Detoxification Services for Substance Abuse Treatment (ICD-10-PCS; 2020-06-17)
DX: F10.230 Alcohol dependence with withdrawal, uncomplicated (principal); F12.20 Cannabis dependence, uncomplicated; F17.211 Nicotine dependence, cigarettes, in remission; F10.282 Alcohol dependence with alcohol-induced sleep disorder; F32.9 Major depressive disorder, single episode, unspecified; G47.00 Insomnia, unspecified; E87.6 Hypokalemia; K21.9 Gastro-esophageal reflux disease without esophagitis; G40.509 Epileptic seizures related to external causes, not intractable, without status epilepticus; R73.9 Hyperglycemia, unspecified; R00.2 Palpitations; R74.01 Elevation of levels of liver transaminase levels; R26.81 Unsteadiness on feet; Z99.89 Dependence on other enabling machines and devices; W19.XXXA Unspecified fall, initial encounter; Y93.89 Activity, other specified; Y92.238 Other place in hospital as the place of occurrence of the external cause; Y99.8 Other external cause status; Z87.19 Personal history of other diseases of the digestive system
CPT/HCPCS: 36415; 80053; 82962; 83036; 85027; 85610; 86780; C9803; U0003

== ENCOUNTER 2021-03-17 13:05 | Inpatient (IN) | payer OTHER ==
[2021-03-17 16:22] VITALS: BMI 24.5
[2021-03-17] MEDS ORDERED: P-EPHED 60MG/TRIPROLIDI 2.5MG TABLET PO PRN (18:33)
[2021-03-17] MEDS ORDERED: hydrOXYzine PAMOATE 25 MG CAPSULE (FP) PO PRN (18:33)
[2021-03-17] MEDS ORDERED: MAGNESIUM HYDROX 2400MG/30ML ORAL SUSPENSION 30 ML CUP PO PRN (18:33)
[2021-03-17] MEDS ORDERED: guaiFENesin 200 MG/10 ML 10 ML UNIT-DOSE CUPS PO PRN (18:33)
[2021-03-17] MEDS ORDERED: LOPERAMIDE HCL 2 MG CAPSULE PO PRN (18:33)
[2021-03-17] MEDS ORDERED: MAGNESIUM CITRATE 300 ML BOTTLE PO PRN (18:33)
[2021-03-17] MEDS: MELATONIN 5 MG TABLETS PO SCH (21:54)
[2021-03-17] MEDS: THIAMINE HCL 100 MG TABLET (FP) PO SCH (21:54)
[2021-03-18] MEDS: PANTOPRAZOLE 40 MG TABLET PO SCH ×2 (06:31→09:25)
[2021-03-18] MEDS: PRENATAL VITAMINS W/ FOLIC ACID TABLET (FP) PO SCH (09:25)
[2021-03-18] MEDS ORDERED: PANTOPRAZOLE 40 MG TABLET PO SCH (10:00)
[2021-03-18] MEDS: MELATONIN 5 MG TABLETS PO SCH (22:13)
[2021-03-18] MEDS: THIAMINE HCL 100 MG TABLET (FP) PO SCH (22:13)
[2021-03-19] MEDS: MAG HYDROX/AL HYDROX/SIMETH 30 ML UNIT-DOSE CUP PO PRN ×2 (00:01→18:32)
[2021-03-19] MEDS: PANTOPRAZOLE 40 MG TABLET PO SCH (07:17)
[2021-03-19] MEDS: PRENATAL VITAMINS W/ FOLIC ACID TABLET (FP) PO SCH (09:28)
[2021-03-19 11:02] LABS: BASO % 2.9 % (0-2.0); EOS % 0.8 % (0-4.5); HEMATOCRIT 29.3 % (35.4-49); LYMPH % 18.2 % (8-40); MCH 32.3 pg (25.7-33.7); MEAN PLT VOLUME 8.5 fl (7.5-11.1); MONO % 8.5 % (3.8-10.2); NEUT % 69.6 % (42.8-82.8); PLATELET COUNT 435 10^3/uL (134-434); RBC 3.08 M/mm3 (4.00-5.60); RDW 20.2 % (11.9-15.9)
[2021-03-19 11:09] LABS: BLOOD UREA NITROGEN 19.4 mg/dL (7-18); CALCIUM 8.7 mg/dL (8.5-10.1)
[2021-03-19 11:13] LABS: CREATININE 1.4 mg/dL (0.55-1.3)
[2021-03-19 15:55] LABS: URINE APPEARANCE CLEAR; URINE BILIRUBIN NEGATIVE (NEGATIVE); URINE COLOR YELLOW; URINE GLUCOSE (UA) NEGATIVE (NEGATIVE); URINE KETONE NEGATIVE (NEGATIVE); URINE LEUK ESTERASE NEGATIVE (NEGATIVE); URINE NITRITE NEGATIVE (NEGATIVE); URINE PROTEIN NEGATIVE (NEGATIVE); URINE UROBILINOGEN 0.2 mg/dL (0.2-1.0)
[2021-03-19] MEDS: MELATONIN 5 MG TABLETS PO SCH (21:20)
[2021-03-19] MEDS: THIAMINE HCL 100 MG TABLET (FP) PO SCH (21:20)
[2021-03-20] MEDS: MAG HYDROX/AL HYDROX/SIMETH 30 ML UNIT-DOSE CUP PO PRN ×3 (01:39→20:15)
[2021-03-20] MEDS: PANTOPRAZOLE 40 MG TABLET PO SCH (05:58)
[2021-03-20] MEDS: PRENATAL VITAMINS W/ FOLIC ACID TABLET (FP) PO SCH (09:23)
[2021-03-20 12:16] LABS: CALCIUM 9.1 mg/dL (8.5-10.1)
[2021-03-20 12:17] LABS: ALBUMIN 3.2 g/dl (3.4-5.0); BLOOD UREA NITROGEN 21.2 mg/dL (7-18)
[2021-03-20 12:20] LABS: CREATININE 1.4 mg/dL (0.55-1.3)
[2021-03-20 12:22] LABS: BILIRUBIN,TOTAL 0.3 mg/dL (0.2-1); TOT PROT 6.8 g/dl (6.4-8.2)
[2021-03-20] MEDS: MELATONIN 5 MG TABLETS PO SCH ×2 (22:19→22:24)
[2021-03-20] MEDS: THIAMINE HCL 100 MG TABLET (FP) PO SCH ×2 (22:19→22:25)
[2021-03-21] MEDS: PANTOPRAZOLE 40 MG TABLET PO SCH (06:04)
[2021-03-21] MEDS ORDERED: PT OWN MED DRAWER 7, Y5N ONE (08:59)
[2021-03-21] MEDS: MAG HYDROX/AL HYDROX/SIMETH 30 ML UNIT-DOSE CUP PO PRN ×3 (09:11→21:26)
[2021-03-21] MEDS: NALTREXONE HCL 50 MG TABLET PO SCH (09:42)
[2021-03-21] MEDS: PRENATAL VITAMINS W/ FOLIC ACID TABLET (FP) PO SCH (09:43)
[2021-03-21] MEDS: MELATONIN 5 MG TABLETS PO SCH (21:27)
[2021-03-21] MEDS: THIAMINE HCL 100 MG TABLET (FP) PO SCH (21:27)
[2021-03-22] MEDS: PANTOPRAZOLE 40 MG TABLET PO SCH (06:16)
[2021-03-22] MEDS: NALTREXONE HCL 50 MG TABLET PO SCH (10:12)
[2021-03-22] MEDS: PRENATAL VITAMINS W/ FOLIC ACID TABLET (FP) PO SCH (10:13)
[2021-03-22] MEDS: THIAMINE HCL 100 MG TABLET (FP) PO SCH (23:22)
[2021-03-22] MEDS: MELATONIN 5 MG TABLETS PO SCH (23:22)
[2021-03-23] MEDS: PANTOPRAZOLE 40 MG TABLET PO SCH (06:26)
[2021-03-23] MEDS: NALTREXONE HCL 50 MG TABLET PO SCH (09:55)
[2021-03-23] MEDS: PRENATAL VITAMINS W/ FOLIC ACID TABLET (FP) PO SCH (09:56)
[2021-03-23] MEDS: THIAMINE HCL 100 MG TABLET (FP) PO SCH (21:34)
[2021-03-23] MEDS: MELATONIN 5 MG TABLETS PO SCH (21:34)
[2021-03-24] MEDS: PANTOPRAZOLE 40 MG TABLET PO SCH (06:18)
[2021-03-24] MEDS: PRENATAL VITAMINS W/ FOLIC ACID TABLET (FP) PO SCH (09:58)
[2021-03-24] MEDS: NALTREXONE HCL 50 MG TABLET PO SCH (09:58)
[2021-03-24] MEDS: MELATONIN 5 MG TABLETS PO SCH (21:29)
[2021-03-24] MEDS: THIAMINE HCL 100 MG TABLET (FP) PO SCH (21:29)
[2021-03-25] MEDS: PANTOPRAZOLE 40 MG TABLET PO SCH (06:21)
[2021-03-25] MEDS: PRENATAL VITAMINS W/ FOLIC ACID TABLET (FP) PO SCH (10:06)
[2021-03-25] MEDS: NALTREXONE HCL 50 MG TABLET PO SCH (10:06)
[2021-03-25] MEDS: THIAMINE HCL 100 MG TABLET (FP) PO SCH (21:55)
[2021-03-25] MEDS: MELATONIN 5 MG TABLETS PO SCH (21:55)
[2021-03-26] MEDS: PANTOPRAZOLE 40 MG TABLET PO SCH (06:15)
[2021-03-26] MEDS: PRENATAL VITAMINS W/ FOLIC ACID TABLET (FP) PO SCH (09:47)
[2021-03-26] MEDS ORDERED: NALTREXONE MICROSPHERES (VIVITROL) 380 MG DISP.SYRIN IM ONE (13:30)
[2021-03-26] MEDS: MELATONIN 5 MG TABLETS PO SCH (21:11)
[2021-03-26] MEDS: THIAMINE HCL 100 MG TABLET (FP) PO SCH (21:11)
[2021-03-27] MEDS: PANTOPRAZOLE 40 MG TABLET PO SCH (06:10)
[2021-03-27] MEDS: PRENATAL VITAMINS W/ FOLIC ACID TABLET (FP) PO SCH (09:23)
[2021-03-27] MEDS: THIAMINE HCL 100 MG TABLET (FP) PO SCH (21:16)
[2021-03-27] MEDS: MELATONIN 5 MG TABLETS PO SCH (21:17)
[2021-03-28] MEDS: PANTOPRAZOLE 40 MG TABLET PO SCH (06:13)
[2021-03-28] MEDS: PRENATAL VITAMINS W/ FOLIC ACID TABLET (FP) PO SCH (09:35)
[2021-03-28] MEDS: MELATONIN 5 MG TABLETS PO SCH (21:29)
[2021-03-28] MEDS: THIAMINE HCL 100 MG TABLET (FP) PO SCH (21:30)
[2021-03-29] MEDS: MAG HYDROX/AL HYDROX/SIMETH 30 ML UNIT-DOSE CUP PO PRN (01:30)
[2021-03-29] MEDS: PANTOPRAZOLE 40 MG TABLET PO SCH (06:20)
[2021-03-29] MEDS: PRENATAL VITAMINS W/ FOLIC ACID TABLET (FP) PO SCH (09:19)
[2021-03-29] MEDS: THIAMINE HCL 100 MG TABLET (FP) PO SCH (21:32)
[2021-03-29] MEDS: MELATONIN 5 MG TABLETS PO SCH (21:32)
[2021-03-30] MEDS: PANTOPRAZOLE 40 MG TABLET PO SCH (06:27)
[2021-03-30] MEDS: PRENATAL VITAMINS W/ FOLIC ACID TABLET (FP) PO SCH (09:19)
[2021-03-30] MEDS: THIAMINE HCL 100 MG TABLET (FP) PO SCH (21:26)
[2021-03-30] MEDS: MELATONIN 5 MG TABLETS PO SCH (21:27)
[2021-03-31] MEDS: PANTOPRAZOLE 40 MG TABLET PO SCH (06:16)
[2021-03-31 07:20] VITALS: BP 139/96; PULSE 67; TEMP 97.3
[2021-03-31] MEDS: PRENATAL VITAMINS W/ FOLIC ACID TABLET (FP) PO SCH (09:13)
== END 2021-03-31 09:37 | disposition home or self-care (01) | DRG 772 ==
LOC: EDBD → YASAS 13:05 → Y3E 19:35 → Y5N 21:52 → Y3E 21:54
PROVIDERS: ADMIT Allergy & Immunology; ATTEND Allergy & Immunology
PROC: HZ42ZZZ Group Counseling for Substance Abuse Treatment, Cognitive-Behavioral (ICD-10-PCS; principal; 2021-03-17)
DX: F10.20 Alcohol dependence, uncomplicated (principal); F12.20 Cannabis dependence, uncomplicated; F19.24 Other psychoactive substance dependence with psychoactive substance-induced mood disorder; F32.9 Major depressive disorder, single episode, unspecified; G47.00 Insomnia, unspecified; K21.9 Gastro-esophageal reflux disease without esophagitis; R74.01 Elevation of levels of liver transaminase levels; Z87.19 Personal history of other diseases of the digestive system; Z51.81 Encounter for therapeutic drug level monitoring; Z56.0 Unemployment, unspecified; Z59.0 Homelessness
CPT/HCPCS: 36415; 80048; 80053; 81003; 85025; J2315

== ENCOUNTER 2021-05-08 23:30 | Inpatient (IN) | payer OTHER ==
[2021-05-09 00:29] VITALS: BMI 22.8
[2021-05-09] MEDS ORDERED: MAG HYDROX/AL HYDROX/SIMETH 30 ML UNIT-DOSE CUP PO PRN (01:23)
[2021-05-09] MEDS ORDERED: METHOCARBAMOL 500 MG TABLET PO PRN (01:23)
[2021-05-09] MEDS ORDERED: ACETAMINOPHEN 325 MG TABLET (FP) PO PRN ×2 (01:23)
[2021-05-09] MEDS ORDERED: MAGNESIUM CITRATE 300 ML BOTTLE PO PRN (01:23)
[2021-05-09] MEDS ORDERED: NICOTINE POLACRILEX 2 MG GUM BUC PRN (01:23)
[2021-05-09] MEDS ORDERED: MAGNESIUM HYDROX 2400MG/30ML ORAL SUSPENSION 30 ML CUP PO PRN (01:23)
[2021-05-09] MEDS ORDERED: MENTHOL/PHENOL 1 EACH UD MM PRN (01:23)
[2021-05-09] MEDS ORDERED: ONDANSETRON *ODT* 4 MG TABLET SL PRN (01:23)
[2021-05-09] MEDS ORDERED: IBUPROFEN 400 MG TABLET (FP) PO PRN (01:23)
[2021-05-09] MEDS ORDERED: LORazepam 1 MG TABLET PO PRN (01:27)
[2021-05-09] MEDS: LORazepam 2 MG TABLET PO SCH ×4 (05:44→22:25)
[2021-05-09] MEDS: PRENATAL VITAMINS W/ FOLIC ACID TABLET (FP) PO SCH (10:32)
[2021-05-09] MEDS ORDERED: PANTOPRAZOLE 40 MG TABLET PO ONE (11:00)
[2021-05-09] MEDS: THIAMINE HCL 100 MG TABLET (FP) PO SCH (22:25)
[2021-05-09] MEDS: MELATONIN 5 MG TABLETS PO SCH (22:25)
[2021-05-10] MEDS: LORazepam 1 MG TABLET PO SCH ×4 (06:13→22:25)
[2021-05-10] MEDS: PANTOPRAZOLE 40 MG TABLET PO SCH (06:13)
[2021-05-10] MEDS: PRENATAL VITAMINS W/ FOLIC ACID TABLET (FP) PO SCH (10:19)
[2021-05-10] MEDS: VITAMINS A AND D TOPICAL OINTMENT 60 GM TUBE TP SCH ×2 (14:17→22:25)
[2021-05-10 14:28] LABS: HEMATOCRIT 29.8 % (35.4-49); HEMOGLOBIN 10.2 GM/dL (11.7-16.9); MCH 32.7 pg (25.7-33.7); MCHC 34.4 g/dl (32.0-35.9); MEAN CELL VOLUME 95.3 fl (80-96); MEAN PLT VOLUME 10.3 fl (7.5-11.1); PLATELET COUNT 63 10^3/uL (134-434); RBC 3.12 M/mm3 (4.00-5.60); RDW 15.6 % (11.9-15.9); WHITE BLOOD COUNT 4.2 K/mm3 (4.0-10.0)
[2021-05-10] MEDS: THIAMINE HCL 100 MG TABLET (FP) PO SCH (22:25)
[2021-05-10] MEDS: MELATONIN 5 MG TABLETS PO SCH (22:25)
[2021-05-10 23:07] LABS: BLOOD UREA NITROGEN 27.1 mg/dL (7-18); GLUCOSE,RANDOM 233 mg/dL (74-106); SODIUM 137 mmol/L (136-145)
[2021-05-10 23:08] LABS: ALBUMIN 3.1 g/dl (3.4-5.0); ALK PHOS 77 U/L (45-117); BILIRUBIN,TOTAL 0.8 mg/dL (0.2-1); CALCIUM 8.9 mg/dL (8.5-10.1); CHLORIDE 86 mmol/L (98-107); CO2 44 mmol/L (21-32); SGOT/AST 88 U/L (15-37); SGPT/ALT 55 U/L (13-61); TOT PROT 6.8 g/dl (6.4-8.2)
[2021-05-10] MEDS: POTASSIUM CHLORIDE TABS 20 MEQ TABLET.ER (FP) PO SCH (23:32)
[2021-05-11] MEDS ORDERED: LORazepam 0.5 MG TABLET PO PRN
[2021-05-11] MEDS: LORazepam 0.5 MG TABLET PO SCH ×4 (05:22→22:27)
[2021-05-11] MEDS: VITAMINS A AND D TOPICAL OINTMENT 60 GM TUBE TP SCH ×3 (05:23→22:26)
[2021-05-11] MEDS: PANTOPRAZOLE 40 MG TABLET PO SCH (05:23)
[2021-05-11 08:48] LABS: ANION GAP 7 MMOL/L (8-16)
[2021-05-11] MEDS: PRENATAL VITAMINS W/ FOLIC ACID TABLET (FP) PO SCH (10:09)
[2021-05-11] MEDS: POTASSIUM CHLORIDE TABS 20 MEQ TABLET.ER (FP) PO SCH ×2 (10:10→22:26)
[2021-05-11] MEDS: BISMUTH SUBSALICYLATE 524 MG/30 ML PO PRN ×2 (10:12→17:51)
[2021-05-11] MEDS: THIAMINE HCL 100 MG TABLET (FP) PO SCH (22:26)
[2021-05-11] MEDS: MELATONIN 5 MG TABLETS PO SCH (22:26)
[2021-05-12] MEDS ORDERED: LORazepam 0.5 MG TABLET PO ONE (05:00)
[2021-05-12] MEDS: VITAMINS A AND D TOPICAL OINTMENT 60 GM TUBE TP SCH (05:25)
[2021-05-12] MEDS: PANTOPRAZOLE 40 MG TABLET PO SCH (05:26)
[2021-05-12 09:55] VITALS: BP 132/81; PULSE 88; TEMP 96.9
[2021-05-12] MEDS: PRENATAL VITAMINS W/ FOLIC ACID TABLET (FP) PO SCH (10:31)
[2021-05-12] MEDS: POTASSIUM CHLORIDE TABS 20 MEQ TABLET.ER (FP) PO SCH (10:31)
== END 2021-05-12 11:02 | disposition home or self-care (01) | DRG 775 ==
LOC: YASAS 23:30 → Y3N 05-09 02:05
PROVIDERS: ADMIT Allergy & Immunology; ATTEND Allergy & Immunology
PROC: HZ2ZZZZ Detoxification Services for Substance Abuse Treatment (ICD-10-PCS; principal; 2021-05-09)
DX: F10.230 Alcohol dependence with withdrawal, uncomplicated (principal); F17.210 Nicotine dependence, cigarettes, uncomplicated; D64.9 Anemia, unspecified; E87.6 Hypokalemia; E21.3 Hyperparathyroidism, unspecified; K86.0 Alcohol-induced chronic pancreatitis; K76.0 Fatty (change of) liver, not elsewhere classified; K21.9 Gastro-esophageal reflux disease without esophagitis; K44.9 Diaphragmatic hernia without obstruction or gangrene; N28.9 Disorder of kidney and ureter, unspecified; R74.01 Elevation of levels of liver transaminase levels; R73.9 Hyperglycemia, unspecified; Z86.69 Personal history of other diseases of the nervous system and sense organs
CPT/HCPCS: 36415; 80053; 84132; 85027; 86780; C9803; U0003; U0005

== ENCOUNTER 2021-07-04 14:07 | Inpatient (IN) | payer OTHER ==
[2021-07-04 14:49] VITALS: BMI 25.9
[2021-07-04] MEDS ORDERED: ACETAMINOPHEN 325 MG TABLET (FP) PO PRN (16:31)
[2021-07-04] MEDS ORDERED: MAGNESIUM HYDROX 2400MG/30ML ORAL SUSPENSION 30 ML CUP PO PRN (16:31)
[2021-07-04] MEDS ORDERED: MAGNESIUM CITRATE 300 ML BOTTLE PO PRN (16:31)
[2021-07-04] MEDS ORDERED: P-EPHED 60MG/TRIPROLIDI 2.5MG TABLET PO PRN (16:31)
[2021-07-04] MEDS ORDERED: NICOTINE 10 MG CARTRIDGE (INHALER) IH PRN (16:31)
[2021-07-04] MEDS ORDERED: LOPERAMIDE HCL 2 MG CAPSULE PO PRN (16:31)
[2021-07-04] MEDS ORDERED: guaiFENesin 200 MG/10 ML 10 ML UNIT-DOSE CUPS PO PRN (16:31)
[2021-07-04] MEDS: MELATONIN 5 MG TABLETS PO SCH (21:31)
[2021-07-04] MEDS: THIAMINE HCL 100 MG TABLET (FP) PO SCH (21:31)
[2021-07-04] MEDS: hydrOXYzine PAMOATE 25 MG CAPSULE (FP) PO SCH ×2 (21:31→22:15)
[2021-07-04] MEDS ORDERED: MELATONIN 5 MG TABLETS PO SCH (22:00)
[2021-07-05] MEDS: PANTOPRAZOLE 40 MG TABLET PO SCH (06:50)
[2021-07-05] MEDS: hydrOXYzine PAMOATE 25 MG CAPSULE (FP) PO SCH ×5 (06:50→21:35)
[2021-07-05] MEDS: PRENATAL VITAMINS W/ FOLIC ACID TABLET (FP) PO SCH (09:22)
[2021-07-05] MEDS: IBUPROFEN 400 MG TABLET (FP) PO PRN (09:22)
[2021-07-05] MEDS: NICOTINE 7 MG/24 HOURS TOPICAL PATCH TD SCH ×2 (09:22→09:38)
[2021-07-05] MEDS: amLODIPine BESYLATE 5 MG TABLET (FP) PO SCH (09:31)
[2021-07-05] MEDS: FOLIC ACID 1 MG TABLET (FP) PO SCH (11:06)
[2021-07-05] MEDS: THIAMINE HCL 100 MG TABLET (FP) PO SCH (21:35)
[2021-07-05] MEDS: MELATONIN 5 MG TABLETS PO SCH (21:35)
[2021-07-06] MEDS: MAG HYDROX/AL HYDROX/SIMETH 30 ML UNIT-DOSE CUP PO PRN ×2 (00:46→23:15)
[2021-07-06] MEDS: hydrOXYzine PAMOATE 25 MG CAPSULE (FP) PO SCH ×5 (06:18→21:32)
[2021-07-06] MEDS: PANTOPRAZOLE 40 MG TABLET PO SCH (06:18)
[2021-07-06] MEDS: PRENATAL VITAMINS W/ FOLIC ACID TABLET (FP) PO SCH (10:12)
[2021-07-06] MEDS: NICOTINE 7 MG/24 HOURS TOPICAL PATCH TD SCH (10:13)
[2021-07-06] MEDS: amLODIPine BESYLATE 5 MG TABLET (FP) PO SCH (10:13)
[2021-07-06] MEDS: FOLIC ACID 1 MG TABLET (FP) PO SCH (11:49)
[2021-07-06] MEDS: IBUPROFEN 400 MG TABLET (FP) PO PRN (11:50)
[2021-07-06 16:08] LABS: SARS-CoV-2 NAA Not Detected (Not Detected)
[2021-07-06] MEDS: MELATONIN 5 MG TABLETS PO SCH (21:31)
[2021-07-06] MEDS: THIAMINE HCL 100 MG TABLET (FP) PO SCH (21:32)
[2021-07-07] MEDS: hydrOXYzine PAMOATE 25 MG CAPSULE (FP) PO SCH ×5 (06:28→21:26)
[2021-07-07] MEDS: PANTOPRAZOLE 40 MG TABLET PO SCH (06:28)
[2021-07-07] MEDS ORDERED: PT OWN MED DRAWER 7, Y5N ONE (08:53)
[2021-07-07] MEDS: PRENATAL VITAMINS W/ FOLIC ACID TABLET (FP) PO SCH (10:05)
[2021-07-07] MEDS: amLODIPine BESYLATE 5 MG TABLET (FP) PO SCH (10:06)
[2021-07-07] MEDS: FOLIC ACID 1 MG TABLET (FP) PO SCH (10:06)
[2021-07-07] MEDS: NICOTINE 7 MG/24 HOURS TOPICAL PATCH TD SCH (10:07)
[2021-07-07 10:55] LABS: PH,URINE >= 9.0 (5.0-8.0); URINE APPEARANCE CLEAR; URINE BILIRUBIN NEGATIVE (NEGATIVE); URINE COLOR YELLOW; URINE GLUCOSE (UA) NEGATIVE (NEGATIVE); URINE KETONE NEGATIVE (NEGATIVE); URINE LEUK ESTERASE NEGATIVE (NEGATIVE); URINE NITRITE NEGATIVE (NEGATIVE); URINE PROTEIN NEGATIVE (NEGATIVE); URINE UROBILINOGEN 0.2 mg/dL (0.2-1.0)
[2021-07-07 17:38] LABS: BASO % 0.2 % (0-2.0); EOS % 1.3 % (0-4.5); HEMATOCRIT 29.5 % (35.4-49); LYMPH % 14.1 % (8-40); MCH 31.1 pg (25.7-33.7); MEAN CELL VOLUME 91.5 fl (80-96); MEAN PLT VOLUME 9.5 fl (7.5-11.1); MONO % 10.8 % (3.8-10.2); NEUT % 73.6 % (42.8-82.8); PLATELET COUNT 138 10^3/uL (134-434); RBC 3.23 M/mm3 (4.00-5.60); RDW 14.5 % (11.9-15.9); WHITE BLOOD COUNT 9.9 K/mm3 (4.0-10.0)
[2021-07-07 18:01] LABS: ALBUMIN 3.3 g/dl (3.4-5.0); BLOOD UREA NITROGEN 17.7 mg/dL (7-18); CALCIUM 8.3 mg/dL (8.5-10.1)
[2021-07-07 18:04] LABS: CREATININE 1.3 mg/dL (0.55-1.3)
[2021-07-07 18:06] LABS: BILIRUBIN,TOTAL 0.4 mg/dL (0.2-1); TOT PROT 7.3 g/dl (6.4-8.2)
[2021-07-07] MEDS: THIAMINE HCL 100 MG TABLET (FP) PO SCH (21:26)
[2021-07-07] MEDS: MELATONIN 5 MG TABLETS PO SCH (21:26)
[2021-07-08] MEDS: MAG HYDROX/AL HYDROX/SIMETH 30 ML UNIT-DOSE CUP PO PRN (00:25)
[2021-07-08] MEDS: PANTOPRAZOLE 40 MG TABLET PO SCH (06:18)
[2021-07-08] MEDS: hydrOXYzine PAMOATE 25 MG CAPSULE (FP) PO SCH ×5 (08:04→22:10)
[2021-07-08] MEDS: NICOTINE 7 MG/24 HOURS TOPICAL PATCH TD SCH (10:29)
[2021-07-08] MEDS: PRENATAL VITAMINS W/ FOLIC ACID TABLET (FP) PO SCH (10:29)
[2021-07-08] MEDS: FOLIC ACID 1 MG TABLET (FP) PO SCH (10:29)
[2021-07-08] MEDS: amLODIPine BESYLATE 5 MG TABLET (FP) PO SCH (10:30)
[2021-07-08] MEDS: MELATONIN 5 MG TABLETS PO SCH (22:10)
[2021-07-08] MEDS: THIAMINE HCL 100 MG TABLET (FP) PO SCH (22:10)
[2021-07-09] MEDS: MAG HYDROX/AL HYDROX/SIMETH 30 ML UNIT-DOSE CUP PO PRN (02:22)
[2021-07-09] MEDS: hydrOXYzine PAMOATE 25 MG CAPSULE (FP) PO SCH ×5 (06:21→21:26)
[2021-07-09] MEDS: PANTOPRAZOLE 40 MG TABLET PO SCH (06:21)
[2021-07-09] MEDS: PRENATAL VITAMINS W/ FOLIC ACID TABLET (FP) PO SCH (10:19)
[2021-07-09] MEDS: NICOTINE 7 MG/24 HOURS TOPICAL PATCH TD SCH (10:19)
[2021-07-09] MEDS: amLODIPine BESYLATE 5 MG TABLET (FP) PO SCH (10:20)
[2021-07-09] MEDS: FOLIC ACID 1 MG TABLET (FP) PO SCH (10:20)
[2021-07-09] MEDS: THIAMINE HCL 100 MG TABLET (FP) PO SCH (21:26)
[2021-07-09] MEDS: MELATONIN 5 MG TABLETS PO SCH (21:26)
[2021-07-10] MEDS: MAG HYDROX/AL HYDROX/SIMETH 30 ML UNIT-DOSE CUP PO PRN ×2 (00:45→23:37)
[2021-07-10] MEDS: PANTOPRAZOLE 40 MG TABLET PO SCH (06:40)
[2021-07-10] MEDS: hydrOXYzine PAMOATE 25 MG CAPSULE (FP) PO SCH ×5 (06:40→21:36)
[2021-07-10] MEDS: NICOTINE 7 MG/24 HOURS TOPICAL PATCH TD SCH (10:05)
[2021-07-10] MEDS: FOLIC ACID 1 MG TABLET (FP) PO SCH (10:05)
[2021-07-10] MEDS: PRENATAL VITAMINS W/ FOLIC ACID TABLET (FP) PO SCH (10:05)
[2021-07-10] MEDS: amLODIPine BESYLATE 5 MG TABLET (FP) PO SCH (10:05)
[2021-07-10] MEDS: FERROUS SO4 325 MG TABLET (FP) PO SCH (17:09)
[2021-07-10] MEDS: THIAMINE HCL 100 MG TABLET (FP) PO SCH (21:36)
[2021-07-10] MEDS: MELATONIN 5 MG TABLETS PO SCH (21:36)
[2021-07-11] MEDS: PANTOPRAZOLE 40 MG TABLET PO SCH (06:29)
[2021-07-11] MEDS: hydrOXYzine PAMOATE 25 MG CAPSULE (FP) PO SCH ×3 (06:29→13:08)
[2021-07-11] MEDS: FOLIC ACID 1 MG TABLET (FP) PO SCH (10:01)
[2021-07-11] MEDS: PRENATAL VITAMINS W/ FOLIC ACID TABLET (FP) PO SCH (10:01)
[2021-07-11] MEDS: NICOTINE 7 MG/24 HOURS TOPICAL PATCH TD SCH (10:01)
[2021-07-11] MEDS: amLODIPine BESYLATE 5 MG TABLET (FP) PO SCH (10:01)
[2021-07-11] MEDS ORDERED: hydrOXYzine PAMOATE 25 MG CAPSULE (FP) PO PRN (13:21)
[2021-07-11] MEDS: FERROUS SO4 325 MG TABLET (FP) PO SCH (17:50)
[2021-07-11] MEDS: MELATONIN 5 MG TABLETS PO SCH (21:28)
[2021-07-11] MEDS: THIAMINE HCL 100 MG TABLET (FP) PO SCH (21:28)
[2021-07-12] MEDS: MAG HYDROX/AL HYDROX/SIMETH 30 ML UNIT-DOSE CUP PO PRN (01:24)
[2021-07-12] MEDS: PANTOPRAZOLE 40 MG TABLET PO SCH (06:16)
[2021-07-12] MEDS: FOLIC ACID 1 MG TABLET (FP) PO SCH (09:48)
[2021-07-12] MEDS: PRENATAL VITAMINS W/ FOLIC ACID TABLET (FP) PO SCH (09:48)
[2021-07-12] MEDS: amLODIPine BESYLATE 5 MG TABLET (FP) PO SCH (09:49)
[2021-07-12] MEDS: NICOTINE 7 MG/24 HOURS TOPICAL PATCH TD SCH (09:49)
[2021-07-12] MEDS: FERROUS SO4 325 MG TABLET (FP) PO SCH (17:30)
[2021-07-12] MEDS: MELATONIN 5 MG TABLETS PO SCH (21:22)
[2021-07-12] MEDS: THIAMINE HCL 100 MG TABLET (FP) PO SCH (21:22)
[2021-07-13] MEDS: MAG HYDROX/AL HYDROX/SIMETH 30 ML UNIT-DOSE CUP PO PRN (01:02)
[2021-07-13] MEDS: PANTOPRAZOLE 40 MG TABLET PO SCH (06:14)
[2021-07-13] MEDS: PRENATAL VITAMINS W/ FOLIC ACID TABLET (FP) PO SCH (09:47)
[2021-07-13] MEDS: amLODIPine BESYLATE 5 MG TABLET (FP) PO SCH (09:48)
[2021-07-13] MEDS: FOLIC ACID 1 MG TABLET (FP) PO SCH (09:48)
[2021-07-13] MEDS: NICOTINE 7 MG/24 HOURS TOPICAL PATCH TD SCH (09:48)
[2021-07-13] MEDS: FERROUS SO4 325 MG TABLET (FP) PO SCH (18:22)
[2021-07-13] MEDS: THIAMINE HCL 100 MG TABLET (FP) PO SCH (21:18)
[2021-07-13] MEDS: MELATONIN 5 MG TABLETS PO SCH (21:18)
[2021-07-14] MEDS: MAG HYDROX/AL HYDROX/SIMETH 30 ML UNIT-DOSE CUP PO PRN (00:56)
[2021-07-14] MEDS: PANTOPRAZOLE 40 MG TABLET PO SCH (06:13)
[2021-07-14] MEDS: PRENATAL VITAMINS W/ FOLIC ACID TABLET (FP) PO SCH (09:50)
[2021-07-14] MEDS: amLODIPine BESYLATE 5 MG TABLET (FP) PO SCH (09:51)
[2021-07-14] MEDS: FOLIC ACID 1 MG TABLET (FP) PO SCH (09:51)
[2021-07-14] MEDS: NICOTINE 7 MG/24 HOURS TOPICAL PATCH TD SCH (09:51)
[2021-07-14] MEDS: FERROUS SO4 325 MG TABLET (FP) PO SCH (18:01)
[2021-07-14] MEDS: MELATONIN 5 MG TABLETS PO SCH (21:39)
[2021-07-14] MEDS: THIAMINE HCL 100 MG TABLET (FP) PO SCH (21:39)
[2021-07-15] MEDS: PANTOPRAZOLE 40 MG TABLET PO SCH (06:12)
[2021-07-15] MEDS: NICOTINE 7 MG/24 HOURS TOPICAL PATCH TD SCH (10:16)
[2021-07-15] MEDS: FOLIC ACID 1 MG TABLET (FP) PO SCH (10:17)
[2021-07-15] MEDS: amLODIPine BESYLATE 5 MG TABLET (FP) PO SCH (10:17)
[2021-07-15] MEDS: PRENATAL VITAMINS W/ FOLIC ACID TABLET (FP) PO SCH (10:17)
[2021-07-15] MEDS: MAG HYDROX/AL HYDROX/SIMETH 30 ML UNIT-DOSE CUP PO PRN (13:48)
[2021-07-15] MEDS: FERROUS SO4 325 MG TABLET (FP) PO SCH (17:47)
[2021-07-15] MEDS: MELATONIN 5 MG TABLETS PO SCH (21:26)
[2021-07-15] MEDS: THIAMINE HCL 100 MG TABLET (FP) PO SCH (21:27)
[2021-07-16] MEDS: PANTOPRAZOLE 40 MG TABLET PO SCH (06:41)
[2021-07-16] MEDS: NICOTINE 7 MG/24 HOURS TOPICAL PATCH TD SCH (09:59)
[2021-07-16] MEDS: FOLIC ACID 1 MG TABLET (FP) PO SCH (09:59)
[2021-07-16] MEDS: PRENATAL VITAMINS W/ FOLIC ACID TABLET (FP) PO SCH (09:59)
[2021-07-16] MEDS: amLODIPine BESYLATE 5 MG TABLET (FP) PO SCH (09:59)
[2021-07-16] MEDS: FERROUS SO4 325 MG TABLET (FP) PO SCH (17:18)
[2021-07-16] MEDS: THIAMINE HCL 100 MG TABLET (FP) PO SCH (21:24)
[2021-07-16] MEDS: MELATONIN 5 MG TABLETS PO SCH (21:24)
[2021-07-17] MEDS: PANTOPRAZOLE 40 MG TABLET PO SCH (06:05)
[2021-07-17] MEDS: NICOTINE 7 MG/24 HOURS TOPICAL PATCH TD SCH (10:02)
[2021-07-17] MEDS: amLODIPine BESYLATE 5 MG TABLET (FP) PO SCH (10:02)
[2021-07-17] MEDS: PRENATAL VITAMINS W/ FOLIC ACID TABLET (FP) PO SCH (10:02)
[2021-07-17] MEDS: FOLIC ACID 1 MG TABLET (FP) PO SCH (10:02)
[2021-07-17] MEDS: FERROUS SO4 325 MG TABLET (FP) PO SCH (17:04)
[2021-07-17] MEDS: MELATONIN 5 MG TABLETS PO SCH (21:24)
[2021-07-17] MEDS: THIAMINE HCL 100 MG TABLET (FP) PO SCH (21:24)
[2021-07-18] MEDS: MAG HYDROX/AL HYDROX/SIMETH 30 ML UNIT-DOSE CUP PO PRN ×2 (00:55→23:01)
[2021-07-18] MEDS: PANTOPRAZOLE 40 MG TABLET PO SCH (06:25)
[2021-07-18] MEDS: PRENATAL VITAMINS W/ FOLIC ACID TABLET (FP) PO SCH (10:09)
[2021-07-18] MEDS: amLODIPine BESYLATE 5 MG TABLET (FP) PO SCH (10:10)
[2021-07-18] MEDS: NICOTINE 7 MG/24 HOURS TOPICAL PATCH TD SCH (10:10)
[2021-07-18] MEDS: FOLIC ACID 1 MG TABLET (FP) PO SCH (10:10)
[2021-07-18] MEDS: FERROUS SO4 325 MG TABLET (FP) PO SCH (17:57)
[2021-07-18] MEDS: MELATONIN 5 MG TABLETS PO SCH (21:38)
[2021-07-18] MEDS: THIAMINE HCL 100 MG TABLET (FP) PO SCH (21:39)
[2021-07-19] MEDS: PANTOPRAZOLE 40 MG TABLET PO SCH (06:15)
[2021-07-19] MEDS: PRENATAL VITAMINS W/ FOLIC ACID TABLET (FP) PO SCH (09:55)
[2021-07-19] MEDS: NICOTINE 7 MG/24 HOURS TOPICAL PATCH TD SCH (09:55)
[2021-07-19] MEDS: FOLIC ACID 1 MG TABLET (FP) PO SCH (09:56)
[2021-07-19] MEDS: amLODIPine BESYLATE 5 MG TABLET (FP) PO SCH (09:56)
[2021-07-19] MEDS: FERROUS SO4 325 MG TABLET (FP) PO SCH (17:27)
[2021-07-19] MEDS: THIAMINE HCL 100 MG TABLET (FP) PO SCH (21:31)
[2021-07-19] MEDS: MELATONIN 5 MG TABLETS PO SCH (21:31)
[2021-07-20] MEDS: MAG HYDROX/AL HYDROX/SIMETH 30 ML UNIT-DOSE CUP PO PRN (02:43)
[2021-07-20] MEDS: PANTOPRAZOLE 40 MG TABLET PO SCH (06:10)
[2021-07-20 07:25] VITALS: TEMP 98.3
[2021-07-20] MEDS: amLODIPine BESYLATE 5 MG TABLET (FP) PO SCH (10:00)
[2021-07-20] MEDS: FOLIC ACID 1 MG TABLET (FP) PO SCH (10:00)
[2021-07-20] MEDS: PRENATAL VITAMINS W/ FOLIC ACID TABLET (FP) PO SCH (10:00)
[2021-07-20] MEDS: NICOTINE 7 MG/24 HOURS TOPICAL PATCH TD SCH (10:00)
[2021-07-20] MEDS: FERROUS SO4 325 MG TABLET (FP) PO SCH (17:57)
[2021-07-20] MEDS: MELATONIN 5 MG TABLETS PO SCH (21:35)
[2021-07-20] MEDS: THIAMINE HCL 100 MG TABLET (FP) PO SCH (21:36)
[2021-07-21] MEDS: PANTOPRAZOLE 40 MG TABLET PO SCH (06:24)
[2021-07-21] MEDS: PRENATAL VITAMINS W/ FOLIC ACID TABLET (FP) PO SCH (09:07)
[2021-07-21] MEDS: amLODIPine BESYLATE 5 MG TABLET (FP) PO SCH (09:07)
[2021-07-21] MEDS: NICOTINE 7 MG/24 HOURS TOPICAL PATCH TD SCH (09:07)
[2021-07-21] MEDS: FOLIC ACID 1 MG TABLET (FP) PO SCH (09:07)
[2021-07-21 09:19] VITALS: BP 112/73; PULSE 72
== END 2021-07-21 09:15 | disposition home or self-care (01) | DRG 772 ==
LOC: YASAS 14:07 → Y5N 19:19
PROVIDERS: ADMIT Allergy & Immunology; ATTEND Allergy & Immunology
PROC: HZ42ZZZ Group Counseling for Substance Abuse Treatment, Cognitive-Behavioral (ICD-10-PCS; principal; 2021-07-04)
DX: F10.20 Alcohol dependence, uncomplicated (principal); F12.20 Cannabis dependence, uncomplicated; I10 Essential (primary) hypertension; E78.5 Hyperlipidemia, unspecified; D50.9 Iron deficiency anemia, unspecified; K21.9 Gastro-esophageal reflux disease without esophagitis; K44.9 Diaphragmatic hernia without obstruction or gangrene; R73.9 Hyperglycemia, unspecified; K76.0 Fatty (change of) liver, not elsewhere classified; Z87.19 Personal history of other diseases of the digestive system; Z87.891 Personal history of nicotine dependence; Z86.69 Personal history of other diseases of the nervous system and sense organs
CPT/HCPCS: 36415; 80053; 81003; 85025; 86780; 87811; C9803; U0003; U0005

== ENCOUNTER 2022-05-13 14:31 | Inpatient (IN) | payer OTHER ==
[2022-05-13 15:00] VITALS: BMI 27.3
[2022-05-13] MEDS ORDERED: ONDANSETRON *ODT* 4 MG TABLET SL PRN (16:54)
[2022-05-13] MEDS ORDERED: chlordiazePOXIDE HCL 25 MG CAPSULE PO PRN (16:54)
[2022-05-13] MEDS ORDERED: NICOTINE 10 MG CARTRIDGE (INHALER) IH PRN (16:54)
[2022-05-13] MEDS ORDERED: IBUPROFEN 600 MG TABLET (FP) PO PRN (16:54)
[2022-05-13] MEDS ORDERED: DICYCLOMINE HCL 10 MG CAPSULE PO PRN (16:54)
[2022-05-13] MEDS ORDERED: MAGNESIUM HYDROX 2400MG/30ML ORAL SUSPENSION 30 ML CUP PO PRN (16:54)
[2022-05-13] MEDS ORDERED: MAG HYDROX/AL HYDROX/SIMETH 30 ML UNIT-DOSE CUP PO PRN (16:54)
[2022-05-13] MEDS ORDERED: BISMUTH SUBSALICYLATE 524 MG/30 ML PO PRN (16:54)
[2022-05-13] MEDS ORDERED: NALOXONE HCL (KLOXXADO) 8 MG SPRAY NS PRN (16:54)
[2022-05-13] MEDS ORDERED: BENZOCAINE/MENTHOL (CHLORASEPTIC ) LOZENGE MM PRN (16:54)
[2022-05-13] MEDS ORDERED: IBUPROFEN 400 MG TABLET (FP) PO PRN (16:54)
[2022-05-13] MEDS ORDERED: LOPERAMIDE HCL 2 MG CAPSULE PO PRN (16:54)
[2022-05-13] MEDS ORDERED: MAGNESIUM CITRATE 300 ML BOTTLE PO PRN (16:54)
[2022-05-13] MEDS ORDERED: ACETAMINOPHEN 325 MG TABLET (FP) PO PRN ×2 (16:54)
[2022-05-13] MEDS: hydrOXYzine PAMOATE 25 MG CAPSULE (FP) PO SCH ×2 (18:08→22:23)
[2022-05-13] MEDS: PANTOPRAZOLE 40 MG TABLET PO SCH (18:08)
[2022-05-13] MEDS: PRENATAL VITAMINS W/ FOLIC ACID TABLET (FP) PO SCH (18:08)
[2022-05-13] MEDS: THIAMINE HCL 100 MG TABLET (FP) PO SCH (22:22)
[2022-05-13] MEDS: chlordiazePOXIDE HCL 25 MG CAPSULE PO SCH (22:23)
[2022-05-13] MEDS: METHOCARBAMOL 500 MG TABLET PO PRN (22:23)
[2022-05-13] MEDS: MELATONIN 5 MG TABLETS PO SCH (22:23)
[2022-05-14] MEDS: PANTOPRAZOLE 40 MG TABLET PO SCH (05:23)
[2022-05-14] MEDS: chlordiazePOXIDE HCL 25 MG CAPSULE PO SCH ×4 (05:23→22:17)
[2022-05-14] MEDS: hydrOXYzine PAMOATE 25 MG CAPSULE (FP) PO SCH ×5 (05:23→22:18)
[2022-05-14 10:00] LABS: HEMATOCRIT 30.3 % (35.4-49); HEMOGLOBIN 9.8 GM/dL (11.7-16.9); MCH 25.4 pg (25.7-33.7); MCHC 32.2 g/dl (32.0-35.9); MEAN CELL VOLUME 78.9 fl (80-96); MEAN PLT VOLUME 9.5 fl (7.5-11.1); PLATELET COUNT 66 10^3/uL (134-434); RBC 3.84 M/mm3 (4.00-5.60); RDW 18.6 % (11.9-15.9); WHITE BLOOD COUNT 4.6 K/mm3 (4.0-10.0)
[2022-05-14 10:13] LABS: BLOOD UREA NITROGEN 10.4 mg/dL (7-18)
[2022-05-14 10:14] LABS: ALBUMIN 3.3 g/dl (3.4-5.0); CALCIUM 8.7 mg/dL (8.5-10.1)
[2022-05-14 10:16] LABS: CREATININE 1.1 mg/dL (0.55-1.3)
[2022-05-14 10:18] LABS: BILIRUBIN,TOTAL 0.5 mg/dL (0.2-1); TOT PROT 7.2 g/dl (6.4-8.2)
[2022-05-14] MEDS: METHOCARBAMOL 500 MG TABLET PO PRN (10:18)
[2022-05-14] MEDS: PRENATAL VITAMINS W/ FOLIC ACID TABLET (FP) PO SCH (10:18)
[2022-05-14] MEDS: amLODIPine BESYLATE 5 MG TABLET (FP) PO SCH (10:18)
[2022-05-14] MEDS ORDERED: POTASSIUM CHLORIDE ORAL LIQUID 20 MEQ/15 ML PO ONE (11:28)
[2022-05-14] MEDS: POTASSIUM CHLORIDE ORAL LIQUID 20 MEQ/15 ML PO SCH (22:16)
[2022-05-14] MEDS: MELATONIN 5 MG TABLETS PO SCH (22:17)
[2022-05-14] MEDS: THIAMINE HCL 100 MG TABLET (FP) PO SCH (22:17)
[2022-05-15] MEDS: PANTOPRAZOLE 40 MG TABLET PO SCH (06:03)
[2022-05-15] MEDS: hydrOXYzine PAMOATE 25 MG CAPSULE (FP) PO SCH ×5 (06:03→23:12)
[2022-05-15] MEDS: chlordiazePOXIDE HCL 25 MG CAPSULE PO SCH ×4 (06:03→23:10)
[2022-05-15 09:59] LABS: HEMATOCRIT 31.7 % (35.4-49); MCH 25.1 pg (25.7-33.7); MCHC 31.6 g/dl (32.0-35.9); MEAN CELL VOLUME 79.5 fl (80-96); MEAN PLT VOLUME 9.5 fl (7.5-11.1); PLATELET COUNT 69 10^3/uL (134-434); RBC 3.99 M/mm3 (4.00-5.60); RDW 18.4 % (11.9-15.9); WHITE BLOOD COUNT 4.4 K/mm3 (4.0-10.0)
[2022-05-15] MEDS: POTASSIUM CHLORIDE ORAL LIQUID 20 MEQ/15 ML PO SCH ×2 (10:29→23:12)
[2022-05-15] MEDS: METHOCARBAMOL 500 MG TABLET PO PRN (10:30)
[2022-05-15] MEDS: amLODIPine BESYLATE 5 MG TABLET (FP) PO SCH (10:30)
[2022-05-15] MEDS: PRENATAL VITAMINS W/ FOLIC ACID TABLET (FP) PO SCH (10:30)
[2022-05-15] MEDS ORDERED: FOLIC ACID 1 MG TABLET (FP) PO SCH (11:30)
[2022-05-15] MEDS: MELATONIN 5 MG TABLETS PO SCH (23:10)
[2022-05-15] MEDS: THIAMINE HCL 100 MG TABLET (FP) PO SCH (23:12)
[2022-05-16] MEDS ORDERED: chlordiazePOXIDE HCL 10 MG CAPSULE PO PRN
[2022-05-16 01:20] VITALS: RESP 18
[2022-05-16] MEDS ORDERED: chlordiazePOXIDE HCL 10 MG CAPSULE PO SCH (05:00)
[2022-05-16] MEDS: hydrOXYzine PAMOATE 25 MG CAPSULE (FP) PO SCH (05:18)
[2022-05-16] MEDS: PANTOPRAZOLE 40 MG TABLET PO SCH (05:19)
[2022-05-16 09:04] VITALS: BP 134/102; PULSE 93; TEMP 98.4
[2022-05-17] MEDS ORDERED: chlordiazePOXIDE HCL 10 MG CAPSULE PO SCH (05:00)
[2022-05-18] MEDS ORDERED: chlordiazePOXIDE HCL 10 MG CAPSULE PO ONE (05:00)
== END 2022-05-16 10:17 | disposition left against medical advice (07) | DRG 770 ==
LOC: YASAS 14:31 → Y6N 16:53
PROVIDERS: ADMIT Allergy & Immunology; ATTEND Surgery
PROC: HZ2ZZZZ Detoxification Services for Substance Abuse Treatment (ICD-10-PCS; principal; 2022-05-13)
DX: F10.230 Alcohol dependence with withdrawal, uncomplicated (principal); F12.20 Cannabis dependence, uncomplicated; F17.210 Nicotine dependence, cigarettes, uncomplicated; D61.818 Other pancytopenia; E87.6 Hypokalemia; K21.9 Gastro-esophageal reflux disease without esophagitis; C14.0 Malignant neoplasm of pharynx, unspecified; R74.8 Abnormal levels of other serum enzymes; Z87.19 Personal history of other diseases of the digestive system; Z86.69 Personal history of other diseases of the nervous system and sense organs
CPT/HCPCS: 36415; 73130-TC-LT-FY; 80053; 84132; 84450; 85027; 86780; 87811; C9803-CS; U0003; U0005

== ENCOUNTER 2022-05-15 19:51 | Emergency (ER) | payer OTHER ==
[2022-05-15 20:08] VITALS: BP 123/80; PULSE 88; RESP 18; TEMP 98; BMI 25.0
== END 2022-05-16 01:01 | disposition home or self-care (01) ==
LOC: JERFT 19:51 → JER 19:51
DX: J35.1 Hypertrophy of tonsils (principal); R07.0 Pain in throat; C32.9 Malignant neoplasm of larynx, unspecified
CPT/HCPCS: 70490-TC; 99284-25

== ENCOUNTER 2022-05-24 15:05 | Inpatient (IN) | payer OTHER ==
[2022-05-24 15:58] VITALS: BMI 27.4
[2022-05-24] MEDS ORDERED: NALOXONE HCL (KLOXXADO) 8 MG SPRAY NS PRN (19:49)
[2022-05-24] MEDS ORDERED: ONDANSETRON *ODT* 4 MG TABLET SL PRN (19:49)
[2022-05-24] MEDS ORDERED: IBUPROFEN 400 MG TABLET (FP) PO PRN (19:49)
[2022-05-24] MEDS ORDERED: MAGNESIUM HYDROX 2400MG/30ML ORAL SUSPENSION 30 ML CUP PO PRN (19:49)
[2022-05-24] MEDS ORDERED: BENZOCAINE/MENTHOL (CHLORASEPTIC ) LOZENGE MM PRN (19:49)
[2022-05-24] MEDS ORDERED: DICYCLOMINE HCL 10 MG CAPSULE PO PRN (19:49)
[2022-05-24] MEDS ORDERED: NICOTINE POLACRILEX 2 MG GUM BUC PRN (19:49)
[2022-05-24] MEDS ORDERED: guaiFENesin 200 MG/10 ML 10 ML UNIT-DOSE CUPS PO PRN (19:49)
[2022-05-24] MEDS ORDERED: IBUPROFEN 600 MG TABLET (FP) PO PRN (19:49)
[2022-05-24] MEDS ORDERED: ACETAMINOPHEN 325 MG TABLET (FP) PO PRN ×2 (19:49)
[2022-05-24] MEDS ORDERED: MAGNESIUM CITRATE 300 ML BOTTLE PO PRN (19:49)
[2022-05-24] MEDS ORDERED: P-EPHED 60MG/TRIPROLIDI 2.5MG TABLET PO PRN (19:49)
[2022-05-24] MEDS ORDERED: LOPERAMIDE HCL 2 MG CAPSULE PO PRN (19:49)
[2022-05-24] MEDS: METHOCARBAMOL 500 MG TABLET PO PRN (20:59)
[2022-05-24] MEDS: hydrOXYzine PAMOATE 25 MG CAPSULE (FP) PO PRN (20:59)
[2022-05-24] MEDS ORDERED: MELATONIN 5 MG TABLETS PO SCH (22:00)
[2022-05-24] MEDS: THIAMINE HCL 100 MG TABLET (FP) PO SCH (22:20)
[2022-05-24] MEDS: amLODIPine BESYLATE 5 MG TABLET (FP) PO SCH (22:22)
[2022-05-25] MEDS: MAG HYDROX/AL HYDROX/SIMETH 30 ML UNIT-DOSE CUP PO PRN ×2 (04:53→11:50)
[2022-05-25] MEDS ORDERED: PANTOPRAZOLE 40 MG TABLET PO SCH (06:00)
[2022-05-25] MEDS: BISMUTH SUBSALICYLATE 524 MG/30 ML PO PRN (08:45)
[2022-05-25] MEDS ORDERED: chlordiazePOXIDE HCL 25 MG CAPSULE PO PRN (09:02)
[2022-05-25] MEDS ORDERED: chlordiazePOXIDE HCL 25 MG CAPSULE PO ONE (09:30)
[2022-05-25] MEDS ORDERED: NICOTINE 14 MG/24 HOURS TOPICAL PATCH TD SCH (10:00)
[2022-05-25] MEDS: PRENATAL VITAMINS W/ FOLIC ACID TABLET (FP) PO SCH (10:32)
[2022-05-25] MEDS: amLODIPine BESYLATE 5 MG TABLET (FP) PO SCH (10:33)
[2022-05-25] MEDS: chlordiazePOXIDE HCL 25 MG CAPSULE PO SCH ×3 (11:50→22:16)
[2022-05-25] MEDS: THIAMINE HCL 100 MG TABLET (FP) PO SCH (22:16)
[2022-05-25] MEDS: SUVOREXANT 10 MG TABLET PO PRN (22:17)
[2022-05-26] MEDS: chlordiazePOXIDE HCL 25 MG CAPSULE PO SCH ×4 (05:26→22:24)
[2022-05-26] MEDS: hydrOXYzine PAMOATE 25 MG CAPSULE (FP) PO PRN ×2 (05:27→10:37)
[2022-05-26] MEDS: FAMOTIDINE 20 MG TABLET PO SCH ×3 (07:12→22:24)
[2022-05-26] MEDS: amLODIPine BESYLATE 5 MG TABLET (FP) PO SCH (10:37)
[2022-05-26] MEDS: PRENATAL VITAMINS W/ FOLIC ACID TABLET (FP) PO SCH (10:38)
[2022-05-26] MEDS: METHOCARBAMOL 500 MG TABLET PO PRN (10:38)
[2022-05-26] MEDS: THIAMINE HCL 100 MG TABLET (FP) PO SCH (22:24)
[2022-05-26] MEDS: SUVOREXANT 10 MG TABLET PO PRN (22:24)
[2022-05-27] MEDS ORDERED: chlordiazePOXIDE HCL 10 MG CAPSULE PO PRN
[2022-05-27] MEDS: chlordiazePOXIDE HCL 10 MG CAPSULE PO SCH ×4 (05:37→22:22)
[2022-05-27] MEDS: hydrOXYzine PAMOATE 25 MG CAPSULE (FP) PO PRN ×2 (05:38→10:26)
[2022-05-27] MEDS: METHOCARBAMOL 500 MG TABLET PO PRN (10:26)
[2022-05-27] MEDS: PRENATAL VITAMINS W/ FOLIC ACID TABLET (FP) PO SCH (10:26)
[2022-05-27] MEDS: amLODIPine BESYLATE 5 MG TABLET (FP) PO SCH (10:26)
[2022-05-27] MEDS: FAMOTIDINE 20 MG TABLET PO SCH ×2 (10:26→22:20)
[2022-05-27] MEDS: MAG HYDROX/AL HYDROX/SIMETH 30 ML UNIT-DOSE CUP PO PRN ×2 (11:22→20:18)
[2022-05-27] MEDS: THIAMINE HCL 100 MG TABLET (FP) PO SCH (22:20)
[2022-05-27] MEDS: SUVOREXANT 10 MG TABLET PO PRN (22:21)
[2022-05-28] MEDS: chlordiazePOXIDE HCL 10 MG CAPSULE PO SCH ×2 (05:22→17:52)
[2022-05-28] MEDS: hydrOXYzine PAMOATE 25 MG CAPSULE (FP) PO PRN (05:22)
[2022-05-28] MEDS: FAMOTIDINE 20 MG TABLET PO SCH ×2 (10:09→22:34)
[2022-05-28] MEDS: amLODIPine BESYLATE 5 MG TABLET (FP) PO SCH (10:09)
[2022-05-28] MEDS: PRENATAL VITAMINS W/ FOLIC ACID TABLET (FP) PO SCH (10:09)
[2022-05-28] MEDS: MAG HYDROX/AL HYDROX/SIMETH 30 ML UNIT-DOSE CUP PO PRN (10:11)
[2022-05-28 14:26] LABS: EPI CELLS 8 /uL (0-25.1); HYALINE CASTS 2 /uL (0-3.1); PH,URINE 6.5 (5.0-8.0); URINE APPEARANCE CLEAR; URINE BACTERIA 4 /uL (0-1359); URINE BILIRUBIN 1+ (NEGATIVE); URINE COLOR DK YELLOW; URINE GLUCOSE (UA) NEGATIVE (NEGATIVE); URINE KETONE 1+ (NEGATIVE); URINE LEUK ESTERASE TRACE (NEGATIVE); URINE NITRITE NEGATIVE (NEGATIVE); URINE PROTEIN 1+ (NEGATIVE); URINE RBC 2 /uL (0-23.9); URINE WBC 18 /uL (0-25.8)
[2022-05-28] MEDS: BISMUTH SUBSALICYLATE 524 MG/30 ML PO PRN (14:42)
[2022-05-28 16:11] LABS: URINE CRYSTALS MODERATE /hpf
[2022-05-28 17:33] VITALS: TEMP 97.8
[2022-05-28 21:21] VITALS: RESP 18
[2022-05-28] MEDS ORDERED: SUVOREXANT 10 MG TABLET PO PRN (22:00)
[2022-05-28] MEDS: THIAMINE HCL 100 MG TABLET (FP) PO SCH (22:34)
[2022-05-29] MEDS ORDERED: chlordiazePOXIDE HCL 10 MG CAPSULE PO ONE (05:00)
[2022-05-29] MEDS: hydrOXYzine PAMOATE 25 MG CAPSULE (FP) PO PRN (05:19)
[2022-05-29 06:36] VITALS: BP 129/83; PULSE 60
[2022-05-29] MEDS: FAMOTIDINE 20 MG TABLET PO SCH (09:19)
[2022-05-29] MEDS: amLODIPine BESYLATE 5 MG TABLET (FP) PO SCH (09:19)
[2022-05-29] MEDS: PRENATAL VITAMINS W/ FOLIC ACID TABLET (FP) PO SCH (09:20)
== END 2022-05-29 09:20 | disposition home or self-care (01) | DRG 775 ==
LOC: YASAS 15:05 → Y6N 20:38
PROVIDERS: ADMIT Allergy & Immunology; ATTEND Surgery
PROC: HZ2ZZZZ Detoxification Services for Substance Abuse Treatment (ICD-10-PCS; principal; 2022-05-24)
DX: F10.230 Alcohol dependence with withdrawal, uncomplicated (principal); F17.210 Nicotine dependence, cigarettes, uncomplicated; F10.282 Alcohol dependence with alcohol-induced sleep disorder; D50.9 Iron deficiency anemia, unspecified; G47.00 Insomnia, unspecified; I10 Essential (primary) hypertension; K21.9 Gastro-esophageal reflux disease without esophagitis; K44.9 Diaphragmatic hernia without obstruction or gangrene; C14.0 Malignant neoplasm of pharynx, unspecified; Z87.19 Personal history of other diseases of the digestive system; Z91.14 Patient's other noncompliance with medication regimen
CPT/HCPCS: 81003; 87811; 93005; 93010; C9803-CS; Q0162; U0003; U0005

== ENCOUNTER 2022-08-26 10:28 | Inpatient (IN) | payer OTHER ==
[2022-08-26 11:07] VITALS: BMI 23.8
[2022-08-26] MEDS ORDERED: LOPERAMIDE HCL 2 MG CAPSULE PO PRN (14:12)
[2022-08-26] MEDS ORDERED: BISMUTH SUBSALICYLATE 262 MG/15 ML BTL PO PRN (14:12)
[2022-08-26] MEDS ORDERED: POLYETHYLENE GLYCOL (HEALTHYLAX) 3350 17 GM PACKET PO PRN (14:12)
[2022-08-26] MEDS ORDERED: DICYCLOMINE HCL 10 MG CAPSULE PO PRN (14:12)
[2022-08-26] MEDS ORDERED: IBUPROFEN 600 MG TABLET (FP) PO PRN (14:12)
[2022-08-26] MEDS ORDERED: NALOXONE HCL (KLOXXADO) 8 MG SPRAY NS PRN (14:12)
[2022-08-26] MEDS ORDERED: ACETAMINOPHEN 325 MG TABLET (FP) PO PRN ×2 (14:12)
[2022-08-26] MEDS ORDERED: IBUPROFEN 400 MG TABLET (FP) PO PRN (14:12)
[2022-08-26] MEDS ORDERED: NICOTINE 10 MG CARTRIDGE (INHALER) IH PRN (14:12)
[2022-08-26] MEDS ORDERED: BENZOCAINE/MENTHOL (CHLORASEPTIC ) LOZENGE MM PRN (14:12)
[2022-08-26] MEDS ORDERED: MAGNESIUM HYDROX 2400MG/30ML ORAL SUSPENSION 30 ML CUP PO PRN (14:12)
[2022-08-26] MEDS ORDERED: ONDANSETRON *ODT* 4 MG TABLET SL PRN (14:12)
[2022-08-26] MEDS ORDERED: METHOCARBAMOL 500 MG TABLET PO PRN (14:12)
[2022-08-26] MEDS ORDERED: PANTOPRAZOLE 40 MG TABLET PO ONE ×2 (14:17→18:00)
[2022-08-26] MEDS: MAG HYDROX/AL HYDROX/SIMETH 30 ML UNIT-DOSE CUP PO PRN (15:39)
[2022-08-26] MEDS: chlordiazePOXIDE HCL 25 MG CAPSULE PO PRN (16:00)
[2022-08-26] MEDS: chlordiazePOXIDE HCL 25 MG CAPSULE PO SCH ×2 (17:31→22:20)
[2022-08-26] MEDS: THIAMINE HCL 100 MG TABLET (FP) PO SCH (22:20)
[2022-08-26] MEDS: MELATONIN 5 MG TABLETS PO SCH (22:20)
[2022-08-27] MEDS: chlordiazePOXIDE HCL 25 MG CAPSULE PO SCH ×4 (05:22→22:10)
[2022-08-27] MEDS: PANTOPRAZOLE 40 MG TABLET PO SCH (05:23)
[2022-08-27] MEDS: MAG HYDROX/AL HYDROX/SIMETH 30 ML UNIT-DOSE CUP PO PRN ×3 (05:44→23:36)
[2022-08-27] MEDS: PRENATAL VITAMINS W/ FOLIC ACID TABLET (FP) PO SCH (10:09)
[2022-08-27] MEDS: amLODIPine BESYLATE 5 MG TABLET (FP) PO SCH (10:09)
[2022-08-27 12:52] LABS: HEMATOCRIT 29.1 % (35.4-49); HEMOGLOBIN 9.4 GM/dL (11.7-16.9); MCH 29.2 pg (25.7-33.7); MCHC 32.4 g/dl (32.0-35.9); MEAN PLT VOLUME 8.2 fl (7.5-11.1); PLATELET COUNT 214 10^3/uL (134-434); RBC 3.23 M/mm3 (4.00-5.60); RDW 22.5 % (11.9-15.9); WHITE BLOOD COUNT 3.6 K/mm3 (4.0-10.0)
[2022-08-27 13:55] LABS: BILIRUBIN,TOTAL 0.8 mg/dL (0.2-1); TOT PROT 7.3 g/dl (6.4-8.2)
[2022-08-27 13:58] LABS: ALBUMIN 3.4 g/dl (3.4-5.0)
[2022-08-27 14:00] LABS: BLOOD UREA NITROGEN 15.8 mg/dL (7-18); CALCIUM 8.6 mg/dL (8.5-10.1)
[2022-08-27] MEDS: chlordiazePOXIDE HCL 25 MG CAPSULE PO PRN (14:39)
[2022-08-27] MEDS: THIAMINE HCL 100 MG TABLET (FP) PO SCH (22:10)
[2022-08-27] MEDS: MELATONIN 5 MG TABLETS PO SCH (22:10)
[2022-08-28] MEDS: chlordiazePOXIDE HCL 25 MG CAPSULE PO SCH ×4 (05:32→22:13)
[2022-08-28] MEDS: PANTOPRAZOLE 40 MG TABLET PO SCH (06:10)
[2022-08-28] MEDS: PRENATAL VITAMINS W/ FOLIC ACID TABLET (FP) PO SCH (10:10)
[2022-08-28] MEDS: amLODIPine BESYLATE 5 MG TABLET (FP) PO SCH (10:10)
[2022-08-28] MEDS: THIAMINE HCL 100 MG TABLET (FP) PO SCH (22:13)
[2022-08-28] MEDS: MELATONIN 5 MG TABLETS PO SCH (22:13)
[2022-08-28 23:05] LABS: EPI CELLS 5 /uL (0-25.1); HYALINE CASTS 1 /uL (0-3.1); PH,URINE 8.5 (5.0-8.0); URINE APPEARANCE CLEAR; URINE BACTERIA 1 /uL (0-1359); URINE BILIRUBIN NEGATIVE (NEGATIVE); URINE COLOR YELLOW; URINE GLUCOSE (UA) NEGATIVE (NEGATIVE); URINE KETONE NEGATIVE (NEGATIVE); URINE LEUK ESTERASE NEGATIVE (NEGATIVE); URINE NITRITE NEGATIVE (NEGATIVE); URINE PROTEIN 1+ (NEGATIVE); URINE RBC 6 /uL (0-23.9); URINE WBC 3 /uL (0-25.8)
[2022-08-29] MEDS ORDERED: chlordiazePOXIDE HCL 10 MG CAPSULE PO PRN
[2022-08-29] MEDS: MAG HYDROX/AL HYDROX/SIMETH 30 ML UNIT-DOSE CUP PO PRN ×3 (00:08→21:43)
[2022-08-29] MEDS: chlordiazePOXIDE HCL 10 MG CAPSULE PO SCH ×4 (05:17→22:00)
[2022-08-29] MEDS: PANTOPRAZOLE 40 MG TABLET PO SCH (06:11)
[2022-08-29] MEDS: PRENATAL VITAMINS W/ FOLIC ACID TABLET (FP) PO SCH (10:14)
[2022-08-29] MEDS: amLODIPine BESYLATE 5 MG TABLET (FP) PO SCH (10:16)
[2022-08-29] MEDS: THIAMINE HCL 100 MG TABLET (FP) PO SCH (21:42)
[2022-08-29] MEDS: MELATONIN 5 MG TABLETS PO SCH (21:42)
[2022-08-30] MEDS: chlordiazePOXIDE HCL 10 MG CAPSULE PO SCH ×2 (06:17→17:45)
[2022-08-30] MEDS: PANTOPRAZOLE 40 MG TABLET PO SCH (06:17)
[2022-08-30] MEDS: amLODIPine BESYLATE 5 MG TABLET (FP) PO SCH (10:29)
[2022-08-30] MEDS: PRENATAL VITAMINS W/ FOLIC ACID TABLET (FP) PO SCH (10:29)
[2022-08-30] MEDS: THIAMINE HCL 100 MG TABLET (FP) PO SCH (21:50)
[2022-08-30] MEDS: MELATONIN 5 MG TABLETS PO SCH (21:50)
[2022-08-31] MEDS: MAG HYDROX/AL HYDROX/SIMETH 30 ML UNIT-DOSE CUP PO PRN (00:08)
[2022-08-31] MEDS ORDERED: chlordiazePOXIDE HCL 10 MG CAPSULE PO ONE (05:00)
[2022-08-31] MEDS: PANTOPRAZOLE 40 MG TABLET PO SCH (05:42)
[2022-08-31 06:54] VITALS: RESP 16; TEMP 97.3
[2022-08-31 09:17] VITALS: BP 132/82; PULSE 92
[2022-08-31] MEDS: amLODIPine BESYLATE 5 MG TABLET (FP) PO SCH (10:24)
[2022-08-31] MEDS: PRENATAL VITAMINS W/ FOLIC ACID TABLET (FP) PO SCH (10:25)
== END 2022-08-31 09:43 | disposition other institution (70) | DRG 775 ==
LOC: YASAS 10:28 → Y3N 14:31
PROVIDERS: ADMIT Allergy & Immunology; ATTEND Surgery
PROC: HZ2ZZZZ Detoxification Services for Substance Abuse Treatment (ICD-10-PCS; principal; 2022-08-26)
DX: F10.230 Alcohol dependence with withdrawal, uncomplicated (principal); F12.20 Cannabis dependence, uncomplicated; F17.210 Nicotine dependence, cigarettes, uncomplicated; F19.24 Other psychoactive substance dependence with psychoactive substance-induced mood disorder; F32.A Depression, unspecified; C14.0 Malignant neoplasm of pharynx, unspecified; D50.9 Iron deficiency anemia, unspecified; E21.3 Hyperparathyroidism, unspecified; K21.9 Gastro-esophageal reflux disease without esophagitis; K44.9 Diaphragmatic hernia without obstruction or gangrene; R74.8 Abnormal levels of other serum enzymes; R74.01 Elevation of levels of liver transaminase levels; Z20.822 Contact with and (suspected) exposure to COVID-19; Z87.19 Personal history of other diseases of the digestive system; Z86.69 Personal history of other diseases of the nervous system and sense organs
CPT/HCPCS: 36415; 80053; 81003; 85027; 86780; 87811; C9803-CS; Q0162; U0003; U0005

== ENCOUNTER 2022-10-01 09:18 | Inpatient (IN) | payer OTHER ==
[2022-10-01 11:50] VITALS: BMI 22.8
[2022-10-01] MEDS ORDERED: IBUPROFEN 400 MG TABLET (FP) PO PRN (13:15)
[2022-10-01] MEDS ORDERED: MAG HYDROX/AL HYDROX/SIMETH 30 ML UNIT-DOSE CUP PO PRN (13:15)
[2022-10-01] MEDS ORDERED: NICOTINE 10 MG CARTRIDGE (INHALER) IH PRN (13:15)
[2022-10-01] MEDS ORDERED: MAGNESIUM HYDROX 2400MG/30ML ORAL SUSPENSION 30 ML CUP PO PRN (13:15)
[2022-10-01] MEDS ORDERED: ACETAMINOPHEN 325 MG TABLET (FP) PO PRN ×2 (13:15)
[2022-10-01] MEDS ORDERED: POLYETHYLENE GLYCOL (HEALTHYLAX) 3350 17 GM PACKET PO PRN (13:15)
[2022-10-01] MEDS ORDERED: LOPERAMIDE HCL 2 MG CAPSULE PO PRN (13:15)
[2022-10-01] MEDS ORDERED: BENZOCAINE/MENTHOL (CHLORASEPTIC ) LOZENGE MM PRN (13:15)
[2022-10-01] MEDS ORDERED: ONDANSETRON *ODT* 4 MG TABLET SL PRN (13:15)
[2022-10-01] MEDS ORDERED: hydrOXYzine PAMOATE 25 MG CAPSULE (FP) PO PRN (13:15)
[2022-10-01] MEDS ORDERED: DICYCLOMINE HCL 10 MG CAPSULE PO PRN (13:15)
[2022-10-01] MEDS ORDERED: NALOXONE HCL (KLOXXADO) 8 MG SPRAY NS PRN (13:15)
[2022-10-01] MEDS ORDERED: IBUPROFEN 600 MG TABLET (FP) PO PRN (13:15)
[2022-10-01] MEDS ORDERED: LORazepam 2 MG TABLET PO ONE (13:45)
[2022-10-01] MEDS ORDERED: LORazepam 2 MG TABLET ONE (13:54)
[2022-10-01] MEDS: PRENATAL VITAMINS W/ FOLIC ACID TABLET (FP) PO SCH (14:13)
[2022-10-01] MEDS: NICOTINE 7 MG/24 HOURS TOPICAL PATCH TD SCH (14:13)
[2022-10-01] MEDS: LORazepam 2 MG TABLET PO SCH ×2 (17:37→22:30)
[2022-10-01] MEDS: LORazepam 1 MG TABLET PO PRN (20:34)
[2022-10-01] MEDS: METHOCARBAMOL 500 MG TABLET PO PRN (20:34)
[2022-10-01] MEDS: MELATONIN 5 MG TABLETS PO SCH (22:29)
[2022-10-01] MEDS: THIAMINE HCL 100 MG TABLET (FP) PO SCH (22:29)
[2022-10-02] MEDS: PANTOPRAZOLE 40 MG TABLET PO SCH (05:30)
[2022-10-02] MEDS: LORazepam 2 MG TABLET PO SCH ×4 (05:30→22:14)
[2022-10-02] MEDS: LORazepam 1 MG TABLET PO PRN (08:30)
[2022-10-02] MEDS: PRENATAL VITAMINS W/ FOLIC ACID TABLET (FP) PO SCH (10:07)
[2022-10-02] MEDS: amLODIPine BESYLATE 5 MG TABLET (FP) PO SCH (10:07)
[2022-10-02] MEDS: NICOTINE 7 MG/24 HOURS TOPICAL PATCH TD SCH (10:08)
[2022-10-02 11:41] LABS: MCH 29.3 pg (25.7-33.7); MCHC 33.2 g/dl (32.0-35.9); MEAN CELL VOLUME 88.4 fl (80-96); MEAN PLT VOLUME 10.5 fl (7.5-11.1); PLATELET COUNT 42 10^3/uL (134-434); RDW 22.2 % (11.9-15.9); WHITE BLOOD COUNT 2.3 K/mm3 (4.0-10.0)
[2022-10-02 12:09] LABS: ALBUMIN 3.5 g/dl (3.4-5.0); BLOOD UREA NITROGEN 16.3 mg/dL (7-18)
[2022-10-02 12:10] LABS: CALCIUM 8.9 mg/dL (8.5-10.1)
[2022-10-02 12:14] LABS: BILIRUBIN,TOTAL 1.5 mg/dL (0.2-1); TOT PROT 7.8 g/dl (6.4-8.2)
[2022-10-02] MEDS: LACTULOSE 20 GM/30 ML UDC (FOR ORAL USE ONLY) PO SCH ×2 (15:33→22:14)
[2022-10-02] MEDS: METHOCARBAMOL 500 MG TABLET PO PRN (16:07)
[2022-10-02] MEDS: THIAMINE HCL 100 MG TABLET (FP) PO SCH (22:14)
[2022-10-02] MEDS: MELATONIN 5 MG TABLETS PO SCH (22:14)
[2022-10-03] MEDS: BISMUTH SUBSALICYLATE 524 MG/30 ML PO PRN ×2 (00:41→22:44)
[2022-10-03] MEDS: LORazepam 1 MG TABLET PO SCH ×4 (05:40→22:25)
[2022-10-03] MEDS: LACTULOSE 20 GM/30 ML UDC (FOR ORAL USE ONLY) PO SCH ×3 (05:41→22:42)
[2022-10-03] MEDS: PANTOPRAZOLE 40 MG TABLET PO SCH (05:41)
[2022-10-03] MEDS: amLODIPine BESYLATE 5 MG TABLET (FP) PO SCH (10:37)
[2022-10-03] MEDS: NICOTINE 7 MG/24 HOURS TOPICAL PATCH TD SCH (10:37)
[2022-10-03] MEDS: PRENATAL VITAMINS W/ FOLIC ACID TABLET (FP) PO SCH (10:37)
[2022-10-03] MEDS: METHOCARBAMOL 500 MG TABLET PO PRN (22:24)
[2022-10-03] MEDS: THIAMINE HCL 100 MG TABLET (FP) PO SCH (22:24)
[2022-10-03] MEDS: MELATONIN 5 MG TABLETS PO SCH (22:42)
[2022-10-04] MEDS ORDERED: LORazepam 0.5 MG TABLET PO PRN
[2022-10-04] MEDS: LACTULOSE 20 GM/30 ML UDC (FOR ORAL USE ONLY) PO SCH ×3 (05:21→22:06)
[2022-10-04] MEDS: LORazepam 0.5 MG TABLET PO SCH ×4 (05:22→22:07)
[2022-10-04] MEDS: PANTOPRAZOLE 40 MG TABLET PO SCH (05:22)
[2022-10-04] MEDS: PRENATAL VITAMINS W/ FOLIC ACID TABLET (FP) PO SCH (10:21)
[2022-10-04] MEDS: NICOTINE 7 MG/24 HOURS TOPICAL PATCH TD SCH (10:21)
[2022-10-04] MEDS: amLODIPine BESYLATE 5 MG TABLET (FP) PO SCH (10:22)
[2022-10-04] MEDS: MELATONIN 5 MG TABLETS PO SCH (22:06)
[2022-10-04] MEDS: THIAMINE HCL 100 MG TABLET (FP) PO SCH (22:07)
[2022-10-04] MEDS: METHOCARBAMOL 500 MG TABLET PO PRN (22:07)
[2022-10-05] MEDS ORDERED: LORazepam 0.5 MG TABLET PO ONE (05:00)
[2022-10-05] MEDS: PANTOPRAZOLE 40 MG TABLET PO SCH (05:59)
[2022-10-05] MEDS: LACTULOSE 20 GM/30 ML UDC (FOR ORAL USE ONLY) PO SCH (05:59)
[2022-10-05 10:00] VITALS: BP 131/89; PULSE 73; RESP 17; TEMP 98.4
[2022-10-05] MEDS: PRENATAL VITAMINS W/ FOLIC ACID TABLET (FP) PO SCH (10:34)
[2022-10-05] MEDS: amLODIPine BESYLATE 5 MG TABLET (FP) PO SCH (10:34)
[2022-10-05] MEDS: NICOTINE 7 MG/24 HOURS TOPICAL PATCH TD SCH (10:34)
== END 2022-10-05 10:16 | disposition home or self-care (01) | DRG 775 ==
LOC: YASAS 09:18 → Y3N 13:36
PROVIDERS: ADMIT Allergy & Immunology; ATTEND Surgery
PROC: HZ2ZZZZ Detoxification Services for Substance Abuse Treatment (ICD-10-PCS; principal; 2022-10-01)
DX: F10.230 Alcohol dependence with withdrawal, uncomplicated (principal); F17.210 Nicotine dependence, cigarettes, uncomplicated; D61.818 Other pancytopenia; E72.20 Disorder of urea cycle metabolism, unspecified; D50.9 Iron deficiency anemia, unspecified; E21.3 Hyperparathyroidism, unspecified; I10 Essential (primary) hypertension; K21.9 Gastro-esophageal reflux disease without esophagitis; K44.9 Diaphragmatic hernia without obstruction or gangrene; C14.0 Malignant neoplasm of pharynx, unspecified; Z87.19 Personal history of other diseases of the digestive system
CPT/HCPCS: 36415; 80053; 82140; 85027; 86780; C9803-CS; U0003; U0005

== ENCOUNTER 2023-01-07 12:26 | Inpatient (IN) | payer OTHER ==
[2023-01-07 13:11] VITALS: BMI 23.5
[2023-01-07] MEDS ORDERED: BENZONATATE 200 MG CAPSULE PO PRN (13:26)
[2023-01-07] MEDS ORDERED: ONDANSETRON *ODT* 4 MG TABLET SL PRN (13:26)
[2023-01-07] MEDS ORDERED: MAGNESIUM HYDROX 2400MG/30ML ORAL SUSPENSION 30 ML CUP PO PRN (13:26)
[2023-01-07] MEDS ORDERED: BISMUTH SUBSALICYLATE 524 MG/30 ML PO PRN (13:26)
[2023-01-07] MEDS ORDERED: IBUPROFEN 600 MG TABLET (FP) PO PRN (13:26)
[2023-01-07] MEDS ORDERED: DICYCLOMINE HCL 10 MG CAPSULE PO PRN (13:26)
[2023-01-07] MEDS ORDERED: LOPERAMIDE HCL 2 MG CAPSULE PO PRN (13:26)
[2023-01-07] MEDS ORDERED: IBUPROFEN 400 MG TABLET (FP) PO PRN (13:26)
[2023-01-07] MEDS ORDERED: NALOXONE HCL (KLOXXADO) 8 MG SPRAY NS PRN (13:26)
[2023-01-07] MEDS ORDERED: ACETAMINOPHEN 325 MG TABLET (FP) PO PRN (13:26)
[2023-01-07] MEDS ORDERED: chlordiazePOXIDE HCL 25 MG CAPSULE PO PRN (13:26)
[2023-01-07] MEDS ORDERED: NALOXONE HCL 0.4 MG/ML VIAL IM PRN (13:26)
[2023-01-07] MEDS ORDERED: guaiFENesin 600 MG TABLET.ER (FP) PO PRN (13:26)
[2023-01-07] MEDS ORDERED: BENZOCAINE/MENTHOL (CHLORASEPTIC ) LOZENGE MM PRN (13:26)
[2023-01-07] MEDS ORDERED: POLYETHYLENE GLYCOL (HEALTHYLAX) 3350 17 GM PACKET PO PRN (13:26)
[2023-01-07] MEDS ORDERED: NICOTINE 10 MG CARTRIDGE (INHALER) IH PRN (13:26)
[2023-01-07] MEDS ORDERED: LORazepam 1 MG TABLET PO PRN (13:39)
[2023-01-07 15:55] LABS: HEMATOCRIT 26.8 % (35.4-49); HEMOGLOBIN 9.2 GM/dL (11.7-16.9); MCH 29.3 pg (25.7-33.7); MCHC 34.1 g/dl (32.0-35.9); MEAN CELL VOLUME 85.8 fl (80-96); MEAN PLT VOLUME 8.8 fl (7.5-11.1); PLATELET COUNT 336 10^3/uL (134-434); RBC 3.13 M/mm3 (4.00-5.60); RDW 22.8 % (11.9-15.9); WHITE BLOOD COUNT 4.9 K/mm3 (4.0-10.0)
[2023-01-07] MEDS ORDERED: LORazepam 1 MG TABLET ONE (16:50)
[2023-01-07] MEDS: LORazepam 2 MG TABLET PO SCH ×2 (16:54→22:20)
[2023-01-07] MEDS ORDERED: chlordiazePOXIDE HCL 25 MG CAPSULE PO SCH (17:00)
[2023-01-07 17:19] LABS: POTASSIUM 3.7 mmol/L (3.5-5.1)
[2023-01-07 17:20] LABS: CALCIUM 8.9 mg/dL (8.5-10.1)
[2023-01-07 17:21] LABS: ALBUMIN 3.4 g/dl (3.4-5.0); BLOOD UREA NITROGEN 11.4 mg/dL (7-18)
[2023-01-07 17:24] LABS: CREATININE 1.2 mg/dL (0.55-1.3)
[2023-01-07 17:25] LABS: BILIRUBIN,TOTAL 0.3 mg/dL (0.2-1)
[2023-01-07 17:26] LABS: TOT PROT 7.3 g/dl (6.4-8.2)
[2023-01-07] MEDS: PRENATAL VITAMINS W/ FOLIC ACID TABLET (FP) PO SCH (17:57)
[2023-01-07] MEDS ORDERED: MELATONIN 5 MG TABLETS PO SCH (22:00)
[2023-01-07] MEDS: THIAMINE HCL 100 MG TABLET (FP) PO SCH (22:20)
[2023-01-07] MEDS: MAG HYDROX/AL HYDROX/SIMETH 30 ML UNIT-DOSE CUP PO PRN (22:21)
[2023-01-08] MEDS: LORazepam 2 MG TABLET PO SCH ×4 (05:33→22:31)
[2023-01-08] MEDS: PANTOPRAZOLE 40 MG TABLET PO SCH (05:36)
[2023-01-08] MEDS: NICOTINE 7 MG/24 HOURS TOPICAL PATCH TD SCH (10:16)
[2023-01-08] MEDS: amLODIPine BESYLATE 5 MG TABLET (FP) PO SCH (10:16)
[2023-01-08] MEDS: PRENATAL VITAMINS W/ FOLIC ACID TABLET (FP) PO SCH (10:16)
[2023-01-08] MEDS: hydrOXYzine PAMOATE 25 MG CAPSULE (FP) PO PRN (16:55)
[2023-01-08] MEDS: THIAMINE HCL 100 MG TABLET (FP) PO SCH (22:31)
[2023-01-08] MEDS: MELATONIN 5 MG TABLETS PO SCH (22:31)
[2023-01-08] MEDS: MAG HYDROX/AL HYDROX/SIMETH 30 ML UNIT-DOSE CUP PO PRN (22:34)
[2023-01-09] MEDS ORDERED: chlordiazePOXIDE HCL 25 MG CAPSULE PO SCH (05:00)
[2023-01-09] MEDS: PANTOPRAZOLE 40 MG TABLET PO SCH (05:36)
[2023-01-09] MEDS: LORazepam 1 MG TABLET PO SCH ×4 (05:37→22:04)
[2023-01-09] MEDS: PRENATAL VITAMINS W/ FOLIC ACID TABLET (FP) PO SCH (10:22)
[2023-01-09] MEDS: NICOTINE 7 MG/24 HOURS TOPICAL PATCH TD SCH (10:22)
[2023-01-09] MEDS: amLODIPine BESYLATE 5 MG TABLET (FP) PO SCH (10:22)
[2023-01-09] MEDS: hydrOXYzine PAMOATE 25 MG CAPSULE (FP) PO PRN ×2 (10:23→17:35)
[2023-01-09] MEDS: METHOCARBAMOL 500 MG TABLET PO PRN ×2 (10:23→22:05)
[2023-01-09] MEDS: MELATONIN 5 MG TABLETS PO SCH (22:03)
[2023-01-09] MEDS: THIAMINE HCL 100 MG TABLET (FP) PO SCH (22:04)
[2023-01-09] MEDS: MAG HYDROX/AL HYDROX/SIMETH 30 ML UNIT-DOSE CUP PO PRN (22:07)
[2023-01-10] MEDS ORDERED: chlordiazePOXIDE HCL 10 MG CAPSULE PO PRN
[2023-01-10] MEDS ORDERED: LORazepam 0.5 MG TABLET PO PRN
[2023-01-10] MEDS ORDERED: chlordiazePOXIDE HCL 10 MG CAPSULE PO SCH (05:00)
[2023-01-10] MEDS: LORazepam 0.5 MG TABLET PO SCH ×4 (05:33→22:14)
[2023-01-10] MEDS: PANTOPRAZOLE 40 MG TABLET PO SCH (05:33)
[2023-01-10] MEDS: METHOCARBAMOL 500 MG TABLET PO PRN ×2 (10:10→22:13)
[2023-01-10] MEDS: amLODIPine BESYLATE 5 MG TABLET (FP) PO SCH (10:10)
[2023-01-10] MEDS: hydrOXYzine PAMOATE 25 MG CAPSULE (FP) PO PRN ×2 (10:10→19:39)
[2023-01-10] MEDS: PRENATAL VITAMINS W/ FOLIC ACID TABLET (FP) PO SCH (10:10)
[2023-01-10] MEDS: NICOTINE 7 MG/24 HOURS TOPICAL PATCH TD SCH (10:12)
[2023-01-10] MEDS: FERROUS SO4 325 MG TABLET (FP) PO SCH (17:10)
[2023-01-10] MEDS: MELATONIN 5 MG TABLETS PO SCH (22:13)
[2023-01-10] MEDS: THIAMINE HCL 100 MG TABLET (FP) PO SCH (22:13)
[2023-01-10] MEDS: MAG HYDROX/AL HYDROX/SIMETH 30 ML UNIT-DOSE CUP PO PRN (22:16)
[2023-01-11] MEDS: MAG HYDROX/AL HYDROX/SIMETH 30 ML UNIT-DOSE CUP PO PRN ×2 (03:39→22:25)
[2023-01-11] MEDS ORDERED: chlordiazePOXIDE HCL 10 MG CAPSULE PO SCH (05:00)
[2023-01-11] MEDS ORDERED: LORazepam 0.5 MG TABLET PO ONE (05:00)
[2023-01-11] MEDS: PANTOPRAZOLE 40 MG TABLET PO SCH (05:28)
[2023-01-11] MEDS: FERROUS SO4 325 MG TABLET (FP) PO SCH ×2 (07:54→17:35)
[2023-01-11] MEDS: amLODIPine BESYLATE 5 MG TABLET (FP) PO SCH (10:47)
[2023-01-11] MEDS: NICOTINE 7 MG/24 HOURS TOPICAL PATCH TD SCH (10:47)
[2023-01-11] MEDS: PRENATAL VITAMINS W/ FOLIC ACID TABLET (FP) PO SCH (10:48)
[2023-01-11] MEDS: hydrOXYzine PAMOATE 25 MG CAPSULE (FP) PO PRN ×2 (13:24→22:24)
[2023-01-11] MEDS: MELATONIN 5 MG TABLETS PO SCH (22:23)
[2023-01-11] MEDS: THIAMINE HCL 100 MG TABLET (FP) PO SCH (22:24)
[2023-01-11] MEDS: METHOCARBAMOL 500 MG TABLET PO PRN (22:24)
[2023-01-12] MEDS ORDERED: chlordiazePOXIDE HCL 10 MG CAPSULE PO ONE (05:00)
[2023-01-12] MEDS: PANTOPRAZOLE 40 MG TABLET PO SCH (05:34)
[2023-01-12 06:44] VITALS: BP 133/69; PULSE 56; RESP 18; TEMP 98.4
== END 2023-01-12 07:23 | disposition home or self-care (01) | DRG 772 ==
LOC: YASAS 12:26 → Y6N 17:08
PROVIDERS: ADMIT Allergy & Immunology; ATTEND Surgery
PROC: HZ42ZZZ Group Counseling for Substance Abuse Treatment, Cognitive-Behavioral (ICD-10-PCS; principal; 2023-01-07)
DX: F10.230 Alcohol dependence with withdrawal, uncomplicated (principal); F12.20 Cannabis dependence, uncomplicated; F17.210 Nicotine dependence, cigarettes, uncomplicated; F10.282 Alcohol dependence with alcohol-induced sleep disorder; D50.9 Iron deficiency anemia, unspecified; I10 Essential (primary) hypertension; K21.9 Gastro-esophageal reflux disease without esophagitis; K76.0 Fatty (change of) liver, not elsewhere classified; R74.01 Elevation of levels of liver transaminase levels; R73.9 Hyperglycemia, unspecified; Z85.819 Personal history of malignant neoplasm of unspecified site of lip, oral cavity, and pharynx; Z87.19 Personal history of other diseases of the digestive system; Z59.01 Sheltered homelessness
CPT/HCPCS: 36415; 80053; 82140; 85027; 86780; 87635; Q0162

== ENCOUNTER 2023-12-23 10:03 | Inpatient (IN) | payer OTHER ==
[2023-12-23 11:42] VITALS: BMI 23.5
[2023-12-23] MEDS ORDERED: BISMUTH SUBSALICYLATE 262 MG/15 ML BTL PO PRN (12:42)
[2023-12-23] MEDS ORDERED: MAGNESIUM HYDROX 2400MG/30ML ORAL SUSPENSION 30 ML CUP PO PRN (12:42)
[2023-12-23] MEDS ORDERED: NALOXONE HCL 0.4 MG/ML VIAL IM PRN (12:42)
[2023-12-23] MEDS ORDERED: BENZONATATE 200 MG CAPSULE PO PRN (12:42)
[2023-12-23] MEDS ORDERED: BENZOCAINE/MENTHOL (CHLORASEPTIC ) LOZENGE MM PRN (12:42)
[2023-12-23] MEDS ORDERED: IBUPROFEN 400 MG TABLET (FP) PO PRN (12:42)
[2023-12-23] MEDS ORDERED: NICOTINE POLACRILEX 2 MG GUM BUC PRN (12:42)
[2023-12-23] MEDS ORDERED: NALOXONE HCL (KLOXXADO) 8 MG SPRAY NS PRN (12:42)
[2023-12-23] MEDS ORDERED: ONDANSETRON *ODT* 4 MG TABLET SL PRN (12:42)
[2023-12-23] MEDS ORDERED: ACETAMINOPHEN 325 MG TABLET (FP) PO PRN (12:42)
[2023-12-23] MEDS ORDERED: LOPERAMIDE HCL 2 MG CAPSULE PO PRN (12:42)
[2023-12-23] MEDS ORDERED: POLYETHYLENE GLYCOL (HEALTHYLAX) 3350 17 GM PACKET PO PRN (12:42)
[2023-12-23] MEDS ORDERED: DICYCLOMINE HCL 10 MG CAPSULE PO PRN (12:42)
[2023-12-23] MEDS ORDERED: guaiFENesin 600 MG TABLET.ER (FP) PO PRN (12:42)
[2023-12-23] MEDS: LORazepam 1 MG TABLET PO PRN (13:48)
[2023-12-23] MEDS: ASPIRIN 81 MG CHEWABLE TABLETS PO SCH (15:16)
[2023-12-23] MEDS: PRENATAL VITAMINS W/ FOLIC ACID TABLET (FP) PO SCH (15:16)
[2023-12-23] MEDS: LORazepam 2 MG TABLET PO SCH (17:21)
[2023-12-23] MEDS: METHOCARBAMOL 500 MG TABLET PO PRN (22:08)
[2023-12-23] MEDS: THIAMINE 100 MG TABLET PO SCH (22:08)
[2023-12-23] MEDS: MELATONIN 5 MG TABLETS PO SCH (22:08)
[2023-12-23] MEDS: MAG HYDROX/AL HYDROX/SIMETH 30 ML UNIT-DOSE CUP PO PRN (22:11)
[2023-12-24] MEDS: PANTOPRAZOLE 40 MG TABLET PO SCH ×2 (09:18→09:49)
[2023-12-24] MEDS: LISINOPRIL 20 MG TABLET PO SCH (09:19)
[2023-12-24] MEDS: ASCORBIC ACID 500 MG TABLET (FP) PO SCH (09:20)
[2023-12-24] MEDS: IBUPROFEN 600 MG TABLET (FP) PO PRN (12:50)
[2023-12-24] MEDS: MELATONIN 5 MG TABLETS PO SCH (22:01)
[2023-12-25] MEDS: LORazepam 1 MG TABLET PO SCH (06:01)
[2023-12-25] MEDS: hydrOXYzine PAMOATE 25 MG CAPSULE (FP) PO PRN (09:15)
[2023-12-26] MEDS ORDERED: LORazepam 0.5 MG TABLET PO PRN
[2023-12-26] MEDS: LORazepam 0.5 MG TABLET PO SCH (05:56)
[2023-12-27] MEDS: LORazepam 0.5 MG TABLET PO ONE (05:45)
[2023-12-27 09:33] VITALS: BP 115/70; PULSE 75; RESP 16; TEMP 97.1
== END 2023-12-27 10:22 | disposition home or self-care (01) | DRG 775 ==
LOC: YASAS 10:03 → Y6N 12:29
PROVIDERS: ADMIT Allergy & Immunology; ATTEND Surgery
PROC: HZ2ZZZZ Detoxification Services for Substance Abuse Treatment (ICD-10-PCS; principal; 2023-12-23)
DX: F10.230 Alcohol dependence with withdrawal, uncomplicated (principal); F17.210 Nicotine dependence, cigarettes, uncomplicated; F10.282 Alcohol dependence with alcohol-induced sleep disorder; I10 Essential (primary) hypertension; I48.91 Unspecified atrial fibrillation; K21.9 Gastro-esophageal reflux disease without esophagitis; K76.0 Fatty (change of) liver, not elsewhere classified; Z87.19 Personal history of other diseases of the digestive system; Z85.818 Personal history of malignant neoplasm of other sites of lip, oral cavity, and pharynx; Z92.3 Personal history of irradiation
CPT/HCPCS: 80305; 93005; 93010

== ENCOUNTER 2024-01-25 19:31 | Inpatient (IN) | payer OTHER ==
[2024-01-25 20:20] VITALS: BMI 21.9
[2024-01-25] MEDS ORDERED: MAGNESIUM HYDROX 2400MG/30ML ORAL SUSPENSION 30 ML CUP PO PRN (20:22)
[2024-01-25] MEDS ORDERED: BENZONATATE 200 MG CAPSULE PO PRN (20:22)
[2024-01-25] MEDS ORDERED: NALOXONE (NARCAN) HCL 4 MG/0.1 ML SPRAY NS PRN (20:22)
[2024-01-25] MEDS ORDERED: POLYETHYLENE GLYCOL (HEALTHYLAX) 3350 17 GM PACKET PO PRN (20:22)
[2024-01-25] MEDS ORDERED: ONDANSETRON *ODT* 4 MG TABLET SL PRN (20:22)
[2024-01-25] MEDS ORDERED: NALOXONE HCL 0.4 MG/ML VIAL IM PRN (20:22)
[2024-01-25] MEDS ORDERED: guaiFENesin 600 MG TABLET.ER (FP) PO PRN (20:22)
[2024-01-25] MEDS ORDERED: BENZOCAINE/MENTHOL (CHLORASEPTIC ) LOZENGE MM PRN (20:22)
[2024-01-25] MEDS ORDERED: NICOTINE POLACRILEX 4 MG GUM BUC PRN (20:22)
[2024-01-25] MEDS ORDERED: hydrOXYzine PAMOATE 25 MG CAPSULE (FP) PO PRN (20:22)
[2024-01-25] MEDS ORDERED: DICYCLOMINE HCL 10 MG CAPSULE PO PRN (20:22)
[2024-01-25] MEDS ORDERED: LOPERAMIDE HCL 2 MG CAPSULE PO PRN (20:22)
[2024-01-25] MEDS: THIAMINE 100 MG TABLET PO SCH (22:38)
[2024-01-25] MEDS: MELATONIN 5 MG TABLETS PO SCH (22:39)
[2024-01-25] MEDS: chlordiazePOXIDE HCL 25 MG CAPSULE PO SCH (22:39)
[2024-01-25] MEDS: MAG HYDROX/AL HYDROX/SIMETH 30 ML UNIT-DOSE CUP PO PRN (22:41)
[2024-01-26] MEDS: FAMOTIDINE 40 MG TABLET PO SCH (06:13)
[2024-01-26] MEDS: PRENATAL VITAMINS W/ FOLIC ACID TABLET (FP) PO SCH (09:30)
[2024-01-26] MEDS: NICOTINE 14 MG/24 HOURS TOPICAL PATCH TD SCH (09:30)
[2024-01-26] MEDS: ASPIRIN 81 MG CHEWABLE TABLETS PO SCH (09:30)
[2024-01-26] MEDS: LISINOPRIL 20 MG TABLET PO SCH (09:30)
[2024-01-26] MEDS ORDERED: FAMOTIDINE 40 MG TABLET PO SCH (10:00)
[2024-01-26 12:58] LABS: HEMATOCRIT 34.9 % (35.4-49); HEMOGLOBIN 11.3 GM/dL (11.7-16.9); MCH 29.6 pg (25.7-33.7); MCHC 32.5 g/dl (32.0-35.9); MEAN CELL VOLUME 91.1 fl (80-96); MEAN PLT VOLUME 8.8 fl (7.5-11.1); PLATELET COUNT 96 10^3/uL (134-434); RBC 3.83 M/mm3 (4.00-5.60); RDW 17.8 % (11.9-15.9); WHITE BLOOD COUNT 3.8 K/mm3 (4.0-10.0)
[2024-01-26 13:04] LABS: POTASSIUM 3.9 mmol/L (3.5-5.1)
[2024-01-26 13:16] LABS: ALBUMIN 3.7 g/dl (3.4-5.0); BLOOD UREA NITROGEN 8.6 mg/dL (7-18); CALCIUM 9.3 mg/dL (8.5-10.1)
[2024-01-26 13:18] LABS: CREATININE 0.9 mg/dL (0.55-1.3)
[2024-01-26 13:20] LABS: BILIRUBIN,TOTAL 0.8 mg/dL (0.2-1); TOT PROT 7.4 g/dl (6.4-8.2)
[2024-01-26] MEDS: IBUPROFEN 600 MG TABLET (FP) PO PRN (14:38)
[2024-01-26] MEDS: chlordiazePOXIDE HCL 25 MG CAPSULE PO PRN (14:39)
[2024-01-26] MEDS: MELATONIN 5 MG TABLETS PO SCH (22:11)
[2024-01-27] MEDS: FAMOTIDINE 20 MG TABLET PO SCH (05:23)
[2024-01-27] MEDS: chlordiazePOXIDE HCL 25 MG CAPSULE PO SCH (05:23)
[2024-01-27] MEDS: IBUPROFEN 400 MG TABLET (FP) PO PRN (14:48)
[2024-01-27] MEDS: ACETAMINOPHEN 325 MG TABLET (FP) PO PRN (17:15)
[2024-01-28] MEDS ORDERED: chlordiazePOXIDE HCL 10 MG CAPSULE PO PRN
[2024-01-28] MEDS: chlordiazePOXIDE HCL 10 MG CAPSULE PO SCH (05:14)
[2024-01-28] MEDS: BISMUTH SUBSALICYLATE 524 MG/30 ML PO PRN (22:51)
[2024-01-29] MEDS: chlordiazePOXIDE HCL 10 MG CAPSULE PO SCH (05:27)
[2024-01-29 05:59] VITALS: RESP 16
[2024-01-29 09:12] VITALS: BP 128/86; PULSE 68; TEMP 97.7
[2024-01-30] MEDS ORDERED: chlordiazePOXIDE HCL 10 MG CAPSULE PO ONE (05:00)
== END 2024-01-29 10:33 | disposition home or self-care (01) | DRG 775 ==
LOC: YASAS 19:31 → Y3N 22:25
PROVIDERS: ADMIT Allergy & Immunology; ATTEND Surgery
PROC: HZ2ZZZZ Detoxification Services for Substance Abuse Treatment (ICD-10-PCS; principal; 2024-01-25)
DX: F10.230 Alcohol dependence with withdrawal, uncomplicated (principal); F17.210 Nicotine dependence, cigarettes, uncomplicated; F10.282 Alcohol dependence with alcohol-induced sleep disorder; F10.24 Alcohol dependence with alcohol-induced mood disorder; I10 Essential (primary) hypertension; K21.9 Gastro-esophageal reflux disease without esophagitis; Z87.19 Personal history of other diseases of the digestive system; Z85.819 Personal history of malignant neoplasm of unspecified site of lip, oral cavity, and pharynx
CPT/HCPCS: 36415; 80053; 80305; 80307; 85027; 86780; 93005; 93010

== ENCOUNTER 2024-05-02 16:39 | Inpatient (IN) | payer OTHER ==
[2024-05-02 16:53] VITALS: BMI 18.8
[2024-05-02] MEDS ORDERED: ACETAMINOPHEN INJECTION 100 ML ONE (17:48)
[2024-05-02] MEDS ORDERED: MAG HYDROX/AL HYDROX/SIMETH 30 ML UNIT-DOSE CUP ONE (17:48)
[2024-05-02] MEDS ORDERED: FAMOTIDINE 20 MG/50 ML IVPB 20 MG/50 ML MG IVPB ONE (17:48)
[2024-05-02] MEDS: SODIUM CHLORIDE 0.9% 500 ML INFUS.BAG IV ONE (17:57)
[2024-05-02] MEDS: ACETAMINOPHEN 1000 MG/100 ML BAG IVPB ONE (17:57)
[2024-05-02] MEDS: MAG HYDROX/AL HYDROX/SIMETH 30 ML UNIT-DOSE CUP PO ONE (17:57)
[2024-05-02] MEDS: FAMOTIDINE 20 MG/50 ML IVPB 20 MG/50 ML MG IVPB ONE (17:57)
[2024-05-02 18:09] LABS: HEMATOCRIT 31.7 % (35.4-49); HEMOGLOBIN 10.9 GM/dL (11.7-16.9); MCHC 34.4 g/dl (32.0-35.9); MEAN CELL VOLUME 92.9 fl (80-96); MEAN PLT VOLUME 7.7 fl (7.5-11.1); PLATELET COUNT 157 10^3/uL (134-434); RBC 3.41 M/mm3 (4.00-5.60); RDW 14.8 % (11.9-15.9); WHITE BLOOD COUNT 3.9 K/mm3 (4.0-10.0)
[2024-05-02 18:22] LABS: INR 0.96 (0.83-1.09)
[2024-05-02 18:25] LABS: ACTIVATED PTT 22.4 SECONDS (25.2-36.5)
[2024-05-02 18:35] LABS: POTASSIUM 3.1 mmol/L (3.5-5.1)
[2024-05-02 18:37] LABS: CALCIUM 11.7 mg/dL (8.5-10.1)
[2024-05-02 18:38] LABS: ALBUMIN 3.1 g/dl (3.4-5.0); BLOOD UREA NITROGEN 14.6 mg/dL (7-18)
[2024-05-02 18:40] LABS: CREATININE 0.8 mg/dL (0.55-1.3)
[2024-05-02 18:42] LABS: TOT PROT 6.8 g/dl (6.4-8.2)
[2024-05-02 19:23] LABS: PH,URINE 6.5 (5.0-8.0); URINE APPEARANCE CLEAR; URINE BILIRUBIN 2+ (NEGATIVE); URINE COLOR DK YELLOW; URINE GLUCOSE (UA) NEGATIVE (NEGATIVE); URINE KETONE TRACE (NEGATIVE); URINE LEUK ESTERASE NEGATIVE (NEGATIVE); URINE NITRITE NEGATIVE (NEGATIVE); URINE PROTEIN TRACE (NEGATIVE)
[2024-05-02] MEDS ORDERED: MAGNESIUM SULFATE IN WATER 2 GM/50 ML IVPB IVPB ONE (19:24)
[2024-05-02] MEDS ORDERED: POTASSIUM CHLORIDE ORAL LIQUID 20 MEQ/15 ML ONE (19:24)
[2024-05-02] MEDS: POTASSIUM CHLORIDE ORAL LIQUID 20 MEQ/15 ML PO ONE (19:32)
[2024-05-02] MEDS ORDERED: PANTOPRAZOLE 40 MG TABLET PO ONE (19:37)
[2024-05-02] MEDS: PANTOPRAZOLE 40 MG TABLET PO ONE (19:47)
[2024-05-02] MEDS: MAGNESIUM SULFATE IN WATER 2 GM/50 ML IVPB IVPB ONE (20:05)
[2024-05-02 22:12] LABS: MACROCYTOSIS 0
[2024-05-03] MEDS: SODIUM CHLORIDE 1,000 ML IV SCH (04:22)
[2024-05-03 05:16] LABS: BILIRUBIN,DIRECT 1.1 mg/dL (0.0-0.2)
[2024-05-03] MEDS ORDERED: LORazepam 1 MG TABLET PO PRN (05:40)
[2024-05-03] MEDS: FOLIC ACID INJECTION - 1 MG, THIAMINE HCL 100 MG, MULTIVIT INJECTION ADULT 10 ML in SOD... IVPB ONE (06:30)
[2024-05-03 07:40] LABS: HEMATOCRIT 26.4 % (35.4-49); HEMOGLOBIN 8.9 GM/dL (11.7-16.9); MCH 31.8 pg (25.7-33.7); MCHC 33.8 g/dl (32.0-35.9); MEAN CELL VOLUME 94.1 fl (80-96); MEAN PLT VOLUME 7.5 fl (7.5-11.1); PLATELET COUNT 135 10^3/uL (134-434); RBC 2.81 M/mm3 (4.00-5.60); RDW 14.8 % (11.9-15.9); WHITE BLOOD COUNT 3.2 K/mm3 (4.0-10.0)
[2024-05-03 08:01] LABS: CHLORIDE 86 mmol/L (98-107); POTASSIUM 3.1 mmol/L (3.5-5.1); SODIUM 132 mmol/L (136-145)
[2024-05-03 08:03] LABS: ALBUMIN 2.7 g/dl (3.4-5.0); ANION GAP 7 mmol/L (4-13); CO2 40 mmol/L (21-32); GLUCOSE,RANDOM 91 mg/dL (74-106)
[2024-05-03 08:04] LABS: BLOOD UREA NITROGEN 14.9 mg/dL (7-18); MAGNESIUM 1.6 mg/dL (1.8-2.4)
[2024-05-03 08:06] LABS: CREATININE 0.7 mg/dL (0.55-1.3); SGPT/ALT 93 U/L (13-61)
[2024-05-03 08:07] LABS: SGOT/AST 191 U/L (15-37)
[2024-05-03 08:08] LABS: BILIRUBIN,TOTAL 1.8 mg/dL (0.2-1); TOT PROT 5.9 g/dl (6.4-8.2)
[2024-05-03 08:09] LABS: ALK PHOS 146 U/L (45-117)
[2024-05-03 09:05] LABS: CALCIUM 9.6 mg/dL (8.5-10.1); PHOSPHOROUS 0.5 mg/dL (2.5-4.9)
[2024-05-03] MEDS: THIAMINE 100 MG TABLET PO SCH (10:25)
[2024-05-03] MEDS: FOLIC ACID 1 MG TABLET (FP) PO SCH (10:25)
[2024-05-03] MEDS: ENOXAPARIN NA (PORCINE) 40 MG/0.4 ML DISP.SYRIN SQ SCH (10:25)
[2024-05-03] MEDS: MAGNESIUM SULFATE IN WATER 2 GM/50 ML IVPB IVPB ONE (11:18)
[2024-05-03] MEDS: NAPH,MB-DB/K PH,MBDB POWDER PACKET PO SCH (11:20)
[2024-05-03] MEDS: KETOROLAC TROMETHAMINE 15 MG/ML VIAL IVPUSH PRN (12:11)
[2024-05-03] MEDS: SODIUM PHOSPHATE - 20 MM in DEXTROSE 5%-WATER - 500 ML IVPB ONE (12:49)
[2024-05-03] MEDS: POLYETHYLENE GLYCOL (HEALTHYLAX) 3350 17 GM PACKET PO PRN (18:30)
[2024-05-04 09:21] LABS: HEMATOCRIT 24.3 % (35.4-49); HEMOGLOBIN 8.2 GM/dL (11.7-16.9); MCH 31.7 pg (25.7-33.7); MCHC 33.7 g/dl (32.0-35.9); MEAN CELL VOLUME 94.3 fl (80-96); PLATELET COUNT 141 10^3/uL (134-434); RBC 2.57 M/mm3 (4.00-5.60); RDW 14.5 % (11.9-15.9); WHITE BLOOD COUNT 2.7 K/mm3 (4.0-10.0)
[2024-05-04 09:27] LABS: CALCIUM 8.8 mg/dL (8.5-10.1); CHLORIDE 95 mmol/L (98-107); SODIUM 138 mmol/L (136-145)
[2024-05-04 09:28] LABS: CO2 41 mmol/L (21-32); GLUCOSE,RANDOM 94 mg/dL (74-106)
[2024-05-04 09:30] LABS: MAGNESIUM 1.8 mg/dL (1.8-2.4)
[2024-05-04 09:31] LABS: ANION GAP 1 mmol/L (4-13); CREATININE 0.6 mg/dL (0.55-1.3); POTASSIUM 2.8 mmol/L (3.5-5.1)
[2024-05-04 09:34] LABS: PHOSPHOROUS 0.7 mg/dL (2.5-4.9)
[2024-05-04] MEDS: LORazepam 2 MG/ML SDV VIAL IVPUSH PRN (09:50)
[2024-05-04] MEDS: PANTOPRAZOLE 40 MG TABLET PO SCH (09:50)
[2024-05-04] MEDS: CYANOCOBALAMIN (VITAMIN B-12) 100 MCG TABLET PO SCH (11:37)
[2024-05-04] MEDS: LACTATED RINGERS SOLUTION 1,000 ML/1,000 ML INFUS.BAG IV SCH (11:37)
[2024-05-04] MEDS: MULTIVITAMINS (DAILY MVI) TABLET (FP) PO SCH (11:37)
[2024-05-04] MEDS: POTASSIUM CHLORIDE ORAL LIQUID 20 MEQ/15 ML PO SCH (11:37)
[2024-05-04] MEDS: SODIUM PHOSPHATE - 30 MM in DEXTROSE 5%-WATER - 500 ML IVPB ONE (12:16)
[2024-05-04 21:39] LABS: CHLORIDE 96 mmol/L (98-107); POTASSIUM 2.8 mmol/L (3.5-5.1); SODIUM 140 mmol/L (136-145)
[2024-05-04 21:45] LABS: ANION GAP 4 mmol/L (4-13); BLOOD UREA NITROGEN 15.3 mg/dL (7-18); CALCIUM 8.8 mg/dL (8.5-10.1); CO2 40 mmol/L (21-32); GLUCOSE,RANDOM 115 mg/dL (74-106)
[2024-05-04 21:48] LABS: CREATININE 0.7 mg/dL (0.55-1.3)
[2024-05-04] MEDS: KCL 10 MEQ IVPB 10 MEQ/100 ML INFUS.BAG IVPB SCH (23:35)
[2024-05-05 10:36] LABS: HEMATOCRIT 24.9 % (35.4-49); HEMOGLOBIN 8.5 GM/dL (11.7-16.9); MCH 32.4 pg (25.7-33.7); MCHC 34.2 g/dl (32.0-35.9); MEAN CELL VOLUME 94.6 fl (80-96); MEAN PLT VOLUME 7.6 fl (7.5-11.1); PLATELET COUNT 173 10^3/uL (134-434); RBC 2.64 M/mm3 (4.00-5.60); RDW 14.7 % (11.9-15.9)
[2024-05-05 10:59] LABS: CHLORIDE 99 mmol/L (98-107); SODIUM 138 mmol/L (136-145)
[2024-05-05 11:01] LABS: BLOOD UREA NITROGEN 12.5 mg/dL (7-18); CALCIUM 8.9 mg/dL (8.5-10.1); CO2 35 mmol/L (21-32); GLUCOSE,RANDOM 126 mg/dL (74-106); MAGNESIUM 1.2 mg/dL (1.8-2.4)
[2024-05-05 11:03] LABS: ANION GAP 4 mmol/L (4-13); POTASSIUM 2.9 mmol/L (3.5-5.1)
[2024-05-05 11:05] LABS: CREATININE 0.5 mg/dL (0.55-1.3)
[2024-05-05] MEDS ORDERED: POTASSIUM CHLORIDE TABS 10 MEQ TABLET.ER (FP) PO SCH (11:45)
[2024-05-05] MEDS: SODIUM CHLORIDE 1,000 ML IV SCH (13:03)
[2024-05-05] MEDS: LORazepam 2 MG/ML SDV VIAL IVPUSH PRN (13:06)
[2024-05-05] MEDS: MAGNESIUM SULFATE IN WATER 2 GM/50 ML IVPB IVPB ONE (13:07)
[2024-05-05] MEDS: KCL 10 MEQ IVPB 10 MEQ/100 ML INFUS.BAG IVPB SCH (13:13)
[2024-05-05] MEDS: NAPH,MB-DB/K PH,MBDB POWDER PACKET PO ONE (13:17)
[2024-05-05] MEDS: POTASSIUM CHLORIDE ORAL LIQUID 20 MEQ/15 ML PO SCH (13:17)
[2024-05-06 08:41] LABS: POTASSIUM 3.4 mmol/L (3.5-5.1)
[2024-05-06 08:52] LABS: BLOOD UREA NITROGEN 15.6 mg/dL (7-18); CALCIUM 8.8 mg/dL (8.5-10.1)
[2024-05-06 08:53] LABS: MAGNESIUM 1.6 mg/dL (1.8-2.4)
[2024-05-06 08:56] LABS: CREATININE 0.6 mg/dL (0.55-1.3)
[2024-05-06] MEDS: MAGNESIUM SULF 50% (8.12 MEQ/2 ML-1 GM VIAL) IVPB ONE (10:54)
[2024-05-06] MEDS: POTASSIUM CHLORIDE ORAL LIQUID 20 MEQ/15 ML PO ONE (10:56)
[2024-05-06] MEDS: MELATONIN 1 MG TABLET PO ONE ×2 (13:26→22:34)
[2024-05-06] MEDS: LORazepam 1 MG TABLET PO PRN (17:24)
[2024-05-07 07:17] LABS: HEMATOCRIT 22.5 % (35.4-49); HEMOGLOBIN 7.5 GM/dL (11.7-16.9); MCH 32.1 pg (25.7-33.7); MCHC 33.2 g/dl (32.0-35.9); MEAN CELL VOLUME 96.5 fl (80-96); MEAN PLT VOLUME 7.5 fl (7.5-11.1); PLATELET COUNT 196 10^3/uL (134-434); RBC 2.33 M/mm3 (4.00-5.60); RDW 14.9 % (11.9-15.9); WHITE BLOOD COUNT 4.9 K/mm3 (4.0-10.0)
[2024-05-07 07:48] LABS: POTASSIUM 3.7 mmol/L (3.5-5.1)
[2024-05-07 07:50] LABS: ALBUMIN 2.4 g/dl (3.4-5.0); CALCIUM 8.7 mg/dL (8.5-10.1)
[2024-05-07 07:51] LABS: BLOOD UREA NITROGEN 12.2 mg/dL (7-18); MAGNESIUM 1.4 mg/dL (1.8-2.4)
[2024-05-07 07:54] LABS: CREATININE 0.6 mg/dL (0.55-1.3)
[2024-05-07 07:55] LABS: BILIRUBIN,TOTAL 0.8 mg/dL (0.2-1); TOT PROT 5.3 g/dl (6.4-8.2)
[2024-05-07 08:00] LABS: PHOSPHOROUS 2.3 mg/dL (2.5-4.9)
[2024-05-07] MEDS: MAGNESIUM 2GM/50ML STERILE WATER IVPB IVPB ONE (09:56)
[2024-05-07] MEDS: ACETAMINOPHEN 325 MG TABLET (FP) PO PRN (14:34)
[2024-05-07] MEDS: MAG HYDROX/AL HYDROX/SIMETH 30 ML UNIT-DOSE CUP PO ONE (16:12)
[2024-05-07 22:58] VITALS: RESP 18; TEMP 98.2
[2024-05-08 07:52] VITALS: BP 102/70; PULSE 70
[2024-05-08 08:55] LABS: HEMATOCRIT 25.1 % (35.4-49); HEMOGLOBIN 8.4 GM/dL (11.7-16.9); MCHC 33.3 g/dl (32.0-35.9); MEAN PLT VOLUME 7.5 fl (7.5-11.1); PLATELET COUNT 230 10^3/uL (134-434); RBC 2.62 M/mm3 (4.00-5.60); RDW 15.6 % (11.9-15.9); WHITE BLOOD COUNT 4.7 K/mm3 (4.0-10.0)
[2024-05-08 09:20] LABS: POTASSIUM 4.1 mmol/L (3.5-5.1)
[2024-05-08 09:23] LABS: ALBUMIN 2.7 g/dl (3.4-5.0); BLOOD UREA NITROGEN 11.8 mg/dL (7-18)
[2024-05-08 09:25] LABS: MAGNESIUM 1.7 mg/dL (1.8-2.4)
[2024-05-08 09:26] LABS: CREATININE 0.6 mg/dL (0.55-1.3)
[2024-05-08 09:27] LABS: TOT PROT 5.9 g/dl (6.4-8.2)
== END 2024-05-08 14:26 | DRG 775 ==
LOC: JER 16:39 → JERBED 05-03 04:21 → J7W 05-03 08:32
PROVIDERS: ADMIT Student in an Organized Health Care Education/Training Program; ATTEND Internal Medicine
PROC: HZ2ZZZZ Detoxification Services for Substance Abuse Treatment (ICD-10-PCS; principal; 2024-05-02)
DX: F10.239 Alcohol dependence with withdrawal, unspecified (principal); E46 Unspecified protein-calorie malnutrition; E83.39 Other disorders of phosphorus metabolism; E83.42 Hypomagnesemia; E87.1 Hypo-osmolality and hyponatremia; E87.6 Hypokalemia; I10 Essential (primary) hypertension; E78.5 Hyperlipidemia, unspecified; Z68.1 Body mass index [BMI] 19.9 or less, adult
CPT/HCPCS: 36415; 71045-TC-FY; 74177-TC; 76705-TC; 80048; 80053; 80061; 81003; 82248; 82607; 82728; 82747; 83036; 83540; 83550; 83690; 83735; 84100; 84252; 84443; 84484; 85014; 85025; 85027; 85610; 85730; 86850; 86900; 86901; 87077; 87086; 93005; 93010; 97116-GP; 97162-GP; 99285-25; J0131; Q9967